=== PATIENT | male | born 1950 | race Caucasian/White ===

== ENCOUNTER → 2017-07-31 | Day surgery (SDC) | payer BC, OTHER ==
[2017-07-28 08:23] VITALS: BMI 25.0
[~2017-07-31] VITALS: Ht 177.8 cm; Wt 79.5 kg
[~2017-07-31] MED LIST: ALBUTEROL 0.083% NEBU SOLN 3 ML VIAL INH STA; ASPI81TA28 PO; ATROPINE SULFATE 0.1 MG/ML 5ML SYR IV PRN; DEXAMETHASONE SOD INJ 4 MG/ML VIAL ONE; EpHEDrine SULFATE INJ 50 MG/ML AMP IV PRN; EpHEDrine SULFATE INJ 50 MG/ML AMP ONE; FENTANYL CITRATE INJ 50 MCG/1 ML 2 ML VIAL ONE; FLM4 PO; FLUMAZENIL 0.1 MG/1 ML 10 ML VIAL IV PRN; LABETALOL HCL IV 5 MG/ML 20ML IV PRN; LACTATED RINGER'S 1000ML 1,000 ML IV SCH; LARYING-O-JET KIT (LTA) ONE; LEVO-519 PO; LIDOCAINE HCL 2% 2 ML VIAL (20MG/ML) ONE; LVNIS80 SQ; MIDAZOLAM HCL 1 MG/ML 2ML VIAL ONE; MIRT15TA53 PO; NALOXONE HCL 0.4 MG/1 ML VIAL/CARP IV PRN; ONDANSETRON INJ 2 MG/ML 2 ML VIAL IV PRN; ONDANSETRON INJ 2 MG/ML 2 ML VIAL ONE; PHENYLEPHRINE HCL INJ 10 MG/ML VIAL ONE; PROMETHAZINE HCL INJ 12.5 MG in SODIUM CHLORIDE 0.9% 50ML 50 ML IV PRN; PROPOFOL IV EMULSION 10 MG/ML 20 ML VIAL IV ONE; SUCCINYLCHOLINE CHLORIDE 20 MG/ML 10 ML VIAL IV ONE; VNTHFA/IN
--- NOTE | 2017-07-31 09:33 | History and Physical ---
History & Physical Date of Service Jul 31, 2017. History & Physical Reason for Visit: Endobronchial Ultrasound with Electronavigational bronchoscopic evaluation of RUL spiculated mass surrounded by groudglass opacities HPI: Patient is a 66 yo male with approximately 100 pack-year history along with history of squamous cell oropharyngeal cancer s/p chemoradiation in 2003, PVD on plavix, hypercholesterolemia, and recent diagnosis of a RUL spiculated mass surrounded by groudglass opacities. Patient was admitted to [facility] for concern of pulmonary embolism on 07/25/[address] Magdalene Larios. Prior to admission , the patient was treated with multiple courses of antibiotics due to concern for pneumonia on CXRs, but his symptoms did not improve which prompted CT of the chest. CT of the chest on 07/21/17 which showed thrombus in the proximal LLL pulmonary artery and RUL mass/ground glass opacity. The patient had recently experienced unintentional 10 lb weight loss as well prior to admission. He has been complaining of whitish colored sputum but no fever, chills, chest pain, shortness of breath, hemoptysis, lower extremity edema, orthopnea or paroxysmal nocturnal dyspnea. He denies any recent travel or sick contacts. He does have some difficulty swallowing solids foods which often gets stuck in his throat. PMHx: Squamous cell carcinoma of the oropharynx, tobacco use disorder, peripheral vascular disease Past Surgical Hx: Tonsilloadenoidectomy in childhood Family Hx: CAD Social Hx: 100 pack year history of tobacco smoking Daily alcohol use Retired Allergies: Naproxen, Nicotine (nicotine patch caused rash) Current Medications: Mirtazapine 15 mg PO HS, Plavix 75 mg PO QAM, Tamsulosin 0.4 mg daily, Synthroid 137 mcg PO QAM Physical Exam: General: Patient is awake, alert, cooperative, and in no acute distress. Thin Head: Normocephalic, Atraumatic. ENT: PERRLA, No discharge, EOMI, Sclera normal Neck: Normal ROM. Trachea midline. No stridor Respiratory: No respiratory distress. No accessory muscle use. Cardiovascular: Regular rate and rhythm. Back: Normal inspection. Extremities: No edema, cyanosis. Normal ROM Neuro: Alert, Oriented x 3. CN II-XII grossly intact. Sensation and motor function grossly intact. Psych: Mood and affect are normal. Assessment and Plan: Patient with history of oropharyngeal squamous cell CA s/p chemoradiation tx in 2003, 100 pack year history of tobacco smoking, and new RUL spiculated mass with groudglass opacity in the surrounding area. Plan for RUL EBUS w/ ENB today for diagnostic evaluation.
[2017-07-31 09:49] VITALS: BP 163/72; PULSE 72; TEMP 36.6; O2SAT 98; Ht 177.8 cm; Wt 79.5 kg
--- NOTE | 2017-07-31 10:53 | History & Physical Bridge Note ---
H&P Re-Evaluation Bridge Note: I have examined the patient, reviewed the History & Physical and in the interval since the performance of the History & Physical I have noted the following changes of clinical significance: No changes noted
--- NOTE | 2017-07-31 14:08 | Bronchoscopy Procedure Note ---
Bronchoscopy Procedure Note Procedure: Flexible-Bronchoscopy, EBUS, FNA, Tbbx, BAL Consent: Obtained through the patient placed into the chart Pre-Procedural Dx: Right upper lobe mass with mediastinal adenopathy Post-Procedural Dx: Right upper lobe mass with mediastinal adenopathy Analgesia: GETA Sedation: GETA Procedure: The Olympus video bronchoscope and EBUS scope were used for this procedure Initially the flexible bronchoscope was used for evaluation of the airways. The ET tube was notably 6 cm above the level of the yuridia. Trachea: Visualized portion of the trachea was anatomically within normal limits Yuridia: Anatomically within normal limits Right bronchial tree: Right mainstem bronchus: Anatomically within normal limits Right upper lobe: RB3 subsegment notable necrotic/hypervascular tissue coming out of the subsegment, mild hypervascularity around the takeoff to the right upper lobe Bronchus intermedius: Anatomically within normal limits Right middle lobe: Anatomically within normal limits Right lower lobe: Anatomically within normal limits Findings: Notable necrotic/tumor material coming out of the RB3 subsegment diffuse mucus appreciates wall subsegment's Left bronchial tree: Left mainstem bronchus: Anatomically within normal limits Left upper lobe: Anatomically within normal limits Lingula: Anatomically within normal limits Left lower lobe: Anatomically within normal limits Findings: Diffuse mucous appreciated 12 subsegment's EBUS/ELIESER: FNA Bo Stations: 7: # of passes 3 4R: # of passes 3 11L: # of passes 3 Tbbx: RB3 subsegment BAL: RB3 subsegment EBL: 2 Complications: None Follow-up: PACU
--- NOTE | 2017-07-31 14:09 | Discharge Instructions ---
Discharge Instructions Date of Service Jul 31, 2017. Admission Reason for Admission: Left Lung Nodule, Lung Mass Discharge Discharge Diagnosis / Problem: right upper lobe mass with mediastinal adenopathy Discharge Goals Goal(s): Diagnostic testing Activity Recommendations Activity Limitations: resume your previous activity . Instructions / Follow-Up Instructions / Follow-Up Follow-up in the [facility] pulmonary division Current Hospital Diet Patient's current hospital diet: Regular Diet Discharge Diet Recommended Diet: Regular Diet Procedures Procedures Performed: Flexible Bronchoscopy, Endobronchial Ultrasound Guided Biopsy; forcep biopsy, bronchial lavage and fine needle aspiration Pending Studies Studies pending at discharge: no Medical Emergencies . Who to Call and When: Medical Emergencies: If at any time you feel your situation is an emergency, please call 911 immediately. . Non-Emergent Contact Non-Emergency issues call your: [employer] . . "Provider Documentation" section prepared by Rome Soni. . VTE Core Measure Inpt VTE Proph given/why not?: Treatment not indicated
[2017-07-31 14:37] VITALS: PULSE 79; O2SAT 100
--- NOTE | 2017-07-31 14:58 | Anesthesiology Progress Note ---
Anesthesia Post Op Note Date & Time Jul 31, 2017 at 14:57 Vital Signs Pain Intensity: 0 Vital Signs Past 12 Hours Date Time Temp Pulse Resp B/P (MAP) Pulse Ox O2 Delivery O2 Flow Rate FiO2 07/31/17 14:45 36.2 78 18 112/78 94 Room Air 07/31/17 14:37 79 16 100 Mask 07/31/17 14:35 78 14 147/90 100 Oxymask 07/31/17 14:25 80 20 149/92 100 Oxymask 07/31/17 14:16 36.0 83 16 141/86 100 Oxymask 10 07/31/17 09:49 36.6 72 18 163/72 (102) 98 Room Air Notes Mental Status: alert / awake / arousable, participated in evaluation Pt Amnestic to Procedure: Yes Nausea / Vomiting: adequately controlled Pain: adequately controlled Airway Patency, RR, SpO2: stable & adequate BP & HR: stable & adequate Hydration State: stable & adequate Anesthetic Complications: no major complications apparent
[2017-07-31 15:02] VITALS: BP 142/82; PULSE 77; TEMP 36.3; O2SAT 93
[2017-07-31 15:28] VITALS: BP 126/68; PULSE 72; O2SAT 95
[2017-07-31 15:50] VITALS: BP 126/78; PULSE 81; TEMP 36.4; O2SAT 93
== END | disposition home or self-care (01) ==
LOC: C.ACU 08:30
PROVIDERS: ATTEND Internal Medicine Critical Care Medicine
DX: C34.11 Malignant neoplasm of upper lobe, right bronchus or lung (principal); R59.0 Localized enlarged lymph nodes; J44.9 Chronic obstructive pulmonary disease, unspecified; I73.9 Peripheral vascular disease, unspecified; E78.00 Pure hypercholesterolemia, unspecified; R63.4 Abnormal weight loss; F17.200 Nicotine dependence, unspecified, uncomplicated; Z85.818 Personal history of malignant neoplasm of other sites of lip, oral cavity, and pharynx; Z68.25 Body mass index [BMI] 25.0-25.9, adult; Z90.89 Acquired absence of other organs; Z79.899 Other long term (current) drug therapy; Z79.02 Long term (current) use of antithrombotics/antiplatelets; Z86.718 Personal history of other venous thrombosis and embolism; Z86.711 Personal history of pulmonary embolism

== ENCOUNTER → 2017-07-31 | Outpatient (CLI) | payer BC ==
[~2017-07-31] MED LIST changes: -ALBUTEROL 0.083% NEBU SOLN 3 ML VIAL INH STA; -ATROPINE SULFATE 0.1 MG/ML 5ML SYR IV PRN; -DEXAMETHASONE SOD INJ 4 MG/ML VIAL ONE; -EpHEDrine SULFATE INJ 50 MG/ML AMP IV PRN; -EpHEDrine SULFATE INJ 50 MG/ML AMP ONE; -FENTANYL CITRATE INJ 50 MCG/1 ML 2 ML VIAL ONE; -FLUMAZENIL 0.1 MG/1 ML 10 ML VIAL IV PRN; -LABETALOL HCL IV 5 MG/ML 20ML IV PRN; -LACTATED RINGER'S 1000ML 1,000 ML IV SCH; -LARYING-O-JET KIT (LTA) ONE; -LIDOCAINE HCL 2% 2 ML VIAL (20MG/ML) ONE; -MIDAZOLAM HCL 1 MG/ML 2ML VIAL ONE; -NALOXONE HCL 0.4 MG/1 ML VIAL/CARP IV PRN; -ONDANSETRON INJ 2 MG/ML 2 ML VIAL IV PRN; -ONDANSETRON INJ 2 MG/ML 2 ML VIAL ONE; -PHENYLEPHRINE HCL INJ 10 MG/ML VIAL ONE; -PROMETHAZINE HCL INJ 12.5 MG in SODIUM CHLORIDE 0.9% 50ML 50 ML IV PRN; -PROPOFOL IV EMULSION 10 MG/ML 20 ML VIAL IV ONE; -SUCCINYLCHOLINE CHLORIDE 20 MG/ML 10 ML VIAL IV ONE
--- NOTE | 2017-07-31 09:01 | DIAGNOSTIC IMAGING REPORT ---
PET/CT SKULL-THIGH CLINICAL HISTORY: PULMONARY NODULE history of head and neck carcinoma COMPARISON STUDY: Outside chest CT dated 07/21/2017 FINDINGS: The patient was injected with 13.4 mCi of F 18 labeled FDG. Following the standard induction phase, PET/CT scanning was performed from the skull base to the upper thigh region. There is slight asymmetry in the activity involving the posterior aspect of the right submandibular gland. There is no corresponding CT abnormality, this finding is of questionable clinical significance. There is no pathologic dwight activity within neck. There is a right upper lobe airspace opacity/mass which is FDG avid with an SUV maximum of 3.5. There is an FDG avid right hilar lymph node/mass measuring 16 mm. This has an SUV maximum of 5.1. There are no FDG avid mediastinal lymph nodes. There is underlying pulmonary emphysema. There are no pleural effusions. Within the abdomen, there is physiologic urinary tract and bowel activity. There are no FDG avid hepatic or adrenal lesions. There is a 56 mm infrarenal abdominal aortic aneurysm status post aortobiiliac stent grafting. There is no pathologic dwight activity within the abdomen or pelvis. There are postsurgical changes present within the lumbar spine. There are no FDG avid skeletal lesions to indicate skeletal metastasis. IMPRESSION: 1. FDG avid right upper lobe airspace opacity/mass measuring 7 cm. This could represent a pneumonia (possibly postobstructive), or neoplasm. 2. 16 mm FDG avid right hilar lymph node/mass. 3. Bronchoscopic evaluation is recommended to help differentiate an infectious from neoplastic process. 4. Emphysema 5. No evidence of hepatic or adrenal metastasis Electronically signed by: Jose Dominguez M.D. 07/31/2017 9:00 AM Dictated Date/Time: 07/31/2017 8:45 AM
== END | disposition home or self-care (01) ==
LOC: C.PET 06:35
PROVIDERS: ATTEND Physician Assistant
DX: R91.1 Solitary pulmonary nodule (principal); I26.99 Other pulmonary embolism without acute cor pulmonale; Z72.0 Tobacco use; Z85.819 Personal history of malignant neoplasm of unspecified site of lip, oral cavity, and pharynx

== ENCOUNTER 2017-09-06 05:25 | Inpatient (IN) | payer BC, OTHER ==
[2017-08-30 16:06] VITALS: BMI 24.0
[2017-09-06] VITALS (9 sets, daily range): BP systolic 110–158; BP diastolic 66–90; PULSE 66–77; TEMP 36.4–37; O2SAT 95–100; Ht 180.3 cm; Wt 79.5 kg
[~2017-09-06] VITALS: Ht 180.3 cm; Wt 79.5 kg
[~2017-09-06 05:25] MED LIST changes: -ASPI81TA28 PO; +ATORVASTIN PO; +ENOX80IN SQ; +FLUT1INH INH; +IBUP-103 PO; -LVNIS80 SQ; +MELA1TAB5 PO; -VNTHFA/IN
[2017-09-06] MEDS ORDERED: LACTATED RINGER'S 1000ML 1,000 ML IV SCH (06:00)
[2017-09-06] MEDS ORDERED: PROPOFOL IV EMULSION 10 MG/ML 20 ML VIAL IV ONE (06:33)
[2017-09-06] MEDS ORDERED: FENTANYL CITRATE INJ 50 MCG/1 ML 2 ML VIAL ONE ×2 (06:33→11:47)
[2017-09-06] MEDS ORDERED: DEXAMETHASONE SOD INJ 4 MG/ML VIAL ONE (06:33)
[2017-09-06] MEDS ORDERED: ONDANSETRON INJ 2 MG/ML 2 ML VIAL ONE (06:33)
[2017-09-06] MEDS ORDERED: ROCURONIUM BROMIDE 10 MG/ML 5 ML VIAL IV ONE ×2 (06:33→11:12)
[2017-09-06] MEDS ORDERED: LIDOCAINE HCL 2% 2 ML VIAL (20MG/ML) ONE (06:33)
[2017-09-06] MEDS ORDERED: MIDAZOLAM HCL 1 MG/ML 2ML VIAL ONE (06:33)
[2017-09-06] MEDS ORDERED: SODIUM CHLORIDE 0.9% INJ 10 ML VIAL ONE (06:46)
[2017-09-06] MEDS ORDERED: SODIUM CHLORIDE 0.9% PF 50 ML VIAL ONE (06:53)
[2017-09-06] MEDS ORDERED: BUPIVACAINE LIPOSOME 1/3% 266 MG/20 ML VIAL INFIL ONE (06:53)
[2017-09-06] MEDS ORDERED: CEFAZOLIN SOD 1 GM VIAL ONE (07:25)
[2017-09-06] MEDS ORDERED: HYDROmorphone INJ 2 MG/ML SYR/VIAL IV PRN (08:00)
[2017-09-06] MEDS ORDERED: LABETALOL HCL IV 5 MG/ML 20ML IV PRN (08:00)
[2017-09-06] MEDS ORDERED: ONDANSETRON INJ 2 MG/ML 2 ML VIAL IV PRN ×2 (08:00→12:15)
[2017-09-06] MEDS ORDERED: ATROPINE SULFATE 0.1 MG/ML 5ML SYR IV PRN (08:00)
[2017-09-06] MEDS ORDERED: SURGICEL ABSORB HEMOSTAT 2IN X 14IN TOP ONE ×2 (08:45→10:24)
[2017-09-06] MEDS ORDERED: ALBUMIN HUMAN 5% 12.5 GM/250 ML VIAL IV ONE (08:46)
[2017-09-06] MEDS ORDERED: EpHEDrine SULFATE 50MG/5ML SYR ONE (08:54)
[2017-09-06] MEDS ORDERED: PHENYLEPHRINE HCL INJ 10 MG/ML VIAL ONE (08:54)
[2017-09-06] MEDS ORDERED: PHENYLEPHRINE 100MCG/ML 5ML SYR ONE (08:54)
[2017-09-06] MEDS ORDERED: NON-FORMULARY MEDICATION (Melatonin (Kp Melatonin) 1 TAB) PO PRN (12:15)
[2017-09-06] MEDS ORDERED: OXYCODONE HCL IR 5 MG TAB (IMMEDIATE RELEASE) PO PRN (12:15)
[2017-09-06] MEDS ORDERED: MoRPHine SULFATE 2 MG/ML CARP IV PRN (12:15)
[2017-09-06] MEDS ORDERED: ALBUTEROL 0.083% NEBU SOLN 3 ML VIAL INH STA (12:23)
[2017-09-06] MEDS ORDERED: GLYCOPYRROLATE INJ 0.2 MG/ML VIAL ONE (12:34)
[2017-09-06] MEDS ORDERED: NEOSTIGMINE METHYLSULFATE 5 MG/5 ML SYR ONE (12:34)
--- NOTE | 2017-09-06 12:58 | Anesthesiology Progress Note ---
Anesthesia Post Op Note Date & Time Sep 06, 2017 at 12:58 Vital Signs Pain Intensity: 0 Vital Signs Past 12 Hours Date Time Temp Pulse Resp B/P (MAP) Pulse Ox O2 Delivery O2 Flow Rate FiO2 09/06/17 12:46 68 20 100 Mask 10.0 09/06/17 12:45 68 20 117/75 100 Oxymask 10 09/06/17 12:35 69 19 117/76 100 Oxymask 10 09/06/17 12:25 36.0 74 16 89/61 (64) 100 Oxymask 10 09/06/17 05:54 36.4 66 16 130/79 97 Room Air Notes Mental Status: alert / awake / arousable, participated in evaluation Pt Amnestic to Procedure: Yes Nausea / Vomiting: adequately controlled Pain: adequately controlled Airway Patency, RR, SpO2: stable & adequate BP & HR: stable & adequate Hydration State: stable & adequate Anesthetic Complications: no major complications apparent
--- NOTE | 2017-09-06 13:00 | DIAGNOSTIC IMAGING REPORT ---
CHEST ONE VIEW PORTABLE HISTORY: Postop. Right upper lobectomy. COMPARISON: Chest 07/24/2017. FINDINGS: Right-sided chest tube terminates within the right upper lung zone. Right-sided pneumothorax with a maximal pleural gap of 2 cm. Volume loss within the right hemithorax is due to the postoperative change. Mild interstitial thickening within the left lung. The heart remains borderline enlarged. Right paratracheal/mediastinal soft tissue thickening favors the postoperative change. There are suture material within the right hilum. Trace right apical subcutaneous emphysema. IMPRESSION: 1. Postoperative changes within the right hemithorax with a small right pneumothorax. Right chest tube is in good position. 2. Mild interstitial thickening within the left lung. Electronically signed by: Enrrique Capps M.D. 09/06/2017 12:59 PM Dictated Date/Time: 09/06/2017 12:58 PM
--- NOTE | 2017-09-06 13:54 | OPERATIVE REPORT ---
DATE OF OPERATION: 09/06/2017 PREOPERATIVE DIAGNOSIS: Squamous cell carcinoma right upper lobe. POSTOPERATIVE DIAGNOSIS: Same. PROCEDURE: 1. Robotic assisted thoracoscopic right upper lobectomy. 2. Mediastinal lymphadenectomy. SURGEON: Dr. Skelton. TAPPER BIT: Tobi Dawson PA-C. (Mr. Dawson was present in the case for its entirety. He was at the bedside while I was at the console and manned the camera while we were opening. He closed the incisions at the end. He was instrumental as a list of first job ideas.) ANESTHESIA: General anesthesia with endotracheal intubation using double lumen tubes. SPECIFICS OF PROCEDURE: The patient arrived at the hospital on 09/06/2017. He has a known history of squamous cell carcinoma and does not appear to have metastatic disease. General anesthesia was induced and endotracheal intubation was performed with a double lumen tube and appropriate monitoring lines were placed. He was turned in left lateral decubitus position. His right chest was prepped and draped in the usual sterile fashion. Five separate ports were placed, 4 in the 8th interspace and 1 porcelain buildup assistant's port 2 interspaces below this. Upon entering it could be seen that he had pretty significant adhesions between his right upper lobe and the chest wall. They did not appear to be tissue ingrowth but were simply adhesions and I took these down meticulously using the robot. Care was taken to avoid injury to the subclavian and the phrenic nerve. The lung was then retracted anteriorly and the posterior mediastinum was inspected. I dissected out a level 8 node and coming up under the azygous vein I had a large packet of level 7 nodes. This bled rather profusely and we had to clip this and cauterize it. We then packed it with Surgicel and attention was then turned towards the anterior aspect. There were adhesions in the anterior mediastinum which were taken down. Again these were rather dense. The vein draining the rather small right middle lobe was noted and I dissected this out distally and then fired Endo-ROXI stapler across the superior pulmonary vein draining the right upper lobe. This was done just above the confluence of the middle lobe vein. We then dissected out a packet of lymph nodes between the artery and the vein and came upon a large apical anterior branch which was taken down and an Endo-ROXI stapler was fired. There was also 2 other branches, one was clipped with a large clip and the other was stapled. This appeared to be the posterior ascending branch. I then got around the bronchus without difficulty although there were a large amount of lymph nodes, they did did not appear to be too adherent. Endo-ROXI stapler was fired across this. Attention was then turned towards the fissures. We started from medial and went laterally laying the stapler on top of the artery and firings across the fissure between the upper lobe and the middle lobe and then the lower lobe and the upper lobe. An Endobag was then used and pulling this down through the porcelain buildup assistant's port this had to be lengthened and then this was delivered off the field. The bronchial margin was negative for carcinoma. We then took out the level 2 and level 4 nodes. We had taken out multiple level 10, level 11, level 12, as well as the level 7 and level 8. He tolerated it well. His lungs expanded nicely. A chest tube was placed in the anterior thoracoscopy port with a very small air leak. It was sutured in place with heavy silk suture. 0 Vicryl was used to close the muscle layers and the bigger thoracoscopy ports and the porcelain buildup assistant's port. 4-0 Monocryl was used in a running subcuticular fashion to approximate the wound edges. Exparel 266 mg and 20 mL of solution was mixed with 40 mL of saline for 60 mL total and then was injected from the 2nd to the 11th rib filling the interspace for intercostal block intrathoracically. The patient was comfortable upon awakening. He tolerated this procedure quite well. I attest to the content of the Intraoperative Record and any orders documented therein. Any exceptions are noted below. KEND
--- NOTE | 2017-09-06 14:00 | NUR ---
ID: Pt to floor at this time, lives at home with . states he "spends his days at the club" and drinks 5+ drinks/day. D/c plans uncertain at this time.
--- NOTE | 2017-09-06 14:00 | NUR ---
A: Pt arrived to floor at this time, pt lethargic/only shaking head "yes and no" in response to my questions, restless in bed/constantly moving around, crackles noted in right upper/right middle lobes, all other lobes diminished on 2L. I requested him to perform triflow and he responded "I'm not ready". No edema/pulses WNL. Denies N/T, N/V. Has yet to void, IVF Infusing as ordered. On a regular/mechanical ground diet per request- states pt has trouble swallowing. 5x sites to right midaxillary/right back area with 2x2/medipore. Chest tube to suction at 1230, to be put to H2O seal at 1630. Flowsheets in room w/ I&O, Vital signs. Call monreal within reach. Pt states he drinks 5 drinks/day, implemented intervention.
[2017-09-06] MEDS: CEFAZOLIN IV 2,000 MG in SYRINGE 0 ML IV SCH (16:12)
[2017-09-06] MEDS: ACETAMINOPHEN IV 1,000 MG in EMPTY BAG 0 ML IV SCH (16:12)
[2017-09-06] MEDS: METOCLOPRAMIDE HCL INJ 5 MG/ML 2 ML VIAL IV. SCH (16:12)
[2017-09-06] MEDS: ERYTHROMYCIN OP OINT 5 MG/GM 3.5 GM TUBE OP SCH ×2 (16:13→20:41)
--- NOTE | 2017-09-06 16:15 | Anesthesiology Progress Note ---
Anesthesia Progress Note Date of Service Sep 06, 2017. Progress Notes Called from floor because patient is complaining of irritation of his right eye. Does look a little irritated and is tearing. Reminded him to try to avoid rubbing or scratching at his eye and wrote for some erythromycin ointment. Otherwise he is doing well, breathing comfortably and not complaining of pain.
[2017-09-06] MEDS ORDERED: ATOR-24 PO (17:03)
[2017-09-06] MEDS ORDERED: LORAZEPAM 2 MG/ML 1 ML VIAL IV PRN (19:00)
[2017-09-06] MEDS: D5W AND 1/2NSS 1,000 ML IV SCH ×2 (19:14→22:13)
--- NOTE | 2017-09-06 20:17 | Medical Consult ---
Consultation Date of Consultation: Sep 06, 2017. Attending Physician: John Skelton MD Reason for Consultation: Post Op Medical Management History of Present Illness 66 year old male who approximately one month ago underwent CT scan of the chest for evaluation of non improving symptoms from a suspected pneumonia. CT scan showed RUL mass and pulmonary embolism. Patient was initially admitted to the hospital 07/24-07/25 and started on therapeutic dosed Lovenox. He underwent bronchoscopy as an outpatient and pathology showed squamous cell carcinoma. Patient presented today for planned robotic assisted thoracoscopy with RUL lobectomy and mediastinal lymphadenectomy. Post operatively the patient is doing well. His pain is well controlled. He denies shortness of breath or chest pain. He is coughing with a little hemoptysis. No lightheadedness or dizziness. He denies abdominal pain or nausea. He has not voided since surgery. Past Medical/Surgical History Medical Problems: (1) Abdominal aortic aneurysm Permanent Comment: s/p endovascular repair Status: Chronic (2) Carotid artery disease Permanent Comment: 2011- Right carotid artery duplex examination indicates evidence of 50-69% stenosis of the internal carotid artery. 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 Surgical Problems: (1) H/O arthroscopy of shoulder Status: Chronic (2) History of back surgery Status: Chronic (3) Hx of tonsillectomy Status: Chronic Family History FH: CAD (coronary artery disease) FATHER MOTHER Social History Smoking Status: Former Smoker (quit 2 days ago, was smoking 2PPD for most of his life) Alcohol Use: 4 beers/day Allergies Coded Allergies: Naproxen (Unverified Allergy, Unknown, ITCHY, 09/06/17) Nicotine (Verified Allergy, Unknown, Rash -- from nicotine patch, 09/06/17 ) Home Medications Lipitor (Atorvastatin Calcium) 40 Mg Tab 1 Tab PO DAILY 30 Days Advil (Ibuprofen) 200 Mg Tab 400 Mg PO PRN Breo Ellipta (Fluticasone Furoate-Vilanterol) 1 Inh Inh 1 Puff INH QAM PRN Kp Melatonin (Melatonin) 3 Mg Tab 1 Tab PO HS PRN 30 Days Lovenox (Enoxaparin Sodium) 80 Mg/0.8 Ml Inj 80 Mg SQ Q12H Mirtazapine 15 Mg Tab 15 Mg PO HS Tamsulosin HCl 0.4 Mg Cap 0.4 Mg PO QAM LAST DOSE 08/30/17 PER SPOUSE Synthroid (Levothyroxine Sodium) 137 Mcg Tab 137 Mcg PO QAM Current Inpatient Medications Current Inpatient Medications Medications (Trade) Dose Ordered Sig/Vanessa Route Start Time Stop Time Status Last Admin Dose Admin Lactated Ringer's 1,000 ml @ 15 mls/hr Q24H IV 09/06/17 06:00 09/07/17 05:59 09/06/17 06:20 15 MLS/HR Levothyroxine Sodium (Synthroid Tab) 137 mcg DAILYBB PO 09/07/17 06:00 10/07/17 05:59 Tamsulosin HCl (Flomax Cap) 0.4 mg QAM PO 09/07/17 09:00 10/07/17 08:59 Miscellaneous Information (Order Awaiting Action) 1 ea QS N/A 09/06/17 16:00 10/06/17 15:59 Mirtazapine (Remeron Tab) 15 mg HS PO 09/06/17 21:00 10/06/17 20:59 Acetaminophen 1000 mg/Empty Bag 100 ml @ 400 mls/hr Q8H IV 09/06/17 16:00 10/06/17 12:14 09/06/17 16:12 400 MLS/HR Oxycodone HCl (Roxicodone Immediate Rel Tab) 5 mg Q6H PRN PO 09/06/17 12:15 09/20/17 12:14 Enoxaparin Sodium (Lovenox Inj) 40 mg DAILY SQ 09/07/17 09:00 10/07/17 08:59 UNV Dextrose/Sodium Chloride 1,000 ml @ 100 mls/hr Q10H IV 09/06/17 12:13 10/06/17 12:12 09/06/17 19:14 100 MLS/HR Ondansetron HCl (Zofran Inj) 4 mg Q4H PRN IV 09/06/17 12:15 10/06/17 12:14 Docusate Sodium (coLACE CAP) 100 mg BID PO 09/06/17 21:00 10/06/17 20:59 Cefazolin Sodium 2000 mg/Syringe 10 ml @ 2.5 mls/min Q8H IV 09/06/17 16:00 09/07/17 00:03 09/06/17 16:12 2.5 MLS/MIN Metoclopramide HCl (Reglan Inj) 10 mg Q8H IV. 09/06/17 16:00 09/07/17 08:01 09/06/17 16:12 10 MG Morphine Sulfate (MoRPHine SULFATE INJ) FOR PAIN, 1-2MG 1MG FOR P... Q1H PRN IV 09/06/17 12:15 09/20/17 12:14 Erythromycin (Erythromycin Oph Oint) 1 appln QID OP 09/06/17 17:00 09/16/17 16:59 09/06/17 16:13 1 APPLN Atorvastatin Calcium (Lipitor Tab) 40 mg QAM PO 09/07/17 09:00 10/07/17 08:59 Thiamine HCl (Vitamin B-1 Tab) 100 mg DAILY PO 09/06/17 19:45 10/06/17 19:44 Lorazepam (Ativan Inj) 1 mg ONE PRN IV 09/06/17 19:00 Multivitamins (Multivitamin Tab) 1 tab QAM PO 09/06/17 19:00 10/06/17 18:59 Folic Acid (Folvite Tab) 1 mg QAM PO 09/06/17 19:00 10/06/17 18:59 Review of Systems ROS per HPI, all other systems reviewed and negative Physical Exam Date Time Temp Pulse Resp B/P (MAP) Pulse Ox O2 Delivery O2 Flow Rate FiO2 09/06/17 20:00 37.0 68 17 115/66 (82) 98 Room Air 09/06/17 16:59 36.9 67 17 136/90 (105) 95 Room Air 09/06/17 16:05 Room Air 09/06/17 16:00 36.6 70 17 136/73 (94) 100 Nasal Cannula 2.0 09/06/17 14:51 36.5 77 19 158/86 (110) 97 Nasal Cannula 2.0 09/06/17 14:28 36.4 74 18 110/72 (85) 100 Nasal Cannula 2.0 09/06/17 14:00 36.6 72 16 115/76 (89) 98 Nasal Cannula 2.0 09/06/17 14:00 98 Nasal Cannula 2.0 09/06/17 13:45 72 17 126/79 99 Nasal Cannula 2 09/06/17 13:30 71 18 111/68 99 Nasal Cannula 2 09/06/17 13:15 70 22 119/70 99 Nasal Cannula 2 09/06/17 13:05 36.5 67 20 105/65 99 Nasal Cannula 2 09/06/17 12:55 80 17 105/66 100 Nebulizer 7 09/06/17 12:46 68 20 100 Mask 10.0 09/06/17 12:45 68 20 117/75 100 Oxymask 10 09/06/17 12:35 69 19 117/76 100 Oxymask 10 09/06/17 12:25 36.0 74 16 89/61 (64) 100 Oxymask 10 09/06/17 05:54 36.4 66 16 130/79 97 Room Air General Appearance: WD/WN, no apparent distress Head: normocephalic, atraumatic Eyes: normal inspection, EOMI, sclerae normal ENT: hearing grossly normal, + pertinent finding (mucous membranes moist) Neck: supple, no JVD, trachea midline Respiratory/Chest: no respiratory distress, + wheezing (expiratory, scattered throughout all lung stoll), + pertinent finding (right sided chest tube in place draining bloody drainage) Cardiovascular: regular rate, rhythm, no edema, normal peripheral pulses Abdomen/GI: normal bowel sounds, non tender, soft, no organomegaly Extremities/Musculoskelatal: normal inspection, no calf tenderness, normal capillary refill Neurologic/Psych: no motor/sensory deficits, alert, normal mood/affect, oriented x 3 Skin: normal color, warm/dry Assessment & Plan RUL SQUAMOUS CELL CARCINOMA S/P RUL LOBECTOMY / MEDIASTINAL LYMPHADENECTOMY - management as per thoracic surgery PULMONARY EMBOLISM - per Dr. Skelton - full anticoagulation likely can be resumed in 48h - has been on therapeutic dose Lovenox since PE/lung cancer diagnosis - pulmonary has been managing, may need to discuss with them if Lovenox is needed or if patient can bridged to Coumadin - noted history of DVT so will need lifelong anticoagulation PVD - per patient, when he had a DVT in the past and was on Coumadin, his vascular surgeon had him hold his ASA and Plavix; patient notified his vascular surgeon that he is on Lovenox and was told to hold on ASA and Plavix again - continue statin HYPOTHYROIDISM - continue levothyroxine DVT PROPHYLAXIS - SCDs per surgery Thank you for this consultation. We will follow the patient with you during their hospital stay. You can reach a [facility] of the [facility]04 via pager @ . Attending Addendum Pt was seen and examined. Agreed with Jenny exam, assessment and plan. Lucius Buchanan MD
[2017-09-06] MEDS: DOCUSATE SODIUM 100 MG CAP PO SCH (20:37)
[2017-09-06] MEDS: MIRTAZAPINE TAB 15 MG TAB PO SCH (20:37)
[2017-09-06] MEDS: MULTIVITAMIN TAB PO SCH (20:38)
[2017-09-06] MEDS: THIAMINE HCL 100 MG TAB PO SCH (20:38)
[2017-09-06] MEDS ORDERED: NURSING VERBAL MED ORDER ONE (22:30)
[2017-09-07] VITALS (8 sets, daily range): BP systolic 106–152; BP diastolic 68–89; PULSE 68–120; TEMP 36.6–37.4; O2SAT 92–98
[2017-09-07] MEDS: ACETAMINOPHEN IV 1,000 MG in EMPTY BAG 0 ML IV SCH ×4 (00:01→18:39)
[2017-09-07] MEDS: CEFAZOLIN IV 2,000 MG in SYRINGE 0 ML IV SCH (00:01)
[2017-09-07] MEDS: D5W AND 1/2NSS 1,000 ML IV SCH (04:41)
[2017-09-07] MEDS: LEVOTHYROXINE 137 MCG TAB PO SCH (06:05)
[2017-09-07 06:53] LABS: BASO % 0.3 %; BASO ABS # 0.02 K/uL (0-0.2); EOS % 0.4 %; EOS ABS # 0.03 K/uL (0-0.5); HEMATOCRIT 33.5 % (42-52); HEMOGLOBIN 11.2 g/dL (14.0-18.0); IG# 0.01 K/uL (0.00-0.02); LYMPH % 21.1 %; MEAN CELL VOLUME 97.7 fL (80-100); MEAN CORPUSCULAR HEMOGLOBIN 32.7 pg (25-34); MEAN CORPUSCULAR HGB CONC 33.4 g/dl (32-36); MEAN PLATELET VOLUME 9.2 fL (7.4-10.4); MONO % 8.1 %; MONO ABS # 0.61 K/uL (0.11-0.59); PLATELET COUNT 174 K/uL (130-400); RED CELL DISTRIBUTION WIDTH CV 15.7 % (11.5-14.5); RED CELL DISTRIBUTION WIDTH SD 56.1 fL (36.4-46.3); WHITE BLOOD COUNT 7.57 K/uL (4.8-10.8)
--- NOTE | 2017-09-07 07:14 | DIAGNOSTIC IMAGING REPORT ---
CHEST ONE VIEW PORTABLE HISTORY: 66 years-old Male RUL status post right upper lobectomy. History of lung cancer. COMPARISON: Chest radiographs 09/06/2017 TECHNIQUE: Portable upright AP view of the chest FINDINGS: Right-sided chest tube is unchanged terminating at the level of the right lung apex. The heart is again mildly enlarged. Right paratracheal mediastinal soft tissue prominence is unchanged and may be related to recent surgery. Surgical suture material projects over the right hilar region. Unchanged right apical pneumothorax, pleural separation 2.1 cm. Unchanged interstitial coarsening of the left lung. Moderate right hemidiaphragmatic elevation. Decreased subcutaneous emphysema adjacent to the right lung apex. IMPRESSION: Postoperative changes of the right hemithorax with stable positioning of right-sided chest tube and unchanged small right apical pneumothorax. The above report was generated using voice recognition software. It may contain grammatical, syntax or spelling errors. Electronically signed by: Maycol Partida M.D. 09/07/2017 7:13 AM Dictated Date/Time: 09/07/2017 7:10 AM
[2017-09-07 07:17] LABS: PTT PATIENT 28.5 SECONDS (21.0-31.0)
[2017-09-07 07:26] LABS: CALCIUM 8.2 mg/dl (8.5-10.1); CREATININE 0.87 mg/dl (0.60-1.40); POTASSIUM 3.7 mmol/L (3.5-5.1)
[2017-09-07] MEDS: METOCLOPRAMIDE HCL INJ 5 MG/ML 2 ML VIAL IV. SCH ×2 (07:40)
--- NOTE | 2017-09-07 08:29 | SURGERY PROGRESS NOTE ---
DATE: 09/07/2017 SUBJECTIVE: Mr. Domínguez was seen today. He is sitting up eating breakfast. He looks great. He is 1 day status post robotic-assisted thoracoscopic right upper lobectomy and mediastinal lymphadenectomy. He has been ambulating in the hallway. He is on room air with stable vital signs. His chest tube has put out a fair amount, 220 mL over the last shift, but it is becoming more serous. He has no air leak. I thought his chest x-ray looked quite good today. He is moving air well. He has a regular rate and rhythm of heart. His labs all looked quite good. ASSESSMENT AND PLAN: Postoperative day #1 status post robot-assisted thoracoscopic right upper lobectomy and mediastinal lymphadenectomy. We are going to stop his IV and ambulate him in the hallway more. I would probably remove his chest tube and let him be discharged tomorrow. He looks quite good.
[2017-09-07] MEDS: ERYTHROMYCIN OP OINT 5 MG/GM 3.5 GM TUBE OP SCH ×4 (08:36→20:33)
[2017-09-07] MEDS: DOCUSATE SODIUM 100 MG CAP PO SCH ×2 (08:37→20:34)
[2017-09-07] MEDS: TAMSULOSIN HCL 0.4 MG CAP PO SCH (08:38)
[2017-09-07] MEDS: ATORVASTATIN 40 MG TAB PO SCH (08:39)
[2017-09-07] MEDS: THIAMINE HCL 100 MG TAB PO SCH (08:40)
[2017-09-07] MEDS: MULTIVITAMIN TAB PO SCH (08:40)
[2017-09-07] MEDS: ENOXAPARIN 40 MG/0.4 ML SYR SQ SCH (09:52)
--- NOTE | 2017-09-07 11:42 | NUR ---
The patient has demonstrated progress toward goals and readiness for discharge as demonstrated by: Alert and oriented x 4. Heplocked. OOB independently. Chest tube to gravity at this time. Tolerating a regular mechanical soft diet and PO fluids. Voiding adequate amounts of urine. Pain controlled with ordered routine IV Tylenol. Plan is for patient to go home with no needs at discharge.
--- NOTE | 2017-09-07 13:06 | NUR ---
Case Management: Met with pt at bedside. Pt had just returned to his room from a walk. Pt was short of breath. He was 92% on room air. I did not ask him many questions since he was visibly short of breath. He plans to return home on discharge. He did not anticipate any needs. He lives with his . Case Management to follow.
--- NOTE | 2017-09-07 15:47 | NUR ---
[facility] At Risk Screen completed d/t chewing/swallowing difficulty trigger, see linked note. Level of care I. Addendum: 09/07/17 at [address] Amended: Links added.
[2017-09-07] MEDS: GUAIFENESIN 600 MG TABCR PO SCH ×2 (17:30→20:38)
--- NOTE | 2017-09-07 17:33 | Hospitalist Progress Note ---
Hospitalist Progress Note Date of Service Sep 07, 2017. (Jenny Durbin CRNP) Subjective Patient seen and examined. Sitting up on the edge of the bed. Overall feels well today. Reports pain is well controlled. Denies shortness of breath. No abdominal pain, nausea. Denies lightheadedness and dizziness. (Jenny Durbin CRNP) Objective Vital Signs Date Time Temp Pulse Resp B/P (MAP) Pulse Ox O2 Delivery O2 Flow Rate FiO2 09/07/17 15:45 Room Air 09/07/17 15:05 37.4 96 18 152/89 (110) 92 Room Air 09/07/17 10:20 36.8 75 16 115/68 (84) 96 Room Air 09/07/17 07:15 Room Air 09/07/17 07:15 36.6 80 16 119/73 (88) 96 Room Air 09/07/17 04:31 37.0 71 16 136/72 (93) 95 Room Air 09/07/17 02:04 37.0 79 16 121/71 (88) 97 Room Air 09/07/17 00:00 Room Air 09/07/17 00:00 36.7 68 17 143/76 (98) 98 Room Air 09/06/17 22:02 36.8 74 17 132/78 (96) 99 Room Air 09/06/17 20:00 37.0 68 17 115/66 (82) 98 Room Air (Jenny Durbin CRNP) Physical Exam General Appearance: WD/WN, no apparent distress Respiratory/Chest: + decreased breath sounds, + rhonchi (faint, scattered throughout all lung stoll), + pertinent finding (chest tube in place to right chest) Cardiovascular: regular rate, rhythm, no edema Abdomen: normal bowel sounds, non tender, soft Neurologic/Psychiatric: no motor/sensory deficits, alert, normal mood/affect, oriented x 3 Skin: normal color, warm/dry (Jenny Durbin CRNP) Laboratory Results Item Value Date Time Hemoglobin 11.2 g/dL L 09/07/17 0610 Hematocrit 33.5 % L 09/07/17 0610 White Blood Count 7.57 K/uL 09/07/17 0610 Platelet Count 174 K/uL 09/07/17 0610 Sodium Level 132 mmol/L L 09/07/17 0610 Potassium Level 3.7 mmol/L 09/07/17 0610 Blood Urea Nitrogen 9 mg/dl 09/07/17 0610 Creatinine 0.87 mg/dl 09/07/17 0610 (Jenny Durbin .GAYLE) Assessment and Plan RUL SQUAMOUS CELL CARCINOMA S/P RUL LOBECTOMY / MEDIASTINAL LYMPHADENECTOMY - management as per thoracic surgery PULMONARY EMBOLISM - discussed anticoagulation with Dr. Skelton - Coumadin will be started tomorrow without bridge - notified [facility] - patient has been controlled on Coumadin 5mg daily in the past; they will follow up with the patient next week for INR check PVD - per patient, when he had a DVT in the past and was on Coumadin, his vascular surgeon had him hold his ASA and Plavix; patient notified his vascular surgeon that he is on Lovenox and was told to hold on ASA and Plavix again - continue statin HYPOTHYROIDISM - continue levothyroxine DVT PROPHYLAXIS - SQ Lovenox per surgery (Jenny Durbin CRNP) Attending Addendum Pt was seen and examined. Agreed with Jenny assessment and plan MD Dewayne (Lucius Buchanan M.D.)
[2017-09-07] MEDS ORDERED: NURSING VERBAL MED ORDER ONE (18:45)
[2017-09-07] MEDS: MIRTAZAPINE TAB 15 MG TAB PO SCH (20:34)
[2017-09-08 00:53] VITALS: PULSE 90
[2017-09-08] MEDS ORDERED: ACETAMINOPHEN IV 1,000 MG in EMPTY BAG 0 ML IV SCH (03:00)
[2017-09-08] MEDS: LEVOTHYROXINE 137 MCG TAB PO SCH (05:32)
[2017-09-08 07:20] VITALS: BP 102/63; PULSE 94; TEMP 36.5; O2SAT 98
[2017-09-08] MEDS: THIAMINE HCL 100 MG TAB PO SCH (07:21)
[2017-09-08] MEDS: MULTIVITAMIN TAB PO SCH (07:21)
[2017-09-08] MEDS: ATORVASTATIN 40 MG TAB PO SCH (07:21)
[2017-09-08] MEDS: DOCUSATE SODIUM 100 MG CAP PO SCH (07:21)
[2017-09-08] MEDS: GUAIFENESIN 600 MG TABCR PO SCH (07:22)
[2017-09-08] MEDS: TAMSULOSIN HCL 0.4 MG CAP PO SCH (07:22)
[2017-09-08] MEDS: ERYTHROMYCIN OP OINT 5 MG/GM 3.5 GM TUBE OP SCH (07:24)
[2017-09-08] MEDS: ENOXAPARIN 40 MG/0.4 ML SYR SQ SCH (07:25)
--- NOTE | 2017-09-08 08:00 | NUR ---
ID: a/o x4. vss. denies need for pain medication at this time. oob independently. SL. VIT. tolerating regular mechanical soft diet. patient has chest tube to suction at time of initial assessment. dr ames currently in with patient to remove chest tube. d/c plan home today
[2017-09-08 08:16] LABS: HEMATOCRIT 33.5 % (42-52); HEMOGLOBIN 11.5 g/dL (14.0-18.0); MEAN CELL VOLUME 96.5 fL (80-100); MEAN CORPUSCULAR HEMOGLOBIN 33.1 pg (25-34); MEAN CORPUSCULAR HGB CONC 34.3 g/dl (32-36); PLATELET COUNT 200 K/uL (130-400); RED CELL DISTRIBUTION WIDTH CV 15.6 % (11.5-14.5); RED CELL DISTRIBUTION WIDTH SD 54.6 fL (36.4-46.3); WHITE BLOOD COUNT 9.91 K/uL (4.8-10.8)
[2017-09-08 08:45] LABS: CALCIUM 8.5 mg/dl (8.5-10.1); CREATININE 0.7 mg/dl (0.60-1.40); POTASSIUM 3.9 mmol/L (3.5-5.1)
[2017-09-08 09:03] VITALS: BP 102/63; PULSE 94; TEMP 36.5; O2SAT 98
[2017-09-08] MEDS ORDERED: RXC5 PO (09:11)
--- NOTE | 2017-09-08 09:14 | DIAGNOSTIC IMAGING REPORT ---
CHEST ONE VIEW PORTABLE HISTORY: 66 years-old Male chest tube removal status post chest tube removal. History of lung cancer and right upper lobectomy COMPARISON: Chest radiograph 09/07/2017 TECHNIQUE: Portable AP view of the chest FINDINGS: Heart is again mildly enlarged. Right paratracheal mediastinal soft tissue prominence is unchanged, likely related to recent surgery. Surgical suture material projects over the right hilar region. Somewhat linear subsegmental left basilar opacity suggests atelectasis or scarring. Decreased subcutaneous emphysema about the chest wall. Persistent right hemidiaphragmatic elevation. Status post removal of the right-sided chest tube with small persistent right apical pneumothorax with adjacent trace loculated fluid. Bones are grossly intact. IMPRESSION: Status post right-sided chest tube removal with persistent small right apical pneumothorax. The above report was generated using voice recognition software. It may contain grammatical, syntax or spelling errors. Electronically signed by: Maycol Partida M.D. 09/08/2017 9:12 AM Dictated Date/Time: 09/08/2017 9:07 AM
--- NOTE | 2017-09-08 09:16 | Discharge Instructions ---
Discharge Instructions Date of Service Sep 08, 2017. Admission Reason for Admission: Lung Cancer Discharge Discharge Diagnosis / Problem: right upper lobe lung cancer Discharge Goals Goal(s): Decrease discomfort (Use pain medications as instruccted.) Activity Recommendations Activity Limitations: as noted below Lifting Limitations: gradually increase as tolerated Exercise/Sports Limitations: gradually increase as tolerated May Resume Sexual Activity: when tolerated Shower/Bathe: may shower/bathe in 3 days Driving or Machine Use: No driving until I see you in the office. . Instructions / Follow-Up Instructions / Follow-Up Remove all dressings and shower on . Walk!! No driving until I see you in the office. Current Hospital Diet Patient's current hospital diet: Regular Diet Discharge Diet Recommended Diet: Regular Diet Procedures Procedures Performed: Robotic Assisted Right Thoracoscopy with Right Upper Lobectomy and Mediastinal Lymphadenectomy Pending Studies Studies pending at discharge: yes List of pending studies: Final pathology. Medical Emergencies . Who to Call and When: Medical Emergencies: If at any time you feel your situation is an emergency, please call 911 immediately. . Non-Emergent Contact Non-Emergency issues call your: Surgeon (Call [phone] Skelton for any issues.) . "Provider Documentation" section prepared by John Skelton. . VTE Core Measure Inpt VTE Proph given/why not?: Enoxaparin (Lovenox)SQ, SCD's
[2017-09-08] MEDS ORDERED: LORA-741 PO (09:21)
--- NOTE | 2017-09-08 09:56 | DISCHARGE SUMMARY ---
DATE OF DISCHARGE: 09/08/2017 DISCHARGE DIAGNOSES: Non-small cell lung carcinoma, right upper lobe. HOSPITAL COURSE: Mr. Domínguez is a 66-year-old male who was found to have a non-small cell lung carcinoma of his right upper lobe. He was admitted on 09/06/2017 and underwent uncomplicated robotic-assisted thoracoscopic right upper lobectomy with mediastinal lymphadenectomy. He did well with no air leak. He had some drainage from his chest tube, but this tapered down and was serous and I removed it on postop day 2. He is ambulating in the hallway. He is on room air. His labs look quite good. I have a couple of concerns about Mr. Domínguez. He was administrating himself Lovenox, it is bridge for pulmonary emboli that he suffered in the not too distant past. We are going to simply resume his Coumadin today. I discussed this with the patient's and with Jenny Durbin from medicine. In addition, he is a drinker, drinks 4-5 beers a day. He did not appear to be going through delirium tremens, but I do have some concerns. We are going to send him home with some Ativan and I explained this to his . I will see him back in the office next week to go over his final pathology. Our margins were negative and I was quite happy with how well he did.
== END 2017-09-08 09:43 | disposition home or self-care (01) | DRG 164 ==
LOC: C.ACU 05:25 → C.3E 06:50 → ENRESERV 12:55
PROVIDERS: ADMIT Surgery; ATTEND Surgery
PROC: 8E0W4CZ Robotic Assisted Procedure of Trunk Region, Percutaneous Endoscopic Approach (ICD-10-PCS; principal; 2017-09-06 07:30)
PROC: 07B74ZX Excision of Thorax Lymphatic, Percutaneous Endoscopic Approach, Diagnostic (ICD-10-PCS; principal; 2017-09-06 07:30)
PROC: 0BTC4ZZ Resection of Right Upper Lung Lobe, Percutaneous Endoscopic Approach (ICD-10-PCS; principal; 2017-09-06 07:30)
DX: C34.11 Malignant neoplasm of upper lobe, right bronchus or lung (principal); I27.82 Chronic pulmonary embolism; F10.10 Alcohol abuse, uncomplicated; I73.9 Peripheral vascular disease, unspecified; Z87.891 Personal history of nicotine dependence; Z85.89 Personal history of malignant neoplasm of other organs and systems; Z79.01 Long term (current) use of anticoagulants

== ENCOUNTER → 2017-09-14 | Outpatient (CLI) | payer BC ==
[~2017-09-14] MED LIST changes: +ATOR-24 PO; -ATORVASTIN PO; -ENOX80IN SQ; +LORA-741 PO; +RXC5 PO
--- NOTE | 2017-09-14 11:01 | DIAGNOSTIC IMAGING REPORT ---
CHEST 2 VIEWS ROUTINE CLINICAL HISTORY: LUNG MASS,SQUAMOUS CELL CARNINOMA OF LUNG COMPARISON STUDY: 09/08/2017 FINDINGS: Improved appearance to the right hilar and right para mediastinal regions. Bulky masslike configuration on the prior study is diminished although this potentially relates in part to improvement in patient positioning. Minimal residual right apical pneumothorax improved from the prior study. Chronic elevation right hemidiaphragm is similar. Left lung is considered clear. Chronic left apical fibrotic changes similar. IMPRESSION: 1. Moderately improved exam. 2. The right hilar and right mid perimediastinal soft tissue prominence is diminished although this improvement may be in part technical. 3. Minimal residual right apical pneumothorax improved from the prior study. The above report was generated using voice recognition software. It may contain grammatical, syntax or spelling errors. Electronically signed by: Helder Mcdowell M.D. 09/14/2017 11:00 AM Dictated Date/Time: 09/14/2017 10:57 AM
== END | disposition home or self-care (01) ==
LOC: C.RAD1850 10:42
PROVIDERS: ATTEND Surgery
DX: R91.8 Other nonspecific abnormal finding of lung field (principal); C34.90 Malignant neoplasm of unspecified part of unspecified bronchus or lung; R59.0 Localized enlarged lymph nodes

== ENCOUNTER → 2017-10-16 | Outpatient (CLI) | payer OTHER ==
[~2017-10-16] MED LIST changes: -LORA-741 PO
--- NOTE | 2017-10-16 11:02 | DIAGNOSTIC IMAGING REPORT ---
TWO VIEW CHEST CLINICAL HISTORY: Lung cancer.. FINDINGS: PA and lateral chest radiographs are compared to study dated 09/14/2017 and correlated with PET/CT dated 07/31/2017. The heart is normal in size. Right hilar prominence is similar to previous. There is atherosclerotic calcification of the thoracic aorta. Emphysema and chronic interstitial thickening are similar to previous. There is volume loss in the right lung consistent with previous surgical resection. Pleural fluid and opacities are again seen at the right lung base. The left lung is grossly clear. There is no pneumothorax. The skeletal structures are osteopenic. The bony thorax appears intact. IMPRESSION: 1. Emphysema and postoperative change from right-sided pulmonary resection. 2. Opacities and pleural fluid are again seen at the right lung base. 3. The left lung is grossly clear. Electronically signed by: Gregorio Tamez M.D. 10/16/2017 11:01 AM Dictated Date/Time: 10/16/2017 10:58 AM
== END | disposition home or self-care (01) ==
LOC: C.RAD1850 10:51
PROVIDERS: ATTEND Physician Assistant
DX: C34.90 Malignant neoplasm of unspecified part of unspecified bronchus or lung (principal); J43.9 Emphysema, unspecified

== ENCOUNTER 2018-10-03 08:54 | Inpatient (IN) ==
[2018-10-03] MEDS ORDERED: dilTIAZem HCl 125 MG in DEXTROSE 5% 100 ML IV SCH (09:15)
[2018-10-03] MEDS ORDERED: dilTIAZem HCl 5 MG/ML 5 ML VIAL IV STA ×2 (09:15→09:37)
[2018-10-03 09:26] LABS: Basophils # (auto) 0.06 K/uL (0-0.2); Basophils % (auto) 0.9 %; Eosinophils # (auto) 0.08 K/uL (0-0.5); Eosinophils % (auto) 1.2 %; Hematocrit (blood only) 39.4 % (42-52); Hemoglobin 13.3 g/dL (14.0-18.0); Immature Granulocytes # (auto) 0.01 K/uL (0.00-0.02); Immature Granulocytes % (auto) 0.2 %; Lymphocytes # (auto) 1.86 K/uL (1.2-3.4); Lymphocytes % (auto) 28.8 %; Mean Corpuscular Hgb Conc 33.8 g/dL (32-36); Mean Corpuscular Volume 93.6 fL (80-100); Mean Platelet Volume 10.7 fL (7.4-10.4); Monocytes # (auto) 0.64 K/uL (0.11-0.59); Monocytes % (auto) 9.9 %; Nucleated RBC # (auto) 0.03 K/uL (0-0); Nucleated RBC % (auto) 0.4 %; Platelet Count 207 K/uL (130-400); RDW Coefficient of Variation 15.3 % (11.5-14.5); RDW Standard Deviation 52.4 fL (36.4-46.3); Red Blood Count 4.21 M/uL (4.7-6.1); White Blood Count 6.45 K/uL (4.8-10.8)
--- NOTE | 2018-10-03 09:33 | Emergency Department Note ---
ED Provider Note I have seen and examined this patient with Dr. Lakhani and assisted in the care of this patient. Please see Dr. Lakhani's note for subjective and objective physical exam findings. Past Med/Surg History Social History Feels Safe at Home: Yes Results & Data Vital Signs Vital Signs - 24 hr 10/03/18 08:57 10/03/18 09:09 10/03/18 09:17 Temperature 36.4 C L Temperature Source Oral Sepsis Recent Fever Within 48 Hours No Sepsis Action Taken by Nursing No Action Required Pulse Rate 121 H 161 H Pulse Rhythm Regular Pulse Strength Normal Respiratory Rate 24 22 Respiratory Effort / Characteristics Non-Labored Respiratory Depth Normal Respiratory Pattern Regular Blood Pressure 114/74 130/103 H Blood Pressure Mean 87 112 Blood Pressure Position Sitting Pulse Oximetry 100 94 97 Oxygen Delivery Method Room Air Room Air 10/03/18 09:22 Temperature Temperature Source Sepsis Recent Fever Within 48 Hours Sepsis Action Taken by Nursing Pulse Rate 150 H Pulse Rhythm Pulse Strength Respiratory Rate 20 Respiratory Effort / Characteristics Respiratory Depth Respiratory Pattern Blood Pressure 124/97 Blood Pressure Mean 106 Blood Pressure Position Pulse Oximetry 100 Oxygen Delivery Method Laboratory Data Result diagrams: 10/03/18 09:10 10/03/18 09:10 Lab Results 10/03/18 10/03/18 Range/Units 09:10 09:10 WBC 6.45 (4.8-10.8) K/uL RBC 4.21 L (4.7-6.1) M/uL Hgb 13.3 L (14.0-18.0) g/dL Hct 39.4 L (42-52) % MCV 93.6 (80-100) fL MCH 31.6 (25-34) pg MCHC 33.8 (32-36) g/dL RDW Std Deviation 52.4 H (36.4-46.3) fL RDW Coeff of Debra 15.3 H (11.5-14.5) % Plt Count 207 (130-400) K/uL MPV 10.7 H (7.4-10.4) fL Immature Gran % (Auto) 0.2 % Neut % (Auto) 59.0 % Lymph % (Auto) 28.8 % Barbour % (Auto) 9.9 % Eos % (Auto) 1.2 % Baso % (Auto) 0.9 % Immature Gran # (Auto) 0.01 (0.00-0.02) K/uL Neut # (Auto) 3.80 (1.4-6.5) K/uL Lymph # (Auto) 1.86 (1.2-3.4) K/uL Barbour # (Auto) 0.64 H (0.11-0.59) K/uL Eos # (Auto) 0.08 (0-0.5) K/uL Baso # (Auto) 0.06 (0-0.2) K/uL Absolute Nucleated RBC 0.03 H (0-0) K/uL Nucleated RBC % (auto) 0.4 % CK/CKMB % Calc Not Reportable Administered Medications Discontinued Medications Diltiazem HCl (Cardizem) 20 mg IV NOW STA Stop: 10/03/18 09:16 Last Admin: 10/03/18 09:23 Dose: 20 mg Discharge Plan Visit Data Chief Complaint: Shortness of Breath/Dyspnea Stated Complaint: SOB,SYNCOPE ED Provider: Mika Lakhani ED Midlevel Provider: Helder Murry Prescriptions Prescriptions: No Action Levothyroxine Sodium (Synthroid) 137 MCG tablet 137 mcg PO QAM Qty: 0 RF: 0 Tamsulosin HCl 0.4 MG capsule 0.4 mg PO QAM Qty: 0 RF: 0 Mirtazapine 15 MG tablet 15 mg PO HS Qty: 0 RF: 0 FLUTICASONE FUROATE-VILANTEROL (BREO ELLIPTA) 1 INH inhaler 1 puff Inhalation QAM PRN (Reason: RN) Qty: 0 RF: 0 MELATONIN (KP MELATONIN) 3 MG tablet 1 tab PO HS PRN (Reason: PRN) 30 Days Qty: 30 RF: 0 Ibuprofen Tab (ADVIL) 200 MG tablet 400 mg PO PRN Qty: 0 RF: 0 ATORVASTATIN (LIPITOR) 40 MG tablet 1 tab PO DAILY 30 Days Qty: 30 RF: 5 Oxycodone HCl 5 MG tablet 5 mg PO Q6H PRN (Reason: Pain) 10 Days Qty: 40 RF: 0 Resident Activity Tracking Resident Involvement: Resident Care Provided Care Provided: Adult ED
[2018-10-03 09:41] LABS: Albumin Level 3.2 gm/dl (3.4-5.0); BUN Creatinine Ratio 16.5 (10-20); Calcium 8.5 mg/dl (8.5-10.1); Creatinine Clr Calc Pharmacy 56.7 ml/min; Est GFR (African American) 63.9; Est GFR (Non-African American) 55.2; Magnesium 2.3 mg/dl (1.8-2.4); Potassium 4.2 mmol/L (3.5-5.1); Prothrombin Time 47.4 Seconds (9.0-12.0)
[2018-10-03 09:43] LABS: INR 5.1 (0.9-1.1)
[2018-10-03 09:43] LABS: iSTAT Hemoglobin 14.3 g/dl (14.0-18.0); iSTAT Ionized Calcium 1.09 mmol/l (1.12-1.32)
[2018-10-03 10:08] LABS: Albumin Globulin Ratio 0.8 (0.9-2); Creatine Kinase MB 3.2 ng/ml (0.5-3.6); Globulin 3.9 gm/dl (2.5-4.0); Total Protein 7.1 gm/dl (6.4-8.2); Troponin I 0.1 ng/ml (0-0.045)
--- NOTE | 2018-10-03 10:18 | XRay Report ---
XR chest 1V portable CLINICAL HISTORY: tachycardia, Afib with svr COMPARISON STUDY: Chest CT March 27, 2018 and PET/CT April 18, 2018. FINDINGS: Postoperative findings within the right hemithorax with volume loss are again noted. There is elevation pf the right hemidiaphragm. Slight blunting of the right costophrenic angle is noted. A linear density projecting over the right upper lung likely reflects a displaced fissure. There is shan pected mild interstitial pulmonary edema. Cardiomediastinal silhouette is stable. There is a suspecte d trace bilateral pleural effusion. IMPRESSION: 1. Trace bilateral pleural effusions. 2. Pulmonary vascular congestion with suspected mild interstitial pulmonary edema. 3. Postoperative findings within the right hemithorax with volume loss. Electronically signed by: Vinay Marie M.D. 10/03/2018 10:16 AM
[2018-10-03 10:23] LABS: T4 Free Thyroxine 1.3 ng/dl (0.8-1.6)
[2018-10-03] MEDS ORDERED: IOVERSOL 100ml IV PRN (10:30)
[2018-10-03 10:34] LABS: Influenza A virus by PCR Neg for Influ A (Neg); Influenza B virus by PCR Neg for Influ B (Neg)
--- NOTE | 2018-10-03 10:55 | CT Scan Report ---
CT ANGIOGRAPHY OF THE CHEST, PULMONARY EMBOLUS PROTOCOL CLINICAL HISTORY: Tachycardia. Atrial fibrillation with rapid ventricular response. History of malign michael. COMPARISON STUDY: Chest CT March 27, 2018 and PET/CT April 18, 2018. TECHNIQUE: Following IV administration of Optiray-320, helical axial images of the chest were obtaine d utilizing the pulmonary embolus protocol. Maximal intensity projections and sagittal and coronal r eformats were viewed on an independent 3D workstation. IV contrast was administered without complica tion. Automated exposure control was utilized for the study. A dose lowering technique was utilized adhering to the principles of ALARA. CT DOSE: 650.77 mGycm FINDINGS: Note is made of a pulmonary embolus to the apicoposterior segment of the left upper lobe. Pulmonary arteries within the right lung are suboptimally assessed due to mixing artifact. The patien t status post right upper lobectomy. The heart is moderately enlarged. Extensive coronary artery calc ification is noted. Dilatation of the ascending aorta, measuring 4.7 cm, is unchanged since prior exa m. Moderate to large right pleural effusion is noted with a trace left pleural effusion. There is mil d anterior soft tissue pulmonary edema. Moderate emphysema within the left upper lobe is noted. There is an indeterminate 1.5 cm irregular subpleural opacity within the left upper lobe on image 263 of 3 33. Mildly enlarged right paratracheal lymph node measures 1.3 cm in short axis diameter. However, th is node contains a fatty hilum. A small amount of upper abdominal ascites is noted. There is reflux o f contrast into the hepatic veins and IVC. No suspicious osseous lesions are noted. IMPRESSION: 1. Several segmental pulmonary emboli within the left upper lobe. 2. Moderate to large right pleural effusion. Trace left pleural effusion. 3. Status post right upper lobectomy. Mildly enlarged right paratracheal lymph node however this node contains a fatty hilum. This node may be reactive/related to pulmonary edema but should be assessed on subsequent exams. 4. Indeterminate 1.5 cm irregular subpleural opacity within the left upper lobe. This can be assessed on subsequent exams. 5. Small amount of upper abdominal ascites. Reflux of contrast into the hepatic veins and IVC. The fi ndings may reflect right heart dysfunction. Electronically signed by: Vinay Marie M.D. 10/03/2018 10:53 AM
[2018-10-03] MEDS ORDERED: LEVALBUTEROL 1.25MG/0.5ML NEB NEB STA (11:51)
--- NOTE | 2018-10-03 12:44 | History & Physical Report ---
Date of Service October 03, 2018 Assessment & Plan (1) Atrial fibrillation with RVR: Patient reports for the last week he has been having intermittent shortness of breath with associated leg weakness and leg paresthesias with dizziness. Symptoms again last evening and continued with SOB today. Denies chest pain or palpitations. In ER: afebrile, P: 121-161, R: 24, BP: 114/74, 100% RA. Found to be in a-fib RVR. WBC: 6, Hgb: 13 (baseline 13-14), D-Dimer >450, INR: 5.1, magnesium: 2.3, troponin: 0.1, BNP: 16,206, TSH: 5.4 Was given cardizem 48mg total and started on cardizem drip with P down to high 90's to 116 and BP 99/71. -pending UA -pending blood cultures -pending echo -repeat EKG -continue cardizem drip -trend troponin -cardiology consult -cbc in am (2) Pulmonary embolism: H/O PE 07/2017. On coumadin since. Out patient records INR of 6 and 3.3 in 07/2018 and 3.4 on 09/20/2018. Today CTA Chest: 1. Several segmental pulmonary emboli within the left upper lobe. 2. Moderate to large right pleural effusion. Trace left pleural effusion. 3. Status post right upper lobectomy. Mildly enlarged right paratracheal lymph node however this node contains a fatty hilum. This node may be reactive/ related to pulmonary edema but should be assessed on subsequent exams. 4. Indeterminate 1.5 cm irregular subpleural opacity within the left upper lobe. This can be assessed on subsequent exams. 5. Small amount of upper abdominal ascites. Reflux of contrast into the hepatic veins and IVC. The findings may reflect right heart dysfunction. -pending echo to r/o right heart strain -pending doppler BLE to r/o DVT -INR: 5.1, monitor INR (3) Supratherapeutic INR: INR: 5.1. no active bleeding reported -monitor INR -hold coumadin for now (4) COPD (chronic obstructive pulmonary disease): (5) SOB (shortness of breath): Reported chronic cough of clear sputum with increased cough past couple of weeks. Intermittent SOB past week. Denies fever/chills, hemoptysis. Still smoking. No leukocytosis. may be secondary to a-fib RVR, COPD exacerbation -negative influenza swab -xopenex/atrovent neb Q8H prn SOB -pulmonology consult, appreciate recommendations (6) Elevated liver enzymes: AST:261, ALT: 319, Alk Phos: 93, total bili: 1.0 No abdominal pain. -liver profile in am -us liver to further assess (7) Lung cancer: H/O squamous cell Lung CA s/p RUL resection by Dr Skelton 08/2017. Follows with Dr Son Kline. 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 (11) Carotid artery disease: 03/2018 US: 50-69% stenosis R ICA; chronically occluded L ICA. Follows with Dr Josh Barkley (12) Tobacco use: Past several weeks decreased to 0.5ppd from 2ppd -smoking cessation encouraged -denies nicotine patch/gum (13) Alcohol use: 3 beers a day. Had one beer yesterday. Last drink yesterday. Denies hx ETOH withdrawal, seizures, DT's -gabapentin alcohol withdrawal protocol -multivitamin, thiamine, folic acid supplement daily -magnesium, phosphorus in am DVT Prophylaxis -INR: 5 at this time DNR/DNI as per discussion with pt Follows with Dr Carlisle for routine care Pt was seen with Dr Brown. See addendum History of Present Illness Chief Complaint: SOB Primary Care Provider: Mat Carlisle Pt is 67 y/o M with PMH Lung CA s/p RUL resection by Dr Skelton 08/2017, h/o tonsillar CA s/p chemo & radiation in 2003, h/o LLE DVT in 2014, h/o PE 07/2017 on coumadin, AAA with repair, stroke 2016, carotid stenosis, mild aortic stenosis, peripheral neuropathy, chronic back pain, tobacco use, COPD, hypothyroidism presented to ER with c/o SOB. Patient reports for the last week he has been having intermittent shortness of breath with associated leg weakness and leg paresthesias with dizziness. Symptoms again last evening and continued with SOB today. Denies chest pain or palpitations. Patient reports chronic cough however feels increased cough over the past several weeks of clear sputum. Denies any hemoptysis. Patient reports has been eating and drinking less over the past week and has noticed dark color urine for the past week. Reports intermittent urinary incontinence for years since had a Larios placed for a surgery. Patient follows with Coumadin clinic and INR in 07/2018: 6 and 3.3. 09/20/18 INR: 3.4. Denies fever/chills, diaphoresis, N/V/D/C, FREEDMAN, syncope, vision changes, neck pain, orthopnea, sore throat, choking, otalgia, rhinorrhea, abdominal pain, extremity edema, rashes, dysuria, urinary frequency/retention, epistaxis, melena , hematochezia. Echo 2014: EF: 55-69%, grade I diastolic dysfunction, mild aortic valve stenosis and mild aortic valve regurgitation. 03/2018: U/S: 50-69% stenosis R ICA; chronically occluded L ICA. distal aortic abdominal aneurysm 5x 6cm, essentially unchanged, with aortoiliac endograft open and patent. Allergies Allergy/AdvReac Type Severity Reaction Status Date / Time naproxen Allergy Unknown ITCHY Unverified 10/03/18 10:49 nicotine Allergy Unknown Rash -- Verified 10/03/18 10:49 from nicotine patch Home Medications Home Medications Medication Instructions Recorded Confirmed Type albuterol sulfate [ProAir HFA] 2 puff INHALATION QID PRN 10/03/18 10/03/18 History cyanocobalamin (vitamin B-12) 500 mcg PO DAILY 10/03/18 10/03/18 History [Vitamin B-12] levothyroxine 1 tab PO QAM 10/03/18 10/03/18 History mirtazapine [Remeron] 15 mg PO HS PRN 10/03/18 10/03/18 History warfarin 1 tab PO DIRECTED 10/03/18 10/03/18 History Past Med/Surg History Medical History AAA (abdominal aortic aneurysm) (Chronic) Hypothyroidism (Chronic) Alcohol use (Chronic) Tobacco use (Chronic) COPD (chronic obstructive pulmonary disease) (Chronic) PVD (peripheral vascular disease) (Chronic) "chronic BL SFA occlusions" Carotid artery disease (Chronic) "US 2012- Right carotid artery duplex examination indicates evidence of 50-69% stenosis of the internal carotid artery. 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 Lung cancer (Chronic) s/p RUL resection [facility] 08/[address] Son Kline Lung mass (Chronic) Primary cancer of right lower lobe of lung Pulmonary embolism (Chronic) Surgical History History of back surgery (Chronic) H/O arthroscopy of shoulder (Chronic) Hx of tonsillectomy (Chronic) S/P lobectomy of lung (Chronic) Family History Other Cancer HTN (hypertension) Heart disease Social History marital status: Current Living Situation: Spouse current occupational status: retired Other Information That Helps Us Care for You: No Feels Safe at Home: Yes Safety Concerns: Feels Safe At This Time Smoking Status: Current every day smoker Tobacco Type: cigarettes Cigarettes per Day: 2ppd x 45 years, recent down to approx 0.5ppd Do You Dip or Chew Tobacco: No Hx Alcohol Use: Yes Alcohol type: beer Alcohol Intake Frequency: 3 or more drinks per day Alcohol Intake Frequency Comment: 3 beers day Hx Substance Use: No Beliefs That Will Affect Care: None Preferred Language: [place] Communication Ability: Effective Review of Systems All systems reviewed & are unremarkable except as noted in HPI & below Physical Exam 2 Vital Signs (Past 24 Hours): Last Vital Signs Temp 36.4 C L 10/03/18 08:57 Pulse 83 10/03/18 12:16 Resp 22 10/03/18 12:16 BP 123/99 10/03/18 12:16 Pulse Ox 99 10/03/18 12:16 Physical Exam: General: no distress, WDWN Head: normocephalic, atraumatic Eyes: PERRL, EOM's intact, conjunctiva non-injected, anicteric ENT: normal inspection external ears, nose, mucous membranes moist Neck: supple, trachea midline, non-tender Lungs: no respiratory distress, diminished breath sounds bases, + wheezing throughout CV: irregularly irregular, rate 102, no JVD, no pretibial edema Abd: normal BS, soft, non-tender Ext: no cyanosis, no calf tenderness Neuro: A&O x 3, no focal deficits noted, normal affect Skin: warm, dry Results & Data Laboratory Results Short CBC 10/03/18 Range/Units 09:10 WBC 6.45 (4.8-10.8) K/uL Hgb 13.3 L (14.0-18.0) g/dL Hct 39.4 L (42-52) % Plt Count 207 (130-400) K/uL BMP 10/03/18 09:10 Sodium 133 L Potassium 4.2 Chloride 103 Carbon Dioxide 23 BUN 22 H Creatinine 1.31 Glucose 112 H Calcium 8.5 Cardiac Enzymes 10/03/18 Range/Units 09:10 Total Creatine Kinase 215 (39-308) U/L CK-MB (CK-2) 3.2 (0.5-3.6) ng/ml Troponin I 0.100 H* (0-0.045) ng/ml Liver Function 10/03/18 Range/Units 09:10 Total Bilirubin 1.0 (0.2-1) mg/dl AST 261 H (15-37) U/L ALT 319 H (12-78) U/L Alkaline Phosphatase 93 (45-117) U/L Albumin 3.2 L (3.4-5.0) gm/dl Diagnostic Findings CXR: IMPRESSION: 1. Trace bilateral pleural effusions. 2. Pulmonary vascular congestion with suspected mild interstitial pulmonary edema. 3. Postoperative findings within the right hemithorax with volume loss. CTA CHEST: IMPRESSION: 1. Several segmental pulmonary emboli within the left upper lobe. 2. Moderate to large right pleural effusion. Trace left pleural effusion. 3. Status post right upper lobectomy. Mildly enlarged right paratracheal lymph node however this node contains a fatty hilum. This node may be reactive/ related to pulmonary edema but should be assessed on subsequent exams. 4. Indeterminate 1.5 cm irregular subpleural opacity within the left upper lobe. This can be assessed on subsequent exams. 5. Small amount of upper abdominal ascites. Reflux of contrast into the hepatic veins and IVC. The findings may reflect right heart dysfunction. ECG Rate (beats per minute): 163 Rhythm: atrial fibrillation Supervising Physician Co-Signing Physician Notes I have seen and examined the patient and agree with the assessment and plan as above as noted by our team's physician assistant refinery operator and would like to comment that This is a 67 year old Male with malignancy history and history of pulmonary embolism and while on anticoagulation with supratherapeutic INR, patient found to have new onset atrial fibrillation with rapid ventricular response. Also of note that there area of pulmonary embolism involving the upper portion of the left upper lobe appears new. Patient's heart rate in the ED has been managed with diltiazem and currently still in atrial fibrillation with heart rates in the low 100s. Patient also has mildly elevated troponins but denies chest pain. Currently awaiting echocardiogram results and would appreciate cardiology recommendations on rate control and/or rhythm control Given new area of pulmonary embolism and presumably while on coumadin, will also consult pulmonary service and hematology/oncology service In addition, if pulmonary embolism is not the inciting source of the atrial fibrillation, we are doing workup for possible infection as the trigger - UA is negative, and blood cultures are pending. given no obvious fevers or leukocyotosis - will not start antibiotics at this time In the ED audible wheezes which patient's attributes as chronic due to history of lung surgeries, patient given Levalbuterol/ipratroprium nebuilzer treatment and he does not feel short of breath currently No sign of alcohol withdrawal but will consider withdrawal precautions given that patient does drink alcohol more than 1 time a day at times Other plans and management as above Physical Exam General: patient with no acute distress HEENT: Extraoccular movements intact, pupils equal and reactive to light, no tongue fasiculations Extremities: strength is 5/5 and equal and symmetric, no hand tremors, no edema Heart: tachycardic, irregular Lungs: audible wheezes which patient's attributes as chronic due to history of lung surgeries abdomen: soft, nontender, positive bowel sounds
[2018-10-03] MEDS ORDERED: GABAPENTIN 1200MG ALCOHOL WITHDRAWAL LOAD PO STA (14:34)
[2018-10-03] MEDS ORDERED: POLYETHYLENE (MIRALAX) 17 GM PACK PO PRN (14:34)
[2018-10-03] MEDS ORDERED: LORazepam 1 MG/2 ML VIAL IV PRN (14:34)
[2018-10-03] MEDS ORDERED: XOPENEX/ATROVENT 1.25mg/0.5MG NEB COMBO NEB PRN (14:34)
--- NOTE | 2018-10-03 15:47 | Cardiology Consultation ---
Date of Consultation October 03, 2018 Assessment & Plan (1) Dilated cardiomyopathy: This patient has a severe dilated cardiomyopathy with biventricular heart failure. He has not been well medicated due to noncompliance. He is in atrial fibrillation and has high heart rates. He may require the higher heart rate to Maintain cardiac output. I would not be overly aggressive with rate control. Diltiazem is a negative inotropic agent and is not good for this situation. I will stop the infusion. I will try to start him on a low dose of metoprolol as well as lisinopril and intravenous diuretics. We have to be careful due to his underlying cardiac status and not bottom out his blood pressure. At this time he is very critically sick. (2) Aortic stenosis: I do not doubt that the patient has some degree of aortic stenosis however due to his poor LV function some of the severity may be due to pseudo- aortic stenosis. (3) Atrial fibrillation: (4) Tobacco use: (5) Alcohol use: (6) PVD (peripheral vascular disease): (7) DVT (deep venous thrombosis): Patient is currently supratherapeutic on his warfarin. Consideration could be given to starting him on heparin as a warfarin failure. Pulmonary consult is appreciated. Ultimately he may require an IVC filter. History of Present Illness Attending Physician: Lucius Buchanan MD History of Present Illness This is a 67-year-old male patient that I last saw in 2016. He has medical noncompliance and noncompliance with follow-up visits. He has a history of severe arteriosclerotic vascular disease especially of the lower extremities and is status post endovascular stent for an abdominal aortic aneurysm. In 2016 he was noted to have mild aortic stenosis but his LV function was preserved. He has been admitted to the hospital with progressive shortness of breath. Patient states that he cannot even ambulate without becoming severely fatigued.His INR was supratherapeutic on admission however CT of the chest in the case possible pulmonary emboli and an ultrasound of the lower extremities indicates possible old DVT.Echocardiogram performed this admission indicates severe LV dysfunction with an estimated left ventricular ejection fraction of 10 %. He also has evidence of calcified aortic stenosis which by echocardiography and Doppler study estimates severe however it could be pseudo-severe due to the poor LV function. Past medical history: 1. Severe diffuse arteriosclerotic vascular disease including lower extremity and carotid disease 2. Status post endovascular stent for abdominal aortic aneurysm 3. Continued cigarette smoking 4. History of laryngeal cancer treated with chemotherapy in 2003 5. History of DVT of the left lower extremity 6. Medical compliance 7. Mild aortic stenosis Allergies Allergy/AdvReac Type Severity Reaction Status Date / Time naproxen Allergy Unknown ITCHY Unverified 10/03/18 10:49 nicotine Allergy Unknown Rash -- Verified 10/03/18 10:49 from nicotine patch Home Medications Home Medications Medication Instructions Recorded Confirmed Type albuterol sulfate [ProAir HFA] 2 puff INHALATION QID PRN 10/03/18 10/03/18 History cyanocobalamin (vitamin B-12) 500 mcg PO DAILY 10/03/18 10/03/18 History [Vitamin B-12] levothyroxine 1 tab PO QAM 10/03/18 10/03/18 History mirtazapine [Remeron] 15 mg PO HS PRN 10/03/18 10/03/18 History warfarin 1 tab PO DIRECTED 10/03/18 10/03/18 History Patient History Medical History AAA (abdominal aortic aneurysm) (Chronic) Hypothyroidism (Chronic) Alcohol use (Chronic) Tobacco use (Chronic) COPD (chronic obstructive pulmonary disease) (Chronic) PVD (peripheral vascular disease) (Chronic) "chronic BL SFA occlusions" Carotid artery disease (Chronic) "US 2011- Right carotid artery duplex examination indicates evidence of 50-69% stenosis of the internal carotid artery. 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 Lung cancer (Chronic) s/p RUL resection [facility] 08/[address] Son Kline Lung mass (Chronic) Primary cancer of right lower lobe of lung Pulmonary embolism (Chronic) Surgical History History of back surgery (Chronic) H/O arthroscopy of shoulder (Chronic) Hx of tonsillectomy (Chronic) S/P lobectomy of lung (Chronic) Family History Other Cancer HTN (hypertension) Heart disease Social History marital status: Current Living Situation: Spouse current occupational status: retired Other Information That Helps Us Care for You: No Feels Safe at Home: Yes Safety Concerns: Feels Safe At This Time Smoking Status: Current every day smoker Tobacco Type: cigarettes Cigarettes per Day: 2ppd x 45 years, recent down to approx 0.5ppd Do You Dip or Chew Tobacco: No Hx Alcohol Use: Yes Alcohol type: beer Alcohol Intake Frequency: 3 or more drinks per day Alcohol Intake Frequency Comment: 3 beers day Hx Substance Use: No Beliefs That Will Affect Care: None Preferred Language: [place]ese Communication Ability: Effective Review of Systems Review of Systems: See HPI for pertinent positives. All other 10 point review of systems are negative. Physical Exam 2 Vital Signs (Past 24 Hours): Last Vital Signs Temp 36.7 C 10/03/18 15:00 Pulse 118 H 10/03/18 15:00 Resp 20 10/03/18 15:00 BP 105/80 10/03/18 15:00 Pulse Ox 93 10/03/18 15:00 Physical Exam: General: no acute distress and stated age Head: normocephalic, no masses, lesions, tenderness or abnormalities Eyes: conjunctiva are pink and non-injected, sclera clear Neck: supple, no adenopathy, no bruits, normal jugular venous pulse, no hepatojugular reflux Chest: normal shape and normal respiratory effort Lungs: Severe wheezing and rhonchi throughout Cardiac Exam: - regular rate & rhythm, Systolic murmur left sternal border - normal S1, normal S2 Pulses: 2(+) throughout Abdomen: abdomen soft, non-tender, no abnormal masses and no hepatosplenomegaly Musculoskeletal: no gait disturbance, no joint inflammation, no deforming arthritis Extremities: no edema and no cyanosis Neuro: grossly normal exam Results & Data Laboratory Results Laboratory Results - last 24 hr 10/03/18 10/03/18 10/03/18 09:05 09:10 09:10 WBC 6.45 RBC 4.21 L Hgb 13.3 L POC Hgb Hct 39.4 L POC Hct MCV 93.6 MCH 31.6 MCHC 33.8 RDW Std Deviation 52.4 H RDW Coeff of Debra 15.3 H Plt Count 207 MPV 10.7 H Immature Gran % (Auto) 0.2 Neut % (Auto) 59.0 Lymph % (Auto) 28.8 [place] % (Auto) 9.9 Eos % (Auto) 1.2 Baso % (Auto) 0.9 Immature Gran # (Auto) 0.01 Neut # (Auto) 3.80 Lymph # (Auto) 1.86 [place] # (Auto) 0.64 H Eos # (Auto) 0.08 Baso # (Auto) 0.06 Absolute Nucleated RBC 0.03 H Nucleated RBC % (auto) 0.4 PT 47.4 H INR 5.1 H POC D-Dimer POC Sodium Sodium POC Potassium Potassium POC Chloride Chloride Carbon Dioxide POC Total CO2 Anion Gap POC Anion Gap POC BUN BUN Creatinine POC Creatinine Est Cr Clr Drug Dosing Est GFR ( Amer) Est GFR (Non-Af Amer) BUN/Creatinine Ratio Glucose POC Glucose (other) Calcium POC Ioniz Calcium Erica Magnesium Total Bilirubin AST ALT Alkaline Phosphatase Total Creatine Kinase CK-MB (CK-2) CK/CKMB % Calc Troponin I NT-Pro-B Natriuret Pep Total Protein Albumin Globulin Albumin/Globulin Ratio TSH Free T4 Influenza Type A (PCR) Neg for Influ A Influenza Type B (PCR) Neg for Influ B 10/03/18 10/03/18 10/03/18 09:10 09:30 09:34 WBC RBC Hgb POC Hgb 14.3 Hct POC Hct 42 MCV MCH MCHC RDW Std Deviation RDW Coeff of Debra Plt Count MPV Immature Gran % (Auto) Neut % (Auto) Lymph % (Auto) [place] % (Auto) Eos % (Auto) Baso % (Auto) Immature Gran # (Auto) Neut # (Auto) Lymph # (Auto) [place] # (Auto) Eos # (Auto) Baso # (Auto) Absolute Nucleated RBC Nucleated RBC % (auto) PT INR POC D-Dimer > 450 H* POC Sodium 134 L Sodium 133 L POC Potassium 4.1 Potassium 4.2 POC Chloride 101 Chloride 103 Carbon Dioxide 23 POC Total CO2 21 L Anion Gap 7.0 POC Anion Gap 17.0 POC BUN 21 H BUN 22 H Creatinine 1.31 POC Creatinine 1.2 Est Cr Clr Drug Dosing 56.7 Est GFR ( Amer) 63.9 Est GFR (Non-Af Amer) 55.2 BUN/Creatinine Ratio 16.5 Glucose 112 H POC Glucose (other) 114 H Calcium 8.5 POC Ioniz Calcium Erica 1.09 L Magnesium 2.3 Total Bilirubin 1.0 AST 261 H ALT 319 H Alkaline Phosphatase 93 Total Creatine Kinase 215 CK-MB (CK-2) 3.2 CK/CKMB % Calc 1.5 Troponin I 0.100 H* NT-Pro-B Natriuret Pep 78159 H Total Protein 7.1 Albumin 3.2 L Globulin 3.9 Albumin/Globulin Ratio 0.8 L TSH 5.490 H Free T4 1.30 Influenza Type A (PCR) Influenza Type B (PCR) Medications Administered Current Inpatient Medications Cyanocobalamin (Vitamin B-12) 500 mcg PO DAILY [facility] Stop: 11/03/18 08:59 Folic Acid (Folvite) 400 mcg PO QAM [facility] Stop: 11/03/18 08:59 Gabapentin (Neurontin) 600 mg PO Q12H [facility] Stop: 10/06/18 06:01 Gabapentin (Neurontin) 600 mg PO Q24H [facility] Stop: 10/07/18 06:01 Gabapentin (Neurontin) 600 mg PO Q6H [facility] Stop: 10/04/18 04:01 Gabapentin (Neurontin) 600 mg PO Q8H [facility] Stop: 10/05/18 04:01 Diltiazem HCl 125 mg/ Dextrose 125 mls @ 0 mls/hr IV .Q0M [facility]; Protocol Stop: 11/02/18 09:14 Last Admin: 10/03/18 10:35 Dose: 5 mg/hr, 5 mls/hr Lorazepam (Ativan) 1 mg in 2 mls @ 2 mls/min IV ONE PRN; Protocol PRN Reason: EtoH Withdrawal AWSS 6-10 Stop: 11/02/18 14:33 Ipratropium [place] (Atrovent 0.02% 0.5mg/2.5ml) 0.5 mg INH Q8R PRN PRN Reason: SOB/WHEEZING Stop: 11/02/18 14:33 Levalbuterol HCl (Xopenex 1.25mg/0.5ml Neb) 1.25 mg INH Q8R PRN PRN Reason: SOB/WHEEZING Stop: 11/02/18 14:33 Levothyroxine Sodium (Levothyroxine Sodium) 137 mcg PO DAILYBB [facility] Stop: 11/03/18 06:29 Multivitamins (Multivitamin Tab) [facility] [place] Stop: 11/03/18 08:59 Polyethylene Glycol (Miralax Powder Packet) 17 gm PO DAILY PRN PRN Reason: Constipation Stop: 11/02/18 14:33 Thiamine HCl (Vitamin B-1) 100 mg PO QAM [facility] Stop: 11/03/18 08:59
[2018-10-03] MEDS ORDERED: GABAPENTIN 600 MG TAB PO SCH (16:00)
--- NOTE | 2018-10-03 16:18 | Ultrasound Report ---
BILATERAL LOWER EXTREMITY VENOUS DOPPLER HISTORY: Pulmonary emboli. R/O DVT COMPARISON STUDY: None. FINDINGS: There is normal compressibility, flow, and augmentation within the right lower extremity de ep venous system. There is normal compressibility and flow within the left common femoral, left super ficial femoral, left anterior tibial, left posterior tibial, left peroneal veins. Linear echogenic st randing within the left popliteal vein consistent with chronic thrombus. This is nonocclusive. No acu te DVT within the left lower extremity. IMPRESSION: No acute DVT within the right or left lower extremity. Linear chronic nonocclusive thrombus within th e left popliteal vein. Electronically signed by: Enrrique Capps M.D. 10/03/2018 4:17 PM
--- NOTE | 2018-10-03 16:55 | Ultrasound Report ---
BILIARY ULTRASOUND CLINICAL HISTORY: Upper abdominal ascites COMPARISON STUDY: Chest CT dated 10/03/2018 FINDINGS: The head and proximal body of pancreas appear normal. The distal body and tail were not vis ualized. No focal hepatic masses were visualized. There is mild dilatation of the hepatic veins which may be s econdary to elevated right heart pressures. Portal venous flow is hepatopedal. There is a right pleur al effusion. There is low volume ascites. There is minimal sludge within the gallbladder. There is gallbladder wall thickening which measures 5 mm There is no ductal dilatation. The common bile duct measures 4 mm. There is no right-sided hydronephrosis. There is a complex 2 cm hypodense right renal lesion which ca nnot be further characterized. IMPRESSION: 1. Sludge within the gallbladder, but no calculi identified 2. Mild gallbladder wall thickening (5 mm) 3. No ductal dilatation 4. Low volume ascites 5. Right pleural effusion 6. Indeterminate 2 cm right renal hypodensity Electronically signed by: Jose Dominguez M.D. 10/03/2018 4:54 PM
[2018-10-03] MEDS ORDERED: LISINOPRIL 5 MG TAB PO ONE (17:00)
--- NOTE | 2018-10-03 17:22 | Oncology Consultation ---
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, no evidence of recurrent disease noted in the last PET/CT scan done in April 2018, has remained under observation, had left lower lobe pulmonary embolism earlier about a year back, on oral Coumadin treatment, also had left lower extremity DVT in the past, now admitted for increasing shortness of breath, found to have new pulmonary embolism, INR was supratherapeutic, no bleeding complications, has worsening cardiac failure, ejection fraction is on 10%, atrial fibrillation with rapid ventricular rate, also noticed to have abnormal liver function test, no focal liver lesions noted , Coumadin is on hold because of elevated INR. Ongoing smoking present, ongoing alcohol intake noted. Hemodynamically appears to be stable, O2 saturation on room around 93%. He also has significant peripheral neuropathy. Based on recent imaging studies, no evidence of recurrence of cancer diagnosis. He is also not a candidate for any kind of systemic treatment if he has recurrence of cancer diagnosis. Regarding pulmonary embolism, he had left lung embolism in the past, now has possible new pulmonary embolism with supratherapeutic INR, Coumadin is on hold, abnormal liver forces could be because of congestive hepatomegaly seconded heart failure. 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 Thanks for the consultation. Son Kline MD Hem/Onc History of Present Illness Attending Physician: Lucius Buchanan MD 67-year-old male, Oncology diagnosis: - Right upper lobe squamous cell carcinoma, S/P resection by Dr. Skelton on , 2 cm primary tumor, atelectatic changes noted distally, T2a N1 (10/07 lymph nodes positive) M0 Previous oncology diagnosis and treatment: - He received 3 cycles of chemotherapy with paclitaxel, cisplatin and 5- Fluorouracil infusion earlier in 2003 for tonsillar squamous cell carcinoma. He received weekly cisplatin along with radiation treatment to the tonsillar region which was completed in June,. Current treatment from oncology under observation. History of left lower lobe pulmonary embolism, on oral anticoagulant with Coumadin. History of left lower extremity DVT in 2014, had Coumadin at that time. Other medical problem: -Peripheral neuropathy involving the both lower extremities following previous chemotherapy treatment, - Peripheral arterial disease - Chronic back pain, he had a surgery in the past on the back. -Carotid artery disease, he had CV stroke involving the left frontal lobe earlier in 2016. -History of left lower extremity DVT in 2014, he received oral Coumadin treatment for about 1 year and then it was discontinued. -History of right tonsillar squamous cell carcinoma in 2003, S/P induction chemotherapy with paclitaxel, cisplatin, 5-Fluorouracil infusion x3 followed by combined radiation with weekly cisplatin which was completed in June,. Last PET-CT scan done on 04/19/2018: - Minimal nodular uptake in the right hilar close to the right pulmonary artery , likely reactive in nature. - Increase uptake noted in the prostate gland, his PSA level was in normal range. - No clear evidence of recurrent disease noted. he is admitted at [facility] today, I saw him at bedside, reviewed his medical records. He complained of increasing shortness of breath, could not walk quite well, has increasing some leg weakness and tingling or numbness of the lower extremities with some dizziness, ongoing smoking history noted, things alcohol on a regular basis every day, chronic cough present, denies any abdominal pain, no hemoptysis , no bleeding from any sites, he says that he takes Coumadin on a regular basis. INR done in in July 2018 > 6, 09/20/2018 > 3.4. He denies any increasing fever, no chills, no nausea or vomiting, no blurring of vision. No sore throat. Some urine incontinence present for the last several years. No hematuria. Allergies Allergy/AdvReac Type Severity Reaction Status Date / Time naproxen Allergy Unknown ITCHY Unverified 10/03/18 10:49 nicotine Allergy Unknown Rash -- Verified 10/03/18 10:49 from nicotine patch Home Medications Home Medications Medication Instructions Recorded Confirmed Type albuterol sulfate [ProAir HFA] 2 puff INHALATION QID PRN 10/03/18 10/03/18 History cyanocobalamin (vitamin B-12) 500 mcg PO DAILY 10/03/18 10/03/18 History [Vitamin B-12] levothyroxine 1 tab PO QAM 10/03/18 10/03/18 History mirtazapine [Remeron] 15 mg PO HS PRN 10/03/18 10/03/18 History warfarin 1 tab PO DIRECTED 10/03/18 10/03/18 History Patient History Medical History AAA (abdominal aortic aneurysm) (Chronic) Hypothyroidism (Chronic) Alcohol use (Chronic) Tobacco use (Chronic) COPD (chronic obstructive pulmonary disease) (Chronic) PVD (peripheral vascular disease) (Chronic) "chronic BL SFA occlusions" Carotid artery disease (Chronic) "US 2011- Right carotid artery duplex examination indicates evidence of 50-69% stenosis of the internal carotid artery. 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 Lung cancer (Chronic) s/p RUL resection [facility] 08/[address] Son Kline Lung mass (Chronic) Primary cancer of right lower lobe of lung Pulmonary embolism (Chronic) Surgical History History of back surgery (Chronic) H/O arthroscopy of shoulder (Chronic) Hx of tonsillectomy (Chronic) S/P lobectomy of lung (Chronic) Family History Other Cancer HTN (hypertension) Heart disease Social History marital status: Current Living Situation: Spouse current occupational status: retired Other Information That Helps Us Care for You: No Feels Safe at Home: Yes Safety Concerns: Feels Safe At This Time Smoking Status: Current every day smoker Tobacco Type: cigarettes Cigarettes per Day: 2ppd x 45 years, recent down to approx 0.5ppd Do You Dip or Chew Tobacco: No Hx Alcohol Use: Yes Alcohol type: beer Alcohol Intake Frequency: 3 or more drinks per day Alcohol Intake Frequency Comment: 3 beers day Hx Substance Use: No Beliefs That Will Affect Care: None Preferred Language: Syriac Communication Ability: Effective Review of Systems REVIEW OF SYSTEMS: GENERAL: No change in weight, feeling weak and tired, no fever, sweats or chills. SKIN: No skin rash, no bruising. HEAD: No increasing/new headache, no dizziness. EYES: No recent change in the vision, no diplopia, EARS: No earache ,no tinnitus, NOSE: No epistaxis, No nasal discharge or stuffiness, MOUTH: No sores, no dysphagia, no hoarseness of voice, NECK: No lumps, No swelling in thyroid area. No stiffness. PULMONARY: cough with scanty white expectorant, increasing shortness of breath, wheezing present. CARDIOVASCULAR: No anginal chest pain, no PND, no orthopnea. No palpitation, no leg edema. No syncope. GASTRIINTESTINAL: No abdominal pain, no nausea or vomiting. No diarrhea, No constipation. No blood in stool or black tarry stools. No abdominal distention. UROLOGIC: No burning urination. No hematuria. MUSCULOSKELETAL: No joint pain, No joint swelling, no muscle weakness. HEMATOLOGIC: No anemia, no bleeding disorder, No bruising NUROLOGIC: No seizures, no focal weakness, no speech difficulty, No memory disturbances. Tingling and numbness of extremities noted.. PSYCHRIATRIC: No depression. No anxiety. No psychosis. Physical Exam 2 Vital Signs (Past 24 Hours): Last Vital Signs Temp 36.7 C 10/03/18 15:00 Pulse 118 H 10/03/18 15:00 Resp 20 10/03/18 15:00 BP 105/80 10/03/18 15:00 Pulse Ox 93 10/03/18 15:00 On exam: - Alert and oriented x3, well built man, not in any distress. - HEENT: no icterus, mild pallor noted, Throat: Normal. - Neck: No palpable cervical lymphadenopathy. Prominent jugular vein noted. - Chest: emphysematous chest noted.. - Abdomen: soft, nontender, no hepatomegaly, no splenomegaly. - No focal neuro deficit. - Extremities: no finger clubbing, no leg edema. Results & Data Laboratory Results Blood workup done on 10/03/2018: - WBC 6400, H&H of 13.3/39.4, Platelet count of 207,000. - PT 47.4, INR 5.1, D-dimer > > 450 - BUN/creatinine: 22/1.3 - AST 261, ALT 319, alkaline phosphatase 93, Total bilirubin: 1.0. - ProBNP > 16,200. Diagnostic Findings CT scan of the chest with PE protocol (10/03/2018) - Several segmental pulmonary embolism within the left upper lobe. - Moderate large right pleural effusion, trace left pleural effusion noted - S/P right upper lobectomy - Mildly enlarged right paratracheal lymph node which contains fatty hilum which could be reactive in nature - 1.5 cm irregular subpleural opacity in the left upper lobe. - Reflux of contrast in to hepatic vein and IVC may reflect right heart dysfunction. Echocardiogram (10/03/2018) - Severe global LV dysfunction with estimated left ventricular ejection fraction is around 10%. - Right ventricular systolic function is also severely reduced. Bilateral lower extremity doppler evaluation (10/03/2018) > No evidence of DVT. Chronic nonocclusive left popliteal vein thrombus noted. Ultrasound of the liver (10/03/2018) - Gallbladder sludge, no gallstone - Thickening of the gallbladder wall measuring 5 mm. - No biliary ductal dilatation noted. - No focal liver lesions noted.
[2018-10-03] MEDS: FUROSEMIDE 40 MG in SYRINGE 0 ML IV SCH (20:19)
[2018-10-03] MEDS ORDERED: METOPROLOL TARTRATE 25 MG TAB PO SCH (21:00)
[2018-10-03 21:33] LABS: Appearance Urine Clear (Clear); Bilirubin Urine Negative (Negative); Color Urine Dark Yellow; Glucose Urine UA Negative (Negative); Ketones Urine Negative (Negative); Leukocyte Esterase Urine Negative (Negative); Nitrite Urine Negative (Negative); Protein Urine Negative (Negative); Specific Gravity Urine 1.035 (1.000-1.030); Urobilinogen Urine Negative (Negative)
--- NOTE | 2018-10-03 21:56 | Consultation Report ---
DATE OF CONSULTATION: 10/03/2018 PULMONARY CONSULTATION TIME: 4:55 p.m. REPORT OF CONSULTATION: The patient was seen in room 205. He is a 67-year-old male who came to the Emergency Room earlier today complaining of shortness of breath. This has been getting worse over the past few weeks. It has been somewhat intermittent. The patient has been feeling that his legs are weak. Earlier today, he was dizzy. In the ER, he was found to be in rapid atrial fibrillation. His rate was between 120 and 160. Some of his symptoms have improved with slowing the heart rate. He is on a Cardizem drip. The patient has significant wheezing. He states that he has had this for a long time, but it has gotten worse. He has some cough. This has been increased for a few weeks. His mucus is usually clear. The patient reports having a lot of difficulty swallowing pills and food. Liquids go down fairly easily. He denies any chest pains, chills, fevers, or sweats. The patient has a significant history of squamous cell carcinoma of the lung, for which he had a right upper lobectomy in August 2017. He does have COPD. Pulmonary functions done preoperatively showed at least a moderate obstructive pattern. The patient himself is a relatively poor historian. PAST SURGICAL HISTORY: 1. Thoracotomy as noted. 2. Partial left index finger amputation. 3. Back surgery. 4. Aortoiliac endograft. 5. 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 PAST MEDICAL HISTORY: 1. Hypothyroidism. 2. Report of abdominal aortic aneurysm, but the patient seems unaware of this. 3. Carotid artery disease. 4. Nicotine addiction. 5. DVT in 2014. 6. Pulmonary embolism in 2016 for which he initially was treated with Lovenox, but he felt it caused severe side effects. He has been on Coumadin. FAMILY HISTORY: Positive for cancer, hypertension, and heart disease. SOCIAL HISTORY: Tobacco 2 packs per day for 50 years, but he states he has cut down to half a pack per day. ETOH - the patient is vague. He admits to drinking a couple of beers per day, but he states that they are two 8-ounces. In the records, it says he drinks more than 3. There may be a history of alcohol abuse previously. MEDICATIONS AT HOME: 1. ProAir inhaler. 2. Vitamin B12. 3. Levothyroxine. 4. Remeron. 5. Warfarin. REVIEW OF SYSTEMS: The patient as noted has had weakness. He states he has had one or more falls recently. He has had the leg paresthesias. He states that he has had trouble swallowing. Denies chest pains. The remainder of the review of systems is negative except as noted here and in the history of present illness. PHYSICAL EXAMINATION: GENERAL: The patient is a pleasant 67-year-old male who was cooperative, alert and oriented. He was in no distress. VITAL SIGNS: Weight is 82 kilograms with a BMI of 25.2, temperature is 36.7. He has not had any fevers. HEENT: Pupils were reactive. Arcus senilis was noted. Nares were clear. Mouth exam showed evidence of uvulectomy. NECK: Palpation of the neck reveals no lymph nodes. HEART: The current cardiac rate is 144. The rhythm is irregularly irregular. Blood pressure is 105/80. LUNGS: Respiratory rate is 20. Loud wheezes can be heard across the room without a stethoscope. In spite of this, oxygen saturation on room air is 93%. He has not been found to have any desaturations. ABDOMEN: Soft and nontender. Bowel sounds were present. EXTREMITIES: Showed no cyanosis, clubbing, or edema. There is a partial amputation of the left index finger. IMAGING DATA: Venous Doppler done today showed no acute DVT. There appeared to be nonocclusive chronic thrombus in the left popliteal vein. Liver ultrasound is pending. Chest CT shows left upper lobe pulmonary emboli. There is at least a moderate sized right pleural effusion. He is status post right upper lobectomy. There is an indeterminant density in the left upper lobe. This could be scarring. LABORATORY DATA: White count of 6.45. Hemoglobin 13.3. Platelets 207,000. The INR today was 5.1. D-dimer greater than 450. Electrolytes show sodium 134, potassium 4.1, chloride 101, bicarb 21. BUN is 21 with a creatinine of 1.2. Calcium 8.5. AST severely elevated at 261. ALT severely elevated at 319. Alkaline phosphatase normal at 93. Troponin was 0.1. ProBNP was 16,206. TSH 5.49. Urinalysis was negative. Flu test was negative. IMPRESSION: 1. Recurrent pulmonary emboli, left upper lobe. 2. Lung carcinoma - status post right upper lobectomy. 3. Chronic obstructive pulmonary disease - moderate to severe. 4. Right pleural effusion. 5. Cardiomyopathy - reportedly has ejection fraction 10%. 6. Rapid atrial fibrillation. 7. Dysphagia. COMMENTS AND RECOMMENDATIONS: The patient is a very difficult management case. From the breathing perspective, I am suspicious that his cardiomyopathy may be a major contributor to his shortness of breath and wheezing. Evaluation and management of that is deferred to Dr. Cerda. From a pulmonary perspective, I believe he should have levalbuterol 0.63 every 6 hours to try and relieve some of the bronchospasm. This could be held if his heart rate was above 120. Regarding the apparent new pulmonary emboli, this would be in the face of the patient being fully anticoagulated or over anticoagulated. The patient indicates he had a very poor response to Lovenox and would never take it again. Obviously, Coumadin is not ideal for him with the liver disease. Although the Dopplers of the legs are negative, one could still give some consideration to the thought of an IVC filter. The patient's status, however, is overall poor. The patient may benefit from a dysphagia evaluation while he is hospitalized. Consider giving the patient methylprednisolone 40 mg b.i.d. for at least a couple days to see if this would help his breathing at all. I would invite Dr. Kline's opinion regarding the anticoagulation. Thank you for asking me to assist in his care.
[2018-10-03] MEDS: GABAPENTIN 600 MG TAB PO SCH (22:37)
[2018-10-03] MEDS: IPRATROPIUM BROMIDE NEB SOLN 0.02% 2.5 ML VIAL INH PRN (23:02)
[2018-10-03] MEDS: LEVALBUTEROL 1.25MG/0.5ML NEB INH PRN (23:02)
[2018-10-04] MEDS ORDERED: DIGOXIN 250 MCG in SYRINGE 9 ML IV ONE ×2 (02:45→04:00)
[2018-10-04] MEDS ORDERED: ALBUMIN 25% 50 ML IV ONE (02:45)
[2018-10-04] MEDS ORDERED: XOPENEX/ATROVENT 1.25mg/0.5MG NEB COMBO NEB STA (02:45)
[2018-10-04] MEDS ORDERED: IPRATROPIUM BROMIDE NEB SOLN 0.02% 2.5 ML VIAL INH STA (02:48)
[2018-10-04] MEDS ORDERED: LEVALBUTEROL 1.25MG/0.5ML NEB INH STA (02:49)
[2018-10-04 03:03] LABS: Basophils % (auto) 1.1 %; Eosinophils % (auto) 1.1 %; Hematocrit (blood only) 36.3 % (42-52); Hemoglobin 12.1 g/dL (14.0-18.0); Lymphocytes % (auto) 32.9 %; Mean Corpuscular Hgb Conc 33.3 g/dL (32-36); Mean Corpuscular Volume 93.3 fL (80-100); Mean Platelet Volume 10.2 fL (7.4-10.4); Monocytes % (auto) 9.9 %; Neutrophils % (auto) 54.8 %; Platelet Count 187 K/uL (130-400); RDW Coefficient of Variation 15.1 % (11.5-14.5); RDW Standard Deviation 51.2 fL (36.4-46.3); Red Blood Count 3.89 M/uL (4.7-6.1); White Blood Count 5.53 K/uL (4.8-10.8)
[2018-10-04 03:04] LABS: Basophils # (auto) 0.06 K/uL (0-0.2); Eosinophils # (auto) 0.06 K/uL (0-0.5); Immature Granulocytes # (auto) 0.01 K/uL (0.00-0.02); Immature Granulocytes % (auto) 0.2 %; Lymphocytes # (auto) 1.82 K/uL (1.2-3.4); Monocytes # (auto) 0.55 K/uL (0.11-0.59); Neutrophils # (auto) 3.03 K/uL (1.4-6.5); Nucleated RBC # (auto) 0.03 K/uL (0-0); Nucleated RBC % (auto) 0.5 %
[2018-10-04 03:16] LABS: Prothrombin Time 42.5 Seconds (9.0-12.0)
[2018-10-04 03:22] LABS: BUN Creatinine Ratio 15.7 (10-20); Calcium 8.1 mg/dl (8.5-10.1); Creatinine Clr Calc Pharmacy 58.9 ml/min; Est GFR (Non-African American) 57.8; Magnesium 2.1 mg/dl (1.8-2.4); Phosphorus 3.2 mg/dl (2.5-4.9); Potassium 3.7 mmol/L (3.5-5.1)
[2018-10-04 03:37] LABS: INR 4.6 (0.9-1.1)
[2018-10-04] MEDS ORDERED: POTASSIUM CHLORIDE 20 MEQ TABCR PO ONE (04:00)
[2018-10-04] MEDS: GABAPENTIN 600 MG TAB PO SCH ×3 (04:17→19:49)
[2018-10-04] MEDS: LEVOTHYROXINE SODIUM 137 MCG TABLET PO SCH (06:10)
--- NOTE | 2018-10-04 06:53 | Emergency Department Note ---
Entered by Kareen Leo acting as a scribe for History of Present Illness General Chief complaint: Shortness of Breath/Dyspnea Stated complaint: SOB,SYNCOPE Time Seen by Provider: 10/03/18 09:01 Source: patient History of Present Illness Onset (ago): week(s) (a few weeks ago) Location: chest Pain Consistency: + intermittent Quality: + other (shortness of breath) Exacerbated By: + movement (exertion, walking) Associated symptoms: + denies other symptoms (diarrhea) and + weakness; no chest pain, no fever/chills and no nausea/vomiting The patient is a 67 year old male who presents to the Emergency Room with complaints of intermittent shortness of breath starting a few weeks ago. The patient states that for the past few weeks he has been short of breath on exertion, but notes that it spontaneously resolves itself. He states that last evening he was walking up the stairs of his home when he became short of breath and felt his legs become weak. He states that he did fall, but denies hitting his head. He states that he did get himself back up, but his legs still felt weak and shaky. He reports that since then he becomes short of breath while walking and feels too weak to walk, so he came to the ED. The patient denies chest pain, fever, chills, nausea, vomiting, diarrhea, a cardiac history, using O2 at home, and missing any of his medications. He notes that he is on Warfarin for a history of blood clots. Home Medications Home Medications Medication Instructions Recorded Confirmed Type albuterol sulfate [ProAir HFA] 2 puff INHALATION QID PRN 10/03/18 10/03/18 History cyanocobalamin (vitamin B-12) 500 mcg PO DAILY 10/03/18 10/03/18 History [Vitamin B-12] levothyroxine 1 tab PO QAM 10/03/18 10/03/18 History mirtazapine [Remeron] 15 mg PO HS PRN 10/03/18 10/03/18 History warfarin 1 tab PO DIRECTED 10/03/18 10/03/18 History Allergies Allergy/AdvReac Type Severity Reaction Status Date / Time naproxen Allergy Unknown ITCHY Unverified 10/03/18 10:49 nicotine Allergy Unknown Rash -- Verified 10/03/18 10:49 from nicotine patch Past Med/Surg History Medical History AAA (abdominal aortic aneurysm) (Chronic) Hypothyroidism (Chronic) Alcohol use (Chronic) Tobacco use (Chronic) COPD (chronic obstructive pulmonary disease) (Chronic) PVD (peripheral vascular disease) (Chronic) "chronic BL SFA occlusions" Carotid artery disease (Chronic) "US 2012- Right carotid artery duplex examination indicates evidence of 50-69% stenosis of the internal carotid artery. 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 Lung cancer (Chronic) s/p RUL resection Indiadcdrake 08/[address] Son Kline Lung mass (Chronic) Primary cancer of right lower lobe of lung Pulmonary embolism (Chronic) Surgical History History of back surgery (Chronic) H/O arthroscopy of shoulder (Chronic) Hx of tonsillectomy (Chronic) S/P lobectomy of lung (Chronic) Family History Other Cancer HTN (hypertension) Heart disease Social History marital status: Current Living Situation: Spouse current occupational status: retired Other Information That Helps Us Care for You: No Feels Safe at Home: Yes Safety Concerns: Feels Safe At This Time Smoking Status: Current every day smoker Tobacco Type: cigarettes Cigarettes per Day: 2ppd x 45 years, recent down to approx 0.5ppd Do You Dip or Chew Tobacco: No Hx Alcohol Use: Yes Alcohol type: beer Alcohol Intake Frequency: 3 or more drinks per day Alcohol Intake Frequency Comment: 3 beers day Hx Substance Use: No Beliefs That Will Affect Care: None Preferred Language: Japanese Communication Ability: Effective Review of Systems See HPI for pertinent positives & negatives. and A total of 10 systems reviewed and were otherwise negative Physical Exam Vital Signs Vital Signs - 24 hr 10/03/18 08:57 10/03/18 09:09 10/03/18 09:17 Temperature 36.4 C L Temperature Source Oral Sepsis Recent Fever Within 48 Hours No Sepsis Action Taken by Nursing No Action Required Pulse Rate 121 H 161 H Pulse Rate [Apical] Pulse Rhythm Regular Pulse Rhythm [Apical] Pulse Strength Normal Respiratory Rate 24 22 Respiratory Effort / Characteristics Non-Labored Respiratory Depth Normal Respiratory Pattern Regular Blood Pressure 114/74 130/103 H Blood Pressure [Left Arm] Blood Pressure Mean 87 112 Blood Pressure Mean [Left Arm] Blood Pressure Position Sitting Blood Pressure Position [Left Arm] Pulse Oximetry 100 94 97 Pulse Oximetry [Left Middle Finger] Oxygen Delivery Method Room Air Room Air Oxygen Delivery Method [Left Middle Finger] 10/03/18 09:22 10/03/18 09:30 10/03/18 09:40 Temperature Temperature Source Sepsis Recent Fever Within 48 Hours Sepsis Action Taken by Nursing Pulse Rate 150 H 122 H 110 H Pulse Rate [Apical] Pulse Rhythm Pulse Rhythm [Apical] Pulse Strength Respiratory Rate 20 24 22 Respiratory Effort / Characteristics Respiratory Depth Respiratory Pattern Blood Pressure 124/97 Blood Pressure [Left Arm] Blood Pressure Mean 106 Blood Pressure Mean [Left Arm] Blood Pressure Position Blood Pressure Position [Left Arm] Pulse Oximetry 100 96 98 Pulse Oximetry [Left Middle Finger] Oxygen Delivery Method Oxygen Delivery Method [Left Middle Finger] 10/03/18 09:47 10/03/18 09:50 10/03/18 09:54 Temperature Temperature Source Sepsis Recent Fever Within 48 Hours Sepsis Action Taken by Nursing Pulse Rate 108 H 111 H Pulse Rate [Apical] 97 H Pulse Rhythm Pulse Rhythm [Apical] Pulse Strength Respiratory Rate 24 25 H Respiratory Effort / Characteristics Respiratory Depth Respiratory Pattern Blood Pressure 103/80 Blood Pressure [Left Arm] Blood Pressure Mean 87 Blood Pressure Mean [Left Arm] Blood Pressure Position Blood Pressure Position [Left Arm] Pulse Oximetry 98 98 Pulse Oximetry [Left Middle Finger] Oxygen Delivery Method Oxygen Delivery Method [Left Middle Finger] 10/03/18 10:06 10/03/18 10:07 10/03/18 10:10 Temperature Temperature Source Sepsis Recent Fever Within 48 Hours Sepsis Action Taken by Nursing Pulse Rate 84 84 87 Pulse Rate [Apical] Pulse Rhythm Pulse Rhythm [Apical] Pulse Strength Respiratory Rate 22 15 18 Respiratory Effort / Characteristics Respiratory Depth Respiratory Pattern Blood Pressure 99/81 L Blood Pressure [Left Arm] Blood Pressure Mean 87 Blood Pressure Mean [Left Arm] Blood Pressure Position Blood Pressure Position [Left Arm] Pulse Oximetry 97 99 98 Pulse Oximetry [Left Middle Finger] Oxygen Delivery Method Oxygen Delivery Method [Left Middle Finger] 10/03/18 10:32 10/03/18 10:33 10/03/18 10:41 Temperature Temperature Source Sepsis Recent Fever Within 48 Hours Sepsis Action Taken by Nursing Pulse Rate 93 H 82 Pulse Rate [Apical] Pulse Rhythm Pulse Rhythm [Apical] Pulse Strength Respiratory Rate 20 22 Respiratory Effort / Characteristics Non-Labored Spontaneous Respiratory Depth Normal Respiratory Pattern Regular Blood Pressure 138/80 Blood Pressure [Left Arm] Blood Pressure Mean 99 Blood Pressure Mean [Left Arm] Blood Pressure Position Blood Pressure Position [Left Arm] Pulse Oximetry 99 Pulse Oximetry [Left Middle Finger] Oxygen Delivery Method Room Air Oxygen Delivery Method [Left Middle Finger] 10/03/18 10:46 10/03/18 11:00 10/03/18 11:01 Temperature Temperature Source Sepsis Recent Fever Within 48 Hours Sepsis Action Taken by Nursing Pulse Rate 87 95 H Pulse Rate [Apical] Pulse Rhythm Pulse Rhythm [Apical] Pulse Strength Respiratory Rate 24 22 Respiratory Effort / Characteristics Respiratory Depth Respiratory Pattern Blood Pressure 99/71 L 119/89 Blood Pressure [Left Arm] Blood Pressure Mean 80 99 Blood Pressure Mean [Left Arm] Blood Pressure Position Blood Pressure Position [Left Arm] Pulse Oximetry 96 95 Pulse Oximetry [Left Middle Finger] Oxygen Delivery Method Room Air Oxygen Delivery Method [Left Middle Finger] 10/03/18 11:16 10/03/18 11:31 10/03/18 11:50 Temperature Temperature Source Sepsis Recent Fever Within 48 Hours Sepsis Action Taken by Nursing Pulse Rate 89 88 Pulse Rate [Apical] 99 H Pulse Rhythm Pulse Rhythm [Apical] Pulse Strength Respiratory Rate 22 20 Respiratory Effort / Characteristics Spontaneous Respiratory Depth Respiratory Pattern Blood Pressure 139/87 127/98 Blood Pressure [Left Arm] 112/92 Blood Pressure Mean 104 107 Blood Pressure Mean [Left Arm] 98 Blood Pressure Position Blood Pressure Position [Left Arm] Lying Pulse Oximetry 99 100 100 Pulse Oximetry [Left Middle Finger] Oxygen Delivery Method Room Air Oxygen Delivery Method [Left Middle Finger] 10/03/18 11:52 10/03/18 12:00 10/03/18 12:01 Temperature Temperature Source Sepsis Recent Fever Within 48 Hours Sepsis Action Taken by Nursing Pulse Rate 92 H 105 H 103 H Pulse Rate [Apical] Pulse Rhythm Pulse Rhythm [Apical] Pulse Strength Respiratory Rate 24 23 20 Respiratory Effort / Characteristics Respiratory Depth Respiratory Pattern Blood Pressure 112/92 126/89 Blood Pressure [Left Arm] Blood Pressure Mean 98 101 Blood Pressure Mean [Left Arm] Blood Pressure Position Blood Pressure Position [Left Arm] Pulse Oximetry 94 99 95 Pulse Oximetry [Left Middle Finger] Oxygen Delivery Method Oxygen Delivery Method [Left Middle Finger] 10/03/18 12:05 10/03/18 12:16 10/03/18 13:04 Temperature Temperature Source Sepsis Recent Fever Within 48 Hours Sepsis Action Taken by Nursing Pulse Rate 83 100 H Pulse Rate [Apical] 99 H Pulse Rhythm Pulse Rhythm [Apical] Pulse Strength Respiratory Rate 20 22 22 Respiratory Effort / Characteristics Spontaneous Respiratory Depth Respiratory Pattern Blood Pressure 123/99 129/101 H Blood Pressure [Left Arm] Blood Pressure Mean 107 Blood Pressure Mean [Left Arm] Blood Pressure Position Blood Pressure Position [Left Arm] Pulse Oximetry 97 99 97 Pulse Oximetry [Left Middle Finger] Oxygen Delivery Method Room Air Room Air Oxygen Delivery Method [Left Middle Finger] 10/03/18 13:19 10/03/18 13:30 10/03/18 15:00 Temperature 36.3 C L 36.7 C Temperature Source Oral Oral Sepsis Recent Fever Within 48 Hours Sepsis Action Taken by Nursing Pulse Rate Pulse Rate [Apical] 123 H 115 H 118 H Pulse Rhythm Pulse Rhythm [Apical] Pulse Strength Respiratory Rate 26 H 24 20 Respiratory Effort / Characteristics Non-Labored Spontaneous SOB on Exertion Non-Labored Spontaneous SOB on Exertion Non-Labored Spontaneous SOB on Exertion Respiratory Depth Normal Normal Normal Respiratory Pattern Regular Blood Pressure Blood Pressure [Left Arm] 128/102 H 136/89 105/80 Blood Pressure Mean Blood Pressure Mean [Left Arm] 110 104 88 Blood Pressure Position Blood Pressure Position [Left Arm] Lying Lying Lying Pulse Oximetry 98 93 Pulse Oximetry [Left Middle Finger] Oxygen Delivery Method Room Air Room Air Oxygen Delivery Method [Left Middle Finger] 10/03/18 19:37 10/03/18 19:45 10/03/18 19:48 Temperature 35.8 C L Temperature Source Oral Sepsis Recent Fever Within 48 Hours Sepsis Action Taken by Nursing Pulse Rate Pulse Rate [Apical] 113 H Pulse Rhythm Pulse Rhythm [Apical] Pulse Strength Respiratory Rate 20 Respiratory Effort / Characteristics Non-Labored Short of Breath Non-Labored Short of Breath Respiratory Depth Normal Normal Respiratory Pattern Regular Regular Blood Pressure Blood Pressure [Left Arm] 120/85 Blood Pressure Mean Blood Pressure Mean [Left Arm] 96 Blood Pressure Position Blood Pressure Position [Left Arm] Lying Pulse Oximetry 93 Pulse Oximetry [Left Middle Finger] 93 Oxygen Delivery Method Room Air Room Air Oxygen Delivery Method [Left Middle Finger] Room Air 10/03/18 20:00 10/03/18 22:28 10/03/18 22:48 Temperature Temperature Source Sepsis Recent Fever Within 48 Hours Sepsis Action Taken by Nursing Pulse Rate Pulse Rate [Apical] 101 H Pulse Rhythm Pulse Rhythm [Apical] Regular Pulse Strength Respiratory Rate 24 Respiratory Effort / Characteristics SOB on Exertion Accessory Muscle Use Short of Breath Respiratory Depth Normal Shallow Respiratory Pattern Regular Regular Blood Pressure Blood Pressure [Left Arm] 113/77 Blood Pressure Mean Blood Pressure Mean [Left Arm] 89 Blood Pressure Position Blood Pressure Position [Left Arm] Lying Pulse Oximetry 98 Pulse Oximetry [Left Middle Finger] 98 Oxygen Delivery Method Room Air Room Air Oxygen Delivery Method [Left Middle Finger] Room Air 10/03/18 23:03 10/03/18 23:07 10/03/18 23:15 Temperature 36.5 C Temperature Source Oral Sepsis Recent Fever Within 48 Hours Sepsis Action Taken by Nursing Pulse Rate Pulse Rate [Apical] 110 H Pulse Rhythm Pulse Rhythm [Apical] Pulse Strength Respiratory Rate 22 Respiratory Effort / Characteristics Spontaneous Short of Breath SOB on Exertion Respiratory Depth Respiratory Pattern Blood Pressure Blood Pressure [Left Arm] 92/58 L Blood Pressure Mean Blood Pressure Mean [Left Arm] 69 Blood Pressure Position Blood Pressure Position [Left Arm] Lying Pulse Oximetry 98 Pulse Oximetry [Left Middle Finger] Oxygen Delivery Method Room Air Oxygen Delivery Method [Left Middle Finger] 10/03/18 23:16 10/04/18 00:27 10/04/18 02:30 Temperature 37.3 C Temperature Source Oral Sepsis Recent Fever Within 48 Hours Sepsis Action Taken by Nursing Pulse Rate Pulse Rate [Apical] 120 H 108 H Pulse Rhythm Pulse Rhythm [Apical] Pulse Strength Respiratory Rate 20 Respiratory Effort / Characteristics Respiratory Depth Respiratory Pattern Blood Pressure Blood Pressure [Left Arm] 90/50 L 99/81 L 86/65 L Blood Pressure Mean Blood Pressure Mean [Left Arm] 63 87 72 Blood Pressure Position Blood Pressure Position [Left Arm] Lying Lying Pulse Oximetry 94 Pulse Oximetry [Left Middle Finger] Oxygen Delivery Method Room Air Oxygen Delivery Method [Left Middle Finger] 10/04/18 03:00 10/04/18 03:10 10/04/18 03:15 Temperature Temperature Source Sepsis Recent Fever Within 48 Hours Sepsis Action Taken by Nursing Pulse Rate 125 H Pulse Rate [Apical] 111 H 108 H Pulse Rhythm Pulse Rhythm [Apical] Pulse Strength Respiratory Rate 18 Respiratory Effort / Characteristics Non-Labored Spontaneous Respiratory Depth Respiratory Pattern Blood Pressure Blood Pressure [Left Arm] 99/88 L Blood Pressure Mean Blood Pressure Mean [Left Arm] 91 Blood Pressure Position Blood Pressure Position [Left Arm] Pulse Oximetry 94 Pulse Oximetry [Left Middle Finger] Oxygen Delivery Method Room Air Oxygen Delivery Method [Left Middle Finger] 10/04/18 04:17 10/04/18 06:10 Temperature Temperature Source Sepsis Recent Fever Within 48 Hours Sepsis Action Taken by Nursing Pulse Rate 114 H Pulse Rate [Apical] 98 H Pulse Rhythm Pulse Rhythm [Apical] Pulse Strength Respiratory Rate Respiratory Effort / Characteristics Respiratory Depth Respiratory Pattern Blood Pressure Blood Pressure [Left Arm] 118/76 Blood Pressure Mean Blood Pressure Mean [Left Arm] 90 Blood Pressure Position Blood Pressure Position [Left Arm] Pulse Oximetry Pulse Oximetry [Left Middle Finger] Oxygen Delivery Method Oxygen Delivery Method [Left Middle Finger] GENERAL: Awake, alert, well-appearing, in no distress HENT: Normocephalic, atraumatic. Oropharynx unremarkable. EYES: Normal conjunctiva. Sclera non-icteric. NECK: Supple. No nuchal rigidity. FROM. No masses. RESPIRATORY: Bilateral wheezes. No rales. Normal respiratory effort. CARDIAC: Tachycardic rate. Irregular rhythm. No murmurs. No rubs. Extremities warm and well perfused. Pulses equal. No JVD. GI: Soft, non-distended. No tenderness to palpation. No rebound or guarding. No masses. RECTAL: Deferred. MUSCULOSKELETAL: Atraumatic. Chest examination reveals no tenderness. The back is symmetrical on inspection without obvious abnormality. There is no CVA tenderness to palpation. No joint edema. LOWER EXTREMITIES: Calves are equal size bilaterally and non-tender. No edema. No discoloration. NEURO: Normal sensorium. No sensory or motor deficits noted. Course 0903: Past medical records reviewed. The patient was evaluated in room C7, and a complete history and physical examination were performed by Dr. Helder Murry- Resident at this time. 917: Past medical records reviewed. The patient was evaluated in room C7, and a complete history and physical examination were performed by de at this time. 09: Dr. Murry reevaluated the patient at this time. He is feeling a little better, but his heart rate is still in the 120s-130s. 0957: I reevaluated the patient and he is doing better. 1028: Dr. Murry reevaluated the patient at this time. The patient mentioned that he has had dark urine for a year since his last catheter replacement. I am going to order a UA. He denies using alcohol in the past week and having a history of liver issues, including Hepatitis. He discussed the test results and treatment plan with him. He verbally agrees and understands. 1036: Dr. Murry reviewed the patient's case with LIVIER Adkins. She will evaluate the patient for further management. Consultations Consultation #1: Dr. Murry reviewed the patient's case with KAROL Adkins. She will evaluate the patient for further management. Time: 10:36 Administered Medications Furosemide 40 mg/ Syringe 4 mls @ 4 mls/min IV BID BRANDT Stop: 11/02/18 20:59 Last Admin: 10/03/18 20:19 Dose: 4 mls/min Ipratropium [place] (Atrovent 0.02% 0.5mg/2.5ml) 0.5 mg INH Q8R PRN PRN Reason: SOB/WHEEZING Stop: 11/02/18 14:33 Last Admin: 10/03/18 23:02 Dose: 0.5 mg Levalbuterol HCl (Xopenex 1.25mg/0.5ml Neb) 1.25 mg INH Q8R PRN PRN Reason: SOB/WHEEZING Stop: 11/02/18 14:33 Last Admin: 10/03/18 23:02 Dose: 1.25 mg Levothyroxine Sodium (Levothyroxine Sodium) 137 mcg PO DAILYBB BRANDT Stop: 11/03/18 06:29 Last Admin: 10/04/18 06:10 Dose: 137 mcg Metoprolol Tartrate (Lopressor) 12.5 mg PO BID BRANDT Stop: 11/02/18 20:59 Last Admin: 10/03/18 20:18 Dose: 12.5 mg Discontinued Medications Diltiazem HCl (Cardizem) 20 mg IV NOW STA Stop: 10/03/18 09:16 Last Admin: 10/03/18 09:23 Dose: 20 mg Diltiazem HCl (Cardizem) 28 mg IV NOW STA Stop: 10/03/18 09:38 Last Admin: 10/03/18 09:48 Dose: 28 mg Gabapentin (Neurontin) 600 mg PO Q6H BRANDT Stop: 10/04/18 04:01 Last Admin: 10/04/18 04:17 Dose: 600 mg Admin: 10/03/18 22:37 Dose: 600 mg Gabapentin (Neurontin) 1,200 mg PO TODAY@1600 BRANDT Stop: 10/03/18 16:01 Last Admin: 10/03/18 16:10 Dose: 1,200 mg Diltiazem HCl 125 mg/ Dextrose 125 mls @ 0 mls/hr IV .Q0M BRANDT; Protocol Stop: 11/02/18 09:14 Last Titration: 10/03/18 21:29 Dose: 0 mg/hr, 0 mls/hr Titration: 10/03/18 17:39 Dose: 0 mg/hr, 0 mls/hr Admin: 10/03/18 10:35 Dose: 5 mg/hr, 5 mls/hr Digoxin 250 mcg/ Syringe 10 mls @ 2 mls/min IV ONE ONE Stop: 10/04/18 02:49 Last Admin: 10/04/18 03:00 Dose: 2 mls/min Albumin Human (Albumin 25%) 50 mls @ 50 mls/hr IV ONE ONE Stop: 10/04/18 03:44 Last Infusion: 10/04/18 04:02 Dose: 0 mls/hr Admin: 10/04/18 02:59 Dose: 50 mls/hr Digoxin 250 mcg/ Syringe 10 mls @ 2 mls/min IV ONE ONE Stop: 10/04/18 04:04 Last Admin: 10/04/18 04:17 Dose: 2 mls/min Ioversol (Optiray 320 100ml) 93 ml IV ONCE PRN PRN Reason: Interaction Checking Stop: 10/07/18 10:29 Last Admin: 10/03/18 10:30 Dose: 93 ml Ipratropium [place] (Atrovent 0.02% 0.5mg/2.5ml) 0.5 mg INH ONE STA Stop: 10/04/18 02:49 Last Admin: 10/04/18 03:09 Dose: 0.5 mg Levalbuterol HCl (Xopenex 1.25mg/0.5ml Neb) 1.25 mg NEB NOW STA Stop: 10/03/18 11:52 Last Admin: 10/03/18 12:05 Dose: 1.25 mg Levalbuterol HCl (Xopenex 1.25mg/0.5ml Neb) 1.25 mg INH ONE STA Stop: 10/04/18 02:50 Last Admin: 10/04/18 03:09 Dose: 1.25 mg Lisinopril (Zestril) 5 mg PO 1700 ONE Stop: 10/03/18 17:01 Last Admin: 10/03/18 17:41 Dose: 5 mg Potassium Chloride (Klor-Con M20) 40 meq PO ONE ONE Stop: 10/04/18 04:01 Last Admin: 10/04/18 04:18 Dose: 40 meq Medical Decision Making Differential Diagnosis Differential diagnosis: Etiologies such as infections, reactive airway disease, COPD, pneumonia, pleural effusion, pulmonary edema, ARDS, pneumothorax, CHF, cardiac ischemia, cardiac tamponade, dysrhythmia, anemia, pulmonary embolism, musculoskeletal, gastrointestinal process, as well as others were entertained. Medical Records Attestation: I reviewed the patient's medical records. Home Medications Current Medication List: was personally reviewed by me Laboratory Data Attestation: I reviewed the patient's lab results. Result diagrams: 10/04/18 02:53 10/04/18 02:53 Lab Results 10/03/18 10/03/18 10/03/18 Range/Units 09:05 09:10 09:10 WBC 6.45 (4.8-10.8) K/uL RBC 4.21 L (4.7-6.1) M/uL Hgb 13.3 L (14.0-18.0) g/dL POC Hgb (14.0-18.0) g/dl Hct 39.4 L (42-52) % POC Hct (42-52) % MCV 93.6 (80-100) fL MCH 31.6 (25-34) pg MCHC 33.8 (32-36) g/dL RDW Std Deviation 52.4 H (36.4-46.3) fL RDW Coeff of Debra 15.3 H (11.5-14.5) % Plt Count 207 (130-400) K/uL MPV 10.7 H (7.4-10.4) fL Immature Gran % (Auto) 0.2 % Neut % (Auto) 59.0 % Lymph % (Auto) 28.8 % Isabel[place] % (Auto) 9.9 % Eos % (Auto) 1.2 % Baso % (Auto) 0.9 % Immature Gran # (Auto) 0.01 (0.00-0.02) K/uL Neut # (Auto) 3.80 (1.4-6.5) K/uL Lymph # (Auto) 1.86 (1.2-3.4) K/uL [place] # (Auto) 0.64 H (0.11-0.59) K/uL Eos # (Auto) 0.08 (0-0.5) K/uL Baso # (Auto) 0.06 (0-0.2) K/uL Absolute Nucleated RBC 0.03 H (0-0) K/uL Nucleated RBC % (auto) 0.4 % PT 47.4 H (9.0-12.0) Seconds INR 5.1 H (0.9-1.1) POC D-Dimer (0-450) ng/mlFEU POC Sodium (135-144) mEq/L Sodium (136-145) mmol/L POC Potassium (3.3-5.0) mEq/L Potassium (3.5-5.1) mmol/L POC Chloride (101-112) mEq/L Chloride (98-107) mmol/L Carbon Dioxide (21-32) mmol/L POC Total CO2 (24-31) mEq/l Anion Gap (3-11) POC Anion Gap (16-25) mmol/L POC BUN (7-18) mg/dl BUN (7-18) mg/dl Creatinine (0.6-1.4) mg/dl POC Creatinine (0.6-1.3) mg/dl Est Cr Clr Drug Dosing ml/min Est GFR ( Amer) Est GFR (Non-Af Amer) BUN/Creatinine Ratio (10-20) Glucose (70-99) mg/dl POC Glucose (other) (70-99) mg/dl Lactate (0.4-2.0) mmol/L Calcium (8.5-10.1) mg/dl POC Ioniz Calcium Erica (1.12-1.32) mmol/l Phosphorus (2.5-4.9) mg/dl Magnesium (1.8-2.4) mg/dl Total Bilirubin (0.2-1) mg/dl AST (15-37) U/L ALT (12-78) U/L Alkaline Phosphatase (45-117) U/L Total Creatine Kinase (39-308) U/L CK-MB (CK-2) (0.5-3.6) ng/ml CK/CKMB % Calc (0-3.0) Troponin I (0-0.045) ng/ml NT-Pro-B Natriuret Pep (0-900) pg/ml Total Protein (6.4-8.2) gm/dl Albumin (3.4-5.0) gm/dl Globulin (2.5-4.0) gm/dl Albumin/Globulin Ratio (0.9-2) TSH (0.300-4.500) uIu/ml Free T4 (0.8-1.6) ng/dl Urine Color Urine Appearance (Clear) Urine pH (4.5-7.5) Ur Specific [place] (1.000-1.030) Urine Protein (Negative) Urine Glucose (UA) (Negative) Urine Ketones (Negative) Urine Blood (Negative) Urine Nitrite (Negative) Urine Bilirubin (Negative) Urine Urobilinogen (Negative) Ur Leukocyte Esterase (Negative) Influenza Type A (PCR) Neg for Influ A (Neg) Influenza Type B (PCR) Neg for Influ B (Neg) 10/03/18 10/03/18 10/03/18 Range/Units 09:10 09:30 09:34 WBC (4.8-10.8) K/uL RBC (4.7-6.1) M/uL Hgb (14.0-18.0) g/dL POC Hgb 14.3 (14.0-18.0) g/dl Hct (42-52) % POC Hct 42 (42-52) % MCV (80-100) fL MCH (25-34) pg MCHC (32-36) g/dL RDW Std Deviation (36.4-46.3) fL RDW Coeff of Debra (11.5-14.5) % Plt Count (130-400) K/uL MPV (7.4-10.4) fL Immature Gran % (Auto) % Neut % (Auto) % Lymph % (Auto) % [place] % (Auto) % Eos % (Auto) % Baso % (Auto) % Immature Gran # (Auto) (0.00-0.02) K/uL Neut # (Auto) (1.4-6.5) K/uL Lymph # (Auto) (1.2-3.4) K/uL [place] # (Auto) (0.11-0.59) K/uL Eos # (Auto) (0-0.5) K/uL Baso # (Auto) (0-0.2) K/uL Absolute Nucleated RBC (0-0) K/uL Nucleated RBC % (auto) % PT (9.0-12.0) Seconds INR (0.9-1.1) POC D-Dimer > 450 H* (0-450) ng/mlFEU POC Sodium 134 L (135-144) mEq/L Sodium 133 L (136-145) mmol/L POC Potassium 4.1 (3.3-5.0) mEq/L Potassium 4.2 (3.5-5.1) mmol/L POC Chloride 101 (101-112) mEq/L Chloride 103 (98-107) mmol/L Carbon Dioxide 23 (21-32) mmol/L POC Total CO2 21 L (24-31) mEq/l Anion Gap 7.0 (3-11) POC Anion Gap 17.0 (16-25) mmol/L POC BUN 21 H (7-18) mg/dl BUN 22 H (7-18) mg/dl Creatinine 1.31 (0.6-1.4) mg/dl POC Creatinine 1.2 (0.6-1.3) mg/dl Est Cr Clr Drug Dosing 56.7 ml/min Est GFR ( Amer) 63.9 Est GFR (Non-Af Amer) 55.2 BUN/Creatinine Ratio 16.5 (10-20) Glucose 112 H (70-99) mg/dl POC Glucose (other) 114 H (70-99) mg/dl Lactate (0.4-2.0) mmol/L Calcium 8.5 (8.5-10.1) mg/dl POC Ioniz Calcium Erica 1.09 L (1.12-1.32) mmol/l Phosphorus (2.5-4.9) mg/dl Magnesium 2.3 (1.8-2.4) mg/dl Total Bilirubin 1.0 (0.2-1) mg/dl AST 261 H (15-37) U/L ALT 319 H (12-78) U/L Alkaline Phosphatase 93 (45-117) U/L Total Creatine Kinase 215 (39-308) U/L CK-MB (CK-2) 3.2 (0.5-3.6) ng/ml CK/CKMB % Calc 1.5 (0-3.0) Troponin I 0.100 H* (0-0.045) ng/ml NT-Pro-B Natriuret Pep 95446 H (0-900) pg/ml Total Protein 7.1 (6.4-8.2) gm/dl Albumin 3.2 L (3.4-5.0) gm/dl Globulin 3.9 (2.5-4.0) gm/dl Albumin/Globulin Ratio 0.8 L (0.9-2) TSH 5.490 H (0.300-4.500) uIu/ml Free T4 1.30 (0.8-1.6) ng/dl Urine Color Urine Appearance (Clear) Urine pH (4.5-7.5) Ur Specific [place] (1.000-1.030) Urine Protein (Negative) Urine Glucose (UA) (Negative) Urine Ketones (Negative) Urine Blood (Negative) Urine Nitrite (Negative) Urine Bilirubin (Negative) Urine Urobilinogen (Negative) Ur Leukocyte Esterase (Negative) Influenza Type A (PCR) (Neg) Influenza Type B (PCR) (Neg) 10/03/18 10/03/18 10/03/18 Range/Units 16:13 21:00 21:09 WBC (4.8-10.8) K/uL RBC (4.7-6.1) M/uL Hgb (14.0-18.0) g/dL POC Hgb (14.0-18.0) g/dl Hct (42-52) % POC Hct (42-52) % MCV (80-100) fL MCH (25-34) pg MCHC (32-36) g/dL RDW Std Deviation (36.4-46.3) fL RDW Coeff of Debra (11.5-14.5) % Plt Count (130-400) K/uL MPV (7.4-10.4) fL Immature Gran % (Auto) % Neut % (Auto) % Lymph % (Auto) % [place] % (Auto) % Eos % (Auto) % Baso % (Auto) % Immature Gran # (Auto) (0.00-0.02) K/uL Neut # (Auto) (1.4-6.5) K/uL Lymph # (Auto) (1.2-3.4) K/uL [place] # (Auto) (0.11-0.59) K/uL Eos # (Auto) (0-0.5) K/uL Baso # (Auto) (0-0.2) K/uL Absolute Nucleated RBC (0-0) K/uL Nucleated RBC % (auto) % PT (9.0-12.0) Seconds INR (0.9-1.1) POC D-Dimer (0-450) ng/mlFEU POC Sodium (135-144) mEq/L Sodium (136-145) mmol/L POC Potassium (3.3-5.0) mEq/L Potassium (3.5-5.1) mmol/L POC Chloride (101-112) mEq/L Chloride (98-107) mmol/L Carbon Dioxide (21-32) mmol/L POC Total CO2 (24-31) mEq/l Anion Gap (3-11) POC Anion Gap (16-25) mmol/L POC BUN (7-18) mg/dl BUN (7-18) mg/dl Creatinine (0.6-1.4) mg/dl POC Creatinine (0.6-1.3) mg/dl Est Cr Clr Drug Dosing ml/min Est GFR ( Amer) Est GFR (Non-Af Amer) BUN/Creatinine Ratio (10-20) Glucose (70-99) mg/dl POC Glucose (other) (70-99) mg/dl Lactate (0.4-2.0) mmol/L Calcium (8.5-10.1) mg/dl POC Ioniz Calcium Erica (1.12-1.32) mmol/l Phosphorus (2.5-4.9) mg/dl Magnesium (1.8-2.4) mg/dl Total Bilirubin (0.2-1) mg/dl AST (15-37) U/L ALT (12-78) U/L Alkaline Phosphatase (45-117) U/L Total Creatine Kinase (39-308) U/L CK-MB (CK-2) (0.5-3.6) ng/ml CK/CKMB % Calc (0-3.0) Troponin I 0.088 H* 0.088 H* (0-0.045) ng/ml NT-Pro-B Natriuret Pep (0-900) pg/ml Total Protein (6.4-8.2) gm/dl Albumin (3.4-5.0) gm/dl Globulin (2.5-4.0) gm/dl Albumin/Globulin Ratio (0.9-2) TSH (0.300-4.500) uIu/ml Free T4 (0.8-1.6) ng/dl Urine Color Dark Yellow Urine Appearance Clear (Clear) Urine pH 5.0 (4.5-7.5) Ur Specific [place] 1.035 H (1.000-1.030) Urine Protein Negative (Negative) Urine Glucose (UA) Negative (Negative) Urine Ketones Negative (Negative) Urine Blood Negative (Negative) Urine Nitrite Negative (Negative) Urine Bilirubin Negative (Negative) Urine Urobilinogen Negative (Negative) Ur Leukocyte Esterase Negative (Negative) Influenza Type A (PCR) (Neg) Influenza Type B (PCR) (Neg) 10/04/18 10/04/18 10/04/18 Range/Units 02:53 02:53 02:53 WBC 5.53 (4.8-10.8) K/uL RBC 3.89 L (4.7-6.1) M/uL Hgb 12.1 L (14.0-18.0) g/dL POC Hgb (14.0-18.0) g/dl Hct 36.3 L (42-52) % POC Hct (42-52) % MCV 93.3 (80-100) fL MCH 31.1 (25-34) pg MCHC 33.3 (32-36) g/dL RDW Std Deviation 51.2 H (36.4-46.3) fL RDW Coeff of Debra 15.1 H (11.5-14.5) % Plt Count 187 (130-400) K/uL MPV 10.2 (7.4-10.4) fL Immature Gran % (Auto) 0.2 % Neut % (Auto) 54.8 % Lymph % (Auto) 32.9 % [place] % (Auto) 9.9 % Eos % (Auto) 1.1 % Baso % (Auto) 1.1 % Immature Gran # (Auto) 0.01 (0.00-0.02) K/uL Neut # (Auto) 3.03 (1.4-6.5) K/uL Lymph # (Auto) 1.82 (1.2-3.4) K/uL [place] # (Auto) 0.55 (0.11-0.59) K/uL Eos # (Auto) 0.06 (0-0.5) K/uL Baso # (Auto) 0.06 (0-0.2) K/uL Absolute Nucleated RBC 0.03 H (0-0) K/uL Nucleated RBC % (auto) 0.5 % PT 42.5 H (9.0-12.0) Seconds INR 4.6 H (0.9-1.1) POC D-Dimer (0-450) ng/mlFEU POC Sodium (135-144) mEq/L Sodium 134 L (136-145) mmol/L POC Potassium (3.3-5.0) mEq/L Potassium 3.7 (3.5-5.1) mmol/L POC Chloride (101-112) mEq/L Chloride 104 (98-107) mmol/L Carbon Dioxide 25 (21-32) mmol/L POC Total CO2 (24-31) mEq/l Anion Gap 5.0 (3-11) POC Anion Gap (16-25) mmol/L POC BUN (7-18) mg/dl BUN 20 H (7-18) mg/dl Creatinine 1.26 (0.6-1.4) mg/dl POC Creatinine (0.6-1.3) mg/dl Est Cr Clr Drug Dosing 58.9 ml/min Est GFR ( Amer) 67.0 Est GFR (Non-Af Amer) 57.8 BUN/Creatinine Ratio 15.7 (10-20) Glucose 106 H (70-99) mg/dl POC Glucose (other) (70-99) mg/dl Lactate (0.4-2.0) mmol/L Calcium 8.1 L (8.5-10.1) mg/dl POC Ioniz Calcium Erica (1.12-1.32) mmol/l Phosphorus 3.2 (2.5-4.9) mg/dl Magnesium 2.1 (1.8-2.4) mg/dl Total Bilirubin (0.2-1) mg/dl AST (15-37) U/L ALT (12-78) U/L Alkaline Phosphatase (45-117) U/L Total Creatine Kinase (39-308) U/L CK-MB (CK-2) (0.5-3.6) ng/ml CK/CKMB % Calc (0-3.0) Troponin I (0-0.045) ng/ml NT-Pro-B Natriuret Pep (0-900) pg/ml Total Protein (6.4-8.2) gm/dl Albumin (3.4-5.0) gm/dl Globulin (2.5-4.0) gm/dl Albumin/Globulin Ratio (0.9-2) TSH (0.300-4.500) uIu/ml Free T4 (0.8-1.6) ng/dl Urine Color Urine Appearance (Clear) Urine pH (4.5-7.5) Ur Specific [place] (1.000-1.030) Urine Protein (Negative) Urine Glucose (UA) (Negative) Urine Ketones (Negative) Urine Blood (Negative) Urine Nitrite (Negative) Urine Bilirubin (Negative) Urine Urobilinogen (Negative) Ur Leukocyte Esterase (Negative) Influenza Type A (PCR) (Neg) Influenza Type B (PCR) (Neg) 10/04/18 Range/Units 02:53 WBC (4.8-10.8) K/uL RBC (4.7-6.1) M/uL Hgb (14.0-18.0) g/dL POC Hgb (14.0-18.0) g/dl Hct (42-52) % POC Hct (42-52) % MCV (80-100) fL MCH (25-34) pg MCHC (32-36) g/dL RDW Std Deviation (36.4-46.3) fL RDW Coeff of Debra (11.5-14.5) % Plt Count (130-400) K/uL MPV (7.4-10.4) fL Immature Gran % (Auto) % Neut % (Auto) % Lymph % (Auto) % [place] % (Auto) % Eos % (Auto) % Baso % (Auto) % Immature Gran # (Auto) (0.00-0.02) K/uL Neut # (Auto) (1.4-6.5) K/uL Lymph # (Auto) (1.2-3.4) K/uL [place] # (Auto) (0.11-0.59) K/uL Eos # (Auto) (0-0.5) K/uL Baso # (Auto) (0-0.2) K/uL Absolute Nucleated RBC (0-0) K/uL Nucleated RBC % (auto) % PT (9.0-12.0) Seconds INR (0.9-1.1) POC D-Dimer (0-450) ng/mlFEU POC Sodium (135-144) mEq/L Sodium (136-145) mmol/L POC Potassium (3.3-5.0) mEq/L Potassium (3.5-5.1) mmol/L POC Chloride (101-112) mEq/L Chloride (98-107) mmol/L Carbon Dioxide (21-32) mmol/L POC Total CO2 (24-31) mEq/l Anion Gap (3-11) POC Anion Gap (16-25) mmol/L POC BUN (7-18) mg/dl BUN (7-18) mg/dl Creatinine (0.6-1.4) mg/dl POC Creatinine (0.6-1.3) mg/dl Est Cr Clr Drug Dosing ml/min Est GFR ( Amer) Est GFR (Non-Af Amer) BUN/Creatinine Ratio (10-20) Glucose (70-99) mg/dl POC Glucose (other) (70-99) mg/dl Lactate 1.2 (0.4-2.0) mmol/L Calcium (8.5-10.1) mg/dl POC Ioniz Calcium Erica (1.12-1.32) mmol/l Phosphorus (2.5-4.9) mg/dl Magnesium (1.8-2.4) mg/dl Total Bilirubin (0.2-1) mg/dl AST (15-37) U/L ALT (12-78) U/L Alkaline Phosphatase (45-117) U/L Total Creatine Kinase (39-308) U/L CK-MB (CK-2) (0.5-3.6) ng/ml CK/CKMB % Calc (0-3.0) Troponin I (0-0.045) ng/ml NT-Pro-B Natriuret Pep (0-900) pg/ml Total Protein (6.4-8.2) gm/dl Albumin (3.4-5.0) gm/dl Globulin (2.5-4.0) gm/dl Albumin/Globulin Ratio (0.9-2) TSH (0.300-4.500) uIu/ml Free T4 (0.8-1.6) ng/dl Urine Color Urine Appearance (Clear) Urine pH (4.5-7.5) Ur Specific [place] (1.000-1.030) Urine Protein (Negative) Urine Glucose (UA) (Negative) Urine Ketones (Negative) Urine Blood (Negative) Urine Nitrite (Negative) Urine Bilirubin (Negative) Urine Urobilinogen (Negative) Ur Leukocyte Esterase (Negative) Influenza Type A (PCR) (Neg) Influenza Type B (PCR) (Neg) Imaging Data Radiologist's Impression: Radiology results as stated below per my review and the radiologist's interpretation: XR chest 1V portable CLINICAL HISTORY: tachycardia, Afib with svr COMPARISON STUDY: Chest CT March 27, 2018 and PET/CT April 18, 2018. FINDINGS: Postoperative findings within the right hemithorax with volume loss are again noted. There is elevation pf the right hemidiaphragm. Slight blunting of the right costophrenic angle is noted. A linear density projecting over the right upper lung likely reflects a displaced fissure. There is suspected mild interstitial pulmonary edema. Cardiomediastinal silhouette is stable. There is a suspected trace bilateral pleural effusion. IMPRESSION: 1. Trace bilateral pleural effusions. 2. Pulmonary vascular congestion with suspected mild interstitial pulmonary edema. 3. Postoperative findings within the right hemithorax with volume loss. Electronically signed by: Vinay Marie M.D. 10/03/2018 10:[address] ANGIOGRAPHY OF THE CHEST, PULMONARY EMBOLUS PROTOCOL CLINICAL HISTORY: Tachycardia. Atrial fibrillation with rapid ventricular response. History of malignancy. COMPARISON STUDY: Chest CT March 27, 2018 and PET/CT April 18, 2018. TECHNIQUE: Following IV administration of Optiray-320, helical axial images of the chest were obtained utilizing the pulmonary embolus protocol. Maximal intensity projections and sagittal and coronal reformats were viewed on an independent 3D workstation. IV contrast was administered without complication. Automated exposure control was utilized for the study. A dose lowering technique was utilized adhering to the principles of ALARA. CT DOSE: 650.77 mGycm FINDINGS: Note is made of a pulmonary embolus to the apicoposterior segment of the left upper lobe. Pulmonary arteries within the right lung are suboptimally assessed due to mixing artifact. The patient status post right upper lobectomy. The heart is moderately enlarged. Extensive coronary artery calcification is noted. Dilatation of the ascending aorta, measuring 4.7 cm, is unchanged since prior exam. Moderate to large right pleural effusion is noted with a trace left pleural effusion. There is mild anterior soft tissue pulmonary edema. Moderate emphysema within the left upper lobe is noted. There is an indeterminate 1.5 cm irregular subpleural opacity within the left upper lobe on image 263 of [id number]. Mildly enlarged right paratracheal lymph node measures 1.3 cm in short axis diameter. However, this node contains a fatty hilum. A small amount of upper abdominal ascites is noted. There is reflux of contrast into the hepatic veins and IVC. No suspicious osseous lesions are noted. IMPRESSION: 1. Several segmental pulmonary emboli within the left upper lobe. 2. Moderate to large right pleural effusion. Trace left pleural effusion. 3. Status post right upper lobectomy. Mildly enlarged right paratracheal lymph node however this node contains a fatty hilum. This node may be reactive/ related to pulmonary edema but should be assessed on subsequent exams. 4. Indeterminate 1.5 cm irregular subpleural opacity within the left upper lobe. This can be assessed on subsequent exams. 5. Small amount of upper abdominal ascites. Reflux of contrast into the hepatic veins and IVC. The findings may reflect right heart dysfunction. Electronically signed by: Vinay Marie M.D. 10/03/2018 10:53 AM ECG Data Attestation: I personally reviewed and interpreted this ECG as follows: Indication: SOB/dyspnea Rate (beats per minute): 163 Rhythm: atrial fibrillation Findings: + other (RVR); no ST depression and no ST elevation Comparison ECG Date: from (07/24/2017) Change: the following changes noted (atrial fibrillation is new) Blood Pressure Blood Pressure Findings: Normal blood pressure Blood Pressure Disposition: did not require urgent referral MDM Narrative This is a 67-year-old male who presents emergency of shortness of breath. Patient was found to be in A. fib with RVR upon arrival to the emergency department. Based on this the patient was given a Cardizem bolus x2. Patient' s heart rate remained in the 120s therefore he was started on Cardizem drip. He is on Coumadin however has a positive d-dimer therefore was sent for CAT scan of the chest. I am concerned with the patient's INR 5.1 that he still has pulmonary embolus that have developed in his lungs. Based on this along with the Cardizem drip I did discuss the case with the hospitalist service who agreed to admit the patient. Patient and are in agreement with the treatment plan. Impression & Plan Atrial fibrillation with RVR Critical Care Time I have personally spent greater than 35 minutes of critical care time in the direct management of this patient. This includes bedside care, interpretation of diagnostic studies, and testing, discussion with consultants, patient, and family members, and other required patient management activities. This 35 minutes is in excess of all separately billable procedures. Discharge Plan Visit Data *Final* Discharge Date/Time: 10/03/18 13:04 Chief Complaint: Shortness of Breath/Dyspnea Stated Complaint: SOB,SYNCOPE ED Provider: Mika Lakhani ED Midlevel Provider: Helder Murry Discharge Problem: Atrial fibrillation with RVR Patient Disposition: Admitted As Inpatient Discharge Instructions Interventions: ED Discharge Assessment Last Done: 10/03/18 13:04 The scribe's documentation has been prepared under my direction and personally reviewed by me in its entirety. I confirm that the note above accurately reflects all work, treatment, procedures, and medical decision making performed by me.
[2018-10-04] MEDS: FUROSEMIDE 40 MG in SYRINGE 0 ML IV SCH ×2 (08:23→19:49)
[2018-10-04] MEDS: MULTIVITAMIN TAB PO SCH (08:23)
[2018-10-04] MEDS: THIAMINE HCL 100 MG TAB PO SCH (08:23)
[2018-10-04] MEDS: FOLIC ACID 400 MCG TAB PO SCH (08:23)
[2018-10-04] MEDS: CYANOCOBALAMIN 500 MCG TABLET (VITAMIN B-12) PO SCH (08:24)
[2018-10-04] MEDS: METOPROLOL TARTRATE 25 MG TAB PO SCH ×2 (08:24→19:49)
[2018-10-04] MEDS ORDERED: LISINOPRIL 5 MG TAB PO SCH (09:00)
--- NOTE | 2018-10-04 10:10 | Cardiology Progress Note ---
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 He has not been well medicated due to noncompliance. He is in atrial fibrillation and has high heart rates. He may require the higher heart rate to Maintain cardiac output. I would not be overly aggressive with rate control. Continue IV diuretics. I will titrate his lisinopril. Continue metoprolol at its current dosage. (2) Aortic stenosis: I do not doubt that the patient has some degree of aortic stenosis however due to his poor LV function some of the severity may be due to pseudo- aortic stenosis. (3) Atrial fibrillation: (4) Tobacco use: (5) Alcohol use: (6) PVD (peripheral vascular disease): (7) DVT (deep venous thrombosis): Hematology consult appreciated. Subjective The patient feels a little better today. He currently is in negative numbers in regard to I/O. Physical Exam 2 Vital Signs (Past 24 Hours): Last Vital Signs Temp 37.8 C H 10/04/18 07:40 Pulse 117 H 10/04/18 07:40 Resp 18 10/04/18 07:40 BP 137/96 10/04/18 07:40 Pulse Ox 92 10/04/18 07:40 Physical Exam: General: no acute distress and stated age Head: normocephalic, no masses, lesions, tenderness or abnormalities Eyes: conjunctiva are pink and non-injected, sclera clear Neck: supple, no adenopathy, no bruits, normal jugular venous pulse, no hepatojugular reflux Chest: normal shape and normal respiratory effort Lungs: Rales and rhonchi Cardiac Exam: - regular rate & rhythm, no murmurs gallops or rubs - normal S1, normal S2 Pulses: 2(+) throughout Abdomen: abdomen soft, non-tender, no abnormal masses and no hepatosplenomegaly Musculoskeletal: no gait disturbance, no joint inflammation, no deforming arthritis Extremities: no edema and no cyanosis Neuro: grossly normal exam Results & Data Laboratory Results Laboratory Results - last 24 hr 10/03/18 10/03/18 10/03/18 09:05 09:10 16:13 WBC RBC Hgb Hct MCV MCH MCHC RDW Std Deviation RDW Coeff of Debra Plt Count MPV Immature Gran % (Auto) Neut % (Auto) Lymph % (Auto) [place] % (Auto) Eos % (Auto) Baso % (Auto) Immature Gran # (Auto) Neut # (Auto) Lymph # (Auto) [place] # (Auto) Eos # (Auto) Baso # (Auto) Absolute Nucleated RBC Nucleated RBC % (auto) PT INR Sodium 133 L Potassium 4.2 Chloride 103 Carbon Dioxide 23 Anion Gap 7.0 BUN 22 H Creatinine 1.31 Est Cr Clr Drug Dosing 56.7 Est GFR ( Amer) 63.9 Est GFR (Non-Af Amer) 55.2 BUN/Creatinine Ratio 16.5 Glucose 112 H Lactate Calcium 8.5 Phosphorus Magnesium 2.3 Total Bilirubin 1.0 AST 261 H ALT 319 H Alkaline Phosphatase 93 Total Creatine Kinase 215 CK-MB (CK-2) 3.2 CK/CKMB % Calc 1.5 Troponin I 0.100 H* 0.088 H* NT-Pro-B Natriuret Pep 57436 H Total Protein 7.1 Albumin 3.2 L Globulin 3.9 Albumin/Globulin Ratio 0.8 L TSH 5.490 H Free T4 1.30 Urine Color Urine Appearance Urine pH Ur Specific [place] Urine Protein Urine Glucose (UA) Urine Ketones Urine Blood Urine Nitrite Urine Bilirubin Urine Urobilinogen Ur Leukocyte Esterase Influenza Type A (PCR) Neg for Influ A Influenza Type B (PCR) Neg for Influ B 10/03/18 10/03/18 10/04/18 21:00 21:09 02:53 WBC 5.53 RBC 3.89 L Hgb 12.1 L Hct 36.3 L MCV 93.3 MCH 31.1 MCHC 33.3 RDW Std Deviation 51.2 H RDW Coeff of Debra 15.1 H Plt Count 187 MPV 10.2 Immature Gran % (Auto) 0.2 Neut % (Auto) 54.8 Lymph % (Auto) 32.9 [place] % (Auto) 9.9 Eos % (Auto) 1.1 Baso % (Auto) 1.1 Immature Gran # (Auto) 0.01 Neut # (Auto) 3.03 Lymph # (Auto) 1.82 [place] # (Auto) 0.55 Eos # (Auto) 0.06 Baso # (Auto) 0.06 Absolute Nucleated RBC 0.03 H Nucleated RBC % (auto) 0.5 PT INR Sodium Potassium Chloride Carbon Dioxide Anion Gap BUN Creatinine Est Cr Clr Drug Dosing Est GFR ( Amer) Est GFR (Non-Af Amer) BUN/Creatinine Ratio Glucose Lactate Calcium Phosphorus Magnesium Total Bilirubin AST ALT Alkaline Phosphatase Total Creatine Kinase CK-MB (CK-2) CK/CKMB % Calc Troponin I 0.088 H* NT-Pro-B Natriuret Pep Total Protein Albumin Globulin Albumin/Globulin Ratio TSH Free T4 Urine Color Dark Yellow Urine Appearance Clear Urine pH 5.0 Ur Specific [place] 1.035 H Urine Protein Negative Urine Glucose (UA) Negative Urine Ketones Negative Urine Blood Negative Urine Nitrite Negative Urine Bilirubin Negative Urine Urobilinogen Negative Ur Leukocyte Esterase Negative Influenza Type A (PCR) Influenza Type B (PCR) 10/04/18 10/04/18 10/04/18 02:53 02:53 02:53 WBC RBC Hgb Hct MCV MCH MCHC RDW Std Deviation RDW Coeff of Debra Plt Count MPV Immature Gran % (Auto) Neut % (Auto) Lymph % (Auto) [place] % (Auto) Eos % (Auto) Baso % (Auto) Immature Gran # (Auto) Neut # (Auto) Lymph # (Auto) [place] # (Auto) Eos # (Auto) Baso # (Auto) Absolute Nucleated RBC Nucleated RBC % (auto) PT 42.5 H INR 4.6 H Sodium 134 L Potassium 3.7 Chloride 104 Carbon Dioxide 25 Anion Gap 5.0 BUN 20 H Creatinine 1.26 Est Cr Clr Drug Dosing 58.9 Est GFR ( Amer) 67.0 Est GFR (Non-Af Amer) 57.8 BUN/Creatinine Ratio 15.7 Glucose 106 H Lactate 1.2 Calcium 8.1 L Phosphorus 3.2 Magnesium 2.1 Total Bilirubin AST ALT Alkaline Phosphatase Total Creatine Kinase CK-MB (CK-2) CK/CKMB % Calc Troponin I NT-Pro-B Natriuret Pep Total Protein Albumin Globulin Albumin/Globulin Ratio TSH Free T4 Urine Color Urine Appearance Urine pH Ur Specific [place] Urine Protein Urine Glucose (UA) Urine Ketones Urine Blood Urine Nitrite Urine Bilirubin Urine Urobilinogen Ur Leukocyte Esterase Influenza Type A (PCR) Influenza Type B (PCR) Medications Administered Current Inpatient Medications Cyanocobalamin (Vitamin B-12) 500 mcg PO DAILY [facility] Stop: 11/03/18 08:59 Last Admin: 10/04/18 08:24 Dose: 500 mcg Folic Acid (Folvite) 400 mcg PO QAM [facility] Stop: 11/03/18 08:59 Last Admin: 10/04/18 08:23 Dose: 400 mcg Gabapentin (Neurontin) 600 mg PO Q12H [facility] Stop: 10/06/18 06:01 Gabapentin (Neurontin) 600 mg PO Q24H [facility] Stop: 10/07/18 06:01 Gabapentin (Neurontin) 600 mg PO Q8H [facility] Stop: 10/05/18 04:01 Lorazepam (Ativan) 1 mg in 2 mls @ 2 mls/min IV ONE PRN; Protocol PRN Reason: EtoH Withdrawal AWSS 6-10 Stop: 11/02/18 14:33 Furosemide 40 mg/ Syringe 4 mls @ 4 mls/min IV BID [facility] Stop: 11/02/18 20:59 Last Admin: 10/04/18 08:23 Dose: 4 mls/min Ipratropium [place] (Atrovent 0.02% 0.5mg/2.5ml) 0.5 mg INH Q8R PRN PRN Reason: SOB/WHEEZING Stop: 11/02/18 14:33 Last Admin: 10/03/18 23:02 Dose: 0.5 mg Levalbuterol HCl (Xopenex 1.25mg/0.5ml Neb) 1.25 mg INH Q8R PRN PRN Reason: SOB/WHEEZING Stop: 11/02/18 14:33 Last Admin: 10/03/18 23:02 Dose: 1.25 mg Levothyroxine Sodium (Levothyroxine Sodium) 137 mcg PO DAILYBB [facility] Stop: 11/03/18 06:29 Last Admin: 10/04/18 06:10 Dose: 137 mcg Lisinopril (Zestril) 5 mg PO NOW ONE Stop: 10/04/18 10:31 Lisinopril (Zestril) 10 mg PO QAM [facility] Stop: 11/04/18 08:59 Metoprolol Tartrate (Lopressor) 12.5 mg PO BID [facility] Stop: 11/03/18 07:14 Last Admin: 10/04/18 08:24 Dose: 12.5 mg Multivitamins (Multivitamin Tab) 1 tab PO QAM [facility] Stop: 11/03/18 08:59 Last Admin: 10/04/18 08:23 Dose: 1 tab Polyethylene Glycol (Miralax Powder Packet) 17 gm PO DAILY PRN PRN Reason: Constipation Stop: 11/02/18 14:33 Thiamine HCl (Vitamin B-1) 100 mg PO [facility] Stop: 11/03/18 08:59 Last Admin: 10/04/18 08:23 Dose: 100 mg
[2018-10-04] MEDS ORDERED: LISINOPRIL 5 MG TAB PO ONE (10:30)
--- NOTE | 2018-10-04 15:51 | Hospitalist Progress Note ---
Date of Service October 04, 2018 Assessment & Plan (1) Atrial fibrillation with RVR: Present on admission with worsening SOB EKG on admission with Afib with RVR Initially was starting on cardizem drip that was discontinued since pt needs to have a high HR to maintain adequate cardiac output. was starting on metoprolol 12.5 mg BID yesterday HR has been in the high 90's Cardiology on board On coumadin with supratherapeutic INR 4.6 today ECHO showed severe global LV dysfunction. RV systolic fx is severely reduced Continue monitor closely Keep HR elevates to maintain adequate cardiac output. continue monitor in tele (2) Pulmonary embolism: CTA chest showed Several segmental pulmonary emboli within the left upper lobe. Doppler of L/E showed no acute DVT within the right or left lower extremity. Linear chronic nonocclusive thrombus within the left popliteal vein. has been on coumadin for 1 yr with INR has been fluctuates as per Pulmonology and Oncology on board Will plan to start on the NOACs since patient failed warfarin therapy Oncology recommended to start on heparin drip once INR is 3 or below 3 Monitor PT/INR (3) Supratherapeutic INR: INR: 5.1 on admission No signs of active bleeding INR 4.6 today Coumadin will be changed to the NOACs will start heparin drip once INR drop below 3 (4) Pleural effusion: (5) COPD (chronic obstructive pulmonary disease): (6) SOB (shortness of breath): CTA chest showed moderate to large right pleural effusion Continue xopenex/atrovent neb Q8H Pulmonology consult on board (7) Elevated liver enzymes: AST:261, ALT: 319, Alk Phos: 93, total bili: 1.0 on admission Liver u/s showed sludge within the gallbladder, but no calculi identified. Mild gallbladder wall thickening (5 mm). Low volume ascites Monitor liver enzymes (8) Lung cancer: H/O squamous cell Lung CA s/p RUL resection by Dr Skelton 08/2017. Follows with Dr Son Kline. Follow up with oncology dr. 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 (12) Carotid artery disease: 03/2018 US: 50-69% stenosis R ICA; chronically occluded L ICA. Follows with Dr Josh Barkley (13) Tobacco use: Counselling on smoking cessation (14) Alcohol use: drink socially about 3 beers a day. Denies hx ETOH withdrawal, seizures, DT's No sign of alcohol withdrawn on gabapentin alcohol withdrawal protocol Continue multivitamin, thiamine, folic acid supplement daily Dysphagia Stable for now Will consult speech DVT Prophylaxis -INR 4.6 today CODE STATUS DNR/DNI Subjective Pt was seen and examined Lying in bed with at bedside Pt said that his breathing slightly improves Denies any chest pain, palpitation and dizziness Physical Exam 2 Vital Signs (Past 24 Hours): Last Vital Signs Temp 36.6 C 10/04/18 14:58 Pulse 95 H 10/04/18 14:58 Resp 22 10/04/18 14:58 BP 104/84 10/04/18 14:58 Pulse Ox 92 10/04/18 14:58 Physical Exam: General- No acute distress Head- atraumatic Eyes- PERRL, EOMI, ENT- oropharynx clear Neck- supple, no JVD Lungs- clear to auscultation Heart- irregular rhythm; no murmur Abdomen- normal bowel sounds, soft, nontender Extremities- no calf tenderness Neuro- alert, oriented x 3; PERRL, EOMI Skin- warm & dry
--- NOTE | 2018-10-04 18:28 | Progress Note ---
DATE: 10/04/2018 TIME: 5:30 p.m. SUBJECTIVE: The patient's breathing is much improved today. He is less short of breath. He remains very fatigued. His was present during this evaluation. She has noticed his breathing seems much less labored and less noisy. OBJECTIVE: GENERAL: The patient appears comfortable at rest. He does look more fatigued today than previous. VITAL SIGNS: Temperature is 36.6. He did have a fever this morning of 37.8 at 7:40 a.m. CARDIOVASCULAR: Current heart rate is 112. Rhythm is irregular. Blood pressure is 104/84. RESPIRATORY: Respiratory rate is 22. Faint wheezing was heard today. This is dramatically better. Saturation 92% on room air. GASTROINTESTINAL: The abdomen was soft and nontender. Good bowel sounds were heard. LABORATORY DATA: White count is 5.53, hemoglobin 12.1, platelets 187,000, INR today was still elevated at 4.6. Electrolytes show sodium 134, potassium 3.7, chloride 104, bicarb 25, BUN 20, creatinine 1.26. IMPRESSION: 1. Pulmonary embolus, recurrent, left upper lobe. 2. Lung carcinoma, status post right upper lobectomy. 3. Chronic obstructive pulmonary disease. 4. Right pleural effusion. 5. Cardiomyopathy. 6. Rapid atrial fibrillation. 7. Dysphagia. COMMENTS AND RECOMMENDATIONS: I reviewed Dr. Kline's consult, which suggested the possibility of switching to one of the newer oral anticoagulants once his INR is down to 3. The patient's apparently has been trying to convince him to try Lovenox again. His problem previously was severe constipation, which likely may have been due to something else. The Lovenox might be the preferred choice in this patient if he could tolerate it without difficulty. His respiratory status seems much better. His thinks the nebulizer treatments have helped. She seems to notice a difference after he has had a treatment. The patient did diurese 2449 mL in the prior 24 hours, which may well have contributed to improvement as well. I would continue as present.
[2018-10-04] MEDS: LEVALBUTEROL 1.25MG/0.5ML NEB INH PRN (20:28)
[2018-10-04] MEDS: IPRATROPIUM BROMIDE NEB SOLN 0.02% 2.5 ML VIAL INH PRN (20:28)
[2018-10-05] MEDS: LEVOTHYROXINE SODIUM 137 MCG TABLET PO SCH (04:58)
[2018-10-05] MEDS: GABAPENTIN 600 MG TAB PO SCH ×2 (04:58→18:11)
[2018-10-05 06:57] LABS: Hematocrit (blood only) 39.7 % (42-52); Hemoglobin 13.2 g/dL (14.0-18.0); Mean Corpuscular Hgb Conc 33.2 g/dL (32-36); Mean Corpuscular Volume 93.2 fL (80-100); Mean Platelet Volume 9.9 fL (7.4-10.4); Platelet Count 214 K/uL (130-400); RDW Standard Deviation 50.2 fL (36.4-46.3); Red Blood Count 4.26 M/uL (4.7-6.1); White Blood Count 7.66 K/uL (4.8-10.8)
[2018-10-05 07:20] LABS: INR 2.9 (0.9-1.1); Prothrombin Time 27.5 Seconds (9.0-12.0)
[2018-10-05 07:25] LABS: Albumin Level 3.1 gm/dl (3.4-5.0); Calcium 8.7 mg/dl (8.5-10.1); Creatinine Clr Calc Pharmacy 61.9 ml/min; Est GFR (African American) 71.1; Est GFR (Non-African American) 61.3; Potassium 3.4 mmol/L (3.5-5.1)
[2018-10-05 07:28] LABS: Albumin Globulin Ratio 0.9 (0.9-2); Globulin 3.5 gm/dl (2.5-4.0); Total Protein 6.6 gm/dl (6.4-8.2)
[2018-10-05] MEDS: CYANOCOBALAMIN 500 MCG TABLET (VITAMIN B-12) PO SCH (08:15)
[2018-10-05] MEDS: MULTIVITAMIN TAB PO SCH (08:15)
[2018-10-05] MEDS: LISINOPRIL 10 MG TAB PO SCH (08:15)
[2018-10-05] MEDS: FOLIC ACID 400 MCG TAB PO SCH (08:15)
[2018-10-05] MEDS: THIAMINE HCL 100 MG TAB PO SCH (08:15)
[2018-10-05] MEDS: FUROSEMIDE 40 MG in SYRINGE 0 ML IV SCH ×2 (08:15→20:13)
[2018-10-05] MEDS: METOPROLOL TARTRATE 25 MG TAB PO SCH ×2 (08:16→22:09)
[2018-10-05] MEDS ORDERED: POTASSIUM CHLORIDE 10 MEQ TABCR PO ONE (09:15)
--- NOTE | 2018-10-05 09:38 | Cardiology Progress Note ---
Date of Service October 05, 2018 Assessment & Plan (1) Dilated cardiomyopathy: This patient has a severe dilated cardiomyopathy with biventricular heart failure. He has not been well medicated due to noncompliance. He is doing better after IV diuretics and the start of a beta-matt with an CIERA inhibitor. Blood pressure is a little low or else I would titrate the CIERA inhibitor today. He may ultimately benefit from the addition of Aldactone in the future. (2) Aortic stenosis: I do not doubt that the patient has some degree of aortic stenosis however due to his poor LV function some of the severity may be due to pseudo- aortic stenosis. (3) Atrial fibrillation: (4) Tobacco use: (5) Alcohol use: (6) PVD (peripheral vascular disease): (7) DVT (deep venous thrombosis): Hematology consult appreciated. Subjective The patient feels a little better today. He currently is in negative numbers in regard to I/O. Physical Exam 2 Vital Signs (Past 24 Hours): Last Vital Signs Temp 37.1 C 10/05/18 08:07 Pulse 105 H 10/05/18 08:07 Resp 19 10/05/18 08:07 BP 97/70 L 10/05/18 08:07 Pulse Ox 91 10/05/18 08:07 Physical Exam: General: no acute distress and stated age Head: normocephalic, no masses, lesions, tenderness or abnormalities Eyes: conjunctiva are pink and non-injected, sclera clear Neck: supple, no adenopathy, no bruits, normal jugular venous pulse, no hepatojugular reflux Chest: normal shape and normal respiratory effort Lungs: Less wheezing today. Cardiac Exam: - regular rate & rhythm, no murmurs gallops or rubs - normal S1, normal S2 Pulses: 2(+) throughout Abdomen: abdomen soft, non-tender, no abnormal masses and no hepatosplenomegaly Musculoskeletal: no gait disturbance, no joint inflammation, no deforming arthritis Extremities: no edema and no cyanosis Neuro: grossly normal exam Results & Data Laboratory Results Laboratory Results - last 24 hr 10/05/18 10/05/18 10/05/18 06:45 06:45 06:45 WBC 7.66 RBC 4.26 L Hgb 13.2 L Hct 39.7 L MCV 93.2 MCH 31.0 MCHC 33.2 RDW Std Deviation 50.2 H RDW Coeff of Debra 15.0 H Plt Count 214 MPV 9.9 PT 27.5 H INR 2.9 H Sodium 136 Potassium 3.4 L Chloride 100 Carbon Dioxide 27 Anion Gap 9.0 BUN 18 Creatinine 1.20 Est Cr Clr Drug Dosing 61.9 Est GFR ( Amer) 71.1 Est GFR (Non-Af Amer) 61.3 BUN/Creatinine Ratio 15.0 Glucose 89 Calcium 8.7 Total Bilirubin 1.0 AST 69 H ALT 183 H Alkaline Phosphatase 86 Total Protein 6.6 Albumin 3.1 L Globulin 3.5 Albumin/Globulin Ratio 0.9 Medications Administered Current Inpatient Medications Cyanocobalamin (Vitamin B-12) 500 mcg PO DAILY [facility] Stop: 11/03/18 08:59 Last Admin: 10/05/18 08:15 Dose: 500 mcg Folic Acid (Folvite) 400 mcg PO QAM [facility] Stop: 11/03/18 08:59 Last Admin: 10/05/18 08:15 Dose: 400 mcg Gabapentin (Neurontin) 600 mg PO Q12H [facility] Stop: 10/06/18 06:01 Gabapentin (Neurontin) 600 mg PO Q24H [facility] Stop: 10/07/18 06:01 Lorazepam (Ativan) 1 mg in 2 mls @ 2 mls/min IV ONE PRN; Protocol PRN Reason: EtoH Withdrawal AWSS 6-10 Stop: 11/02/18 14:33 Furosemide 40 mg/ Syringe 4 mls @ 4 mls/min IV BID [facility] Stop: 11/02/18 20:59 Last Admin: 10/05/18 08:15 Dose: 4 mls/min Ipratropium [place] (Atrovent 0.02% 0.5mg/2.5ml) 0.5 mg INH Q8R PRN PRN Reason: SOB/WHEEZING Stop: 11/02/18 14:33 Last Admin: 10/04/18 20:28 Dose: 0.5 mg Levalbuterol HCl (Xopenex 1.25mg/0.5ml Neb) 1.25 mg INH Q8R PRN PRN Reason: SOB/WHEEZING Stop: 11/02/18 14:33 Last Admin: 10/04/18 20:28 Dose: 1.25 mg Levothyroxine Sodium (Levothyroxine Sodium) 137 mcg PO DAILYBB [facility] Stop: 11/03/18 06:29 Last Admin: 10/05/18 04:58 Dose: 137 mcg Lisinopril (Zestril) 10 mg PO QAM [facility] Stop: 11/04/18 08:59 Last Admin: 10/05/18 08:15 Dose: 10 mg Metoprolol Tartrate (Lopressor) 12.5 mg PO BID [facility] Stop: 11/03/18 07:14 Last Admin: 10/05/18 08:16 Dose: Not Given Multivitamins (Multivitamin Tab) 1 tab PO QAM [facility] Stop: 11/03/18 08:59 Last Admin: 10/05/18 08:15 Dose: 1 tab Polyethylene Glycol (Miralax Powder Packet) 17 gm PO DAILY PRN PRN Reason: Constipation Stop: 11/02/18 14:33 Potassium Chloride (Klor-Con M20) 20 meq PO NOW ONE Stop: 10/05/18 09:46 Potassium Chloride (Klor-Con M10) 10 meq PO DAILY [facility] Stop: 11/05/18 08:59 Thiamine HCl (Vitamin B-1) 100 mg PO QAM [facility] Stop: 11/03/18 08:59 Last Admin: 10/05/18 08:15 Dose: 100 mg
[2018-10-05] MEDS ORDERED: POTASSIUM CHLORIDE 20 MEQ TABCR PO ONE (09:45)
[2018-10-05] MEDS ORDERED: Heparin IV Standard *NO* Bolus SCH (10:36)
[2018-10-05 11:14] LABS: Basophils # (auto) 0.04 K/uL (0-0.2); Basophils % (auto) 0.6 %; Eosinophils # (auto) 0.05 K/uL (0-0.5); Eosinophils % (auto) 0.7 %; Hematocrit (blood only) 40.9 % (42-52); Hemoglobin 13.8 g/dL (14.0-18.0); Immature Granulocytes # (auto) 0.01 K/uL (0.00-0.02); Immature Granulocytes % (auto) 0.1 %; Lymphocytes # (auto) 1.44 K/uL (1.2-3.4); Lymphocytes % (auto) 20.4 %; Monocytes # (auto) 0.75 K/uL (0.11-0.59); Monocytes % (auto) 10.6 %; Neutrophils # (auto) 4.78 K/uL (1.4-6.5); Neutrophils % (auto) 67.6 %; Platelet Count 210 K/uL (130-400); RDW Coefficient of Variation 15.1 % (11.5-14.5); RDW Standard Deviation 50.9 fL (36.4-46.3); White Blood Count 7.07 K/uL (4.8-10.8)
[2018-10-05 11:24] LABS: INR 2.9 (0.9-1.1); Partial Thromboplastin Ratio 1.3; Partial Thromboplastin Time 32.7 Seconds (21.0-31.0); Prothrombin Time 27.2 Seconds (9.0-12.0)
[2018-10-05 11:27] LABS: Mean Corpuscular Hgb Conc 33.7 g/dL (32-36)
[2018-10-05] MEDS: HEPARIN STANDARD DEXTROSE 25,000 UNITS/500 ML IV SCH (11:37)
--- NOTE | 2018-10-05 12:21 | Progress Note ---
DATE: 10/05/2018 PULMONARY PROGRESS NOTE TIME: 12:00 noon. SUBJECTIVE: The patient feels about the same. He was not very talkative today. He feels that the breathing is about the same as prior. He does complain of very little energy. He does express that he has an appetite. He states he sends his to get him some food. OBJECTIVE: GENERAL: The patient did not appear in distress. However, I was able to hear some wheezing without a stethoscope. Yesterday, that was not the case. VITAL SIGNS: Temperature was 37.1. Maximum temperature in the past 24 hours was 37.5. That was at 4:08 a.m. Heart rate was 87 per minute. Blood pressure 95/67. LUNGS: Lung stoll revealed mild to moderate wheeze bilaterally. Respiratory rate 18 breaths per minute. Oxygen saturation 91% on room air. EXTREMITIES: Showed mild edema. IMPRESSION: 1. Pulmonary embolism - recurrent - left upper lobe. 2. Lung cancer - status post right upper lobectomy. 3. Chronic obstructive pulmonary disease. 4. Right pleural effusion. 5. Cardiomyopathy. 6. Rapid atrial fibrillation. 7. Dysphagia. COMMENTS AND RECOMMENDATIONS: The patient is not as good as yesterday. He has overall improved much since admission. Yesterday, he had a negative urine balance of -1 liter. The patient remains on the furosemide. He is now being started on heparin because the INR is under 3. Ultimately, he will be given a trial of a novel oral anticoagulant. I would continue with the current therapy. His potassium is slightly low and will need replacement. Liver functions are improving. The AST has improved from 261, down to 69 and the ALT has improved from 319, down to 183.
--- NOTE | 2018-10-05 16:27 | Hospitalist Progress Note ---
Date of Service October 05, 2018 Assessment & Plan (1) Atrial fibrillation with RVR: Present on admission with worsening SOB EKG on admission with Afib with RVR Initially was starting on cardizem drip that was discontinued since pt needs to have a high HR to maintain adequate cardiac output. Continue metoprolol 12.5 mg BID and Lisinopril 10 mg Cardiology on board INR 2.9 today Coumadin will be discontinued since pt failed Warfarin therapy Starting on heparin drip once INR drops below 2, will initiate the NOACs ECHO showed severe global LV dysfunction. RV systolic fx is severely reduced Continue monitor closely Keep HR elevates to maintain adequate cardiac output. continue monitor in tele (2) Pulmonary embolism: CTA chest showed Several segmental pulmonary emboli within the left upper lobe. Doppler of L/E showed no acute DVT within the right or left lower extremity. Linear chronic nonocclusive thrombus within the left popliteal vein. has been on coumadin for 1 yr with INR has been fluctuates as per Pulmonology and Oncology on board Will plan to start on the NOACs since patient failed warfarin therapy Oncology recommended to start on heparin drip once INR is 3 or below 3 Starting on heparin drip today Plan to discharge home with the NOAC agents Monitor PT/INR (3) Supratherapeutic INR: INR: 5.1 on admission No signs of active bleeding INR 2.9 today Coumadin will be changed to the NOACs Starting on heparin drip (4) Pleural effusion: (5) COPD (chronic obstructive pulmonary disease): (6) SOB (shortness of breath): CTA chest showed moderate to large right pleural effusion Continue xopenex/atrovent neb Q8H Pulmonology consult on board (7) Elevated liver enzymes: AST:261, ALT: 319, Alk Phos: 93, total bili: 1.0 on admission Liver enzymes trending down Liver u/s showed sludge within the gallbladder, but no calculi identified. Mild gallbladder wall thickening (5 mm). 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 Follows with Dr Son Kline. Follow up with oncology dr. 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 (12) Carotid artery disease: 03/2018 US: 50-69% stenosis R ICA; chronically occluded L ICA. Follows with Dr Josh Barkley (13) Tobacco use: Counselling on smoking cessation (14) Alcohol use: drink socially about 3 beers a day. Denies hx ETOH withdrawal, seizures, DT's No sign of alcohol withdrawn on gabapentin alcohol withdrawal protocol Continue multivitamin, thiamine, folic acid supplement daily Dysphagia Speech on board and recommended minced and moist diet Aspiration precaution DVT Prophylaxis 2.9 today On heparin drip CODE STATUS DNR/DNI Subjective Pt was seen and examined Lying in bed with no distress Pt said that he feels tired He said that his breathing is much better Denies any chest pain, palpitation and fever and Dizziness Physical Exam 2 Vital Signs (Past 24 Hours): Last Vital Signs Temp 36.5 C 10/05/18 15:18 Pulse 98 H 10/05/18 15:18 Resp 18 10/05/18 15:18 BP 95/67 L 10/05/18 11:33 Pulse Ox 93 10/05/18 15:18 Physical Exam: General- No acute distress Head- atraumatic Eyes- PERRL, EOMI, ENT- oropharynx clear Neck- supple, no JVD Lungs- clear to auscultation Heart- irregular rhythm; no murmur Abdomen- normal bowel sounds, soft, nontender Extremities- no calf tenderness Neuro- alert, oriented x 3; PERRL, EOMI Skin- warm & dry
[2018-10-05 18:03] LABS: Partial Thromboplastin Ratio 2.2
[2018-10-05 18:07] LABS: Partial Thromboplastin Time 57.2 Seconds (21.0-31.0)
[2018-10-06] MEDS: HEPARIN STANDARD DEXTROSE 25,000 UNITS/500 ML IV SCH ×2 (05:04→23:01)
[2018-10-06 06:01] LABS: Hematocrit (blood only) 40.6 % (42-52); Hemoglobin 13.6 g/dL (14.0-18.0); Mean Corpuscular Hgb Conc 33.5 g/dL (32-36); Mean Corpuscular Volume 93.1 fL (80-100); Mean Platelet Volume 10.4 fL (7.4-10.4); Platelet Count 227 K/uL (130-400); RDW Coefficient of Variation 15.1 % (11.5-14.5); Red Blood Count 4.36 M/uL (4.7-6.1)
[2018-10-06] MEDS: LEVOTHYROXINE SODIUM 137 MCG TABLET PO SCH (06:15)
[2018-10-06] MEDS: GABAPENTIN 600 MG TAB PO SCH (06:16)
[2018-10-06 06:33] LABS: BUN Creatinine Ratio 14.1 (10-20); Calcium 8.3 mg/dl (8.5-10.1); Creatinine Clr Calc Pharmacy 58.5 ml/min; Est GFR (African American) 66.4; Est GFR (Non-African American) 57.3; Potassium 3.5 mmol/L (3.5-5.1)
[2018-10-06 07:02] LABS: INR 2.2 (0.9-1.1); Partial Thromboplastin Ratio 2.4; Prothrombin Time 21.4 Seconds (9.0-12.0)
[2018-10-06 07:04] LABS: Partial Thromboplastin Time 63.4 Seconds (21.0-31.0)
[2018-10-06] MEDS: METOPROLOL TARTRATE 25 MG TAB PO SCH ×2 (07:37→20:27)
[2018-10-06] MEDS: CYANOCOBALAMIN 500 MCG TABLET (VITAMIN B-12) PO SCH (07:39)
[2018-10-06] MEDS: LISINOPRIL 10 MG TAB PO SCH (07:39)
[2018-10-06] MEDS: FOLIC ACID 400 MCG TAB PO SCH (07:39)
[2018-10-06] MEDS: THIAMINE HCL 100 MG TAB PO SCH (07:39)
[2018-10-06] MEDS: POTASSIUM CHLORIDE 10 MEQ TABCR PO SCH (07:40)
[2018-10-06] MEDS: MULTIVITAMIN TAB PO SCH (07:40)
[2018-10-06] MEDS: FUROSEMIDE 40 MG in SYRINGE 0 ML IV SCH (09:48)
--- NOTE | 2018-10-06 15:31 | Cardiology Progress Note ---
Date of Service October 06, 2018 Assessment & Plan (1) Acute systolic heart failure: (2) Dilated cardiomyopathy: -newly diagnosed severe biventricular systolic dysfunction, LVEF in the range of 10% (3) Pulmonary embolism: (4) Aortic stenosis: -prior history of suspected bicuspid aortic valve, difficult to tell if the patient has true aortic stenosis surface pseudo aortic stenosis due to low cardiac output syndrome. (5) Supratherapeutic INR: (6) Atrial fibrillation with RVR: Patient has responded to diuretics with 1.4 liters of urine output on 10/04/2018 2.6 liters of urine output on 10/05/2018, the intake cannot take not appear to be accounted for accurately on 10/06/2018. Medication limited by relative hypotension with systolic blood pressure in the range of 80-90s mm Hg. Will reduce furosemide to 40 mg IV daily from BID. Add low dose spironolactone for neuro hormonal effects and help supplement potassium. Continue heparin bridge. Consider starting direct oral anticoagulant agent such as Eliquis 5 milligrams twice daily when INR is less than 2. Patient has a history of endovascular repair of an abdominal aortic aneurysm, and apparent lower extremity peripheral arterial disease. His a past history of prolong cigarette smoking, and I think the likelihood of him having significant underlying coronary artery disease is high. Unfortunately, his relative low blood pressure severe LV systolic function maximum poor candidate for cardiac catheterization at present. Will continue to try to optimize his volume status. Regarding atrial fibrillation with rapid ventricular response, continue low- dose metoprolol tartrate. After blood pressure stabilizes, likely transition to metoprolol succinate given LV systolic dysfunction. And digoxin for both rate control and heart failure optimization. Repeat chemistry panel and INR tomorrow. Subjective Chief complaint: Follow up shortness of breath Subjective: Patient seen in cardiology follow-up, having been followed by Dr. Cerda of our service earlier this hospital stay. He is sitting completely supine in bed and is comfortable in terms of respiratory status at present. Earlier this morning he had brief chest discomfort. EKG revealed atrial fibrillation with mildly elevated ventricular rate, and ongoing T-wave inversions in the precordial leads. Patient continues to be relatively hypotensive with systolic blood pressure in the 80s to 90s range. Ongoing atrial fibrillation noted. Ventricular rates in the 90-115 beats per minute at rest, with rapid atrial fibrillation noted with minimal activity. Physical Exam 2 Vital Signs (Past 24 Hours): Last Vital Signs Temp 37.0 C 10/06/18 07:07 Pulse 94 H 10/06/18 15:00 Resp 16 10/06/18 07:07 BP 87/70 L 10/06/18 13:05 Pulse Ox 95 10/06/18 13:05 Constitutional: + ill appearing (Chronically ill in appearance) Respiratory: no cough and not tachypneic Auscultation: + diminished lung sounds (Mildly decreased breath sounds at the bases bilaterally) Gastrointestinal (Abdomen): Percussion/Palpation: abdomen soft; abdomen nontender and abdomen not rigid Neurologic: No focal deficits Results & Data Laboratory Results Coagulation INR 2.2 today 10/06/2018 down from 2.9 yesterday. 10/05/18 10/06/18 Range/Units 17:36 05:14 PT 21.4 H (9.0-12.0) Seconds APTT 57.2 H* 63.4 H* (21.0-31.0) Seconds CBC 10/06/18 Range/Units 05:14 WBC 7.20 (4.8-10.8) K/uL RBC 4.36 L (4.7-6.1) M/uL Hgb 13.6 L (14.0-18.0) g/dL Hct 40.6 L (42-52) % Plt Count 227 (130-400) K/uL Comprehensive Metabolic Panel 10/06/18 Range/Units 05:14 Sodium 136 (136-145) mmol/L Potassium 3.5 (3.5-5.1) mmol/L Chloride 97 L (98-107) mmol/L Carbon Dioxide 29 (21-32) mmol/L BUN 18 (7-18) mg/dl Creatinine 1.27 (0.6-1.4) mg/dl Glucose 91 (70-99) mg/dl Calcium 8.3 L (8.5-10.1) mg/dl Intake and Output 10/06/18 10/06/18 10/06/18 06:59 14:59 22:59 Intake Total 306.133 / 306.133 68.600 / 68.600 340 / 340 Balance 306.133 / 306.133 68.600 / 68.600 340 / 340 Intake: IV 306.133 / 306.133 68.600 / 68.600 HEPARIN SODIUM/DEXTROSE 25,000 306.133 / 306.133 68.600 / 68.600 units In 500 ml @ 1,400 UNITS/ HR 28 mls/hr IV .[id number] [facility] Rx #:[id number] Oral 340 / 340 Other: # Unmeasured Voids 1 Weight 78.1 kg
[2018-10-06] MEDS ORDERED: DIGOXIN 250 MCG in SYRINGE 9 ML IV STA (15:44)
[2018-10-06] MEDS: SPIRONOLACTONE 25 MG TAB PO SCH (17:09)
--- NOTE | 2018-10-06 19:31 | Hospitalist Progress Note ---
Date of Service October 06, 2018 Assessment & Plan (1) Atrial fibrillation with RVR: Present on admission with worsening SOB EKG on admission with Afib with RVR Initially was starting on cardizem drip that was discontinued since pt needs to have a high HR to maintain adequate cardiac output. Continue metoprolol 12.5 mg BID and Lisinopril 10 mg Cardiology on board INR 22 today Coumadin will be discontinued since pt failed Warfarin therapy On heparin drip once INR drops below 2, will initiate the NOACs ECHO showed severe global LV dysfunction. RV systolic fx is severely reduced Continue monitor closely Case discussed with cardiology Digoxin IV given continue monitor in tele (2) Pulmonary embolism: CTA chest showed Several segmental pulmonary emboli within the left upper lobe. Doppler of L/E showed no acute DVT within the right or left lower extremity. Linear chronic nonocclusive thrombus within the left popliteal vein. has been on coumadin for 1 yr with INR has been fluctuates as per Pulmonology and Oncology on board Will plan to start on the NOACs since patient failed warfarin therapy Oncology recommended to start on heparin drip once INR is 3 or below 3 Continue heparin drip for now Plan to discharge home with the NOAC agents Will call pharmacy to check for insurance coverage Monitor PT/INR (3) Supratherapeutic INR: INR: 5.1 on admission No signs of active bleeding INR 2.2 today Coumadin will be changed to the NOACs Continue on heparin drip (4) Pleural effusion: (5) COPD (chronic obstructive pulmonary disease): (6) SOB (shortness of breath): CTA chest showed moderate to large right pleural effusion Continue xopenex/atrovent neb Q8H Pulmonology on board Stable (7) Elevated liver enzymes: AST:261, ALT: 319, Alk Phos: 93, total bili: 1.0 on admission Liver enzymes trending down Liver u/s showed sludge within the gallbladder, but no calculi identified. Mild gallbladder wall thickening (5 mm). 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 Follows with Dr Son Kline. Follow up with oncology dr. 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 (12) Carotid artery disease: 03/2018 [place]: 50-69% stenosis R ICA; chronically occluded L ICA. Follows with Dr Josh Barkley (13) Tobacco use: Counselling on smoking cessation (14) Alcohol use: drink socially about 3 beers a day. Denies hx ETOH withdrawal, seizures, DT's No sign of alcohol withdrawn on gabapentin alcohol withdrawal protocol Continue multivitamin, thiamine, folic acid supplement daily Dysphagia Speech on board and recommended minced and moist diet Aspiration precaution DVT Prophylaxis 2.2 today On heparin drip CODE STATUS DNR/DNI Disposition Continue monitor in tele Subjective Pt was seen and examined Lying in bed with at bedside Blood pressure was low this morning he had an episode of chest pain His HR was in the 150's early this morning he did not eat much breakfast this morning Denies any fever, SOB and dizziness Physical Exam 2 Vital Signs (Past 24 Hours): Last Vital Signs Temp 36.6 C 10/06/18 19:26 Pulse 94 H 10/06/18 19:26 Resp 20 10/06/18 19:26 BP 114/66 10/06/18 19:26 Pulse Ox 96 10/06/18 19:26 Physical Exam: General- No acute distress Head- atraumatic Eyes- PERRL, EOMI, ENT- oropharynx clear Neck- supple, no JVD Lungs- clear to auscultation Heart- irregular rhythm; no murmur Abdomen- normal bowel sounds, soft, nontender Extremities- no calf tenderness Neuro- alert, oriented x 3; PERRL, EOMI Skin- warm & dry
[2018-10-07 05:12] LABS: Hematocrit (blood only) 41.3 % (42-52); Hemoglobin 14.1 g/dL (14.0-18.0); Mean Corpuscular Hgb Conc 34.1 g/dL (32-36); Mean Corpuscular Volume 93.7 fL (80-100); Mean Platelet Volume 9.8 fL (7.4-10.4); Platelet Count 205 K/uL (130-400); RDW Coefficient of Variation 15.1 % (11.5-14.5); RDW Standard Deviation 51.7 fL (36.4-46.3); Red Blood Count 4.41 M/uL (4.7-6.1); White Blood Count 7.21 K/uL (4.8-10.8)
[2018-10-07 05:33] LABS: INR 1.9 (0.9-1.1); Prothrombin Time 18.7 Seconds (9.0-12.0)
[2018-10-07 05:35] LABS: Partial Thromboplastin Time 77.6 Seconds (21.0-31.0)
[2018-10-07 05:39] LABS: BUN Creatinine Ratio 16.1 (10-20); Est GFR (African American) 89.7; Est GFR (Non-African American) 77.4; Magnesium 1.9 mg/dl (1.8-2.4); Potassium 3.5 mmol/L (3.5-5.1)
[2018-10-07] MEDS: LEVOTHYROXINE SODIUM 137 MCG TABLET PO SCH (05:58)
[2018-10-07] MEDS ORDERED: GABAPENTIN 600 MG TAB PO SCH (06:00)
[2018-10-07] MEDS: SPIRONOLACTONE 25 MG TAB PO SCH (09:31)
[2018-10-07] MEDS: METOPROLOL TARTRATE 25 MG TAB PO SCH ×2 (09:33→19:52)
[2018-10-07] MEDS: FOLIC ACID 400 MCG TAB PO SCH (09:33)
[2018-10-07] MEDS: THIAMINE HCL 100 MG TAB PO SCH (09:34)
[2018-10-07] MEDS: CYANOCOBALAMIN 500 MCG TABLET (VITAMIN B-12) PO SCH (09:34)
[2018-10-07] MEDS: MULTIVITAMIN TAB PO SCH (09:34)
[2018-10-07] MEDS: POTASSIUM CHLORIDE 10 MEQ TABCR PO SCH (09:34)
[2018-10-07] MEDS: FUROSEMIDE 40 MG in SYRINGE 0 ML IV SCH (09:36)
--- NOTE | 2018-10-07 10:06 | Cardiology Progress Note ---
Date of Service October 07, 2018 67-year-old male with multiple complex medical problems as noted below. He is discouraged. He is disappointed about being in the hospital. Now that his heparin is to be discontinued, I think it will free him up to be able to at least sit in the chair today. I discussed with him that based on his profound left ventricular systolic dysfunction, there are considerations that his prognosis is somewhat poor. But that he really has not had a trial of adequate medical therapy yet. I do not think he is a good candidate for invasive treatments such as cardioversion or cardiac catheterization at present. Is difficult to determine with the underlying cause of his cardiomyopathy is. Aortic valve stenosis is a possibility, given his history of cigarette smoking and abdominal aortic aneurysm (past endovascular repair) and peripheral arterial disease in the dense coronary artery calcification noted on CT of the chest, ischemic cardiomyopathyis also likely. Would like him more optimized before consideration of whether or not he is a candidate for cardiac catheterization for further workup. I counseled him that transitioning to a "comfort care "strategy is of course a consideration if that is what he wants. He has a long-standing history of not wanting to take medications, but I do think that this is somewhat premature as we are just starting to initiate treatment. Assessment & Plan (1) Acute systolic heart failure: (2) Dilated cardiomyopathy: Newly diagnosed severe biventricular systolic dysfunction, acute systolic heart failure. I reviewed the echo images study performed this admission independently today, with findings of severe biventricular systolic dysfunction I agree LVEF is in the range of 10%. The aortic valve is densely calcified with decreased excursion. Treatment of his heart failure has been limited by tachycardia and relative hypotension. His balance summary was positive yesterday by 1.5 L, but I do not think his urine output is being tracked adequately. We will bring this up with nursing. We need standing at bedside scale weights. Therapeutics: Furosemide dose of 40 mg IV twice daily has been reduced to once daily, and blood pressure is a little bit better. Spironolactone 12.5 mg added yesterday, plan to titrate to 25 mg, but I would like to wait to make sure his kidney function and potassium remain stable. Metoprolol tartrate has been increased to 25 mg twice daily with holds for systolic blood pressure less than 90 mmHg. -Plan to transition to metoprolol succinate after a trial of titrating a shorter acting agent. -Digoxin added for both rate control and inotropic effects in the setting of hypotension and severe systolic heart failure, atrial fibrillation. Discontinue lisinopril. If blood pressure and renal function are stable after 48 hours off this medication, will consider starting Entresto. To be cautious regarding afterload reduction due to concerns of aortic stenosis. (3) Aortic stenosis: (4) Thoracic ascending aortic aneurysm: -Past history of present bicuspid aortic valve, echocardiogram this admission reveals severe aortic valve calcification, unable to determine if this is bicuspid aortic valve. Cusp excursion is extremely limited with systole. -Ascending thoracic aortic aneurysm 4.[address] -True aortic valve stenosis versus pseudo-aortic valve stenosis due to low cardiac output state. -With treatment of heart failure, may be able to move forward with aortic valve workup in the future. (5) Supratherapeutic INR: (6) Atrial fibrillation with RVR: (7) Pulmonary embolism: -CT of the chest patient has been found to have multiple segmental right pulmonary emboli this admission. -These occured despite treatment with warfarin with supratherapeutic INR on admission. -His INR is 1.9 today, (less than 2). Will discontinue on fraction heparin and transition him to a direct oral anticoagulant agent Eliquis. Typical starting dose of Eliquis for treatment of pulmonary embolism is 10 mg twice daily for the first 7 days then transition down to 5 mg twice daily. I am concerned however given the patient's generalized frailty, his recent supratherapeutic INR, and his history of medication nonadherence, of bleeding risk on the short-term higher dose of Eliquis, and I think at this point given his prior prolonged history of treatment with Coumadin, be prudent to just transition him to 5 mg by mouth twice a day of Eliquis to avoid any confusion in terms of dosing. Eliquis will also be used for stroke prophylaxis in the setting of atrial fibrillation. I have instructed his nurse to obtain the dose of Eliquis from the pharmacy as soon as possible and to turn off the heparin infusion as soon as the first dose of oral Eliquis is administered. (8) Primary cancer of right lower lobe of lung: -History of past lung cancer with past right lobectomy. There is an indeterminate 1.5 cm lung nodule noted on CT. Subjective Chief complaint : follow-up shortness of breath Subjective: Patient seen in cardiology follow-up. He is discouraged and states that he is tired of being in the hospital. He denies any marylou symptoms, but he notes that he has mostly been in bed and other than using the commode, has not really been out of bed. Telemetry reveals ongoing atrial fibrillation with mildly elevated ventricular rates. His resting ventricular rates are in the 100 bpm range at present, but he does get tachycardic with minimal activity. Digoxin was added yesterday which is tolerated thus far. Chemistry panel this morning reveals stable renal function, potassium 3.5. I canceled the patient's p.m. dose of furosemide yesterday, and his systolic blood pressures which had been in the range of 87 mmHg, are now above 100 on the last few readings. Physical Exam 2 Vital Signs (Past 24 Hours): Last Vital Signs Temp 36.5 C 10/07/18 07:04 Pulse 100 H 10/07/18 07:04 Resp 18 10/07/18 07:04 BP 121/84 10/07/18 07:04 Pulse Ox 98 10/07/18 07:04 Physical Exam: General: no acute distress and stated age Eyes: conjunctiva are pink and non-injected, sclera clear Neck: normal jugular venous pulse, no hepatojugular reflux Chest: normal shape and normal respiratory effort Lungs: clear to auscultation and percussion Cardiac Exam: -Irregular rhythm, 1/6 systolic murmur Abdomen: abdomen soft, non-tender, no abnormal masses and no hepatosplenomegaly Musculoskeletal: no gait disturbance, no weakness Extremities: no edema and no cyanosis Neuro:awake, coversant, follows commands, no focal motor deficits Psych: appropriate affect and insight. Results & Data Laboratory Results PTT 77.6 seconds, INR 1.9 Diagnostic Findings EKG performed 10/06/18 12:54 PM revealed atrial fibrillation with elevated ventricular rate of 114 bpm, T wave inversions noted in leads V3 to V6 as well as I, aVL, and lead II. Poor R wave progression is noted with noted interventricular conduction delay. QRS duration 104 ms.
--- NOTE | 2018-10-07 10:40 | Hospitalist Progress Note ---
Date of Service October 07, 2018 Assessment & Plan (1) Atrial fibrillation with RVR: Present on admission with worsening SOB EKG on admission with Afib with RVR Initially was starting on cardizem drip that was discontinued since pt needs to have a high HR to maintain adequate cardiac output. Continue metoprolol 12.5 mg BID and Lisinopril 10 mg Cardiology on board INR 1.9 today Coumadin will be discontinued since pt failed Warfarin therapy On heparin drip Will start on eliquis 5 mg bid Will check coverage for the elequis Once initiate eliquis, will d/c heparin drip ECHO showed severe global LV dysfunction. RV systolic fx is severely reduced Continue monitor closely Case discussed with cardiology Starting on digoxin oral HR improves continue monitor in tele (2) Pulmonary embolism: CTA chest showed Several segmental pulmonary emboli within the left upper lobe. Doppler of L/E showed no acute DVT within the right or left lower extremity. Linear chronic nonocclusive thrombus within the left popliteal vein. has been on coumadin for 1 yr with INR has been fluctuates as per Pulmonology and Oncology on board Will plan to start on the NOACs since patient failed warfarin therapy Oncology recommended to start on heparin drip once INR is 3 or below 3 Continue heparin drip for now Will start on eleiquis 5 mg BID Will call pharmacy to check for insurance coverage Monitor PT/INR (3) Supratherapeutic INR: INR: 5.1 on admission No signs of active bleeding INR 1.9 today Coumadin will be changed to the NOACs Continue on heparin drip for now (4) Pleural effusion: (5) COPD (chronic obstructive pulmonary disease): (6) SOB (shortness of breath): CTA chest showed moderate to large right pleural effusion Continue xopenex/atrovent neb Q8H Pulmonology on board Stable (7) Elevated liver enzymes: AST:261, ALT: 319, Alk Phos: 93, total bili: 1.0 on admission Liver enzymes trending down Liver u/s showed sludge within the gallbladder, but no calculi identified. Mild gallbladder wall thickening (5 mm). 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 Follows with Dr Son Kline. Follow up with oncology dr. 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 (12) Carotid artery disease: 03/2018 US: 50-69% stenosis R ICA; chronically occluded L ICA. Follows with Dr Josh Barkley (13) Tobacco use: Counselling on smoking cessation (14) Alcohol use: drink socially about 3 beers a day. Denies hx ETOH withdrawal, seizures, DT's No sign of alcohol withdrawn on gabapentin alcohol withdrawal protocol Continue multivitamin, thiamine, folic acid supplement daily Dysphagia Speech on board and recommended minced and moist diet Aspiration precaution DVT Prophylaxis INR 1.9 today On heparin drip CODE STATUS DNR/DNI Disposition Continue monitor in tele Subjective Pt was seen and examined Lying in bed with no distress Pt said that he feels much better today Currently denies any chest pain, palpitation and SOB Physical Exam 2 Vital Signs (Past 24 Hours): Last Vital Signs Temp 36.5 C 10/07/18 07:04 Pulse 100 H 10/07/18 07:04 Resp 18 10/07/18 07:04 BP 121/84 10/07/18 07:04 Pulse Ox 98 10/07/18 07:04 Physical Exam: General- No acute distress Head- atraumatic Eyes- PERRL, EOMI, ENT- oropharynx clear Neck- supple, no JVD Lungs- clear to auscultation Heart- irregular rhythm; no murmur Abdomen- normal bowel sounds, soft, nontender Extremities- no calf tenderness Neuro- alert, oriented x 3; PERRL, EOMI Skin- warm & dry
[2018-10-07] MEDS: APIXABAN 5 MG TABLET PO SCH ×2 (11:08→19:52)
[2018-10-07] MEDS: DIGOXIN 0.125 MG TAB PO SCH (17:53)
[2018-10-08] MEDS: LEVOTHYROXINE SODIUM 137 MCG TABLET PO SCH (06:06)
[2018-10-08 07:11] LABS: BUN Creatinine Ratio 13.1 (10-20); Calcium 8.2 mg/dl (8.5-10.1); Creatinine Clr Calc Pharmacy 71.8 ml/min; Est GFR (African American) 85.9; Est GFR (Non-African American) 74.1; INR 1.7 (0.9-1.1); Potassium 3.8 mmol/L (3.5-5.1); Prothrombin Time 17.1 Seconds (9.0-12.0)
[2018-10-08] MEDS: METOPROLOL TARTRATE 25 MG TAB PO SCH (08:46)
[2018-10-08] MEDS: POTASSIUM CHLORIDE 10 MEQ TABCR PO SCH (08:46)
[2018-10-08] MEDS: FOLIC ACID 400 MCG TAB PO SCH (08:46)
[2018-10-08] MEDS: THIAMINE HCL 100 MG TAB PO SCH (08:46)
[2018-10-08] MEDS: CYANOCOBALAMIN 500 MCG TABLET (VITAMIN B-12) PO SCH (08:46)
[2018-10-08] MEDS: SPIRONOLACTONE 25 MG TAB PO SCH (08:46)
[2018-10-08] MEDS: APIXABAN 5 MG TABLET PO SCH (08:46)
[2018-10-08] MEDS: MULTIVITAMIN TAB PO SCH (08:47)
[2018-10-08] MEDS: FUROSEMIDE 40 MG in SYRINGE 0 ML IV SCH (08:47)
--- NOTE | 2018-10-08 11:00 | XRay Report ---
XR chest 2V routine HISTORY: 68 years-old Male follow up CHF , R pleural effusion follow-up study in a patient with pleu ral effusion. Chronic shortness of breath COMPARISON: Chest radiograph and CTA chest 10/03/2017 TECHNIQUE: PA and lateral views of the chest FINDINGS: Cardiac silhouette is normal in size. Emphysema with chronic pleural-parenchymal scarring of the lung apices, left greater than right. Chronic postoperative changes of the right lung. Unchanged moderate sized right pleural effusion. No definite left pleural effusion. Slightly improved aeration of the r ight lung base. Degenerative changes of the shoulders and spine. IMPRESSION: 1. Chronic postoperative changes of the right lung. 2. Moderate sized right pleural effusion redemonstrated. 3. Emphysema with biapical pleural-parenchymal scarring. The above report was generated using voice recognition software. It may contain grammatical, syntax o r spelling errors. Electronically signed by: Maycol Partida M.D. 10/08/2018 10:59 AM
--- NOTE | 2018-10-08 13:13 | Progress Note ---
DATE: 10/06/2018 PROBLEM LIST: Includes: 1. Pulmonary embolism, recurrent left upper lobe. 2. Lung cancer, status post right upper lobectomy. 3. Chronic obstructive pulmonary disease. 4. Right pleural effusion. 5. Cardiomyopathy. 6. Rapid atrial fibrillation. 7. Dysphagia. SUBJECTIVE: When I got to the patient, he reported that he was feeling a little bit worn out and tired. He had an episode this morning, where he became hypotensive. He did have an EKG done, which did show some ST changes, but these were chronic in nature. States that breathing petty he is about the same. He has not had any more shortness of breath than normal. No significant cough or congestion at this time. He just feels worn out. He has no headache or lightheadedness, no dizziness. The chest pain he describes as sort of a pinching sensation that comes and goes in the left upper chest. It does not radiate anywhere. No back pain, no jaw pain, no arm pain. The patient's and son were in the room, when I was in with him. Also, Dr. Genao came in to discuss with him about his EKG as well as his last ejection fraction was 10% and some difficulties considering trying to treat him. OBJECTIVE: GENERAL: Patient is a 67-year-old male, lying in bed, in no acute distress, appears comfortable when I saw him. He is alert and oriented x3. Mood is good. Affect is good. VITAL SIGNS: Temperature is 37.0, pulse is 93, respirations 16, blood pressure 87/70, pulse oximetry 95% on room air. HEENT: Normocephalic and atraumatic. Pupils equal, round, and reactive to light and accommodation. [place] and dry gingival and buccal mucosa. NECK: Supple. No mass, no adenopathy, no bruit. CHEST: Mild wheezing bilaterally throughout. No rales or rhonchi noted. CARDIOVASCULAR: Tachycardic at approximately 120 beats per minute. Unable to evaluate for murmurs, gallops, or rubs at this time. GASTROINTESTINAL: Bowel sounds are present. Abdomen is soft. EXTREMITIES: Trace edema bilaterally, no erythema. LABORATORY DATA: Shows a white count of 7000, H and H 13.6 and 40.6, platelet count 227,000. INR of 2.2. IMAGING: No new imaging done. IMPRESSION AND PLAN: 1. Pulmonary embolism. Patient is being adequately anticoagulated at this time. At some point, will need to be switched over to oral anticoagulation. 2. History of lung cancer, status post right upper lobectomy. This appears to be stable. 3. Chronic obstructive pulmonary disease, stable. 4. Right pleural effusion. 5. Cardiomyopathy. Patient had an ejection fraction of 10%. Unfortunately, he is guarded at this time in regard to his overall prognosis. 6. Rapid atrial fibrillation. Patient will have medications, most likely adjusted by Dr. Genao and Dr. Buchanan, to address the blood pressure and tachycardic issue. At this point, continue to monitor patient through hospitalization.
[2018-10-08] MEDS: DIGOXIN 0.125 MG TAB PO SCH (17:01)
--- NOTE | 2018-10-08 17:36 | Cardiology Progress Note ---
Date of Service October 08, 2018 Assessment & Plan (1) Acute systolic heart failure: (2) Dilated cardiomyopathy: (3) Atrial fibrillation with RVR: (4) Aortic stenosis: Severe valvular aortic stenosis versus pseudo-aortic stenosis related to low cardiac output state. (5) Pulmonary embolism: Recurrent/ongoing right segmental pulmonary emboli despite long-term anticoagulation with Coumadin. (6) Thoracic ascending aortic aneurysm: 4.7 cm ascending thoracic aortic aneurysm noted on CT this admission The patient's problems were well delineated on my progress note dated 10/07/18. Presented with tachycardia and shortness of breath was found to have newly diagnosed systolic heart failure with severe biventricular systolic dysfunction , LVEF in the range of 10%. Volume status is improved. Blood pressure has been low. This is limited use of AV dwight blockers as well as typical heart failure agents. Chest x-ray performed today to improve by my personal interpretation, radiology raise concern of ongoing right pleural effusion. The pleural effusion was assessed with ultrasound at the bedside by pulmonary medicine, and was felt to not be significant. I hope it been to optimize the patient's volume status and rate, proceed with diagnostic cardiac catheterization. He has an abnormal EKG with T wave inversions in the precordial leads. Based on his long-standing history of vascular disease including endovascular abdominal aortic aneurysm repair, I think he could very well have multivessel disease. At present, I do not think he would be a candidate for CABG, but if there was a focal lesion that could be addressed by PCI, this would hopefully improve his symptoms as well as his prognosis. The patient however declines further hospital stay. I have spoken to him at length last evening, and then multiple times today as has Dr. Padilla of hospitalist medicine. I offer patient transfer to [facility] for assessment by the advanced heart failure team however he declines. At this time patient is going to leave AGAINST MEDICAL ADVICE. Recommended discharge on the following cardiac medications: Torsemide 20 mg p.o. daily spironolactone 12.5 mg daily. Digoxin 0.125 mg by mouth daily Metoprolol tartrate 25 mg twice daily Levothyroxine 137 mcg by mouth daily Eliquis 5 mg twice daily for both stroke prophylaxis in setting of atrial fibrillation and treatment of recurrent pulmonary emboli despite Coumadin therapy. The [id number] cost for the Eliquis is apparently $80 per month, and the out- of-pocket cost for Xarelto was similar. Patient declines Lovenox. Patient's spouse said this cost was affordable for them. I attempted to reach the patient's spouse by telephone to update her regarding the patient's election to leave AGAINST MEDICAL ADVICE, was unable to reach her. I did have an extended conversation with the patient all the spouse and patient's children are at the bedside yesterday. Media clear to the patient, that I feel he is at high risk for worsening problems from a cardiac standpoint including suddenly. He still wants to leave. Plan for follow-up visit 10/24/18, Gabriele Parra, with Mahnaz Lagos PA-C, patient arrival time 2:45 PM Subjective Chief complaint: Follow-up shortness of breath, cardiomyopathy, atrial fibrillation Subjective: Patient states that he does not want to stay in the hospital any longer. He wants to go home and get cleaned up. I offered him access to shower and of course we have access to razors that he could shave. He states he feels better compared to admission. He remains in atrial fibrillation with rapid ventricular response in the range of 100-115 bpm at rest and as rates are even higher with minimal exertion. Blood pressure remains relatively low with most recent blood pressure 107/64. Physical Exam 2 Vital Signs (Past 24 Hours): Last Vital Signs Temp 36.5 C 10/08/18 15:36 Pulse 114 H 10/08/18 15:36 Resp 20 10/08/18 15:36 BP 107/64 10/08/18 15:36 Pulse Ox 99 10/08/18 15:36 Physical Exam: General: no acute distress, chronically ill in appearance Eyes: conjunctiva are pink and non-injected, sclera clear Neck: Mild jugular venous distention Chest: normal shape and normal respiratory effort Lungs: Mildly decreased breath sounds at the right base Cardiac Exam: -Irregular rhythm, I/ systolic murmur Abdomen: abdomen soft, non-tender, no abnormal masses and no hepatosplenomegaly Extremities: no edema and no cyanosis Neuro:awake, coversant, follows commands, no focal motor deficits Psych: appropriate affect and insight. Results & Data Laboratory Results Chemistry panel performed today 10/08/18: Sodium 133 Potassium 3.8 Chloride 96 CO2 29 Anion gap 8 BUN 13 Creatinine 1.02 Calculated GFR 74 mL/min/m
[2018-10-08] MEDS ORDERED: APIXABAN 5 MG TABLET PO STA (18:26)
[2018-10-08] MEDS ORDERED: APIXABAN 5 MG TABLET PO SCH (18:30)
--- NOTE | 2018-10-08 18:54 | Hospitalist Progress Note ---
Date of Service October 08, 2018 Assessment & Plan (1) Atrial fibrillation with RVR: Present on admission with worsening SOB EKG on admission with Afib with RVR Initially was starting on cardizem drip that was discontinued since pt needs to have a high HR to maintain adequate cardiac output. Continue metoprolol 12.5 mg BID and Lisinopril 10 mg Cardiology on board INR 1.9 today Coumadin will be discontinued since pt failed Warfarin therapy On heparin drip Will start on eliquis 5 mg bid Will check coverage for the elequis Once initiate eliquis, will d/c heparin drip ECHO showed severe global LV dysfunction. RV systolic fx is severely reduced Continue monitor closely 10/08 Clinically improves Wants to leave against medical advice Dr. Genao spoke to patient to stay in the hospital to proceed with diagnostic cardiac catheterization once his volume status and HR stable. He declines further hospital stay. I also spoke to patient and to stay in the hospital that we can manage his fluid status and HR. He declined again further hospital stay. I explained to him the risk by leaving AMA such as respiratory distress due to fluid re-accumulate, organ failure, heart attack and sudden cardiac . Pt refused to stay for another night. He signed AMA and and I signed as witness. I gave him scripts for medications. I also asked the pharmacy to dispense 1 tab of eliquis to take home for tonight. Torsemide 20 mg p.o. daily spironolactone 12.5 mg daily. Digoxin 0.125 mg by mouth daily Metoprolol tartrate 25 mg twice daily Levothyroxine 137 mcg by mouth daily Eliquis 5 mg twice daily for both stroke prophylaxis in setting of atrial fibrillation and treatment of recurrent pulmonary (2) Pulmonary embolism: CTA chest showed Several segmental pulmonary emboli within the left upper lobe. Doppler of L/E showed no acute DVT within the right or left lower extremity. Linear chronic nonocclusive thrombus within the left popliteal vein. has been on coumadin for 1 yr with INR has been fluctuates as per Pulmonology and Oncology on board Will plan to start on the NOACs since patient failed warfarin therapy Oncology recommended to start on heparin drip once INR is 3 or below 3 Continue heparin drip for now Will start on eleiquis 5 mg BID Will call pharmacy to check for insurance coverage Monitor PT/INR 10/08 Coumadin changed to eliquis 5mg BID Case management checked the cost for eliquis. [id number] cost for the Eliquis is apparently $80 per month, and the out-of- pocket cost for Xarelto was similar. Patient's spouse said this cost was affordable for them. (3) Supratherapeutic INR: INR: 5.1 on admission No signs of active bleeding INR 1.7 today Coumadin changed to Eliquis (4) Pleural effusion: (5) COPD (chronic obstructive pulmonary disease): (6) SOB (shortness of breath): CTA chest showed moderate to large right pleural effusion Continue xopenex/atrovent neb Q8H Pulmonology on board Case discussed with Yarding Supervisor Dr. Cadet that attempted thoracentesis for the right pleural effusion Not enough fluid to remove Continue diuresis with torsemide (7) Elevated liver enzymes: AST:261, ALT: 319, Alk Phos: 93, total bili: 1.0 on admission Liver enzymes trending down Liver u/s showed sludge within the gallbladder, but no calculi identified. Mild gallbladder wall thickening (5 mm). 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 Follows with Dr Son Kline. Follow up with oncology dr. 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 (12) Carotid artery disease: 03/2018 US: 50-69% stenosis R ICA; chronically occluded L ICA. Follows with Dr Josh Barkley (13) Tobacco use: Counselling on smoking cessation (14) Alcohol use: drink socially about 3 beers a day. Denies hx ETOH withdrawal, seizures, DT's No sign of alcohol withdrawn on gabapentin alcohol withdrawal protocol Continue multivitamin, thiamine, folic acid supplement daily Dysphagia Speech on board and recommended minced and moist diet Aspiration precaution DVT Prophylaxis Starting on eliquis 5 mg BID CODE STATUS DNR/DNI Disposition Signed against medical advice Follow up with Dr. Carlisle on 10/11 @ 2:20 PM Follow up with cardiology with Mahnaz Alcantara on 10/24 @ 2:45 PM Scripts given for: Torsemide 20 mg p.o. daily spironolactone 12.5 mg daily. Digoxin 0.125 mg by mouth daily Metoprolol tartrate 25 mg twice daily Levothyroxine 137 mcg by mouth daily Eliquis 5 mg twice daily Lisinopril 2.5 mg daily Check CMP in 1 week. Subjective Pt was seen and examined Sitting at the edge of the bed already got clothes on to go home Pt said that he does not want to stay in the hospital He said that he is ready to go home Pt said that he has not been shaving his cat and shower I offered the patient that i am going to put an order to get him shower and shave his cat He said no that he rather wants to do it at home I explained to patient that he is not ready to be discharge yet I told him the reason that he is feeling better is because we are giving him med to urinate some of the fluid. I told him that if he leaves AMA that he will come back because he is not ready yet. I spoke to the over the phone with his permission and explained to her that her wants to leave against medical advice and he is not ready yet to be discharged. she was on her way driving to the hospital. When she got to the hospital, i again explained to patient while at bedside about leaving AMA. and patient understand the risks by leaving against medical advice such as respiratory distress, organs failure, heart attack and sudden . Dr. Genao also spoke to patient to stay in the hospital. Pt denies any chest pain, palpitation, dizziness and SOB Physical Exam 2 Vital Signs (Past 24 Hours): Last Vital Signs Temp 36.5 C 10/08/18 15:36 Pulse 114 H 10/08/18 15:36 Resp 20 10/08/18 15:36 BP 107/64 10/08/18 15:36 Pulse Ox 99 10/08/18 15:36 Physical Exam: General- No acute distress Head- atraumatic Eyes- PERRL, EOMI, ENT- oropharynx clear Neck- supple, no JVD Lungs- clear to auscultation Heart- irregular rhythm; no murmur Abdomen- normal bowel sounds, soft, nontender Extremities- no calf tenderness Neuro- alert, oriented x 3; PERRL, EOMI Skin- warm & dry
--- NOTE | 2018-10-12 01:29 | Discharge Summary ---
Date of Service October 08, 2018 Admission HPI Per Admitting Provider Pt is 67 y/o M with PMH Lung CA s/p RUL resection by Dr Skelton 08/2017, h/o tonsillar CA s/p chemo & radiation in 2003, h/o LLE DVT in 2014, h/o PE 07/2017 on coumadin, AAA with repair, stroke 2016, carotid stenosis, mild aortic stenosis, peripheral neuropathy, chronic back pain, tobacco use, COPD, hypothyroidism presented to ER with c/o SOB. Patient reports for the last week he has been having intermittent shortness of breath with associated leg weakness and leg paresthesias with dizziness. Symptoms again last evening and continued with SOB today. Denies chest pain or palpitations. Patient reports chronic cough however feels increased cough over the past several weeks of clear sputum. Denies any hemoptysis. Patient reports has been eating and drinking less over the past week and has noticed dark color urine for the past week. Reports intermittent urinary incontinence for years since had a Larios placed for a surgery. Patient follows with Coumadin clinic and INR in 07/2018: 6 and 3.3. 09/20/18 INR: 3.4. Denies fever/chills, diaphoresis, N/V/D/C, FREEDMAN, syncope, vision changes, neck pain, orthopnea, sore throat, choking, otalgia, rhinorrhea, abdominal pain, extremity edema, rashes, dysuria, urinary frequency/retention, epistaxis, melena , hematochezia. Echo 2014: EF: 55-69%, grade I diastolic dysfunction, mild aortic valve stenosis and mild aortic valve regurgitation. 03/2018: U/S: 50-69% stenosis R ICA; chronically occluded L ICA. distal aortic abdominal aneurysm 5x 6cm, essentially unchanged, with aortoiliac endograft open and patent. Admission Exam Per Admitting Provider General: no distress, WDWN Head: normocephalic, atraumatic Eyes: PERRL, EOM's intact, conjunctiva non-injected, anicteric ENT: normal inspection external ears, nose, mucous membranes moist Neck: supple, trachea midline, non-tender Lungs: no respiratory distress, diminished breath sounds bases, + wheezing throughout CV: irregularly irregular, rate 102, no JVD, no pretibial edema Abd: normal BS, soft, non-tender Ext: no cyanosis, no calf tenderness Neuro: A&O x 3, no focal deficits noted, normal affect Skin: warm, dry Principal Diagnosis Atrial fibrillation with RVR PU Pleural Effusion Elavated INR Discharge Exam General- No acute distress Head- atraumatic Eyes- PERRL, EOMI, ENT- oropharynx clear Neck- supple, no JVD Lungs- clear to auscultation Heart- irregular rhythm; no murmur Abdomen- normal bowel sounds, soft, nontender Extremities- no calf tenderness Neuro- alert, oriented x 3; PERRL, EOMI Skin- warm & Discharge Data Allergies Allergy/AdvReac Type Severity Reaction Status Date / Time naproxen Allergy Unknown ITCHY Unverified 10/03/18 10:49 nicotine Allergy Unknown Rash -- Verified 10/03/18 10:49 from nicotine patch Consultations 10/03/18 10:40 ED Decision to Admit Stat 10/03/18 14:34 Consult Cardiology Routine Consult Case Management - Discharge Planning Routine Consult Hematology Routine Consult Pulmonology Routine Ordered Studies 10/03/18 09:44 CT angio chest PE protocol Stat 10/03/18 14:34 US liver Routine US venous doppler LE BI Routine CT ANGIOGRAPHY OF THE CHEST, PULMONARY EMBOLUS PROTOCOL CLINICAL HISTORY: Tachycardia. Atrial fibrillation with rapid ventricular response. History of malignancy. COMPARISON STUDY: Chest CT March 27, 2018 and PET/CT April 18, 2018. TECHNIQUE: Following IV administration of Optiray-320, helical axial images of the chest were obtained utilizing the pulmonary embolus protocol. Maximal intensity projections and sagittal and coronal reformats were viewed on an independent 3D workstation. IV contrast was administered without complication. Automated exposure control was utilized for the study. A dose lowering technique was utilized adhering to the principles of ALARA. CT DOSE: 650.77 mGycm FINDINGS: Note is made of a pulmonary embolus to the apicoposterior segment of the left upper lobe. Pulmonary arteries within the right lung are suboptimally assessed due to mixing artifact. The patient status post right upper lobectomy. The heart is moderately enlarged. Extensive coronary artery calcification is noted. Dilatation of the ascending aorta, measuring 4.7 cm, is unchanged since prior exam. Moderate to large right pleural effusion is noted with a trace left pleural effusion. There is mild anterior soft tissue pulmonary edema. Moderate emphysema within the left upper lobe is noted. There is an indeterminate 1.5 cm irregular subpleural opacity within the left upper lobe on image 263 of 333. Mildly enlarged right paratracheal lymph node measures 1.3 cm in short axis diameter. However, this node contains a fatty hilum. A small amount of upper abdominal ascites is noted. There is reflux of contrast into the hepatic veins and IVC. No suspicious osseous lesions are noted. IMPRESSION: 1. Several segmental pulmonary emboli within the left upper lobe. 2. Moderate to large right pleural effusion. Trace left pleural effusion. 3. Status post right upper lobectomy. Mildly enlarged right paratracheal lymph node however this node contains a fatty hilum. This node may be reactive/ related to pulmonary edema but should be assessed on subsequent exams. 4. Indeterminate 1.5 cm irregular subpleural opacity within the left upper lobe. This can be assessed on subsequent exams. 5. Small amount of upper abdominal ascites. Reflux of contrast into the hepatic veins and IVC. The findings may reflect right heart dysfunction. Electronically signed by: Vinay Marie M.D. 10/03/2018 10:53 AM Dictated: 10/03/18 1036 Transcribed: 10/03/[address] ANGIOGRAPHY OF THE CHEST, PULMONARY EMBOLUS PROTOCOL CLINICAL HISTORY: Tachycardia. Atrial fibrillation with rapid ventricular response. History of malignancy. COMPARISON STUDY: Chest CT March 27, 2018 and PET/CT April 18, 2018. TECHNIQUE: Following IV administration of Optiray-320, helical axial images of the chest were obtained utilizing the pulmonary embolus protocol. Maximal intensity projections and sagittal and coronal reformats were viewed on an independent 3D workstation. IV contrast was administered without complication. Automated exposure control was utilized for the study. A dose lowering technique was utilized adhering to the principles of ALARA. CT DOSE: 650.77 mGycm FINDINGS: Note is made of a pulmonary embolus to the apicoposterior segment of the left upper lobe. Pulmonary arteries within the right lung are suboptimally assessed due to mixing artifact. The patient status post right upper lobectomy. The heart is moderately enlarged. Extensive coronary artery calcification is noted. Dilatation of the ascending aorta, measuring 4.7 cm, is unchanged since prior exam. Moderate to large right pleural effusion is noted with a trace left pleural effusion. There is mild anterior soft tissue pulmonary edema. Moderate emphysema within the left upper lobe is noted. There is an indeterminate 1.5 cm irregular subpleural opacity within the left upper lobe on image 263 of 333. Mildly enlarged right paratracheal lymph node measures 1.3 cm in short axis diameter. However, this node contains a fatty hilum. A small amount of upper abdominal ascites is noted. There is reflux of contrast into the hepatic veins and IVC. No suspicious osseous lesions are noted. IMPRESSION: 1. Several segmental pulmonary emboli within the left upper lobe. 2. Moderate to large right pleural effusion. Trace left pleural effusion. 3. Status post right upper lobectomy. Mildly enlarged right paratracheal lymph node however this node contains a fatty hilum. This node may be reactive/ related to pulmonary edema but should be assessed on subsequent exams. 4. Indeterminate 1.5 cm irregular subpleural opacity within the left upper lobe. This can be assessed on subsequent exams. 5. Small amount of upper abdominal ascites. Reflux of contrast into the hepatic veins and IVC. The findings may reflect right heart dysfunction. Electronically signed by: Vinay Marie M.D. 10/03/2018 10:53 AM Dictated: 10/03/18 1036 Transcribed: 10/03/18 1036 XR chest 2V routine HISTORY: 68 years-old Male follow up CHF , R pleural effusion follow-up study in a patient with pleural effusion. Chronic shortness of breath COMPARISON: Chest radiograph and CTA chest 10/03/2017 TECHNIQUE: PA and lateral views of the chest FINDINGS: Cardiac silhouette is normal in size. Emphysema with chronic pleural- parenchymal scarring of the lung apices, left greater than right. Chronic postoperative changes of the right lung. Unchanged moderate sized right pleural effusion. No definite left pleural effusion. Slightly improved aeration of the right lung base. Degenerative changes of the shoulders and spine. IMPRESSION: 1. Chronic postoperative changes of the right lung. 2. Moderate sized right pleural effusion redemonstrated. 3. Emphysema with biapical pleural-parenchymal scarring. The above report was generated using voice recognition software. It may contain grammatical, syntax or spelling errors. Electronically signed by: Maycol Partida M.D. 10/08/2018 10:59 AM Dictated: 10/08/18 1056 Transcribed: 10/08/18 1056 BILATERAL LOWER EXTREMITY VENOUS DOPPLER HISTORY: Pulmonary emboli. R/O DVT COMPARISON STUDY: None. FINDINGS: There is normal compressibility, flow, and augmentation within the right lower extremity deep venous system. There is normal compressibility and flow within the left common femoral, left superficial femoral, left anterior tibial, left posterior tibial, left peroneal veins. Linear echogenic stranding within the left popliteal vein consistent with chronic thrombus. This is nonocclusive. No acute DVT within the left lower extremity. IMPRESSION: No acute DVT within the right or left lower extremity. Linear chronic nonocclusive thrombus within the left popliteal vein. Electronically signed by: Enrrique Capps M.D. 10/03/2018 4:17 PM Dictated: 10/03/18 1616 Transcribed: 10/03/181615 BILIARY ULTRASOUND CLINICAL HISTORY: Upper abdominal ascites COMPARISON STUDY: Chest CT dated 10/03/2018 FINDINGS: The head and proximal body of pancreas appear normal. The distal body and tail were not visualized. No focal hepatic masses were visualized. There is mild dilatation of the hepatic veins which may be secondary to elevated right heart pressures. Portal venous flow is hepatopedal. There is a right pleural effusion. There is low volume ascites. There is minimal sludge within the gallbladder. There is gallbladder wall thickening which measures 5 mm There is no ductal dilatation. The common bile duct measures 4 mm. There is no right-sided hydronephrosis. There is a complex 2 cm hypodense right renal lesion which cannot be further characterized. IMPRESSION: 1. Sludge within the gallbladder, but no calculi identified 2. Mild gallbladder wall thickening (5 mm) 3. No ductal dilatation 4. Low volume ascites 5. Right pleural effusion 6. Indeterminate 2 cm right renal hypodensity Electronically signed by: Jose Dominguez M.D. 10/03/2018 4:54 PM Dictated: 10/03/18 1650 Transcribed: 10/03/18 165 Hospital Course (1) Atrial fibrillation with RVR: Present on admission with worsening SOB EKG on admission with Afib with RVR Initially was starting on cardizem drip that was discontinued since pt needs to have a high HR to maintain adequate cardiac output. Continue metoprolol 12.5 mg BID and Lisinopril 10 mg Cardiology on board INR 1.9 today Coumadin will be discontinued since pt failed Warfarin therapy On heparin drip Will start on eliquis 5 mg bid Will check coverage for the elequis Once initiate eliquis, will d/c heparin drip ECHO showed severe global LV dysfunction. RV systolic fx is severely reduced Continue monitor closely 10/08 Clinically improves Wants to leave against medical advice Dr. Genao spoke to patient to stay in the hospital to proceed with diagnostic cardiac catheterization once his volume status and HR stable. He declines further hospital stay. I also spoke to patient and to stay in the hospital that we can manage his fluid status and HR. He declined again further hospital stay. I explained to him the risk by leaving AMA such as respiratory distress due to fluid re-accumulate, organ failure, heart attack and sudden cardiac . Pt refused to stay for another night. He signed AMA and and I signed as witness. I gave him scripts for medications. I also asked the pharmacy to dispense 1 tab of eliquis to take home for tonight. Torsemide 20 mg p.o. daily spironolactone 12.5 mg daily. Digoxin 0.125 mg by mouth daily Metoprolol tartrate 25 mg twice daily Levothyroxine 137 mcg by mouth daily Eliquis 5 mg twice daily for both stroke prophylaxis in setting of atrial fibrillation and treatment of recurrent pulmonary (2) Pulmonary embolism: CTA chest showed Several segmental pulmonary emboli within the left upper lobe. Doppler of L/E showed no acute DVT within the right or left lower extremity. Linear chronic nonocclusive thrombus within the left popliteal vein. has been on coumadin for 1 yr with INR has been fluctuates as per Pulmonology and Oncology on board Will plan to start on the NOACs since patient failed warfarin therapy Oncology recommended to start on heparin drip once INR is 3 or below 3 Continue heparin drip for now Will start on eleiquis 5 mg BID Will call pharmacy to check for insurance coverage Monitor PT/INR 10/08 Coumadin changed to eliquis 5mg BID Case management checked the cost for eliquis. [id number] cost for the Eliquis is apparently $80 per month, and the out-of- pocket cost for Xarelto was similar. Patient's spouse said this cost was affordable for them. (3) Supratherapeutic INR: INR: 5.1 on admission No signs of active bleeding INR 1.7 today Coumadin changed to Eliquis (4) Pleural effusion: (5) COPD (chronic obstructive pulmonary disease): (6) SOB (shortness of breath): CTA chest showed moderate to large right pleural effusion Continue xopenex/atrovent neb Q8H Pulmonology on board Case discussed with Computer Forensics Analyst Dr. Cadet that attempted thoracentesis for the right pleural effusion Not enough fluid to remove Continue diuresis with torsemide (7) Elevated liver enzymes: AST:261, ALT: 319, Alk Phos: 93, total bili: 1.0 on admission Liver enzymes trending down Liver u/s showed sludge within the gallbladder, but no calculi identified. Mild gallbladder wall thickening (5 mm). 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 Follows with Dr Son Kline. Follow up with oncology dr. 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 (12) Carotid artery disease: 03/2018 US: 50-69% stenosis R ICA; chronically occluded L ICA. Follows with Dr Josh Barkley (13) Tobacco use: Counselling on smoking cessation (14) Alcohol use: drink socially about 3 beers a day. Denies hx ETOH withdrawal, seizures, DT's No sign of alcohol withdrawn on gabapentin alcohol withdrawal protocol Continue multivitamin, thiamine, folic acid supplement daily Dysphagia Speech on board and recommended minced and moist diet Aspiration precaution DVT Prophylaxis Starting on eliquis 5 mg BID CODE STATUS DNR/DNI Disposition Signed against medical advice Follow up with Dr. Carlisle on 10/11 @ 2:20 PM Follow up with cardiology with Mahnaz Alcantara on 10/24 @ 2:45 PM Scripts given for: Torsemide 20 mg p.o. daily spironolactone 12.5 mg daily. Digoxin 0.125 mg by mouth daily Metoprolol tartrate 25 mg twice daily Levothyroxine 137 mcg by mouth daily Eliquis 5 mg twice daily Lisinopril 2.5 mg daily Check CMP in 1 week. Total Time Total Time Spent Total Time Spent (In Minutes): 35 minutes Total Time Includes: Examination of the Patient, Discharge Planning, Medication Reconciliation, Communication With Other Providers and Other Discharge Plan Discharge Items Patient Disposition: Against Medical Advice Reason For Visit: A-FIB Admission Data Admit Date/Time: 10/03/18 12:15 Attending Provider: Lucius Buchanan Admit Provider: Miguel Brown Primary Care Provider: Mat Carlisle Other Providers: Miguel Brown ; Donald Cerda ; John Luevano ; Son Kline Service: Telemetry Other [place] Date/Time DO NOT enter until pt leaves facility: 10/08/18 18:45
== END 2018-10-08 18:45 | disposition left against medical advice (07) | DRG 308 ==
LOC: ED 08:54 → 2E 12:15
DX: C34.11 Malignant neoplasm of upper lobe, right bronchus or lung; F17.200 Nicotine dependence, unspecified, uncomplicated; R79.89 Other specified abnormal findings of blood chemistry; I50.21 Acute systolic (congestive) heart failure; Z79.01 Long term (current) use of anticoagulants; I71.4 Abdominal aortic aneurysm, without rupture; I48.91 Unspecified atrial fibrillation; E03.9 Hypothyroidism, unspecified; Z80.9 Family history of malignant neoplasm, unspecified; F10.10 Alcohol abuse, uncomplicated; R13.10 Dysphagia, unspecified; J44.9 Chronic obstructive pulmonary disease, unspecified; Z82.49 Family history of ischemic heart disease and other diseases of the circulatory system; I73.9 Peripheral vascular disease, unspecified; Z86.718 Personal history of other venous thrombosis and embolism; I35.0 Nonrheumatic aortic (valve) stenosis; I25.10 Atherosclerotic heart disease of native coronary artery without angina pectoris; I42.0 Dilated cardiomyopathy; Z85.89 Personal history of malignant neoplasm of other organs and systems; I26.99 Other pulmonary embolism without acute cor pulmonale; Z66 Do not resuscitate; Z86.711 Personal history of pulmonary embolism; J90 Pleural effusion, not elsewhere classified

== ENCOUNTER 2019-03-11 10:50 | Inpatient (IN) ==
[2019-03-11] MEDS ORDERED: ALBUT/IPRATROP 3MG/0.5MG NEB 3 ML VIAL INH STA (11:39)
--- NOTE | 2019-03-11 11:55 | Emergency Department Note ---
ED Provider Note CHIEF COMPLAINT: Edema of extremities, shortness of breath, abdominal bloating HISTORY OF PRESENTING ILLNESS: This is a 68-year-old male with past medical history significant for lung cancer s/p lobectomy of the lung, COPD, AAA, dilated cardiomyopathy, aortic stenosis, atrial fibrillation, and history of PE on Coumadin, who presents to the emergency department with complaint of bilateral lower extremity swelling that has extended up to his abdomen, with abdominal bloating and shortness of breath. He states that he is having difficulty urinating because of the bloating in his abdomen, but he denies any dysuria, hematuria, foul-smelling urine, or urinary frequency. He has been more short of breath especially with exertion, and states that he is struggling to walk and go up and down a few stairs because of his shortness of breath and the swelling in his legs. He states that the swelling has been going on for several weeks, but has getting progressively worse. He is followed by Dr. Skelton, thoracic surgery, and the patient's states that he had an appointment last week and they are planning to do CT imaging of his chest and abdomen, but she does not know exactly why. She states he might have some fluid in his lungs. He denies any chest pain, abdominal pain, back pain, nausea, vomiting, diarrhea, constipation, changes in stool, headaches, dizziness, fevers or chills. REVIEW OF SYSTEMS: A complete 10 point review of systems was reviewed with the patient with pertinent positives and negatives as per history of present illness. All else were negative. PAST MEDICAL HISTORY: Lung cancer, right lobectomy, CAD, dilated cardiomyopathy with EF of 10%, carotid stenosis, COPD, hypothyroidism, AAA repair, pulmonary em bolism, tobacco use, alcohol abuse, atrial fibrillation with RVR SOCIAL HISTORY: Lives at home with his , he is a current every day smoker, 1 pack/day ALLERGIES: Reviewed in chart PHYSICAL EXAM: CONSTITUTIONAL: Alert, pleasant and cooperative. No acute distress, but appears to feel unwell. HEENT: Normocephalic, atraumatic. PERRL, EOMI. TMs normal bilaterally. Pharynx normal. Tacky mucous membranes. NECK: Supple, full active range of motion without discomfort. No cervical adenopathy. RESPIRATORY: Diminished bilaterally with expiratory wheezes, significantly diminished in the right base with fine crackles. No stridor. Mildly tachypneic with labored breathing and accessory muscle use. CARDIOVASCULAR: Tachycardic, irregularly irregular rhythm. No murmurs, rubs or gallops heard. Normal peripheral perfusion with 2+ distal pulses in all 4 extremities. 3+ pitting edema in the bilateral lower extremities extending from the feet to the upper thighs. GASTROINTESTINAL: Soft, nontender, distended with positive fluid wave suggestive of ascites. No palpable masses or HSM. Bowel sounds present in all quadrants. No CVA tenderness bilaterally. MUSCULOSKELETAL: Full range of motion of all joints without discomfort. INTEGUMENTARY: No rash or other significant dermatologic conditions noted. NEUROLOGIC: Alert and oriented X 4 with normal affect. No focal neurologic deficits noted. 5/5 strength in all 4 extremities, sensation intact light touch in all 4 extremities. Normal speech. ED COURSE AND MEDICAL DECISION MAKING: CC: Patient presenting with complaint of edema of extremities, shortness of breath, abdominal bloating DIFFERENTIAL DIAGNOSIS: Includes, but not limited to fluid overload, extremity edema, CHF exacerbation, pleural effusion, pneumothorax, hemothorax, pulmonary embolism, ACS, pneumonia, cardiac dysrhythmia, abdominal ascites, bowel obstruction, among others. INTERPRETATION OF LABS: No leukocytosis, mild anemia (consistent with baseline), normal platelets, no significant electrolyte abnormality, normal renal function, elevated T bili, liver enzymes are otherwise normal. Mildly elevated troponin which does appear to be his baseline. Significantly elevated pro-BNP. Supratherapeutic PT/INR. UA negative for infection. Digoxin level is subthera peutic. IMAGING: XR chest 1V portable CLINICAL HISTORY: Dyspnea. History of malignancy. COMPARISON STUDY: Chest CT October 03, 2018. Chest radiograph October 08, 2018. FINDINGS: Postoperative findings within the right hemithorax with volume loss are noted. There is elevation of the right hemidiaphragm. A small to moderate right pleural effusion has slightly increased in size since prior exam. There is right basilar opacity. Right hilar fullness is again noted. There is no pneumothorax. Mild left lower lung opacity is present. Cardiomediastinal silhouette is stable. There is pulmonary vascular congestion. IMPRESSION: 1. Small to moderate right pleural effusion with right lower lung airspace opacity. Radiographic follow-up is recommended. 2. Cardiomegaly with pulmonary vascular congestion. 3. Mild left lower lung opacity. ----- CT angio chest PE protocol CLINICAL HISTORY: 68 years-old Male presenting with shortness of breath and right-sided pleural effusion, history of pulmonary emboli. TECHNIQUE: Multidetector CT angiography of the chest was performed after administration of intravenous contrast. 3-D volumetric and/or maximum intensity projection (MIP) images were subsequently reconstructed for review. IV contrast: 120 mL of Optiray 320. One or more dose lowering techniques were used consistent with the principles of ALARA (as low as reasonably achievable), including automatic exposure control, mA or kV adjustment to individual patient size, and/or use of iterative reconstruction. COMPARISON: CTA chest from -. CT DOSE (mGy.cm): The estimated cumulative dose is 904.99. FINDINGS: Mental Health Worker topogram: Right pleural effusion. Lumbar fusion hardware. Aortobiiliac stent graft. Pulmonary vasculature: The study is adequate for assessment of the pulmonary vascular tree. Distal main and extensive lobar acute pulmonary emboli. Suboptimal opacification of the residual right lung limits evaluation. Pulmonary emboli noted throughout the left lung. Mildly enlarged measuring 3.3 cm in diameter. No flattening of the interventricular septum. No intracardiac filling defect. Reflux of contrast into the IVC and hepatic veins. This likely indicates elevated right heart pressure. Remaining chest: Soft tissues: Thyroid not well visualized. Mild diffuse body wall edema. Scattered largely subcentimeter mediastinal lymph nodes. The largest lymph nodes, which measures over 1 cm in short axis is in the precarinal and right paratracheal regions. Atherosclerosis of the aorta. Ectasia of the ascending aorta, which measures 4.4 cm in diameter. Multichamber enlargement of the heart. Coronary artery and aortic valve calcification. Moderate to large right pleural effusion, which is simple appearing. Small amount of abdominal ascites. Lungs and airways: No pneumothorax. Postsurgical changes of right upper lobectomy. The right middle lobe bronchus is severely stenotic (series 4 image 179), worsened from prior exam as there may be focal occlusion. Significant volume loss in the residual right lung in part due to passive atelectasis in the setting of effusion. Apical predominant centrilobular emphysema at the left lung with reticulation at the left apex and along the left paramediastinal regions possibly suggesting pleural-parenchymal scarring or post radiation fibrosis. Interlobular septal thickening may be present in the residual right lung. Patchy groundglass opacity peripherally in the lateral basal left lower lobe, which is poorly evaluated in the setting of mesentery motion artifact. This is new from prior. More limited groundglass opacity in the periphery of the anterior segment of the left upper lobe (series 4 image 238). Musculoskeletal: Normal osseous structures. Global degenerative changes in the lower cervical spine. IMPRESSION: 1. Extensive acute lobar and segmental pulmonary emboli best visualized throughout the left lung. 2. Enlargement of the main pulmonary artery suggests pulmonary hypertension. Reflux of contrast into the hepatic veins suggest elevated right heart pressure, however, no CT evidence of right heart strain at this time. 3. Patchy groundglass consolidation in the periphery of the left upper and to a greater extent the left lower lobes concerning for developing infarcts. 4. Moderate to large right pleural effusion with residual right lung atelectasis. Additional evidence of volume overload with body wall edema and ascites. 5. Postsurgical changes of right upper lobectomy. 6. Ectasia of the ascending aorta, measuring 4.4 cm. 7. Borderline mediastinal lymphadenopathy, possibly reactive. ----- CT abd pelvis IV con only CLINICAL HISTORY: abd distention, ascites COMPARISON STUDY: Hepatic ultrasound performed September 2018 TECHNIQUE: The patient was scanned in a dynamic helical fashion during intravenous administration of 1 20 cc of Optiray 320 A dose lowering technique was utilized adhering to the principles of ALARA. CT DOSE: 904.99 mGy.cm FINDINGS: Lower chest: There is a moderate to large right pleural effusion. There are peripheral airspace opacities within the left lower lobe. There are left lung pulmonary artery filling defects. The findings are consistent with a pulmonary embolism. The peripheral airspace opacities may represent a pulmonary infarct. Liver: There is slightly heterogeneous hepatic enhancement, likely secondary to diminished cardiac output. There is poor opacification of the portal veins, finding again likely secondary to diminished cardiac output. Gallbladder: Unremarkable. Spleen: Normal in size and attenuation. Pancreas: Unremarkable. Adrenal glands: Unremarkable. Kidneys: There are vascular calcifications. No solid renal masses are visualized. There is no hydronephrosis Bowel: There are no transition zones indicate bowel obstruction. There is no evidence of acute diverticulitis. The appendix is not visualized with certainty. Peritoneum: There is no free air. There is low volume ascites. There are small fat-containing hernias. Vasculature: There is a 56 mm infrarenal abdominal aortic aneurysm status post aortoiliac stent graft repair. The aorta at the superior margin of the stent measures 4 cm. There is a celiac artery stenosis. There is occlusion of the proximal left superficial femoral artery. There is a 16 mm aneurysm of the right proximal profunda. Adenopathy: None. Pelvic viscera: There is bladder wall thickening and infiltration the perivesical fat. Correlation with urinalysis is recommended. Skeletal structures: Postsurgical changes are present within the spine. IMPRESSION: 1. No evidence of bowel obstruction. No evidence of free air 2. No evidence of acute diverticulitis 3. Low volume ascites 4. Pulmonary embolus with left lung airspace opacities, likely representing a pulmonary infarct 5. Moderate right pleural effusion 6. Bilobed abdominal aortic aneurysm status post aortoiliac stent graft repair 7. Celiac artery stenosis 8. Bladder wall thickening with infiltration the perivesical fat. Correlation with urinalysis is recommended to exclude a cystitis 9. Generalized body wall edema EKG: Shows atrial fibrillation with RVR and a rate of 132, occasional PVCs T wave abnormalities in the lateral leads which does not appear to be new, no significant changes when compared to previous EKG from 10/06/2018 by my interpretation. MEDICATION RECONCILIATION: I attest that I have personally reviewed the patient's current medication list. INITIAL VITAL SIGNS REVIEW: I reviewed the patient's initial vital signs and interpret them as follows: T: Afebrile; BP: Normotensive; HR: Tachycardic; RR: Tachypneic; Pulse Ox: Within normal limits on room air. Blood pressure screening: The patient was found to have normal blood pressure on screening and does not require follow-up for repeat blood pressure check. MDM SUMMARY: Patient was evaluated at bedside, history and physical exam performed. The patient is a poor historian, some of the history is provided by his . He is alert and oriented, ill-appearing and with mildly labored breathing, is tachypneic with some accessory muscle use, but is noted to be maintaining good oxygenation on room air. He is tachycardic on monitor, EKG reviewed noting atrial fibrillation with RVR, varied rate 120s-150s. He did not take his medications today. He does take metoprolol and digoxin for his atrial fibrillation. I requested and reviewed records from his recent appointment with Dr. Skelton, he was planning to do an outpatient chest CT to further evaluate pleural effusion. Orders were placed at bedside for labs, UA, DuoNeb treatment, chest x-ray to evaluate for cardiopulmonary disease. Patient discussed with Dr. Kendrick, who agrees with my assessment, plan, and disposition. Patient was given 5 mg IV metoprolol for rate control of his rapid A. fib. Labs and imaging reviewed as above, marginally elevated troponin, which appears to be his baseline. Significantly elevated pro-BNP which may be suggestive of CHF. Chest x-ray does show a moderate right-sided pleural effusion as well as cardiomegaly with pulmonary edema suggestive of CHF. 40 mg IV Lasix was ordered for diuresis. I spoke on the phone with Dr. Skelton, thoracic surgery, who agrees that the patient is very ill and would benefit from admission. He is happy to consult on the patient while he is admitted. Additional orders were placed for CT angios of the chest (PE protocol) and CT abdomen/pelvis. CT imaging reviewed, concerning note of acute worsening pulmonary embolism, evidence of bilateral developing pulmonary infarcts, and a large right pleural e ffusion. There is small volume ascites with abdominal wall edema noted, but no bowel obstruction or other acute surgical problem. Patient is currently supratherapeutic on his Coumadin with an INR of 3.9, review of previous notes from hematology, that noted waiting until INR less than 3 to start a heparin drip, will hold off on a heparin drip at this time and defer to the inpatient team. Patient reassessed multiple times throughout ED stay, he has dropped his sats below 90% numerous times on room air, and is now placed on 2 L nasal cannula with good improvement in his sats. Heart rate control is slightly improved after the metoprolol, but he does remain in atrial fibrillation with some RVR. I spoke on the phone [facility], she agrees to evaluate the patient for admission. The patient and his were updated on all results and plan for admission, they verbalized understanding and were agreeable to this plan. CRITICAL CARE NOTE: I have personally spent greater than 30 minutes of critical care time in the direct management of this patient. This includes bedside care, interpretation of diagnostic studies, and testing, discussion with consultants, patient, and family members, and other required patient management activities. This 30 minutes is in excess of all separately billable procedures. The chart was completed utilizing [email or web address] Speech voice recognition software. Grammatical errors, random word insertions, pronoun errors, and incomplete sentences are an occasional consequence of this system due to software limitatio ns, ambient noise, and hardware issues. Any formal questions or concerns about the content, text, or information contained within the body of this dictation should be directly addressed to the nurse practitioner for clarification. Impression & Plan Acute pulmonary embolism, COPD (chronic obstructive pulmonary disease), Fluid overload Past Med/Surg History Medical History Thoracic ascending aortic aneurysm (Chronic) Pleural effusion (Chronic) Pulmonary embolism (Chronic) Atrial fibrillation (Chronic) Aortic stenosis (Chronic) Dilated cardiomyopathy (Chronic) AAA (abdominal aortic aneurysm) (Chronic) Hypothyroidism (Chronic) Alcohol use (Chronic) Tobacco use (Chronic) COPD (chronic obstructive pulmonary disease) (Chronic) PVD (peripheral vascular disease) (Chronic) "chronic BL SFA occlusions" Carotid artery disease (Chronic) "US 2011- Right carotid artery duplex examination indicates evidence of 50- 69% stenosis of the internal carotid artery. 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 Lung cancer (Chronic) s/p RUL resection [place] 08/[address] Son Kline Surgical History Status post percutaneous abdominal aortic aneurysm (AAA) repair (Chronic) History of arthroscopy of left shoulder (Chronic) H/O bursectomy (Chronic) History of nasal septoplasty (Chronic) History of back surgery (Chronic) H/O arthroscopy of shoulder (Chronic) Hx of tonsillectomy (Chronic) S/P lobectomy of lung (Chronic) Family History Father Heart disease Mother Heart disease Social History Preferred Language: Serbian Communication Ability: Effective Vaccine Key Customer Leader Required: No Beliefs That Will Affect Care: None marital status: Current Living Situation: Spouse current occupational status: retired Other Information That Helps Us Care for You: No Feels Safe at Home: Yes Safety Concerns: Feels Safe At This Time Smoking Status: Current every day smoker Tobacco Type: cigarettes Cigarettes Per Day: 15 Do You Dip or Chew Tobacco: No Second Hand Exposure: No Tobacco Cessation Education Requested by Patient: No Hx Alcohol Use: Yes Alcohol type: beer Alcohol Intake Frequency Comment: 3 beers day Hx Substance Use: No Results & Data Vital Signs Vital Signs - 24 hr 03/11/19 10:53 03/11/19 12:15 03/11/19 12:18 Temperature 36.4 C L Temperature Source Oral Sepsis Recent Fever Within 48 Hours No Sepsis New/Unexplained Change in Mental Status No Sepsis Action Taken by Nursing No Action Required Pulse Rate 140 H Pulse Rate [Right Radial] 138 H 118 H Pulse Rhythm [Right Radial] Irregular Pulse Strength [Right Radial] Respiratory Rate 30 H 20 24 Respiratory Effort / Characteristics Non-Labored Spontaneous Respiratory Depth Normal Normal Respiratory Pattern Regular Regular Blood Pressure 116/80 Blood Pressure [Left Arm] 116/99 Blood Pressure Mean 92 Blood Pressure Mean [Left Arm] 104 Blood Pressure Position [Left Arm] Sitting Pulse Oximetry 99 94 97 Oxygen Delivery Method Room Air Room Air Room Air Oxygen Flow Rate 03/11/19 12:40 03/11/19 13:08 03/11/19 13:11 Temperature Temperature Source Sepsis Recent Fever Within 48 Hours Sepsis New/Unexplained Change in Mental Status Sepsis Action Taken by Nursing Pulse Rate 133 H Pulse Rate [Right Radial] 128 H 136 H Pulse Rhythm [Right Radial] Irregular Irregular Pulse Strength [Right Radial] Normal Respiratory Rate 20 25 H Respiratory Effort / Characteristics Non-Labored Spontaneous Non-Labored Respiratory Depth Normal Respiratory Pattern Regular Blood Pressure 128/108 H Blood Pressure [Left Arm] 136/94 128/108 H Blood Pressure Mean Blood Pressure Mean [Left Arm] 108 114 Blood Pressure Position [Left Arm] Lying Lying Pulse Oximetry 97 94 Oxygen Delivery Method Room Air Room Air Oxygen Flow Rate 03/11/19 13:22 03/11/19 13:30 03/11/19 14:01 Temperature Temperature Source Sepsis Recent Fever Within 48 Hours Sepsis New/Unexplained Change in Mental Status Sepsis Action Taken by Nursing Pulse Rate Pulse Rate [Right Radial] 113 H 116 H 114 H Pulse Rhythm [Right Radial] Irregular Irregular Irregular Pulse Strength [Right Radial] Respiratory Rate 30 H 26 H 24 Respiratory Effort / Characteristics Respiratory Depth Respiratory Pattern Blood Pressure Blood Pressure [Left Arm] 113/84 106/89 106/89 Blood Pressure Mean Blood Pressure Mean [Left Arm] 93 94 94 Blood Pressure Position [Left Arm] Lying Lying Lying Pulse Oximetry 95 92 87 L Oxygen Delivery Method Room Air Room Air Room Air Oxygen Flow Rate 03/11/19 14:02 03/11/19 14:42 03/11/19 15:00 Temperature Temperature Source Sepsis Recent Fever Within 48 Hours Sepsis New/Unexplained Change in Mental Status Sepsis Action Taken by Nursing Pulse Rate Pulse Rate [Right Radial] 126 H Pulse Rhythm [Right Radial] Irregular Pulse Strength [Right Radial] Respiratory Rate 25 H Respiratory Effort / Characteristics Spontaneous Short of Breath SOB on Exertion Respiratory Depth Normal Respiratory Pattern Tachypnea Blood Pressure Blood Pressure [Left Arm] 116/81 Blood Pressure Mean Blood Pressure Mean [Left Arm] 92 Blood Pressure Position [Left Arm] Lying Pulse Oximetry 95 89 L Oxygen Delivery Method Nasal Cannula Room Air Room Air Oxygen Flow Rate 2 Laboratory Data Result diagrams: 03/11/19 12:17 03/11/19 12:17 Lab Results 03/11/19 03/11/19 03/11/19 Range/Units 12:17 12:17 12:17 WBC 5.50 (4.8-10.8) K/uL RBC 3.97 L (4.7-6.1) M/uL Hgb 12.7 L (14.0-18.0) g/dL Hct 37.6 L (42-52) % MCV 94.7 (80-100) fL MCH 32.0 (25-34) pg MCHC 33.8 (32-36) g/dL RDW Std Deviation 57.7 H (36.4-46.3) fL RDW Coeff of Debra 16.7 H (11.5-14.5) % Plt Count 149 (130-400) K/uL MPV 10.4 (7.4-10.4) fL Immature Gran % (Auto) 0.2 % Neut % (Auto) 65.8 % Lymph % (Auto) 24.7 % Denali % (Auto) 8.4 % Eos % (Auto) 0.2 % Baso % (Auto) 0.7 % Immature Gran # (Auto) 0.01 (0.00-0.02) K/uL Neut # (Auto) 3.62 (1.4-6.5) K/uL Lymph # (Auto) 1.36 (1.2-3.4) K/uL Denali # (Auto) 0.46 (0.11-0.59) K/uL Eos # (Auto) 0.01 (0-0.5) K/uL Baso # (Auto) 0.04 (0-0.2) K/uL PT 36.0 H (9.0-12.0) Seconds INR 3.9 H (0.9-1.1) APTT 33.3 H (21.0-31.0) Seconds PTT Ratio 1.2 Sodium 135 L (136-145) mmol/L Potassium 4.9 (3.5-5.1) mmol/L Chloride 105 (98-107) mmol/L Carbon Dioxide 22 (21-32) mmol/L Anion Gap 8.0 (3-11) BUN 20 H (7-18) mg/dl Creatinine 1.07 (0.6-1.4) mg/dl Est Cr Clr Drug Dosing Not Reportable Est GFR ( Amer) 81.1 Est GFR (Non-Af Amer) 70.0 BUN/Creatinine Ratio 18.8 (10-20) Glucose 108 H (70-99) mg/dl Calcium 8.9 (8.5-10.1) mg/dl Total Bilirubin 1.5 H (0.2-1) mg/dl AST 37 (15-37) U/L ALT 46 (12-78) U/L Alkaline Phosphatase 94 (45-117) U/L Troponin I 0.092 H* (0-0.045) ng/ml NT-Pro-B Natriuret Pep 62861 H (0-900) pg/ml Total Protein 6.9 (6.4-8.2) gm/dl Albumin 2.9 L (3.4-5.0) gm/dl Globulin 4.0 (2.5-4.0) gm/dl Albumin/Globulin Ratio 0.7 L (0.9-2) Digoxin (0.8-2.0) ng/ml 03/11/19 03/11/19 Range/Units 12:17 12:17 WBC (4.8-10.8) K/uL RBC (4.7-6.1) M/uL Hgb (14.0-18.0) g/dL Hct (42-52) % MCV (80-100) fL MCH (25-34) pg MCHC (32-36) g/dL RDW Std Deviation (36.4-46.3) fL RDW Coeff of Debra (11.5-14.5) % Plt Count (130-400) K/uL MPV (7.4-10.4) fL Immature Gran % (Auto) % Neut % (Auto) % Lymph % (Auto) % Denali % (Auto) % Eos % (Auto) % Baso % (Auto) % Immature Gran # (Auto) (0.00-0.02) K/uL Neut # (Auto) (1.4-6.5) K/uL Lymph # (Auto) (1.2-3.4) K/uL Denali # (Auto) (0.11-0.59) K/uL Eos # (Auto) (0-0.5) K/uL Baso # (Auto) (0-0.2) K/uL PT (9.0-12.0) Seconds INR (0.9-1.1) APTT (21.0-31.0) Seconds PTT Ratio Sodium (136-145) mmol/L Potassium (3.5-5.1) mmol/L Chloride (98-107) mmol/L Carbon Dioxide (21-32) mmol/L Anion Gap (3-11) BUN (7-18) mg/dl Creatinine (0.6-1.4) mg/dl Est Cr Clr Drug Dosing Est GFR ( Amer) Est GFR (Non-Af Amer) BUN/Creatinine Ratio (10-20) Glucose (70-99) mg/dl Calcium (8.5-10.1) mg/dl Total Bilirubin (0.2-1) mg/dl AST (15-37) U/L ALT (12-78) U/L Alkaline Phosphatase (45-117) U/L Troponin I (0-0.045) ng/ml NT-Pro-B Natriuret Pep Cancelled (0-900) pg/ml Total Protein (6.4-8.2) gm/dl Albumin (3.4-5.0) gm/dl Globulin (2.5-4.0) gm/dl Albumin/Globulin Ratio (0.9-2) Digoxin 0.5 L (0.8-2.0) ng/ml Administered Medications Digoxin (Lanoxin) 0.125 mg PO QAM BRANDT Stop: 04/10/19 17:14 Last Admin: 03/11/19 19:33 Dose: 0.125 mg Documented by: [id number] Methylprednisolone 40 mg/ (Syringe) 0.64 mls @ 1.5 mls/min IV Q8H BRANDT Stop: 04/10/19 16:59 Last Admin: 03/11/19 18:50 Dose: 1.5 mls/min Documented by: [id number] Heparin Sodium/Dextrose (Heparin Sodium/Dextrose) 25,000 units in 500 mls @ 19 mls/hr IV .Q24H BRANDT; Protocol Stop: 04/10/19 18:44 Last Admin: 03/11/19 18:49 Dose: 950 units/hr, 19 mls/hr Documented by: [id number] Cosigned by: [id number] Levalbuterol HCl (Xopenex 1.25mg/3ml Neb) 1.25 mg NEB Q6R BRANDT Stop: 04/10/19 19:59 Last Admin: 03/11/19 19:32 Dose: 1.25 mg Documented by: [id number] Discontinued Medications Albuterol (Duoneb) 3 ml INH NOW STA Stop: 03/11/19 11:40 Last Admin: 03/11/19 12:18 Dose: 3 ml Documented by: [id number] Furosemide (Lasix) 40 mg IV NOW STA Stop: 03/11/19 14:12 Last Admin: 03/11/19 14:41 Dose: 40 mg Documented by: [id number] Ioversol (Optiray 320 125ml) 120 ml IV ONCE PRN PRN Reason: Interaction Checking Stop: 03/15/19 14:06 Last Admin: 03/11/19 14:08 Dose: 120 ml Documented by: [id number] Levalbuterol HCl (Xopenex 1.25mg/0.5ml Neb) 1.25 mg NEB Q6R BRANDT Stop: 04/10/19 16:59 Last Admin: 03/11/19 17:18 Dose: 1.25 mg Documented by: [id number] Metoprolol Tartrate (Lopressor) 5 mg IV NOW STA Stop: 03/11/19 13:05 Last Admin: 03/11/19 13:08 Dose: 5 mg Documented by: [id number] Metoprolol Tartrate (Lopressor) 5 mg IV NOW STA Stop: 03/11/19 16:40 Last Admin: 03/11/19 17:06 Dose: 5 mg Documented by: [id number] Metoprolol Tartrate (Lopressor) Confirm Administered Dose 5 mg IV .STK-MED ONE Stop: 03/11/19 16:48 Last Admin: 03/11/19 17:06 Dose: Not Given Documented by: [id number] Discharge Plan Visit Data *Final* Discharge Date/Time: 03/11/19 16:08 Chief Complaint: Swelling/Edema to Extremity Stated Complaint: SWELLING TO EXTREME ED Provider: Rick Kendrick ED Midlevel Provider: Zenobia Julian Discharge Problem: Acute pulmonary embolism, COPD (chronic obstructive pulmonary disease), Fluid overload Patient Disposition: Admitted As Inpatient Discharge Instructions Interventions: ED Discharge Assessment Last Done: 03/11/19 16:08
--- NOTE | 2019-03-11 12:24 | XRay Report ---
XR chest 1V portable CLINICAL HISTORY: Dyspnea. History of malignancy. COMPARISON STUDY: Chest CT October 03, 2018. Chest radiograph October 08, 2018. FINDINGS: Postoperative findings within the right hemithorax with volume loss are noted. There is leanna vation of the right hemidiaphragm. A small to moderate right pleural effusion has slightly increased in size since prior exam. There is right basilar opacity. Right hilar fullness is again noted. There is no pneumothorax. Mild left lower lung opacity is present. Cardiomediastinal silhouette is stable. There is pulmonary vascular congestion. IMPRESSION: 1. Small to moderate right pleural effusion with right lower lung airspace opacity. Radiographic foll ow-up is recommended. 2. Cardiomegaly with pulmonary vascular congestion. 3. Mild left lower lung opacity. Electronically signed by: Vinay Marie M.D. 03/11/2019 12:23 PM
[2019-03-11 12:28] LABS: Basophils # (auto) 0.04 K/uL (0-0.2); Basophils % (auto) 0.7 %; Eosinophils # (auto) 0.01 K/uL (0-0.5); Eosinophils % (auto) 0.2 %; Hematocrit (blood only) 37.6 % (42-52); Hemoglobin 12.7 g/dL (14.0-18.0); Immature Granulocytes # (auto) 0.01 K/uL (0.00-0.02); Immature Granulocytes % (auto) 0.2 %; Lymphocytes # (auto) 1.36 K/uL (1.2-3.4); Lymphocytes % (auto) 24.7 %; Mean Corpuscular Hgb Conc 33.8 g/dL (32-36); Mean Corpuscular Volume 94.7 fL (80-100); Mean Platelet Volume 10.4 fL (7.4-10.4); Monocytes # (auto) 0.46 K/uL (0.11-0.59); Monocytes % (auto) 8.4 %; Neutrophils # (auto) 3.62 K/uL (1.4-6.5); Neutrophils % (auto) 65.8 %; Platelet Count 149 K/uL (130-400); RDW Coefficient of Variation 16.7 % (11.5-14.5); RDW Standard Deviation 57.7 fL (36.4-46.3); Red Blood Count 3.97 M/uL (4.7-6.1)
[2019-03-11 12:42] LABS: Albumin Level 2.9 gm/dl (3.4-5.0); Blood Urea Nitrogen 20 mg/dl (7-18); Calcium 8.9 mg/dl (8.5-10.1); Carbon Dioxide 22 mmol/L (21-32); Chloride 105 mmol/L (98-107); Glucose 108 mg/dl (70-99); Potassium 4.9 mmol/L (3.5-5.1); Sodium 135 mmol/L (136-145)
[2019-03-11 12:45] LABS: Alanine Aminotransferase 46 U/L (12-78); Aspartate Aminotransferase 37 U/L (15-37); BUN Creatinine Ratio 18.8 (10-20); Est GFR (African American) 81.1
[2019-03-11 12:48] LABS: Partial Thromboplastin Ratio 1.2; Partial Thromboplastin Time 33.3 Seconds (21.0-31.0)
[2019-03-11 13:00] LABS: INR 3.9 (0.9-1.1)
[2019-03-11 13:03] LABS: Albumin Globulin Ratio 0.7 (0.9-2); Alkaline Phosphatase 94 U/L (45-117); Bilirubin,Total 1.5 mg/dl (0.2-1); NT Pro B Type Natriuretic Pept 27370 pg/ml (0-900); Total Protein 6.9 gm/dl (6.4-8.2); Troponin I 0.092 ng/ml (0-0.045)
[2019-03-11] MEDS ORDERED: METOPROLOL TARTRATE 1 MG/ML VIAL IV STA ×2 (13:04→16:39)
[2019-03-11] MEDS ORDERED: OPTIRAY 320 125ml IV PRN (14:07)
[2019-03-11] MEDS ORDERED: FUROSEMIDE 40 MG/4 ML VIAL IV STA (14:11)
--- NOTE | 2019-03-11 14:27 | CT Scan Report ---
CT angio chest PE protocol CLINICAL HISTORY: 68 years-old Male presenting with shortness of breath and right-sided pleural effus ion, history of pulmonary emboli. TECHNIQUE: Multidetector CT angiography of the chest was performed after administration of intravenou s contrast. 3-D volumetric and/or maximum intensity projection (MIP) images were subsequently reconst ructed for review. IV contrast: 120 mL of Optiray 320. One or more dose lowering techniques were used consistent with the principles of ALARA (as low as reasonably achievable), including automatic expos ure control, mA or kV adjustment to individual patient size, and/or use of iterative reconstruction. COMPARISON: CTA chest from -. CT DOSE (mGy.cm): The estimated cumulative dose is 904.99. FINDINGS: Varnisher topogram: Right pleural effusion. Lumbar fusion hardware. Aortobiiliac stent graft. Pulmonary vasculature: The study is adequate for assessment of the pulmonary vascular tree. Distal main and extensive lobar acute pulmonary emboli. Suboptimal opacification of the residual right lung limits evaluation. Pulmon brenden emboli noted throughout the left lung. Mildly enlarged measuring 3.3 cm in diameter. No flattenin g of the interventricular septum. No intracardiac filling defect. Reflux of contrast into the IVC and hepatic veins. This likely indicates elevated right heart pressure. Remaining chest: Soft tissues: Thyroid not well visualized. Mild diffuse body wall edema. Scattered largely subcentime ter mediastinal lymph nodes. The largest lymph nodes, which measures over 1 cm in short axis is in th e precarinal and right paratracheal regions. Atherosclerosis of the aorta. Ectasia of the ascending a roberth, which measures 4.4 cm in diameter. Multichamber enlargement of the heart. Coronary artery and a ortic valve calcification. Moderate to large right pleural effusion, which is simple appearing. Small amount of abdominal ascites. Lungs and airways: No pneumothorax. Postsurgical changes of right upper lobectomy. The right middle l obe bronchus is severely stenotic (series 4 image 179), worsened from prior exam as there may be foca l occlusion. Significant volume loss in the residual right lung in part due to passive atelectasis in the setting of effusion. Apical predominant centrilobular emphysema at the left lung with reticulati on at the left apex and along the left paramediastinal regions possibly suggesting pleural-parenchyma l scarring or post radiation fibrosis. Interlobular septal thickening may be present in the residual right lung. Patchy groundglass opacity peripherally in the lateral basal left lower lobe, which is po chris evaluated in the setting of mesentery motion artifact. This is new from prior. More limited grou ndglass opacity in the periphery of the anterior segment of the left upper lobe (series 4 image 238). Musculoskeletal: Normal osseous structures. Global degenerative changes in the lower cervical spine. IMPRESSION: 1. Extensive acute lobar and segmental pulmonary emboli best visualized throughout the left lung. 2. Enlargement of the main pulmonary artery suggests pulmonary hypertension. Reflux of contrast into the hepatic veins suggest elevated right heart pressure, however, no CT evidence of right heart stra in at this time. 3. Patchy groundglass consolidation in the periphery of the left upper and to a greater extent the l eft lower lobes concerning for developing infarcts. 4. Moderate to large right pleural effusion with residual right lung atelectasis. Additional evidenc e of volume overload with body wall edema and ascites. 5. Postsurgical changes of right upper lobectomy. 6. Ectasia of the ascending aorta, measuring 4.4 cm. 7. Borderline mediastinal lymphadenopathy, possibly reactive. The report will be called/faxed according to standard departmental protocol for a critical finding. Electronically signed by: Sami Erickson M.D. 03/11/2019 2:25 PM
--- NOTE | 2019-03-11 14:31 | CT Scan Report ---
CT abd pelvis IV con only CLINICAL HISTORY: abd distention, ascites COMPARISON STUDY: Hepatic ultrasound performed September 2018 TECHNIQUE: The patient was scanned in a dynamic helical fashion during intravenous administration of 1 20 cc of Optiray 320 A dose lowering technique was utilized adhering to the principles of ALARA. CT DOSE: 904.99 mGy.cm FINDINGS: Lower chest: There is a moderate to large right pleural effusion. There are peripheral airspace opaci ties within the left lower lobe. There are left lung pulmonary artery filling defects. The findings a re consistent with a pulmonary embolism. The peripheral airspace opacities may represent a pulmonary infarct. Liver: There is slightly heterogeneous hepatic enhancement, likely secondary to diminished cardiac ou tput. There is poor opacification of the portal veins, finding again likely secondary to diminished c ardiac output. Gallbladder: Unremarkable. Spleen: Normal in size and attenuation. Pancreas: Unremarkable. Adrenal glands: Unremarkable. Kidneys: There are vascular calcifications. No solid renal masses are visualized. There is no hydrone phrosis Bowel: There are no transition zones indicate bowel obstruction. There is no evidence of acute divert iculitis. The appendix is not visualized with certainty. Peritoneum: There is no free air. There is low volume ascites. There are small fat-containing hernias . Vasculature: There is a 56 mm infrarenal abdominal aortic aneurysm status post aortoiliac stent graft repair. The aorta at the superior margin of the stent measures 4 cm. There is a celiac artery stenos is. There is occlusion of the proximal left superficial femoral artery. There is a 16 mm aneurysm of the right proximal profunda. Adenopathy: None. Pelvic viscera: There is bladder wall thickening and infiltration the perivesical fat. Correlation wi urinalysis is recommended. Skeletal structures: Postsurgical changes are present within the spine. IMPRESSION: 1. No evidence of bowel obstruction. No evidence of free air 2. No evidence of acute diverticulitis 3. Low volume ascites 4. Pulmonary embolus with left lung airspace opacities, likely representing a pulmonary infarct 5. Moderate right pleural effusion 6. Bilobed abdominal aortic aneurysm status post aortoiliac stent graft repair 7. Celiac artery stenosis 8. Bladder wall thickening with infiltration the perivesical fat. Correlation with urinalysis is mckayla mmended to exclude a cystitis 9. Generalized body wall edema Electronically signed by: Jose Dominguez M.D. 03/11/2019 2:30 PM
[2019-03-11 15:29] LABS: Appearance Urine Clear (Clear); Bacteria Urine Automated Negative (Negative); Blood Urine Trace (Negative); Color Urine Dark Yellow; Glucose Urine UA Negative (Negative); Ketones Urine Negative (Negative); Leukocyte Esterase Urine Negative (Negative); Nitrite Urine Negative (Negative); Protein Urine 2+ (Negative); RBC Urine Automated 0-4 /hpf (0-4); Specific Gravity Urine 1.043 (1.000-1.030); Urobilinogen Urine Negative (Negative)
[2019-03-11 15:36] LABS: Bilirubin Urine Negative (Negative); Ictotest Urine Negative (Negative)
[2019-03-11] MEDS ORDERED: ACETAMINOPHEN 325 MG TAB PO PRN (16:31)
[2019-03-11] MEDS ORDERED: NITROGLYCERIN SL 0.4 MG/TAB TAB SL PRN (16:31)
[2019-03-11] MEDS ORDERED: METOPROLOL TARTRATE 1 MG/ML VIAL IV ONE (16:47)
[2019-03-11] MEDS ORDERED: LEVALBUTEROL 1.25MG/0.5ML NEB NEB SCH (17:00)
[2019-03-11] MEDS ORDERED: Heparin IV Low Dose *NO* Bolus IV SCH (17:38)
--- NOTE | 2019-03-11 18:27 | History & Physical Report ---
Date of Service March 11, 2019 Assessment & Plan (1) Acute pulmonary embolism: -Admit to telemetry -Patient presenting from home with reports of increasing shortness of breath, generalized weakness, lower extremity edema over the past 6 weeks -Patient admitted 09/2018 for acute PE in the setting of a supratherapeutic INR. Patient signed out AMA from that admission however recommendations were made for patient to transition to Eliquis which he eventually did after leaving the hospital. This unfortunately caused mouth ulcers and patient stopped the Eliquis and resumed Coumadin. -Recent INRs: 11/19/2018-4.1, 12/03/2018-2.9, 01/02/2019-3.6, 02/04/2019-1.7, 03/08/2019-3.4 -Appears to be Coumadin failure -Given extensiveness of PEs and developing infarcts on CTA chest, will start IV heparin despite INR 3.9 -Saturating well on 2 L nasal cannula, BP stable -Check lower extremity Dopplers -Case was discussed with Dr. Arita and Dr. Perales -Consider transition to Pradaxa, ? IVC filter placement (2) Acute on chronic systolic CHF (congestive heart failure): (3) Dilated cardiomyopathy: -Echo 09/2018 EF 10% -History of medical noncompliance, patient self stopped torsemide and is currently taking spironolactone 12.5 mg daily -Received Lasix 40 mg IV in the ED, will continue with 40 mg IV twice daily -Continue home doses of metoprolol, lisinopril, and digoxin -Low Na+ diet, strict I's and O's, Larios placement, daily weights -Cardiology consult, case discussed with Dr. Rosa (4) Atrial fibrillation: -Presented with A. fib RVR with heart rates in the 140s -Likely secondary to acute CHF and acute pulmonary embolism -Received metoprolol 5 mg in the ED -Heart rates continue to be high, will give an additional 5 mg IV now and continue home doses of metoprolol and digoxin -Would not aggressively treat tachycardia as this is likely helping patient maintain cardiac output given severe cardiomyopathy -Anticoagulation as above (5) Pleural effusion: -Has been following with Dr. Skelton for right sided pleural effusion -Case discussed with Dr. Skelton, planning on possible thoracentesis tomorrow (6) Thoracic ascending aortic aneurysm: -Measuring 4.4cm on CT -Stable compared to prior imaging (7) Hypothyroidism: -Continue levothyroxine (8) DVT prophylaxis: -On IV heparin as above History of Present Illness Chief Complaint: Shortness of breath Primary Care Provider: Mat Carlisle MD 68-year-old male who presents the ED with shortness of breath and lower extremi ty edema. Patient most recently admitted to [facility] 09/2018 after being diagnosed with acute PE with supratherapeutic INR as well as acute systolic CHF.. Patient signed out AMA from that admission. Patient has history of medical noncompliance. At discharge, it was recommended the patient stop Coumadin start Eliquis which he did shortly after admission however he reports it gave him severe mouth ulcers and he went back on the Coumadin. Patient was also prescribed torsemide at discharge however he reports this caused urinary retention for him and he stopped taking it as well. Over the past 6 weeks, patient reports increasing generalized weakness, shortness of breath, lower extremity edema, abdominal distention. He denies orthopnea. He does not weigh himself at home. He reports a persistent chest pain across his entire chest that he describes as a heaviness. He denies any specific causative or relieving factors. He has had lightheadedness and dizziness but denies any syncopal event . No abdominal pain, nausea, vomiting, diarrhea. He denies fevers and chills. No urinary symptoms aside from those he reported associate with torsemide. In the ED, CTA chest shows extensive acute lobar and segmental pulmonary emboli best visualized throughout the left lung and patchy groundglass consolidation in the periphery of the left upper and to a greater extent the left lower lobes concerning for developing infarcts. Of note, INR is 3.9. Patient is saturating well on 2 L of oxygen. On arrival, patient had A. fib with RVR, was given metoprolol 5 mg IV with improvement in heart rate. He was also given Lasix 40 mg IV. Allergies Allergy/AdvReac Type Severity Reaction Status Date / Time naproxen Allergy Unknown ITCHY Unverified 03/11/19 11:37 nicotine Allergy Unknown Rash -- Verified 03/11/19 11:37 from nicotine patch Home Medications Home Medications Medication Instructions Recorded Confirmed Type albuterol sulfate [ProAir HFA] 2 puff INHALATION QID PRN 10/03/18 03/11/19 History cyanocobalamin (vitamin B-12) 500 mcg PO QAM 10/03/18 03/11/19 History [Vitamin B-12] mirtazapine [Remeron] 15 mg PO HS PRN 10/03/18 03/11/19 History warfarin 5 mg PO MO 10/03/18 03/11/19 History digoxin 125 mcg PO QAM 03/11/19 03/11/19 History levothyroxine 137 mcg PO QAM 03/11/19 03/11/19 History lisinopril 2.5 mg PO QAM 03/11/19 03/11/19 History melatonin 5 mg PO HS 03/11/19 03/11/19 History metoprolol tartrate 25 mg PO BID 03/11/19 03/11/19 History spironolactone 12.5 mg PO QAM 03/11/19 03/11/19 History warfarin 2.5 mg PO SUTUWETHFRSA 03/11/19 03/11/19 History Past Med/Surg History Medical History Thoracic ascending aortic aneurysm (Chronic) Pleural effusion (Chronic) Pulmonary embolism (Chronic) Atrial fibrillation (Chronic) Aortic stenosis (Chronic) Dilated cardiomyopathy (Chronic) AAA (abdominal aortic aneurysm) (Chronic) Hypothyroidism (Chronic) Alcohol use (Chronic) Tobacco use (Chronic) COPD (chronic obstructive pulmonary disease) (Chronic) PVD (peripheral vascular disease) (Chronic) "chronic BL SFA occlusions" Carotid artery disease (Chronic) "US 2011- Right carotid artery duplex examination indicates evidence of 50- 69% stenosis of the internal carotid artery. 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 Lung cancer (Chronic) s/p RUL resection [place] 08/[address] Son Kline Surgical History Status post percutaneous abdominal aortic aneurysm (AAA) repair (Chronic) History of arthroscopy of left shoulder (Chronic) H/O bursectomy (Chronic) History of nasal septoplasty (Chronic) History of back surgery (Chronic) H/O arthroscopy of shoulder (Chronic) Hx of tonsillectomy (Chronic) S/P lobectomy of lung (Chronic) Family History Father Heart disease Mother Heart disease Social History Preferred Language: Lithuanian Communication Ability: Effective Corporate Law Specialist Required: No Beliefs That Will Affect Care: None marital status: Current Living Situation: Spouse current occupational status: retired Other Information That Helps Us Care for You: No Feels Safe at Home: Yes Safety Concerns: Feels Safe At This Time Smoking Status: Current every day smoker Tobacco Type: cigarettes Cigarettes Per Day: 15 Do You Dip or Chew Tobacco: No Second Hand Exposure: No Tobacco Cessation Education Requested by Patient: No Hx Alcohol Use: Yes Alcohol type: beer Alcohol Intake Frequency Comment: 3 beers day Hx Substance Use: No Review of Systems Review of Systems: ROS per HPI, all other systems reviewed and negative Physical Exam Constitutional: WD/WN, vitals as above Eyes: PERRL, conjunctivae normal, anicteric sclerae ENMT: external ear and nose normal, oropharynx normal Respiratory: normal respiratory effort; no respiratory distress Auscultation: + diminished lung sounds (Right lung stoll) and + wheezes (Bilateral, inspiratory and expiratory) Cardiovascular: Rate/Rhythm: + tachycardic and + irregularly irregular Vessels: normal peripheral pulses Extremities: + edema (+3 pitting edema BLE) Gastrointestinal (Abdomen): normal bowel sounds, soft, nontender, no hepatosplenomegaly Inspection/Auscultation: + abdomen distended Musculoskeletal: no cyanosis or clubbing, extremities motor strength 5/5 Skin: no rashes, warm and dry Neurologic: PERRL, EOMI, accommodation nl, no face palsy, no dysarthria Psychiatric: A+Ox3, euthymic affect Results & Data Vital Signs (Past 12 Hours) Vital Signs Temp Pulse Pulse Resp BP BP Pulse Ox 03/11/19 17:55 36.6 C 122 H 18 116/85 100 03/11/19 17:18 123 H 16 91 03/11/19 17:06 143 H 115/80 03/11/19 16:31 36.6 C 159 H 22 126/108 H 96 03/11/19 15:45 135 H 24 105/77 97 03/11/19 14:42 126 H 25 H 116/81 89 L 03/11/19 14:02 95 03/11/19 14:01 114 H 24 106/89 87 L 03/11/19 13:30 116 H 26 H 106/89 92 03/11/19 13:22 113 H 30 H 113/84 95 03/11/19 13:11 136 H 25 H 128/108 H 94 03/11/19 13:08 133 H 128/108 H 03/11/19 12:40 128 H 20 136/94 97 03/11/19 12:18 118 H 24 97 03/11/19 12:15 138 H 20 116/99 94 03/11/19 10:53 36.4 C L 140 H 30 H 116/80 99 Pulse Ox 03/11/19 17:55 03/11/19 17:18 03/11/19 17:06 03/11/19 16:31 96 03/11/19 15:45 03/11/19 14:42 03/11/19 14:02 03/11/19 14:01 03/11/19 13:30 03/11/19 13:22 03/11/19 13:11 03/11/19 13:08 03/11/19 12:40 03/11/19 12:18 03/11/19 12:15 03/11/19 10:53 Laboratory Results Short CBC 03/11/19 Range/Units 12:17 WBC 5.50 (4.8-10.8) K/uL Hgb 12.7 L (14.0-18.0) g/dL Hct 37.6 L (42-52) % Plt Count 149 (130-400) K/uL BMP 03/11/19 12:17 Sodium 135 L Potassium 4.9 Chloride 105 Carbon Dioxide 22 BUN 20 H Creatinine 1.07 Glucose 108 H Calcium 8.9 Cardiac Enzymes 03/11/19 Range/Units 12:17 Troponin I 0.092 H* (0-0.045) ng/ml Liver Function 03/11/19 Range/Units 12:17 Total Bilirubin 1.5 H (0.2-1) mg/dl AST 37 (15-37) U/L ALT 46 (12-78) U/L Alkaline Phosphatase 94 (45-117) U/L Albumin 2.9 L (3.4-5.0) gm/dl Urine 03/11/19 Range/Units Unknown Urine Color Dark Yellow Urine Appearance Clear (Clear) Urine pH 5.0 (4.5-7.5) Ur Specific [place] 1.043 H (1.000-1.030) Urine Protein 2+ H (Negative) Urine Glucose (UA) Negative (Negative) Diagnostic Findings CXR IMPRESSION: 1. Small to moderate right pleural effusion with right lower lung airspace opacity. Radiographic follow-up is recommended. 2. Cardiomegaly with pulmonary vascular congestion. 3. Mild left lower lung opacity. CT ABD/PELVIS IMPRESSION: 1. No evidence of bowel obstruction. No evidence of free air 2. No evidence of acute diverticulitis 3. Low volume ascites 4. Pulmonary embolus with left lung airspace opacities, likely representing a pulmonary infarct 5. Moderate right pleural effusion 6. Bilobed abdominal aortic aneurysm status post aortoiliac stent graft repair 7. Celiac artery stenosis 8. Bladder wall thickening with infiltration the perivesical fat. Correlation with urinalysis is recommended to exclude a cystitis 9. Generalized body wall edema CTA CHEST IMPRESSION: 1. Extensive acute lobar and segmental pulmonary emboli best visualized throughout the left lung. 2. Enlargement of the main pulmonary artery suggests pulmonary hypertension. Reflux of contrast into the hepatic veins suggest elevated right heart pressure, however, no CT evidence of right heart strain at this time. 3. Patchy groundglass consolidation in the periphery of the left upper and to a greater extent the left lower lobes concerning for developing infarcts. 4. Moderate to large right pleural effusion with residual right lung atelectasis. Additional evidence of volume overload with body wall edema and ascites. 5. Postsurgical changes of right upper lobectomy. 6. Ectasia of the ascending aorta, measuring 4.4 cm. 7. Borderline mediastinal lymphadenopathy, possibly reactive. Code Status & VTE Plan Code Status Patient is a full code as per my discussion with him. Supervising Physician Co-Signing Physician Notes Pt was seen and examined. Agreed with Jenny exam, assessment and plan. 68-year-old male with PMH of CAD, DVT, PE, Afib, pleural effusion, tobacco abuse, COPD presents the ED with worsening shortness of breath and lower extremity edema. Patient was admitted back in 10/06 with acute PE with supratherapeutic INR as well as acute systolic CHF. His coumadin was changed to eliquis. Pt said that he usually chew his pills because he had a hard time to swallow his pills. Pt said that Eliquis was discontinued because of severe mouth ulcers. He came back today worse worsening SOB with minimal exertion associa jaimie with b/l LE edema. CTA chest showed extensive acute lobar and segmental pulmonary emboli best visualized throughout the left lung and moderate to large right pleural effusion. Evidence of volume overload on CT chest. His INR is 3.9 and he said that he has been taking his coumadin. Case discussed with Dr. Perales to changed coumadin to Pradaxa since pt failed coumadin and start on IV heparin drip. Will get a doppler of LE extremities. Will consult hematology. Thoracic surgery consult for the moderate to large pleural effusion. His last EF was on 10/06 was 10%. received IV lasix 40mg in the ER, will give an additional 40mg IV. cardiology consut. Consider to get an ECHO. Continue monitor closely in tele. Please refer to Jenny ARAUJO documentation for other problems MD Dewayne
[2019-03-11] MEDS: Heparin Adult LOW DOSE Wt-Based Dextrose 5% 25,000 units/500 mL IV SCH (18:49)
[2019-03-11] MEDS: methylPREDNISolone 40 MG in SYRINGE 0 ML IV SCH (18:50)
[2019-03-11] MEDS: LEVALBUTEROL HCL 1.25 MG/3 ML NEB NEB SCH (19:32)
[2019-03-11] MEDS: DIGOXIN 0.125 MG TAB PO SCH (19:33)
--- NOTE | 2019-03-11 19:48 | Ultrasound Report ---
US venous doppler LE BI HISTORY: Pain. Edema. PE, leg swelling COMPARISON STUDY: 10/03/2018 FINDINGS: Interval development of bilateral acute deep venous thrombosis. The right leg demonstrates occlusive thrombus within the popliteal vein, posterior tibial vein, as well as components of the per sánchez vein. Left leg shows a chronic scarring of the common femoral and popliteal vein. There is occlusive thromb us of the posterior tibial and peroneal veins. IMPRESSION: Bilateral acute deep venous thrombosis. The above report was generated using voice recognition software. It may contain grammatical, syntax or spelling errors. Electronically signed by: Helder Mcdowell M.D. 03/11/2019 7:46 PM
[2019-03-11] MEDS: METOPROLOL TARTRATE 25 MG TAB PO SCH (20:24)
--- NOTE | 2019-03-11 20:40 | Consultation Report ---
DATE OF CONSULTATION: 03/11/2019 REASON FOR CONSULTATION: Right pleural effusion. HISTORY OF PRESENT ILLNESS: Terence Domínguez is a 68-year-old male with multiple medical problems. He was just seen in my office 6 days ago. He did not look good, but he was not hypoxic. He has a history of pulmonary emboli and was on Coumadin. 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 His has stage IIB squamous cell carcinoma of the lung; however, we have elected not to treat him with any adjuvant therapy of his multiple comorbid factors. He has a history of an abdominal aortic aneurysm repaired with EVAR 10 years ago. He presented last week and was a bit short of breath, but the patient continues to smoke a pack of cigarettes a day. I was a bit handicapped in the office as my last scan was from September of this year. This scan showed he had a moderate to large right pleural effusion and some mild adenopathy. One of the problems with Mr. Domínguez is he gets his care down in [place] and here. I did not realize he had a PET scan last April, but I reviewed that and he has very little in the way of uptake anywhere suggest metastatic disease. He has evidence of ascites on physical exam and on CT. He had marked edema of his lower extremities. I explained to him that he would have to go back to his primary care physician, I do not feel he needs to be admitted; however, he stated he was felt so bad this morning that he presented for admission. He has been in the hospital for a couple of hours and has been aggressively diuresed and I am impressed with the decreased edema of his lower extremities and he does sound better on exam. He still feels "miserable". I had a long talk with the patient and his at the bedside. PAST MEDICAL HISTORY: 1. History of alcohol abuse. 2. Active cigarette smoking. 3. Nasopharyngeal carcinoma. 4. Abdominal aortic aneurysm. 5. Anemia. 6. Known small nodule left lower extremity. 7. Peripheral vascular disease. 8. Recent pulmonary embolism. 9. Squamous cell carcinoma, right upper lobe. 10. History of abdominal aortic aneurysm. 11. Ascites. 12. Hyperlipidemia. 13. Deep vein thrombosis. 14. Severe dilated cardiomyopathy with biventricular failure. 15. Atrial fibrillation. 16. Peripheral vascular disease. SURGICAL HISTORY: 1. EVAR. 2. Arthroscopy, left shoulder. 3. Thoracoscopic right upper lobectomy 08/2017. 4. Resection of tonsillar carcinoma. 5. Lumbar laminectomy with hardware insertion. 6. Nasal septoplasty. 7. Bursectomy. MEDICATIONS: 1. Inhalers. 2. Remeron. 3. Warfarin. 4. Spironolactone. 5. Metoprolol. 6. Melatonin. 7. Digoxin. 8. Synthroid. 9. Lisinopril. ALLERGIES: 1. NAPROSYN WHICH CAUSES A RASH WITH PRURITUS. 2. NICOTINE PATCH CAUSES A RASH. SOCIAL HISTORY: The patient lives with his many years. He is retired. He continues to smoke a pack of cigarettes a day. He used to be a heavy drinker, but states he only drinks 2-3 beers a day now. FAMILY MEDICAL HISTORY: Mother and father both had coronary artery disease. There is a history of hypertension as well as a carcinoma, although he was not very helpful in delineating the specifics.. REVIEW OF SYSTEMS: The patient has felt poorly. He is quite weak which is really his biggest complaint. He thinks he has been eating. He has become more short of breath, but again has not been hypoxic. He has had more lower extremity edema and abdominal distention. He states he has heaviness in his chest. He has also been a bit lightheaded, but has not had any syncope. He denies any focal deficits. He has had no skin breakdown. He has had no new auditory or visual complaints. He does have a history of noncompliance and last signed out against medical advice in September. He was recently seen in my office, but now presents back with increasing weakness and underwent a CT scan which shows apparent new pulmonary emboli despite an INR which is supratherapeutic at 3.9. He really was not hypoxic. PHYSICAL EXAMINATION: GENERAL: This is an ill-appearing male who stands 5 feet 11 inches tall and weighs approximately 190 pounds. HEENT: His extraocular movements are intact. His sclerae are anicteric. He has bilateral arcus senilis. He is edentulous. His tongue is midline. NECK: I detect no supraclavicular or cervical lymphadenopathy. He has no axillary adenopathy. I do not detect carotid bruits. LUNGS: He has decreased breath sounds in both lung stoll with expiratory wheezing, but he has improved since 6 days ago. He has markedly decreased breath sounds with dullness to percussion in the right lower base. He has an irregular irregular rhythm which is rapid at about 115-120 beats per minute. I do not detect a significant rub. ABDOMEN: He has ascites on exam. He is not particularly tender on palpation of his abdomen. He has well-healed thoracoscopy incisions in the right. EXTREMITIES: He has 2+ edema of the lower extremities, but these have improved since last week. He has got some mild clubbing of his nails, but no wound breakdown. I cannot palpate pulses below his groin and I cannot palpate his abdominal aortic aneurysm. NEUROLOGIC: He has no asterixis. He is awake, alert and oriented with no focal deficits. ASSESSMENT AND PLAN: Right pleural effusion which is semi-chronic. He also has ascites. He has acute pulmonary emboli. He has a history of deep vein thrombosis, pulmonary emboli from his left lower extremity several months ago. We are going to offer him a therapeutic thoracentesis, but I do not think this is pressing as he is really not very hypoxic. He also has some mild lymphadenopathy, which has not really changed in the last 6 months and I think searching for recurrent carcinoma should be rather low on the list of priorities in this patient with ascites and a right pleural effusion and multiple medical problems. I believe his severe dilated cardiomyopathy probably contributes a great deal to his clinical presentation, although his pulmonary emboli are also contributing. KEND
[2019-03-11] MEDS ORDERED: FUROSEMIDE 40 MG in SYRINGE 0 ML IV SCH (21:00)
[2019-03-12] MEDS: methylPREDNISolone 40 MG in SYRINGE 0 ML IV SCH ×2 (00:52→07:59)
[2019-03-12 01:38] LABS: Partial Thromboplastin Ratio 1.8
[2019-03-12] MEDS: LEVALBUTEROL HCL 1.25 MG/3 ML NEB NEB SCH ×2 (01:42→07:08)
[2019-03-12 02:06] LABS: Partial Thromboplastin Time 49.3 Seconds (21.0-31.0)
[2019-03-12] MEDS: LEVOTHYROXINE SODIUM 137 MCG TABLET PO SCH (06:11)
[2019-03-12 06:41] LABS: Hematocrit (blood only) 37.7 % (42-52); Hemoglobin 12.8 g/dL (14.0-18.0); Mean Corpuscular Volume 93.1 fL (80-100); Mean Platelet Volume 10.3 fL (7.4-10.4); Platelet Count 125 K/uL (130-400); RDW Coefficient of Variation 16.6 % (11.5-14.5); RDW Standard Deviation 56.4 fL (36.4-46.3); Red Blood Count 4.05 M/uL (4.7-6.1); White Blood Count 5.08 K/uL (4.8-10.8)
[2019-03-12 07:20] LABS: BUN Creatinine Ratio 16.6 (10-20); Creatinine Clr Calc Pharmacy 51.2 ml/min; Est GFR (African American) 57.1; Est GFR (Non-African American) 49.3; Magnesium 2.1 mg/dl (1.8-2.4); Potassium 4.4 mmol/L (3.5-5.1)
[2019-03-12] MEDS: METOPROLOL TARTRATE 25 MG TAB PO SCH (07:54)
[2019-03-12] MEDS: DIGOXIN 0.125 MG TAB PO SCH (07:55)
[2019-03-12] MEDS: CYANOCOBALAMIN 500 MCG TABLET (VITAMIN B-12) PO SCH (07:58)
--- NOTE | 2019-03-12 08:00 | XRay Report ---
XR chest 1V portable CLINICAL HISTORY: pleural effusion COMPARISON STUDY: Chest radiograph and chest CT March 11, 2019. FINDINGS: Postoperative findings within the right hemithorax are noted. There is elevation of the rig ht hemidiaphragm. A moderate right pleural effusion is similar to prior exam. There is pulmonary vasc ular congestion without overt pulmonary edema. Cardiomediastinal silhouette is stable. There is no pn eumothorax. Mild left lower lung opacity is present. IMPRESSION: 1. No significant change in a moderate right pleural effusion. 2. Mild left basilar opacity which is similar to prior exam. 3. No pneumothorax. 4. Pulmonary vascular congestion. Electronically signed by: Vinay Marie M.D. 03/12/2019 7:58 AM
[2019-03-12 08:08] LABS: INR 3.5 (0.9-1.1); Prothrombin Time 32.4 Seconds (9.0-12.0)
[2019-03-12] MEDS ORDERED: METOPROLOL TARTRATE 1 MG/ML VIAL IV ONE ×2 (08:11→08:20)
--- NOTE | 2019-03-12 08:39 | Hospitalist Progress Note ---
Date of Service March 12, 2019 Assessment & Plan (1) Pulmonary embolism: Patient presented with chest pain, worsening dyspnea, rapid A. fib. CTA chest demonstrated bilateral pulmonary emboli, apparently new. Venous duplex of lower extremities demonstrated bilateral DVTs. VTE present on admission. Previous history of pulmonary emboli. Anticoagulated in past on apixaban, but it was discontinued because of side effects. Has been on warfarin therapy with fluctuating INRs. INR at the time of admission 3.9. Started on IV heparin. Will continue IV heparin rather than switching to enoxaparin at this time in case patient needs any invasive procedures. Decision will have to be made whether or not to continue warfarin therapy or consider a DOAC beside apixaban. IVC filter should also be considered. Hematology has been consulted to assist with decision-making. (2) DVT (deep venous thrombosis): As noted above. (3) Acute on chronic systolic CHF (congestive heart failure): History of dilated idiopathic cardiomyopathy with LVEF of 10% in September 2018. Chest x-ray at time of admission showed CHF and right pleural effusion. Received IV furosemide with good diuresis. Creatinine elevated this morning. Furosemide held. Check follow-up chest x-ray tomorrow morning. (4) Aortic stenosis: Echocardiogram in September 2018 demonstrated severe aortic stenosis. Management per Cardiology. (5) Atrial fibrillation: Chronic atrial fibrillation, now with rapid ventricular response. Takes metoprolol and digoxin at home. Ventricular rate 150 this morning; additional doses of metoprolol digoxin administered intravenously with improvement of ventricular rate. Continue anticoagulation as discussed above. (6) COPD (chronic obstructive pulmonary disease): History of COPD. Worsening bronchospasm at this time could be secondary to CHF and/or pulmonary emboli. Change nebulizer treatments to low-dose levalbuterol because of rapid atrial fib. (7) Lung cancer: History of lung cancer, but no evidence of recurrent disease per Thoracic Surgery. Follow. (8) Pleural effusion: Moderate right pleural effusion, previously noted. Thoracic Surgery consulted. Pleural effusion most likely secondary to CHF, but could be also related to pulmonary emboli or recurrent lung cancer. Consider thoracentesis for either therapeutic or diagnostic purposes. (9) Hypothyroidism: Continue levothyroxine. Check TSH with morning labs (although may be difficult to interpret in light of acute illness). (10) DVT prophylaxis: Anticoagulated for acute VTE as discussed above. (11) Discharge planning issues: Anticipated discharge to home. Internal Medicine follow-up with Dr. Torres. [facility] Thoracic Surgery follow-up with Dr. Skelton. Subjective Recheck for multiple problems. Patient seen in their room around 08:20. Feels better. Less short of breath. Occasional nonproductive cough. No anginal symptoms or pleuritic chest pain. Cardiac rhythm A. fib with rapid ventricular response this morning, ventricular rates [id number]. Review of Systems: Constitutional- no fever. Cardiac- as noted above. Pulmonary- as noted above. GI- no nausea, vomiting, diarrhea, melena, hematochezia. -urinary hesitancy for some time, Larios catheter placed yesterday. Otherwise, as noted above. Physical Exam Constitutional: + ill appearing; no acute distress Respiratory: no respiratory distress Auscultation: + diminished lung sounds (right base) and + wheezes (diffuse) Cardiovascular: Rate/Rhythm: + tachycardic and + irregularly irregular Heart Sounds: + gallop (none appreciated, but heart sounds distant) and + murmur (sys murmur at base) Vessels: + JVD Extremities: + edema (trace p retibial); no calf tenderness Gastrointestinal (Abdomen): normal bowel sounds, soft, nontender, no hepatosplenomegaly Skin: no rashes, warm and dry Psychiatric: Orientation: alert and oriented x 3 Results & Data Vital Signs (Past 12 Hours) Vital Signs Temp Pulse Pulse Resp BP BP BP 03/12/19 08:23 137 H 117/101 H 03/12/19 08:00 137 H 117/101 H 03/12/19 07:55 155 H 03/12/19 07:34 36.5 C 137 H 26 H 139/104 H 03/12/19 07:08 117 H 18 03/12/19 03:47 36.5 C 104 H 19 138/105 H 03/12/19 01:43 119 H 20 03/11/19 23:35 36.5 C 105 H 20 124/89 03/11/19 23:34 118 H Pulse Ox 03/12/19 08:23 03/12/19 08:00 93 03/12/19 07:55 03/12/19 07:34 94 03/12/19 07:08 99 03/12/19 03:47 98 03/12/19 01:43 98 03/11/19 23:35 97 03/11/19 23:34 Laboratory Results Laboratory Results - last 24 hr 03/12/19 03/12/19 03/12/19 00:19 00:58 00:58 WBC RBC Hgb Hct MCV MCH MCHC RDW Std Deviation RDW Coeff of Debra Plt Count MPV PT 32.4 H INR 3.5 H APTT 49.3 H* PTT Ratio 1.8 Sodium Potassium Chloride Carbon Dioxide Anion Gap BUN Creatinine Est Cr Clr Drug Dosing Est GFR ( Amer) Est GFR (Non-Af Amer) BUN/Creatinine Ratio Glucose Calcium Magnesium Troponin I 0.115 H* 03/12/19 03/12/19 06:19 06:19 WBC 5.08 RBC 4.05 L Hgb 12.8 L Hct 37.7 L MCV 93.1 MCH 31.6 MCHC 34.0 RDW Std Deviation 56.4 H RDW Coeff of Debra 16.6 H Plt Count 125 L MPV 10.3 PT INR APTT PTT Ratio Sodium 137 Potassium 4.4 Chloride 103 Carbon Dioxide 24 Anion Gap 10.0 BUN 24 H Creatinine 1.43 H D Est Cr Clr Drug Dosing 51.2 Est GFR ( Amer) 57.1 Est GFR (Non-Af Amer) 49.3 BUN/Creatinine Ratio 16.6 Glucose 167 H Calcium 9.0 Magnesium 2.1 Troponin I ECG Additional Comments: EKG performed this morning at 0640 reviewed and demonstrated atrial fibrillation with ventricular rate of 130/minute, occasional PVC, poor R wave progression, T wave flattening/inversion in inferior lateral leads. (1) COPD (chronic obstructive pulmonary disease) COPD type: unspecified COPD Qualified Code(s): J44.9 - Chronic obstructive pulmonary disease, unspecified
[2019-03-12] MEDS ORDERED: LEVALBUTEROL HCL 0.63 MG/3 ML NEB NEB PRN (08:45)
[2019-03-12] MEDS ORDERED: DIGOXIN 125 MCG in SYRINGE 9.5 ML IV ONE (09:00)
[2019-03-12] MEDS ORDERED: LISINOPRIL 2.5 MG TAB PO SCH (09:00)
[2019-03-12] MEDS ORDERED: FUROSEMIDE 40 MG in SYRINGE 0 ML IV SCH (09:00)
--- NOTE | 2019-03-12 15:51 | Cardiology Consultation ---
Date of Consultation March 12, 2019 Assessment & Plan (1) Acute on chronic systolic CHF (congestive heart failure): Patient with multifactorial decline recent diminished use of diuretics. Has initially responded to therapy as a single dose of furosemide diuresis. Renal function however is worsened slightly possibly in association with contrast administration as well We will hold diuretics tonight. Ultimately will require further diuresis. Hold lisinopril until reviewed in a.m. Change metoprolol to metoprolol succinate for CHF indicated beta-matt and hopefully increased rate control (2) Acute pulmonary embolism: (3) Atrial fibrillation: Rates are elevated since admission we will continue low-dose digoxin will need to follow closely. As above change metoprolol tartrate to metoprolol succinate and gradually titrate upward as allows (4) Aortic stenosis: Echocardiogram will be reassessed (5) Dilated cardiomyopathy: (6) Status post percutaneous abdominal aortic aneurysm (AAA) repair: With stable aneurysm size without endovascular leak (7) COPD (chronic obstructive pulmonary disease): History of Present Illness Requesting Physician: Dr Young Attending Physician: Nagi Young MD History of Present Illness Patient is a 68-year-old complex past history which includes 1. Biventricular heart failure dilated cardiomyopathy undefined etiology with severely reduced LV dysfunction, EF 10% 2. Aortic stenosis, degree uncertain due to severely reduced LV function possible bicuspid aortic valve 3. Atrial fibrillation borderline rate control. Previously intolerant Eliquis on intermittent anticoagulation with warfarin 4. Pulmonary embolus past September 2018 and current 5. History of lung CA, laryngeal CA 6. Diffuse vascular disease, follows with [facility] vascular surgery status post endovascular repair abdominal aortic aneurysm with stable ultrasound December 2018 history of atherosclerotic carotid disease 7. Chronic obstructive lung disease ongoing tobacco use Patient presents this admission having felt poorly for 6 weeks or greater notes malaise fatigue increasing "abdominal bloating and edema". Notes no overt weight gain. Does have chronic cough nonproductive. Had not been taking diuretics at home with intermittent use of anticoagulants as well. Initial evaluation is demonstrated evidence of both congestive heart failure as well as acute pulmonary emboli. Is referred now for aid in management. He has improved since admission yesterday per patient with diuresis but still dyspneic with mild exertion. Allergies Allergy/AdvReac Type Severity Reaction Status Date / Time naproxen Allergy Unknown ITCHY Unverified 03/11/19 11:37 nicotine Allergy Unknown Rash -- Verified 03/11/19 11:37 from nicotine patch Home Medications Home Medications Medication Instructions Recorded Confirmed Type albuterol sulfate [ProAir HFA] 2 puff INHALATION QID PRN 10/03/18 03/11/19 History cyanocobalamin (vitamin B-12) 500 mcg PO QAM 10/03/18 03/11/19 History [Vitamin B-12] mirtazapine [Remeron] 15 mg PO HS PRN 10/03/18 03/11/19 History warfarin 5 mg PO MO 10/03/18 03/11/19 History digoxin 125 mcg PO QAM 03/11/19 03/11/19 History levothyroxine 137 mcg PO QAM 03/11/19 03/11/19 History lisinopril 2.5 mg PO QAM 03/11/19 03/11/19 History melatonin 5 mg PO HS 03/11/19 03/11/19 History metoprolol tartrate 25 mg PO BID 03/11/19 03/11/19 History spironolactone 12.5 mg PO QAM 03/11/19 03/11/19 History warfarin 2.5 mg PO [id number] 03/11/19 03/11/19 History Patient History Medical History Thoracic ascending aortic aneurysm (Chronic) Pleural effusion (Chronic) Pulmonary embolism (Chronic) Atrial fibrillation (Chronic) Aortic stenosis (Chronic) Dilated cardiomyopathy (Chronic) AAA (abdominal aortic aneurysm) (Chronic) Hypothyroidism (Chronic) Alcohol use (Chronic) Tobacco use (Chronic) COPD (chronic obstructive pulmonary disease) (Chronic) PVD (peripheral vascular disease) (Chronic) "chronic BL SFA occlusions" Carotid artery disease (Chronic) "US 2011- Right carotid artery duplex examination indicates evidence of 50- 69% stenosis of the internal carotid artery. 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 Son Kline Surgical History Status post percutaneous abdominal aortic aneurysm (AAA) repair (Chronic) History of arthroscopy of left shoulder (Chronic) H/O bursectomy (Chronic) History of nasal septoplasty (Chronic) History of back surgery (Chronic) H/O arthroscopy of shoulder (Chronic) Hx of tonsillectomy (Chronic) S/P lobectomy of lung (Chronic) Family History Father Heart disease Mother Heart disease Social History Preferred Language: Jordanian Communication Ability: Effective [place] Packer Required: No Beliefs That Will Affect Care: None marital status: Current Living Situation: Spouse current occupational status: retired Other Information That Helps Us Care for You: No Feels Safe at Home: Yes Safety Concerns: Feels Safe At This Time Smoking Status: Current every day smoker Tobacco Type: cigarettes Cigarettes Per Day: 15 Do You Dip or Chew Tobacco: No Second Hand Exposure: No Tobacco Cessation Education Requested by Patient: No Hx Alcohol Use: Yes Alcohol type: beer Alcohol Intake Frequency Comment: 3 beer s day Hx Substance Use: No Physical Exam Constitutional: no acute distress Chronically ill-appearing male Eyes: PERRL, conjunctivae normal, anicteric sclerae ENMT: external ear and nose normal, oropharynx normal Neck: + thick neck Respiratory: Auscultation: + diminished lung sounds and + wheezes Cardiovascular: Rate/Rhythm: + irregularly irregular Heart Sounds: + murmur (Grade 2/6 systolic) Vessels: no JVD Extremities: + edema (1-2+ bilateral lower extremity) Gastrointestinal (Abdomen): Percussion/Palpation: abdomen soft; abdomen nontender and no hepatosplenomegaly Musculoskeletal: no cyanosis or clubbing, extremities motor strength 5/5 Results & Data Vital Signs (Past 12 Hours) Vital Signs Temp Pulse Pulse Pulse Resp BP BP 03/12/19 15:45 36.6 C 104 H 20 L 22 03/12/19 11:12 36.5 C 110 H 26 H 118/77 03/12/19 10:53 112 H 03/12/19 10:30 93 H 03/12/19 09:08 123 H 03/12/19 08:23 137 H 117/101 H 03/12/19 08:00 137 H 03/12/19 07:55 155 H 03/12/19 07:34 36.5 C 137 H 26 H 139/104 H 03/12/19 07:08 117 H 18 BP Pulse Ox 03/12/19 15:45 121/90 91 03/12/19 11:12 92 03/12/19 10:53 03/12/19 10:30 03/12/19 09:08 03/12/19 08:23 03/12/19 08:00 117/101 H 93 03/12/19 07:55 03/12/19 07:34 94 03/12/19 07:08 99 Laboratory Results Laboratory Results - last 24 hr 03/11/19 03/12/19 03/12/19 17:52 00:19 00:58 WBC RBC Hgb Hct MCV MCH MCHC RDW Std Deviation RDW Coeff of Debra Plt Count MPV PT INR APTT 49.3 H* PTT Ratio 1.8 Sodium Potassium Chloride Carbon Dioxide Anion Gap BUN Creatinine Est Cr Clr Drug Dosing Est GFR ( Amer) Est GFR (Non-Af Amer) BUN/Creatinine Ratio Glucose Calcium Magnesium Troponin I 0.097 H* 0.115 H* 03/12/19 03/12/19 03/12/19 00:58 06:19 06:19 WBC 5.08 RBC 4.05 L Hgb 12.8 L Hct 37.7 L MCV 93.1 MCH 31.6 MCHC 34.0 RDW Std Deviation 56.4 H RDW Coeff of Debra 16.6 H Plt Count 125 L MPV 10.3 PT 32.4 H INR 3.5 H APTT PTT Ratio Sodium 137 Potassium 4.4 Chloride 103 Carbon Dioxide 24 Anion Gap 10.0 BUN 24 H Creatinine 1.43 H D Est Cr Clr Drug Dosing 51.2 Est GFR ( Amer) 57.1 Est GFR (Non-Af Amer) 49.3 BUN/Creatinine Ratio 16.6 Glucose 167 H Calcium 9.0 Magnesium 2.1 Troponin I (1) Acute pulmonary embolism Acute cor pulmonale presence: without acute cor pulmonale Pulmonary embolism type: unspecified Qualified Code(s): I26.99 - Other pulmonary embolism without acute cor pulmonale (2) COPD (chronic obstructive pulmonary disease) COPD type: unspecified COPD Qualified Code(s): J44.9 - Chronic obstructive pulmonary disease, unspecified
[2019-03-12] MEDS: methylPREDNISolone 20 MG in SYRINGE 0 ML IV SCH (17:58)
[2019-03-12] MEDS: Heparin Adult LOW DOSE Wt-Based Dextrose 5% 25,000 units/500 mL IV SCH (18:44)
--- NOTE | 2019-03-12 18:54 | Progress Note ---
DATE: 03/12/2019 Mr. Domníguez was seen today. He has been weaned off of oxygen. He feels better and eating quite well. His edema has decreased. His lungs sound better. His x-ray looks about the same. I think the patient would probably benefit from a thoracentesis, although I still have my reservations about how much we are going to improve him. We will wait until his INR normalizes a bit before offering him a thoracentesis. He was still over 3 today.
[2019-03-12 21:02] LABS: Partial Thromboplastin Ratio 1.6; Partial Thromboplastin Time 42.2 Seconds (21.0-31.0)
[2019-03-12] MEDS: TAMSULOSIN HCL 0.4 MG CAP PO SCH (21:20)
[2019-03-12] MEDS: METOPROLOL SUCC 25MG EXT REL TAB PO SCH (21:20)
[2019-03-12] MEDS ORDERED: HEPARIN IV BOLUS 3,000 UNITS in SYRINGE 0 ML IV ONE (21:45)
[2019-03-13] MEDS ORDERED: DIGOXIN 250 MCG in SYRINGE 9 ML IV STA (00:40)
[2019-03-13] MEDS ORDERED: ALBUMIN 25% 50 ML IV ONE (00:48)
[2019-03-13] MEDS: methylPREDNISolone 20 MG in SYRINGE 0 ML IV SCH ×3 (01:31→17:18)
[2019-03-13 03:31] LABS: Partial Thromboplastin Ratio 1.9
[2019-03-13 03:33] LABS: Partial Thromboplastin Time 51.5 Seconds (21.0-31.0)
[2019-03-13] MEDS: LEVOTHYROXINE SODIUM 137 MCG TABLET PO SCH (06:12)
[2019-03-13 06:42] LABS: INR 2.8 (0.9-1.1); Prothrombin Time 26.4 Seconds (9.0-12.0)
--- NOTE | 2019-03-13 06:50 | XRay Report ---
XR chest 1V portable CLINICAL HISTORY: Congestive failure COMPARISON STUDY: 03/12/2019 FINDINGS: The heart remains enlarged. There is a persistent right pleural effusion with associated ri ght basilar atelectasis/consolidation.[ IMPRESSION: Persistent right pleural effusion with associated right lower lobe atelectasis/consolidat ion. Electronically signed by: Jose Dominguez M.D. 03/13/2019 6:49 AM
[2019-03-13 07:01] LABS: BUN Creatinine Ratio 24.2 (10-20); Calcium 8.6 mg/dl (8.5-10.1); Est GFR (African American) 77.6; Est GFR (Non-African American) 66.9; Potassium 4.2 mmol/L (3.5-5.1)
--- NOTE | 2019-03-13 09:12 | Hospitalist Progress Note ---
Date of Service March 13, 2019 Assessment & Plan (1) Pulmonary embolism: Patient presented with chest pain, worsening dyspnea, rapid A. fib. CTA chest demonstrated bilateral pulmonary emboli, apparently new. Venous duplex of lower extremities demonstrated bilateral DVTs. VTE present on admission. Previous history of pulmonary emboli. Anticoagulated in past on apixaban, but it was discontinued because of side effects. Has been on warfarin therapy with fluctuating INRs. INR at the time of admission 3.9. Resume IV heparin. Decision will have to be made whether or not to continue warfarin therapy or consider a DOAC beside apixaban. IVC filter? Hematology has been consulted, to see today (2) DVT (deep venous thrombosis): IV Heparin (3) Acute on chronic systolic CHF (congestive heart failure): History of dilated idiopathic cardiomyopathy with LVEF of 10% in September 2018. Chest x-ray at time of admission showed CHF and right pleural effusion. Received IV furosemide with good diuresis. Creatinine normal this morning. Furosemide held. Follow-up chest [id number] right pleural effusion with associated right lower lobe atelectasis/consolidation (4) Aortic stenosis: Echocardiogram in September 2018 demonstrated severe aortic stenosis. Management per Cardiology. (5) Atrial fibrillation: Chronic atrial fibrillation, now with rapid ventricular response. Takes metoprolol and digoxin at home. Ventricular rate 120 this morning; Cards on case Continue IV Heparin (6) COPD (chronic obstructive pulmonary disease): History of COPD. Change low-dose levalbuterol because of rapid atrial fib. (7) Lung cancer: History of lung cancer, but no evidence of recurrent disease per Thoracic Surgery. Follow. (8) Pleural effusion: Moderate right pleural effusion, previously noted. Thoracic Surgery on case, INT 2.8 today. Possible R Thoracentesis when pt<=15 Pleural effusion most likely secondary to CHF, but could be also related to pulmonary emboli or recurrent lung cancer. (9) Hypothyroidism: Continue levothyroxine. TSH normal (10) DVT prophylaxis: Anticoagulated for acute VTE as discussed above. (11) Discharge planning issues: Anticipated discharge to home. Internal Medicine follow-up with Dr. Torres. Cardiology follow-up with [email or web address]. Thoracic Surgery follow-up with Dr. Skelton. Labs and scans reviewed Patient comfortable, no new issues ROS-No Headache, No Visual Changes, No Nausea, No Vomiting, No Fever, No Chills, No Neck Pain or Stiffness, No Chest Pain, No Palpitations, No SOB, No SEQUEIRA, No Cough, No Sputum, No Wheezing, No Abdominal Pain, No Diarrhea, No Hematemesis, No Hemoptysis, No Unexpected Weight Loss, No Flank pain, No Melena, No Hematochezia, No Frequency, No Urgency, No Burning, No Hematuria, No Rashes, No Diaphoresis. Appetite is Normal Physical Exam Gen-AAO x 3, NAD, Afebrile Head-NCAT, EOMI, PERRLA, Anicteric Sclera, No Posterior Pharyngeal Erythema Neck-Supple, No JVD, No Thyromegaly, No Masses, No LAD, No Bruits Lungs-Diminished R>L, No Rales, No Rhonchi, Faint B/L Wheezing, No Crepitus Chest-Irreg/Irreg No S4, +S1, +S2, No S3, + 2/6 MICHAEL at the Base, No Rubs, No Gallops Abdomen-Soft, Bowel Sounds Present, Non Tender, Non Distended, No Hepatomegaly, No Splenomegaly, No Palpable Masses, No Rebound, No Rigidity, No Guarding Musculoskeletal-Full Range of Motion Bilaterally, No CVAT Extremities-No Cyanosis, No Clubbing, No Edema Nuero-Cranial Nerves II-XII grossly intact, Motor WNL, DTRs WNL, Strength WNL, Non Focal Psych-Normal Mood Results & Data Vital Signs (Past 12 Hours) Vital Signs Temp Pulse Pulse Pulse Resp BP Pulse Ox 03/13/19 07:42 36.8 C 120 H 22 139/95 94 03/13/19 03:39 36.7 C 119 H 19 115/78 92 03/13/19 01:18 116 H 03/12/19 23:50 127 H 03/12/19 23:38 36.6 C 132 H 21 122/94 93 (1) COPD (chronic obstructive pulmonary disease) COPD type: unspecified COPD Qualified Code(s): J44.9 - Chronic obstructive pulmonary disease, unspecified
[2019-03-13] MEDS: CYANOCOBALAMIN 500 MCG TABLET (VITAMIN B-12) PO SCH (09:39)
[2019-03-13] MEDS: DIGOXIN 0.125 MG TAB PO SCH (09:39)
[2019-03-13] MEDS: METOPROLOL SUCC 25MG EXT REL TAB PO SCH (09:52)
[2019-03-13] MEDS: METOPROLOL SUCC 50MG EXT REL TAB PO SCH ×2 (11:16→20:46)
--- NOTE | 2019-03-13 12:17 | Progress Note ---
DATE: 03/13/2019 Mr. Domínguez was seen today on 03/13/2019. His INR is down to 2.8. He is on heparin drip for his acute pulmonary emboli in the face of chronic pulmonary emboli. His main issues are cardiac. He has severe aortic stenosis with a markedly decreased left ventricular ejection fraction. At this point, I would be glad to do a thoracentesis, although I am not sure it is going to help much here. If he is here for another day and his INR drops more, we will perform a thoracentesis, but again I think this is far down the priority list that how this is going to help him.
--- NOTE | 2019-03-13 15:31 | Cardiology Progress Note ---
Date of Service March 13, 2019 Assessment & Plan (1) Acute on chronic systolic CHF (congestive heart failure): Patient with multifactorial decline recent diminished use of diuretics. Has initially responded to therapy as a single dose of furosemide diuresis. Renal function however is worsened slightly possibly in association with contrast administration as well We will hold diuretics tonight. Ultimately will require further diuresis. Hold lisinopril until reviewed in a.m. Change metoprolol to metoprolol succinate for CHF indicated beta-matt and hopefully increased rate control Underlying condition is resultant of multiple issues as above as well as severe ischemic cardiomyopathy and severe aortic stenosis Plan resume furosemide today with 40 mg initially. Will hold lisinopril due to severe aortic stenosis present, fluctuating renal function borderline blood pressure. Consider resumption of spironolactone in a.m. If no improvement may consider transfer to tertiary care center patient with multiple issues including vascular access, severe LV dysfunction, severe aortic stenosis complicated congestive heart failure and pulmonary emboli (2) Acute pulmonary embolism: Anticoagulation plans will be followed (3) Atrial fibrillation: Rates are slowing on increased dose of metoprolol so far hemodynamically allowed (4) Aortic stenosis: Echocardiogram once again demonstrates severe LV dysfunction in a pattern consistent with ischemic cardiomyopathy. Severe aortic stenosis is present (5) Dilated cardiomyopathy: (6) Status post percutaneous abdominal aortic aneurysm (AAA) repair: With stable aneurysm size without endovascular leak (7) COPD (chronic obstructive pulmonary disease): Subjective Chart medications telemetry reviewed. Patient has initially responded to therapies with heart rate lower, edema less pronounced patient less dyspneic and more comfortable. No chest pains or discomfort no dizziness or lightheadedness. All studies reviewed. Has diuresed slowly but off to diuretics today so far. Hemodynamically stable Physical Exam Constitutional: no acute distress Eyes: PERRL, conjunctivae normal, anicteric sclerae ENMT: external ear and nose normal, oropharynx normal Neck: + thick neck Respiratory: Auscultation: + diminished lung sounds and + wheezes Cardiovascular: Rate/Rhythm: + irregularly irregular Heart Sounds: + murmur (Grade 2/6 systolic) Vessels: no JVD Extremities: + edema (1-2+ bilateral lower extremity) Gastrointestinal (Abdomen): Percussion/Palpation: abdomen soft; abdomen nontender and no hepatosplenomegaly Musculoskeletal: no cyanosis or clubbing, extremities motor strength 5/5 Results & Data Vital Signs (Past 12 Hours) Vital Signs Temp Pulse Pulse Pulse Resp BP Pulse Ox 03/13/19 12:16 36.6 C 102 H 19 110/83 92 03/13/19 10:16 114 H 17 92 03/13/19 09:39 124 H 03/13/19 07:42 36.8 C 120 H 22 139/95 94 03/13/19 03:39 36.7 C 119 H 19 115/78 92 Laboratory Results Laboratory Results - last 24 hr 03/12/19 03/12/19 03/13/19 20:39 20:39 03:01 PT INR APTT 42.2 H 51.5 H* PTT Ratio 1.6 1.9 Sodium Potassium 4.2 Chloride Carbon Dioxide Anion Gap BUN Creatinine Est Cr Clr Drug Dosing Est GFR ( Amer) Est GFR (Non-Af Amer) BUN/Creatinine Ratio Glucose Calcium TSH Digoxin 03/13/19 03/13/19 03/13/19 06:14 06:14 06:14 PT 26.4 H INR 2.8 H APTT PTT Ratio Sodium 136 Potassium 4.2 Chloride 103 Carbon Dioxide 27 Anion Gap 6.0 BUN 27 H Creatinine 1.11 D Est Cr Clr Drug Dosing 66.0 Est GFR ( Amer) 77.6 Est GFR (Non-Af Amer) 66.9 BUN/Creatinine Ratio 24.2 H Glucose 141 H Calcium 8.6 TSH 0.851 Digoxin 1.2 (1) Acute pulmonary embolism Acute cor pulmonale presence: without acute cor pulmonale Pulmonary embolism type: unspecified Qualified Code(s): I26.99 - Other pulmonary embolism without acute cor pulmonale (2) COPD (chronic obstructive pulmonary disease) COPD type: unspecified COPD Qualified Code(s): J44.9 - Chronic obstructive pulmonary disease, unspecified
[2019-03-13] MEDS ORDERED: FUROSEMIDE 40 MG/4 ML VIAL IV ONE (15:45)
--- NOTE | 2019-03-13 17:27 | Oncology Consultation ---
Date of Consultation March 13, 2019 Assessment & Plan (1) Acute pulmonary embolism: 68-year-old male, who has several comorbid conditions, had a history of DVT in the lower extremity and plot embolism in the past, noncompliant about oral coumadin treatment, had leg edema in September 2018, there was no evidence of DVT at that time, there was and evidence of pulmonary embolism at that time, now admitted for increasing shortness of breath, has bilateral lower extremity DVT and pulmonary embolism, receiving IV heparin treatment, as per the chart review, could not tolerate Eliquis, (he had some mouth ulcerations, not sure related to Eliquis or something else), has bilateral pleural effusion (chronic finding), as significant elevated function rejection fraction around 15%. History of lung cancer, no evidence of recurrent disease noted, pleural effusion appears to be chronic in nature, most likely related to the underlying congestive heart failure. He declined for Lovenox injection at home. We could consider for another oral anticoagulant in the bone Xarelto as an outpatient management for DVT and plot embolism in his case. Because of repeated episodes of pulmonary embolism, we could consider for IVC filter placement but he would still need anticoagulant treatment to prevent new thrombotic complications. Overall prognosis remains quite poor because of significant underlying cardiac dysfunction. We could consider for vascular surgery consultation. Thanks for the consult. 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 - Last PET-CT scan done in early April 2018 --> minimal increase noted uptake in the right hilar region appears to related the previous surgery. No other abnormal uptake noted which is suspicious. Enlarged prostate noted. (PSA level > 2.67 (04/2018). History of pulmonary embolism involving the left lower lobe (07/2017). He is on oral Coumadin for underlying thrombotic complications. Noncompliant about Coumadin. ------ Imaging studies done in September 2018: CT scan of the chest showed several segmental pulmonary emboli within the left upper lobe. Moderate to large right pleural effusion, trace left pleural effusion. S/P right upper lobectomy, mildly enlarged right paratracheal lymph node which has fatty hilum. 1.5 cm left upper lobe opacity. Small amount of ascites noted. No evidence of DVT noted in the both lower extremities in September 2018. Ultrasound in September 2017: no suspicious masses identified. Other medical problem: -Peripheral neuropathy involving the both lower extremities following previous chemotherapy treatment, - Peripheral arterial disease - Chronic back pain, he had a surgery in the past on the back. -Carotid artery disease, he had CV stroke involving the left frontal lobe earlier in 2015. -History of left lower extremity DVT in 2014, he received oral Coumadin treatment for about 1 year and then it was discontinued. -History of right tonsillar squamous cell carcinoma in 2003, S/P induction chemotherapy with paclitaxel, cisplatin, 5-Fluorouracil infusion x3 followed by combined radiation with weekly cisplatin which was completed in June,. ------ He came to [facility] ER with the history of increasing shortness of breath on 03/11/2019: - CT chest with PE protocol arrow extensive acute lobar and segmental pulmonary emboli throughout the left lung, enlargement of the pulmonary arteries suggest pulmonary hypertension. Moderate to large right pleural effusion with some residual atelectatic changes, right upper lobectomy noted, borderline [place] lymph liberty appears to be reactive. CT scan of the abdomen and pelvis for abdominal distention ascites (03/11/2019) - No bowel obstruction, no diverticulitis, low volume ascites noted. Pulmonary embolism noted. - Bilobed abdominal evidentiary some S/P aortoiliacstent graph repair. - Celiac artery stenosis. Thickening of the bladder wall. - Bilateral lower extremity Doppler evaluation (03/11/2019: - Bilateral acute DVT. He was on oral Coumadin but remain noncompliant, I saw him at bedside, has some dementia, does not remember some of the medical information's, as per the chart review, he was given Eliquis in the past, has some mouth ulcerations (not becaus e of Eliquis or something else) but Eliquis was discontinued. He has bilateral lower extremity edema since September 2018, no significant discomfort, leg edema has improved, when I saw him at bedside, has some mild shortness of breath, receiving IV heparin, no bleeding from any sites, some abdominal distention present, no fever, no nausea or vomiting. Echocardiogram: - LV ejection fraction 15%. - Significant hypokinesia noted. - Hovqlzcy-cu-ehcczn aortic stenosis noted. Allergies Allergy/AdvReac Type Severity Reaction Status Date / Time naproxen Allergy Unknown ITCHY Unverified 03/11/19 11:37 nicotine Allergy Unknown Rash -- Verified 03/11/19 11:37 from nicotine patch Home Medications Home Medications Medication Instructions Recorded Confirmed Type albuterol sulfate [ProAir HFA] 2 puff INHALATION QID PRN 10/03/18 03/11/19 History cyanocobalamin (vitamin B-12) 500 mcg PO QAM 10/03/18 03/11/19 History [Vitamin B-12] mirtazapine [Remeron] 15 mg PO HS PRN 10/03/18 03/11/19 History warfarin 5 mg PO MO 10/03/18 03/11/19 History digoxin 125 mcg PO QAM 03/11/19 03/11/19 History levothyroxine 137 mcg PO QAM 03/11/19 03/11/19 History lisinopril 2.5 mg PO QAM 03/11/19 03/11/19 History melatonin 5 mg PO HS 03/11/19 03/11/19 History metoprolol tartrate 25 mg PO BID 03/11/19 03/11/19 History spironolactone 12.5 mg PO QAM 03/11/19 03/11/19 History warfarin 2.5 mg PO SUTUWETHFRSA 03/11/19 03/11/19 History Patient History Medical History Thoracic ascending aortic aneurysm (Chronic) Pleural effusion (Chronic) Pulmonary embolism (Chronic) Atrial fibrillation (Chronic) Aortic stenosis (Chronic) Dilated cardiomyopathy (Chronic) AAA (abdominal aortic aneurysm) (Chronic) Hypothyroidism (Chronic) Alcohol use (Chronic) Tobacco use (Chronic) COPD (chronic obstructive pulmonary disease) (Chronic) PVD (peripheral vascular disease) (Chronic) "chronic BL SFA occlusions" Carotid artery disease (Chronic) "US 2012- Right carotid artery duplex examination indicates evidence of 50- 69% stenosis of the internal carotid artery. 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 Lung cancer (Chronic) s/p RUL resection [place] 08/[address] Son Kline Surgical History Status post percutaneous abdominal aortic aneurysm (AAA) repair (Chronic) History of arthroscopy of left shoulder (Chronic) H/O bursectomy (Chronic) History of nasal septoplasty (Chronic) History of back surgery (Chronic) H/O arthroscopy of shoulder (Chronic) Hx of tonsillectomy (Chronic) S/P lobectomy of lung (Chronic) Family History Father Heart disease Mother Heart disease Social History Preferred Language: Yoruba Communication Ability: Effective Baker Required: No Beliefs That Will Affect Care: None marital status: Current Living Situation: Spouse current occupational status: retired Other Information That Helps Us Care for You: No Feels Safe at Home: Yes Safety Concerns: Feels Safe At This Time Smoking Status: Current every day smoker Tobacco Type: cigarettes Cigarettes Per Day: 15 Do You Dip or Chew Tobacco: No Second Hand Exposure: No Tobacco Cessation Education Requested by Patient: No Hx Alcohol Use: Yes Alcohol type: beer Alcohol Intake Frequency Comment: 3 beers day Hx Substance Use: No Review of Systems Review of Systems: I could not obtain detailed review of systems is case as he has some dementia and somewhat upset about staying in hospital and says that nothing has been done since morning. He denies any bleeding from any sites. Physical Exam Physical Exam: On exam: - Alert and oriented x3, thin built man, not in any distress. - HEENT: no icterus, no pallor, Throat: Normal. - Neck: No palpable cervical lymphadenopathy. - Chest: emphysematous chest noted, decreased air entry noted in the both lung.. - Abdomen: soft, slight abdominal distention present.. - No focal neuro deficit. - Extremities: no finger clubbing, bilateral leg edema present. Results & Data Vital Signs (Past 12 Hours) Vital Signs Temp Pulse Pulse Pulse Resp BP BP 03/13/19 16:10 36.2 C L 111 H 20 134/79 03/13/19 12:16 36.6 C 102 H 19 110/83 03/13/19 10:16 114 H 17 03/13/19 09:39 124 H 03/13/19 07:42 36.8 C 120 H 22 139/95 Pulse Ox 03/13/19 16:10 97 03/13/19 12:16 92 03/13/19 10:16 92 03/13/19 09:39 03/13/19 07:42 94 - WBC 5000, H&H of 12.8/37.7, Platelet count of 125,000 (03/12/2019) - INR 2.8. - BUN/creatinine: 27/1.1, - Platelet count was in the normal range earlier. Now dropped down to around 125,000. (1) Acute pulmonary embolism Acute cor pulmonale presence: without acute cor pulmonale Pulmonary embolism type: unspecified Qualified Code(s): I26.99 - Other pulmonary embolism without acute cor pulmonale
[2019-03-13] MEDS: Heparin Adult LOW DOSE Wt-Based Dextrose 5% 25,000 units/500 mL IV SCH (18:48)
[2019-03-13] MEDS: TAMSULOSIN HCL 0.4 MG CAP PO SCH (20:46)
[2019-03-14] MEDS: methylPREDNISolone 20 MG in SYRINGE 0 ML IV SCH ×3 (01:34→15:53)
[2019-03-14] MEDS: LEVOTHYROXINE SODIUM 137 MCG TABLET PO SCH (05:58)
[2019-03-14 06:14] LABS: Hematocrit (blood only) 36.1 % (42-52); Hemoglobin 12.3 g/dL (14.0-18.0); Mean Corpuscular Hgb Conc 34.1 g/dL (32-36); Mean Corpuscular Volume 93.3 fL (80-100); Mean Platelet Volume 10.5 fL (7.4-10.4); Platelet Count 138 K/uL (130-400); RDW Coefficient of Variation 16.5 % (11.5-14.5); Red Blood Count 3.87 M/uL (4.7-6.1); White Blood Count 8.32 K/uL (4.8-10.8)
[2019-03-14 06:34] LABS: INR 2.5 (0.9-1.1); Partial Thromboplastin Ratio 1.7; Prothrombin Time 24.4 Seconds (9.0-12.0)
[2019-03-14 06:37] LABS: Partial Thromboplastin Time 46.4 Seconds (21.0-31.0)
[2019-03-14 06:42] LABS: BUN Creatinine Ratio 25.6 (10-20); Calcium 8.3 mg/dl (8.5-10.1); Creatinine Clr Calc Pharmacy 71.1 ml/min; Est GFR (African American) 84.9; Est GFR (Non-African American) 73.3; Potassium 4.1 mmol/L (3.5-5.1)
[2019-03-14] MEDS: CYANOCOBALAMIN 500 MCG TABLET (VITAMIN B-12) PO SCH (09:03)
[2019-03-14] MEDS: DIGOXIN 0.125 MG TAB PO SCH (09:03)
[2019-03-14] MEDS: METOPROLOL SUCC 50MG EXT REL TAB PO SCH ×2 (09:04→20:06)
[2019-03-14] MEDS ORDERED: FUROSEMIDE 40 MG/4 ML VIAL IV ONE (09:55)
--- NOTE | 2019-03-14 10:29 | Hospitalist Progress Note ---
Date of Service March 14, 2019 Assessment & Plan (1) Pulmonary embolism: Patient presented with chest pain, worsening dyspnea, rapid A. fib. CTA chest demonstrated bilateral pulmonary emboli, apparently new. Venous duplex of lower extremities demonstrated bilateral DVTs. VTE present on admission. Previous history of pulmonary emboli. Anticoagulated in past on apixaban, but it was discontinued because of side effects. Has been on warfarin therapy with fluctuating INRs. INR at the time of admission 3.9. Resume IV heparin. Will do Xarelto I'm not an IVC filter fan? Hematology on case (2) DVT (deep venous thrombosis): IV Heparin (3) Acute on chronic systolic CHF (congestive heart failure): History of dilated idiopathic cardiomyopathy with LVEF of 10% in September 2018. Chest x-ray at time of admission showed CHF and right pleural effusion. Received IV furosemide with good diuresis. Creatinine normal this morning. Furosemide held. Follow-up chest [id number] right pleural effusion with associated right lower lobe atelectasis/consolidation (4) Aortic stenosis: Echocardiogram in September 2018 demonstrated severe aortic stenosis. Management per Cardiology. (5) Atrial fibrillation: Chronic atrial fibrillation, now with rapid ventricular response. Takes metoprolol and digoxin at home. Ventricular rate 120 this morning; Cards on case Continue IV Heparin (6) COPD (chronic obstructive pulmonary disease): History of COPD. Change low-dose levalbuterol because of rapid atrial fib. (7) Lung cancer: History of lung cancer, but no evidence of recurrent disease per Thoracic Surgery. Follow. (8) Pleural effusion: Moderate right pleural effusion, previously noted. Thoracic Surgery on case, INR 2.5 today. Possible R Thoracentesis when pt<=15 Pleural effusion most likely secondary to CHF, but could be also related to pulmonary emboli or recurrent lung cancer. (9) Hypothyroidism: Continue levothyroxine. TSH normal (10) DVT prophylaxis: Anticoagulated for acute VTE as discussed above. (11) Discharge planning issues: Anticipated discharge to home. Internal Medicine follow-up with Dr. Torres. Card[facility]. Thoracic Surgery follow-up with Dr. Skelton. Labs and scans reviewed Patient comfortable, no new issues ROS-No Headache, No Visual Changes, No Nausea, No Vomiting, No Fever, No Chills, No Neck Pain or Stiffness, No Chest Pain, No Palpitations, No SOB, No SEQUEIRA, No Cough, No Sputum, No Wheezing, No Abdominal Pain, No Diarrhea, No Hematemesis, No Hemoptysis, No Unexpected Weight Loss, No Flank pain, No Melena, No Hematochezia, No Frequency, No Urgency, No Burning, No Hematuria, No Rashes, No Diaphoresis. Appetite is Normal Physical Exam Gen-AAO x 3, NAD, Afebrile Head-NCAT, EOMI, PERRLA, Anicteric Sclera, No Posterior Pharyngeal Erythema Neck-Supple, No JVD, No Thyromegaly, No Masses, No LAD, No Bruits Lungs-Diminished R>L, No Rales, No Rhonchi, Faint B/L Wheezing, No Crepitus Chest-Irreg/Irreg No S4, +S1, +S2, No S3, + 2/6 MICHAEL at the Base, No Rubs, No Gallops Abdomen-Soft, Bowel Sounds Present, Non Tender, Non Distended, No Hepatomegaly, No Splenomegaly, No Palpable Masses, No Rebound, No Rigidity, No Guarding Musculoskeletal-Full Range of Motion Bilaterally, No CVAT Extremities-No Cyanosis, No Clubbing, No Edema Nuero-Cranial Nerves II-XII grossly intact, Motor WNL, DTRs WNL, Strength WNL, Non Focal Psych-Normal Mood Results & Data Vital Signs (Past 12 Hours) Vital Signs Temp Pulse Pulse Resp BP BP Pulse Ox 03/14/19 09:03 120 H 03/14/19 06:26 36.8 C 101 H 19 111/91 98 03/14/19 03:39 36.9 C 114 H 20 121/81 95 03/14/19 00:00 120 H 03/13/19 23:44 36.6 C 118 H 20 107/80 96 (1) COPD (chronic obstructive pulmonary disease) COPD type: unspecified COPD Qualified Code(s): J44.9 - Chronic obstructive pulmonary disease, unspecified
--- NOTE | 2019-03-14 13:10 | Cardiology Progress Note ---
Date of Service March 14, 2019 Assessment & Plan (1) Acute on chronic systolic CHF (congestive heart failure): Patient with multifactorial decline recent diminished use of diuretics. Has initially responded to therapy as a single dose of furosemide diuresis. Renal function however is worsened slightly possibly in association with contrast administration as well We will hold diuretics tonight. Ultimately will require further diuresis. Hold lisinopril until reviewed in a.m. Change metoprolol to metoprolol succinate for CHF indicated beta-matt and hopefully increased rate control Underlying condition is resultant of multiple issues as above as well as severe ischemic cardiomyopathy and severe aortic stenosis Patient responded to initial dose of IV furosemide yesterday we will give an additional 40 mg IV today Resume spironolactone Continue to hold lisinopril Patient tolerating increased dose of metoprolol and overall clinically making progress (2) Acute pulmonary embolism: Anticoagulation plans will be followed (3) Atrial fibrillation: Rates are slowing on increased dose of metoprolol so far hemodynamically allowed (4) Aortic stenosis: Echocardiogram once again demonstrates severe LV dysfunction in a pattern consistent with ischemic cardiomyopathy. Severe aortic stenosis is present (5) Dilated cardiomyopathy: (6) Status post percutaneous abdominal aortic aneurysm (AAA) repair: With stable aneurysm size without endovascular leak (7) COPD (chronic obstructive pulmonary disease): Subjective Chart medications telemetry reviewed. Patient has initially responded to therapies with heart rate lower, edema less pronounced patient less dyspneic and more comfortable. No chest pains or discomfort no dizziness or lightheadedness. Has manifested diuresis with dose of furosemide yesterday. Heart rate improved with increase Toprol blood, pressure actually improving Physical Exam Constitutional: no acute distress Eyes: PERRL, conjunctivae normal, anicteric sclerae ENMT: external ear and nose normal, oropharynx normal Neck: + thick neck Respiratory: Auscultation: + diminished lung sounds and + wheezes Cardiovascular: Rate/Rhythm: + irregularly irregular Heart Sounds: + murmur (Grade 2/6 systolic) Vessels: no JVD Extremities: + edema (1-2+ bilateral lower extremity) Gastrointestinal (Abdomen): Percussion/Palpation: abdomen soft; abdomen nontender and no hepatosplenomegaly Musculoskeletal: no cyanosis or clubbing, extremities motor strength 5/5 Results & Data Vital Signs (Past 12 Hours) Vital Signs Temp Pulse Pulse Pulse Resp BP BP 03/14/19 11:52 36.7 C 99 H 23 124/87 03/14/19 09:03 120 H 03/14/19 06:26 36.8 C 101 H 19 111/91 03/14/19 03:39 36.9 C 114 H 20 121/81 Pulse Ox 03/14/19 11:52 96 03/14/19 09:03 03/14/19 06:26 98 03/14/19 03:39 95 (1) Acute pulmonary embolism Acute cor pulmonale presence: without acute cor pulmonale Pulmonary embolism type: unspecified Qualified Code(s): I26.99 - Other pulmonary embolism without acute cor pulmonale (2) COPD (chronic obstructive pulmonary disease) COPD type: unspecified COPD Qualified Code(s): J44.9 - Chronic obstructive pulmonary disease, unspecified
[2019-03-14] MEDS: SPIRONOLACTONE 25 MG TAB PO SCH (13:53)
--- NOTE | 2019-03-14 15:13 | Progress Note ---
DATE: 03/14/2019 He actually looks better to me than he did with better saturations on room air today; however, he still has a significant effusion. He has decreased breath sounds on the right. Dr. Ugarte and Dr. Kline as well as Dr. Rosa's notes are appreciated. I am going to wait until his INR improves, but again more than likely we are dealing with a transudative effusion from his congestive heart failure. This effusion has not changed since September.
[2019-03-14] MEDS: Heparin Adult LOW DOSE Wt-Based Dextrose 5% 25,000 units/500 mL IV SCH (20:04)
[2019-03-14] MEDS: TAMSULOSIN HCL 0.4 MG CAP PO SCH (20:06)
[2019-03-15] MEDS: methylPREDNISolone 20 MG in SYRINGE 0 ML IV SCH ×3 (01:17→16:00)
[2019-03-15] MEDS: LEVOTHYROXINE SODIUM 137 MCG TABLET PO SCH (06:27)
[2019-03-15 06:47] LABS: Hematocrit (blood only) 37.1 % (42-52); Hemoglobin 12.5 g/dL (14.0-18.0); Mean Corpuscular Hgb Conc 33.7 g/dL (32-36); Mean Corpuscular Volume 93.5 fL (80-100); Mean Platelet Volume 9.8 fL (7.4-10.4); Platelet Count 134 K/uL (130-400); RDW Coefficient of Variation 16.4 % (11.5-14.5); RDW Standard Deviation 56.1 fL (36.4-46.3); Red Blood Count 3.97 M/uL (4.7-6.1); White Blood Count 8.21 K/uL (4.8-10.8)
--- NOTE | 2019-03-15 06:51 | Hospitalist Progress Note ---
Date of Service March 15, 2019 Assessment & Plan (1) Pulmonary embolism: Patient presented with chest pain, worsening dyspnea, rapid A. fib. CTA chest demonstrated bilateral pulmonary emboli, apparently new. Venous duplex of lower extremities demonstrated bilateral DVTs. VTE present on admission. Previous history of pulmonary emboli. Anticoagulated in past on apixaban, but it was discontinued because of side effects. Has been on warfarin therapy with fluctuating INRs. INR at the time of admission 3.9. Resume IV heparin. Will do Xarelto on DC I'm not an IVC filter fan? Hematology on case (2) DVT (deep venous thrombosis): IV Heparin (3) Acute on chronic systolic CHF (congestive heart failure): History of dilated idiopathic cardiomyopathy with LVEF of 10% in September 2018. Chest x-ray at time of admission showed CHF and right pleural effusion. Received IV furosemide with good diuresis. Creatinine normal this morning. Furosemide held. Follow-up chest [id number] right pleural effusion with associated right lower lobe atelectasis/consolidation (4) Aortic stenosis: Echocardiogram in September 2018 demonstrated severe aortic stenosis. Management per Cardiology. (5) Atrial fibrillation: Chronic atrial fibrillation, now with rapid ventricular response. Takes metoprolol and digoxin at home. Ventricular rate 120 this morning; Cards on case Continue IV Heparin (6) COPD (chronic obstructive pulmonary disease): History of COPD. Change low-dose levalbuterol because of rapid atrial fib. (7) Lung cancer: History of lung cancer, but no evidence of recurrent disease per Thoracic Surgery. Follow. (8) Pleural effusion: Moderate right pleural effusion, previously noted. Thoracic Surgery on case, INR 1,7 yesterday, should be down enough to do thoracentesis. Pleural effusion most likely secondary to CHF, but could be also related to pulmonary emboli or recurrent lung cancer. (9) Hypothyroidism: Continue levothyroxine. TSH normal (10) DVT prophylaxis: Anticoagulated for acute VTE as discussed above. (11) Discharge planning issues: Anticipated discharge to home in 2-3 days. Internal Medicine follow-up with Dr. Torres. Cardiology follow-up with [facility]. Thoracic Surgery follow-up with Dr. Skelton. Labs and scans reviewed Patient comfortable, no new issues ROS-No Headache, No Visual Changes, No Nausea, No Vomiting, No Fever, No Chills, No Neck Pain or Stiffness, No Chest Pain, No Palpitations, No SOB, No SEQUEIRA, No Cough, No Sputum, No Wheezing, No Abdominal Pain, No Diarrhea, No Hematemesis, No Hemoptysis, No Unexpected Weight Loss, No Flank pain, No Melena, No King tochezia, No Frequency, No Urgency, No Burning, No Hematuria, No Rashes, No Diaphoresis. Appetite is Normal Physical Exam Gen-AAO x 3, NAD, Afebrile Head-NCAT, EOMI, PERRLA, Anicteric Sclera, No Posterior Pharyngeal Erythema Neck-Supple, No JVD, No Thyromegaly, No Masses, No LAD, No Bruits Lungs-Diminished R>L, No Rales, No Rhonchi, Faint B/L Wheezing, No Crepitus Chest-Irreg/Irreg No S4, +S1, +S2, No S3, + 2/6 MICHAEL at the Base, No Rubs, No Gallops Abdomen-Soft, Bowel Sounds Present, Non Tender, Non Distended, No Hepatomegaly, No Splenomegaly, No Palpable Masses, No Rebound, No Rigidity, No Guarding Musculoskeletal-Full Range of Motion Bilaterally, No CVAT Extremities-No Cyanosis, No Clubbing, No Edema Nuero-Cranial Nerves II-XII grossly intact, Motor WNL, DTRs WNL, Strength WNL, Non Focal Psych-Normal Mood Results & Data Vital Signs (Past 12 Hours) Vital Signs Temp Pulse Resp BP Pulse Ox 03/15/19 03:23 36.5 C 98 H 17 106/76 95 03/14/19 23:31 37.0 C 115 H 18 107/76 93 03/14/19 19:24 36.2 C L 106 H 19 132/87 98 (1) COPD (chronic obstructive pulmonary disease) COPD type: unspecified COPD Qualified Code(s): J44.9 - Chronic obstructive pulmonary disease, unspecified
[2019-03-15 07:02] LABS: INR 2.2 (0.9-1.1); Partial Thromboplastin Ratio 1.6; Partial Thromboplastin Time 43.6 Seconds (21.0-31.0); Prothrombin Time 21.4 Seconds (9.0-12.0)
[2019-03-15 07:14] LABS: BUN Creatinine Ratio 23.6 (10-20); Calcium 8.3 mg/dl (8.5-10.1); Creatinine Clr Calc Pharmacy 75.5 ml/min; Est GFR (African American) 91.3; Est GFR (Non-African American) 78.8; Potassium 4.1 mmol/L (3.5-5.1)
--- NOTE | 2019-03-15 08:47 | XRay Report ---
XR chest 1V portable CLINICAL HISTORY: 68 years-old Male presenting with thoracentesis. TECHNIQUE: Portable upright AP view of the chest was obtained. COMPARISON: 03/13/2019. FINDINGS: Atherosclerosis of the aortic arch. Cardiac silhouette enlarged. Elevation of the right hemidiaphragm . Slight interval decrease in size of the right pleural effusion. Persistent architectural distortion at the right lung base. No pneumothorax. Left lung and pleural space clear. Degenerative changes of the thoracic spine. Upper abdomen normal. IMPRESSION: 1. Slight interval decrease in size of the right pleural effusion status post thoracentesis. No pneu mothorax. 2. Right lower lobe atelectasis and/or scarring. Electronically signed by: Sami Erickson M.D. 03/15/2019 8:46 AM
[2019-03-15] MEDS: CYANOCOBALAMIN 500 MCG TABLET (VITAMIN B-12) PO SCH (08:56)
[2019-03-15] MEDS: SPIRONOLACTONE 25 MG TAB PO SCH (08:56)
[2019-03-15] MEDS: DIGOXIN 0.125 MG TAB PO SCH (08:56)
[2019-03-15] MEDS ORDERED: HEPARIN IV BOLUS 3,000 UNITS in SYRINGE 0 ML IV ONE (09:00)
[2019-03-15] MEDS: METOPROLOL SUCC 50MG EXT REL TAB PO SCH ×2 (09:00→20:07)
[2019-03-15 09:38] LABS: Glucose Pleural Fluid 140 mg/dl
[2019-03-15 09:43] LABS: Amylase Pleural Fluid 9 U/L; LDH Pleural Fluid 69 U/L
--- NOTE | 2019-03-15 10:16 | Operative Report ---
DATE OF OPERATION: 03/15/2019 PREOPERATIVE DIAGNOSIS: Chronic right pleural effusion. POSTOPERATIVE DIAGNOSIS: Chronic right pleural effusion. PROCEDURE: Right thoracentesis under ultrasound guidance. SURGEON: John Skelton MD [employer] H[employer]/HOSTESS: THANIA Schaeffer ANESTHESIA: Local. SPECIFICS OF PROCEDURE: The patient in a seated position, his right chest was evaluated with ultrasound and he had a significant amount of fluid. A good window was selected between ribs and this was marked with an indelible ink. He was then prepped and draped in usual sterile fashion. After appropriate timeout had been called, a 25-gauge needle with 1% Xylocaine without epinephrine was used to anesthetize skin and subcutaneous tissues. A large bore needle was used to anesthetize the deeper tissues and we got fluid after going through the pleura in a free flowing fashion. A guidewire was inserted through the needle and the needle removed. A triple-lumen catheter was slid over the guidewire and the guidewire removed. 1000 mL of a light yellow fluid was drained. We could not get any more fluid. The catheter was removed. There was no bleeding. An antimicrobial dressing was placed. His x-ray looked much improved afterwards. It should be noted I had a long discussion with the patient's and explained that his heart is in terrible shape. I reinforced this to make sure that she understood that, she does. We will continue to follow along and I will be curious to see the fluid analysis as this certainly appears to be a transudate and the pH was 7.42. I attest to the content of the Intraoperative Record and any orders documented therein. Any exception s are noted below.
[2019-03-15 11:12] LABS: Appearance Pleural Fluid CLEAR; Color Pleural Fluid YELLOW; Mononuclear WBC Pleural 67.5 %; Polynuclear WBC Pleural 32.5 %; RBC Pleural Fluid (A) < 3000 /uL; Source Pleural Fluid RIGHT LUNG; WBC Pleural Fluid (A) 101 /uL
--- NOTE | 2019-03-15 14:02 | Cardiology Progress Note ---
Date of Service March 15, 2019 Assessment & Plan (1) Acute on chronic systolic CHF (congestive heart failure): Patient with multifactorial decline recent diminished use of diuretics. Has initially responded to therapy as a single dose of furosemide diuresis. Renal function however is worsened slightly possibly in association with contrast administration as well We will hold diuretics tonight. Ultimately will require further diuresis. Hold lisinopril until reviewed in a.m. Change metoprolol to metoprolol succinate for CHF indicated beta-matt and hopefully increased rate control Underlying condition is resultant of multiple issues as above as well as severe ischemic cardiomyopathy and severe aortic stenosis Patient had successful thoracentesis earlier continues to be negative on I's and O's good hemodynamic tolerance We will continue to hold lisinopril. Give additional IV furosemide today and begin oral furosemide in a.m. (2) Acute pulmonary embolism: Anticoagulation plans will be followed (3) Atrial fibrillation: Heart rates have slowed this would like to slow slightly further will increase metoprolol succinate 75 mg a.m. 50 mg p.o. (4) Aortic stenosis: Echocardiogram once again demonstrates severe LV dysfunction in a pattern consistent with ischemic cardiomyopathy. Severe aortic stenosis is present (5) Dilated cardiomyopathy: (6) Status post percutaneous abdominal aortic aneurysm (AAA) repair: With stable aneurysm size without endovascular leak (7) COPD (chronic obstructive pulmonary disease): Subjective Patient was seen and examined, chart, telemetry reviewed. Patient slowly improving. Less dyspneic today. Underwent thoracentesis earlier for greater than 1 L of transudate appearing fluid No dizziness or lightheadedness no arrhythmias remains in atrial fibrillation though with better rate control Physical Exam Constitutional: no acute distress Eyes: PERRL, conjunctivae normal, anicteric sclerae ENMT: external ear and nose normal, oropharynx normal Neck: + thick neck Respiratory: Auscultation: + diminished lung sounds and + wheezes Cardiovascular: Rate/Rhythm: + irregularly irregular Heart Sounds: + murmur (Grade 2/6 systolic) Vessels: no JVD Extremities: + edema (1-2+ bilateral lower extremity) Gastrointestinal (Abdomen): Percussion/Palpation: abdomen soft; abdomen nontender and no hepatosplenomegaly Musculoskeletal: no cyanosis or clubbing, extremities motor strength 5/5 Results & Data Vital Signs (Past 12 Hours) Vital Signs Temp Pulse Pulse Pulse Resp BP BP 03/15/19 10:49 37.1 C 90 22 128/82 03/15/19 08:56 110 H 03/15/19 07:34 36.4 C L 109 H 21 132/94 03/15/19 03:23 36.5 C 98 H 17 106/76 Pulse Ox 03/15/19 10:49 95 03/15/19 08:56 03/15/19 07:34 95 03/15/19 03:23 95 Laboratory Results Laboratory Results - last 24 hr 03/15/19 03/15/19 03/15/19 06:13 06:13 06:13 WBC 8.21 RBC 3.97 L Hgb 12.5 L Hct 37.1 L MCV 93.5 MCH 31.5 MCHC 33.7 RDW Std Deviation 56.1 H RDW Coeff of Debra 16.4 H Plt Count 134 MPV 9.8 PT 21.4 H INR 2.2 H APTT 43.6 H PTT Ratio 1.6 Sodium 135 L Potassium 4.1 Chloride 99 Carbon Dioxide 33 H Anion Gap 3.0 BUN 23 H Creatinine 0.97 Est Cr Clr Drug Dosing 75.5 Est GFR ( Amer) 91.3 Est GFR (Non-Af Amer) 78.8 BUN/Creatinine Ratio 23.6 H Glucose 128 H Calcium 8.3 L Pleural Fluid Source Pleural Color Pleural Appearance Pleural WBC Pleural RBC Pleural Polynuclear % Pleural Mononuclear % Pleural Total Protein Pleural LDH Pleural Glucose Pleural Amylase Pleural Cholesterol 03/15/19 03/15/19 03/15/19 08:10 08:10 08:10 WBC RBC Hgb Hct MCV MCH MCHC RDW Std Deviation RDW Coeff of Debra Plt Count MPV PT INR APTT PTT Ratio Sodium Potassium Chloride Carbon Dioxide Anion Gap BUN Creatinine Est Cr Clr Drug Dosing Est GFR ( Amer) Est GFR (Non-Af Amer) BUN/Creatinine Ratio Glucose Calcium Pleural Fluid Source RIGHT LUNG Pleural Color YELLOW Pleural Appearance CLEAR Pleural WBC 101 Pleural RBC < 3000 Pleural Polynuclear % 32.5 Pleural Mononuclear % 67.5 Pleural Total Protein 2.0 Pleural LDH 69 Pleural Glucose 140 Pleural Amylase 9 Cancelled Pleural Cholesterol Pending (1) Acute pulmonary embolism Acute cor pulmonale presence: without acute cor pulmonale Pulmonary embolism type: unspecified Qualified Code(s): I26.99 - Other pulmonary embolism without acute cor pulmonale (2) COPD (chronic obstructive pulmonary disease) COPD type: unspecified COPD Qualified Code(s): J44.9 - Chronic obstructive pulmonary disease, unspecified
[2019-03-15] MEDS ORDERED: FUROSEMIDE 40 MG/4 ML VIAL IV ONE (14:15)
[2019-03-15 15:42] LABS: Partial Thromboplastin Ratio 2.1
[2019-03-15 15:44] LABS: Partial Thromboplastin Time 56.7 Seconds (21.0-31.0)
[2019-03-15] MEDS: TAMSULOSIN HCL 0.4 MG CAP PO SCH (20:07)
[2019-03-15] MEDS: Heparin Adult LOW DOSE Wt-Based Dextrose 5% 25,000 units/500 mL IV SCH (20:09)
[2019-03-16] MEDS: methylPREDNISolone 20 MG in SYRINGE 0 ML IV SCH ×3 (01:03→17:05)
[2019-03-16] MEDS: LEVOTHYROXINE SODIUM 137 MCG TABLET PO SCH (06:19)
[2019-03-16 06:35] LABS: Hematocrit (blood only) 37.3 % (42-52); Hemoglobin 12.6 g/dL (14.0-18.0); Mean Corpuscular Hgb Conc 33.8 g/dL (32-36); Mean Corpuscular Volume 93.3 fL (80-100); Mean Platelet Volume 9.9 fL (7.4-10.4); Platelet Count 140 K/uL (130-400); RDW Coefficient of Variation 16.3 % (11.5-14.5); RDW Standard Deviation 55.4 fL (36.4-46.3); White Blood Count 9.43 K/uL (4.8-10.8)
[2019-03-16 06:57] LABS: INR 1.8 (0.9-1.1); Partial Thromboplastin Ratio 1.8
[2019-03-16 07:01] LABS: Partial Thromboplastin Time 47.9 Seconds (21.0-31.0)
--- NOTE | 2019-03-16 07:03 | XRay Report ---
SINGLE VIEW CHEST CLINICAL HISTORY: Pleural effusion. FINDINGS: 2 AP, portable, upright chest radiographs are compared to study dated 03/15/2019 and correla jaimie with chest CT dated 03/11/2019. The examination is degraded by portable technique and patient rota tion. The heart is enlarged and there is atherosclerotic calcification of the thoracic aorta. The p ulmonary vasculature is noncongested. Enlargement of the main pulmonary arteries suggests pulmonary a rtery hypertension. Emphysema and chronic interstitial thickening are similar to previous. There is a small right pleural effusion with associated right basilar consolidation, similar appearance to yest amelia. The left lung appears clear. No pneumothorax is seen. The skeletal structures are osteopenic. The bony thorax is grossly intact. IMPRESSION: 1. Cardiomegaly and emphysema without radiographic evidence of congestive failure. 2. A right pleural effusion with associated right basilar consolidation has not significantly changed from yesterday. Electronically signed by: Gregorio Tamez M.D. 03/16/2019 7:02 AM
[2019-03-16 07:09] LABS: BUN Creatinine Ratio 25.6 (10-20); Calcium 8.9 mg/dl (8.5-10.1); Creatinine Clr Calc Pharmacy 78.7 ml/min; Est GFR (African American) 96.1; Est GFR (Non-African American) 82.9; Potassium 4.3 mmol/L (3.5-5.1)
--- NOTE | 2019-03-16 07:10 | Hospitalist Progress Note ---
Date of Service March 16, 2019 Assessment & Plan (1) Pulmonary embolism: Patient presented with chest pain, worsening dyspnea, rapid A. fib. CTA chest demonstrated bilateral pulmonary emboli, apparently new. Venous duplex of lower extremities demonstrated bilateral DVTs. VTE present on admission. Previous history of pulmonary emboli. Anticoagulated in past on apixaban, but it was discontinued because of side effects. Has been on warfarin therapy with fluctuating INRs. INR at the time of admission 3.9. Resume IV heparin. Will do Xarelto on DC I'm not an IVC filter fan? Hematology on case (2) DVT (deep venous thrombosis): IV Heparin (3) Acute on chronic systolic CHF (congestive heart failure): History of dilated idiopathic cardiomyopathy with LVEF of 10% in September 2018. Chest x-ray at time of admission showed CHF and right pleural effusion. Received IV furosemide with good diuresis. Creatinine normal this morning. Furosemide held. Follow-up chest [id number] right pleural effusion with associated right lower lobe atelectasis/consolidation (4) Aortic stenosis: Echocardiogram in September 2018 demonstrated severe aortic stenosis. Management per Cardiology. (5) Atrial fibrillation: Chronic atrial fibrillation, now with rapid ventricular response. Takes metoprolol and digoxin at home. Ventricular rate 120 this morning; Cards on case Continue IV Heparin (6) COPD (chronic obstructive pulmonary disease): History of COPD. Change low-dose levalbuterol because of rapid atrial fib. (7) Lung cancer: History of lung cancer, but no evidence of recurrent disease per Thoracic Surgery. Follow. (8) Pleural effusion: Moderate right pleural effusion, previously noted. Thoracic Surgery on case, s/p thoracentesis. Pleural effusion most likely secondary to CHF, but could be also related to pulmonary emboli or recurrent lung cancer. (9) Hypothyroidism: Continue levothyroxine. TSH normal (10) DVT prophylaxis: Anticoagulated for acute VTE as discussed above. (11) Discharge planning issues: Anticipated discharge to home in 2-3 days. Internal Medicine follow-up with Dr. Torres. Cardiology follow-up with [facility]. Thoracic Surgery follow-up with Dr. Skelton. Labs and scans reviewed Patient comfortable, no new issues ROS-No Headache, No Visual Changes, No Nausea, No Vomiting, No Fever, No Chills, No Neck Pain or Stiffness, No Chest Pain, No Palpitations, No SOB, No SEQUEIRA, +Cough, No Sputum, No Wheezing, No Abdominal Pain, No Diarrhea, No Hematemesis, No Hemoptysis, No Unexpected Weight Loss, No Flank pain, No Melena, No Hematochezia, No Frequency, No Urgency, No Burning, No Hematuria, No Rashes, No Diaphoresis. Appetite is Normal Physical Exam Gen-AAO x 3, NAD, Afebrile Head-NCAT, EOMI, PERRLA, Anicteric Sclera, No Posterior Pharyngeal Erythema Neck-Supple, No JVD, No Thyromegaly, No Masses, No LAD, No Bruits Lungs-Diminished R>L, Scattered Rhonchi, Faint B/L Wheezing, No Crepitus Chest-Irreg/Irreg No S4, +S1, +S2, No S3, + 2/6 MICHAEL at the Base, No Rubs, No Gal lops Abdomen-Soft, Bowel Sounds Present, Non Tender, Non Distended, No Hepatomegaly, No Splenomegaly, No Palpable Masses, No Rebound, No Rigidity, No Guarding Musculoskeletal-Full Range of Motion Bilaterally, No CVAT Extremities-No Cyanosis, No Clubbing, No Edema Nuero-Cranial Nerves II-XII grossly intact, Motor WNL, DTRs WNL, Strength WNL, Non Focal Psych-Normal Mood Results & Data Vital Signs (Past 12 Hours) Vital Signs Temp Pulse Resp BP BP Pulse Ox 03/16/19 03:50 36.4 C L 105 H 19 132/87 96 03/15/19 23:54 36.5 C 105 H 20 136/89 94 (1) COPD (chronic obstructive pulmonary disease) COPD type: unspecified COPD Qualified Code(s): J44.9 - Chronic obstructive pulmonary disease, unspecified
[2019-03-16] MEDS: DIGOXIN 0.125 MG TAB PO SCH (08:52)
[2019-03-16] MEDS: FUROSEMIDE 40 MG TAB PO SCH (08:53)
[2019-03-16] MEDS: CYANOCOBALAMIN 500 MCG TABLET (VITAMIN B-12) PO SCH (08:53)
[2019-03-16] MEDS: SPIRONOLACTONE 25 MG TAB PO SCH (08:55)
[2019-03-16] MEDS: METOPROLOL SUCC 50MG EXT REL TAB PO SCH ×2 (08:59→20:14)
--- NOTE | 2019-03-16 10:40 | Progress Note ---
DATE: 03/16/2019 Mr. Domínguez was seen today on 03/16/2019. Mr. Domínguez underwent a thoracentesis yesterday. We drained about 1000 mL of fluid which drained him well. In reviewing the samples, his LDH was only 69. This is a transudate. He more than likely has developed this because of his poor heart function. This is a transudative effusion, probably due to congestive heart failure. The patient sounds better today. His imaging today shows very little in the way of reaccumulation of fluid on the right. He is on room air. From my standpoint, this patient could be discharged, I will follow him up in the office in a week or so with an x-ray. I did explain to the patient and his that he has simply terrible heart. They understand. I will see him back in a week or so.
--- NOTE | 2019-03-16 14:05 | Cardiology Progress Note ---
Date of Service March 16, 2019 Assessment & Plan (1) Acute on chronic systolic CHF (congestive heart failure): Patient with multifactorial decline recent diminished use of diuretics. Change metoprolol to metoprolol succinate for CHF indicated beta-matt and hopefully increased rate control bp a little low, would not restart lisinopril at this time start po lasix in AM Underlying condition is resultant of multiple issues as above as well as severe ischemic cardiomyopathy and severe aortic stenosis Patient had successful thoracentesis earlier continues to be negative on I's and O's good hemodynamic tolerance does not examine as volume overloaded ok to d/c from cardiac standpoint (2) Acute pulmonary embolism: as per primary team (3) Atrial fibrillation: cont metoprolol and digoxin (4) Aortic stenosis: Echocardiogram once again demonstrates severe LV dysfunction in a pattern consistent with ischemic cardiomyopathy. Severe aortic stenosis is present poor prognosis, particularly given medical noncompliance (5) Dilated cardiomyopathy: (6) Status post percutaneous abdominal aortic aneurysm (AAA) repair: With stable aneurysm size without endovascular leak (7) COPD (chronic obstructive pulmonary disease): Subjective Pt seen and examined, upright at side of bed, eating lunch. Denies cp, sob, palpitations, lightheadedness or dizziness. States, "When can I get the hell out of here?" tele reviewed: afib, rate controlled. Review of Systems Review of Systems: All systems reviewed & are unremarkable except as noted in HPI & below Physical Exam Physical Exam: General: Awake, alert and oriented x 3. No acute distress. HEENT: Normocephalic, atraumatic. Pupils equal, round and reactive to light and accommodation. Extraocular muscles are intact. Anicteric sclera. Moist mucous membranes. Neck: No JVD. No bruit. Cardiovascular: irregularly irregular, unable to appreciate murmur, rub or gallop. Pulmonary: decreased breath sounds in right base Abdomen: Bowel sounds x 4, soft. No rebound, guarding or tenderness. No organomegaly. Extremities: No clubbing, cyanosis or edema. +2 pedal pulses bilaterally. Skin: Warm and dry. Results & Data Vital Signs (Past 12 Hours) Vital Signs Temp Pulse Pulse Pulse Resp BP BP 03/16/19 10:52 36.5 C 99 H 22 101/53 L 03/16/19 08:52 114 H 03/16/19 07:42 36.5 C 103 H 103 H 16 134/87 03/16/19 03:50 36.4 C L 105 H 19 132/87 Pulse Ox 03/16/19 10:52 96 03/16/19 08:52 03/16/19 07:42 96 03/16/19 03:50 96 (1) Acute pulmonary embolism Acute cor pulmonale presence: without acute cor pulmonale Pulmonary embolism type: unspecified Qualified Code(s): I26.99 - Other pulmonary embolism without acute cor pulmonale (2) COPD (chronic obstructive pulmonary disease) COPD type: unspecified COPD Qualified Code(s): J44.9 - Chronic obstructive pulmonary disease, unspecified
[2019-03-16] MEDS: Heparin Adult LOW DOSE Wt-Based Dextrose 5% 25,000 units/500 mL IV SCH (17:03)
[2019-03-16] MEDS: TAMSULOSIN HCL 0.4 MG CAP PO SCH (20:14)
[2019-03-16] MEDS ORDERED: MIRTAZAPINE TAB 15 MG TAB PO SCH (21:00)
[2019-03-17] MEDS: methylPREDNISolone 20 MG in SYRINGE 0 ML IV SCH ×2 (01:03→09:27)
[2019-03-17] MEDS: LEVOTHYROXINE SODIUM 137 MCG TABLET PO SCH (05:50)
[2019-03-17 07:00] LABS: Hematocrit (blood only) 37.9 % (42-52); Hemoglobin 12.6 g/dL (14.0-18.0); Mean Corpuscular Hgb Conc 33.2 g/dL (32-36); Mean Corpuscular Volume 92.7 fL (80-100); Mean Platelet Volume 9.9 fL (7.4-10.4); Platelet Count 151 K/uL (130-400); RDW Coefficient of Variation 16.4 % (11.5-14.5); RDW Standard Deviation 55.6 fL (36.4-46.3); Red Blood Count 4.09 M/uL (4.7-6.1); White Blood Count 8.13 K/uL (4.8-10.8)
[2019-03-17 07:20] LABS: Partial Thromboplastin Ratio 1.8
[2019-03-17 07:28] LABS: Partial Thromboplastin Time 47.6 Seconds (21.0-31.0)
[2019-03-17 07:33] LABS: BUN Creatinine Ratio 27.1 (10-20); Calcium 8.3 mg/dl (8.5-10.1); Creatinine Clr Calc Pharmacy 82.3 ml/min; Est GFR (African American) 100.4; Est GFR (Non-African American) 86.6; Potassium 4.4 mmol/L (3.5-5.1)
[2019-03-17] MEDS ORDERED: RIVAROXABAN 15 MG TAB PO ONE (08:45)
--- NOTE | 2019-03-17 08:46 | Discharge Summary ---
Date of Service March 17, 2019 Admission HPI Per Admitting Provider 68-year-old male who presents the ED with shortness of breath and lower extremity edema. Patient most recently admitted to [facility] 09/2018 after being diagnosed with acute PE with supratherapeutic INR as well as acute systolic CHF.. Patient signed out AMA from that admission. Patient has history of medical noncompliance. At discharge, it was recommended the patient stop Coumadin start Eliquis which he did shortly after admission however he reports it gave him severe mouth ulcers and he went back on the Coumadin. Patient was also prescribed torsemide at discharge however he reports this caused urinary retention for him and he stopped taking it as well. Over the past 6 weeks, patient reports increasing generalized weakness, shortness of breath, lower extremity edema, abdominal distention. He denies orthopnea. He does not weigh himself at home. He reports a persistent chest pain across his entire chest that he describes as a heaviness. He denies any specific causative or relieving factors. He has had lightheadedness and dizziness but denies any syncopal event. No abdominal pain, nausea, vomiting, diarrhea. He denies fevers and chills. No urinary symptoms aside from those he reported associate with torsemide. In the ED, CTA chest shows extensive acute lobar and segmental pulmonary emboli best visualized throughout the left lung and patchy groundglass consolidation in the periphery of the left upper and to a greater extent the left lower lobes concerning for developing infarcts. Of note, INR is 3.9. Patient is saturating well on 2 L of oxygen. On arrival, patient had A. fib with RVR, was given metoprolol 5 mg IV with improvement in heart rate. He was also given Lasix 40 mg IV. Admission Exam Per Admitting Provider Constitutional: WD/WN, vitals as above Eyes: PERRL, conjunctivae normal, anicteric sclerae ENMT: external ear and nose normal, oropharynx normal Respiratory: normal respiratory effort; no respiratory distress Auscultation: + diminished lung sounds (Right lung stoll) and + wheezes (Bilateral, inspiratory and expiratory) Cardiovascular: Rate/Rhythm: + tachycardic and + irregularly irregular Vessels: normal peripheral pulses Extremities: + edema (+3 pitting edema BLE) Gastrointestinal (Abdomen): normal bowel sounds, soft, nontender, no hepatosplenomegaly Inspection/Auscultation: + abdomen distended Musculoskeletal: no cyanosis or clubbing, extremities motor strength 5/5 Skin: no rashes, warm and dry Neurologic: PERRL, EOMI, accommodation nl, no face palsy, no dysarthria Psychiatric: A+Ox3, euthymic affect Principal Diagnosis Ischemic Cardiomyopathy Pleural Effusion Combined Systolic and Diastolic CHF AFIB PE DVT Thoracic Ascending Aneurysm Aortic Stenosis Hypothyroidism Alcohol Use Dilated cardiomyopathy COPD PVD Lung Cancer Oral Cancer Discharge Exam ROS-No Headache, No Visual Changes, No Nausea, No Vomiting, No Fever, No Chills, No Neck Pain or Stiffness, No Chest Pain, No Palpitations, No SOB, No SEQUEIRA, +Cough, No Sputum, No Wheezing, No Abdominal Pain, No Diarrhea, No Hematemesis, No Hemoptysis, No Unexpected Weight Loss, No Flank pain, No Melena, No Hematochezia, No Frequency, No Urgency, No Burning, No Hematuria, No Rashes, No Diaphoresis. Appetite is Normal Physical Exam Gen-AAO x 3, NAD, Afebrile Head-NCAT, EOMI, PERRLA, Anicteric Sclera, No Posterior Pharyngeal Erythema Neck-Supple, No JVD, No Thyromegaly, No Masses, No LAD, No Bruits Lungs-Diminished R>L, Scattered Rhonchi, Faint B/L Wheezing, No Crepitus Chest-Irreg/Irreg No S4, +S1, +S2, No S3, + 2/6 MICHAEL at the Base, No Rubs, No Gallops Abdomen-Soft, Bowel Sounds Present, Non Tender, Non Distended, No Hepatomegaly, No Splenomegaly, No Palpable Masses, No Rebound, No Rigidity, No Guarding Musculoskeletal-Full Range of Motion Bilaterally, No CVAT Extremities-No Cyanosis, No Clubbing, No Edema Nuero-Cranial Nerves II-XII grossly intact, Motor WNL, DTRs WNL, Strength WNL, Non Focal Psych-Normal Mood Discharge Data Allergies Allergy/AdvReac Type Severity Reaction Status Date / Time naproxen Allergy Unknown ITCHY Unverified 03/11/19 11:37 nicotine Allergy Unknown Rash -- Verified 03/11/19 11:37 from nicotine patch Consultations 03/11/19 14:12 ED Decision to Admit Stat 03/11/19 16:31 Consult Cardiology Routine Consult Case Management - Discharge Planning Routine Consult Hematology Routine Consult Thoracic Surgery Routine Ordered Studies 03/11/19 13:28 CT abd pelvis IV con only Stat CT angio chest PE protocol Stat 03/11/19 16:31 US venous doppler LE Routine Current Diagnoses Malignant neoplasm of unspecified part of unspecified bronchus or lung (03/11/19) Hypothyroidism, unspecified (03/11/19) Other pulmonary embolism without acute cor pulmonale (03/11/19) Nonrheumatic aortic (valve) stenosis (03/11/19) Dilated cardiomyopathy (03/11/19) Unspecified atrial fibrillation (03/11/19) Acute on chronic systolic (congestive) heart failure (03/11/19) Thoracic aortic aneurysm, without rupture (03/11/19) Acute embolism and thrombosis of unspecified deep veins of unspecified lower extremity (03/11/19) Chronic obstructive pulmonary disease, unspecified (03/11/19) Pleural effusion, not elsewhere classified (03/11/19) Encounter for administrative examinations, unspecified (03/11/19) Encounter for prophylactic measures, unspecified (03/11/19) Personal history of other diseases of the circulatory system (03/11/19) Other specified postprocedural states (03/11/19) Allergies naproxen Allergy (Unknown, Unverified 03/11/19 11:37) ITCHY nicotine Allergy (Unknown, Verified 03/11/19 11:37) Rash -- from nicotine patch Height/Weight/Isolation Height 5 ft 11 in Weight 79.2 kg Chemistry 03/16/19 03/17/19 06:18 06:36 Sodium 138 138 Potassium 4.3 4.4 Chloride 100 100 Carbon Dioxide 34 H 34 H Anion Gap 4.0 4.0 BUN 24 H 24 H Creatinine 0.93 0.89 Glucose 128 H 125 H Microbiology 03/15/19 08:10 Pleural Fluid Acid Fast Bacilli Smear - Final 03/15/19 08:10 Pleural Fluid Acid Fast Bacilli Culture - Pending 03/15/19 08:10 Pleural Fluid Gram Stain - Final 03/15/19 08:10 Pleural Fluid Aerobic and Anaerobic Culture - Preliminary No growth to date. 03/15/19 08:10 Pleural Fluid Fungal Smear - Final 03/15/19 08:10 Pleural Fluid Fungal Culture - Pending Hospital Course (1) Pulmonary embolism: Patient presented with chest pain, worsening dyspnea, rapid A. fib. CTA chest demonstrated bilateral pulmonary emboli, apparently new. Venous duplex of lower extremities demonstrated bilateral DVTs. VTE present on admission. Previous history of pulmonary emboli. Anticoagulated in past on apixaban, but it was discontinued because of side effects. Has been on warfarin therapy with fluctuating INRs. INR at the time of admission 3.9. DC IV heparin. Xarelto on DC (2) DVT (deep venous thrombosis): Home on Xarelto (3) Acute on chronic systolic CHF (congestive heart failure): History of dilated idiopathic cardiomyopathy with LVEF of 10% in September 2018. Chest x-ray at time of admission showed CHF and right pleural effusion. Received IV furosemide with good diuresis. Creatinine normal this morning. Furosemide on DC in am Follow-up chest [id number]-Ayhtmnostp right pleural effusion with associated right lower lobe atelectasis/consolidation (4) Aortic stenosis: Echocardiogram in September 2018 demonstrated severe aortic stenosis. Management per Cardiology. (5) Atrial fibrillation: Chronic atrial fibrillation, now with rapid ventricular response. Takes metoprolol and digoxin at home. Ventricular rate 113 this morning; Cards on case said home from their viewpoint (6) COPD (chronic obstructive pulmonary disease): History of COPD. (7) Lung cancer: History of lung cancer, but no evidence of recurrent disease per Thoracic Surgery. Follow up c Dr Skelton in the Office (8) Pleural effusion: Moderate right pleural effusion, previously noted. Thoracic Surgery on case, s/p thoracentesis. Pleural effusion most likely secondary to CHF, but could be also related to pulmonary emboli or recurrent lung cancer. (9) Hypothyroidism: Continue levothyroxine. TSH normal (10) DVT prophylaxis: Anticoagulated for acute VTE as discussed above. (11) Discharge planning issues: Discharge to home Internal Medicine follow-up with Dr. Torres. Cardiology follow-up with [facility]. Thoracic Surgery follow-up with Dr. Skelton. Total Time Total Time Spent Total Time Spent (In Minutes): 60 mins Total Time Includes: Examination of the Patient, Discharge Planning, Medication Reconciliation and Communication With Other Providers Discharge Plan Discharge Items Patient Disposition: Home - Self-Care Reason For Visit: CHF,PE Discharge Diagnosis: Ischemic Cardiomyopathy Pleural Effusion Combined Systolic and Diastolic CHF AFIB PE DVT Thoracic Ascending Aneurysm Aortic Stenosis Hypothyroidism Alcohol Use Dilated cardiomyopathy COPD PVD Lung Cancer Oral Cancer Condition: Fair Discharge Goals: Improve disease control and Improve function Activity: As commented below Activity Comment: As per Cardiology Lifting: None Bathing: No limitations Sexual Activity: Wait until after follow-up appointment Exercise/Sports: None Driving/Machine Use Comment: Would not drive Weightbearing: Left weightbearing and Right weightbearing Non-emergency contact: Primary Care Provider, Surgeon and Computer Aided Drafter Call non-emergency contact if: you have any medication questions and your symptoms worsen Follow-up/Referrals: John Skelton MD, FACS [Surgeon] - (1-2 weeks) Gilberto Rosa MD [Physician] - (3-5 days) Can Torres DO [Physician] - (3-5 days) Diet: Heart Healthy and Low Sodium (2gm) Fluids: 1200ml (5 cups) Addtl Provider Instructions: CHF clinic referral Cardiac Rehab Prescriptions: New metoprolol succinate 50 mg Tablet Extended Release 24 Hr 50 mg PO QPM Qty: 30 RF: 0 metoprolol succinate 50 mg Tablet Extended Release 24 Hr 75 mg PO QAM Qty: 30 RF: 0 tamsulosin 0.4 mg Capsule 0.4 mg PO HS Qty: 30 RF: 0 nitroglycerin [Nitrostat] 0.4 mg Tablet, Sublingual 0.4 mg sublingual UD PRN (Reason: chest pain) Qty: 30 RF: 0 furosemide 40 mg Tablet 40 mg PO QAM Qty: 30 RF: 0 Xarelto 15 mg (42)- 20 mg (9) tablets,dose pack See Rx Instructions .ROUTE .COMPLEX Qty: 51 RF: 0 Continued cyanocobalamin (vitamin B-12) [Vitamin B-12] 500 mcg Tablet 500 mcg PO QAM RF: 0 albuterol sulfate [ProAir HFA] 90 mcg/actuation HFA aerosol inhaler 2 puff Inhalation QID PRN (Reason: Shortness Of Breath) RF: 0 mirtazapine [Remeron] 15 mg Tablet 15 mg PO HS PRN (Reason: Insomnia) RF: 0 levothyroxine 137 mcg tablet 137 mcg PO QAM RF: 0 digoxin 125 mcg tablet 125 mcg PO QAM RF: 0 melatonin 5 mg Tablet 5 mg PO HS RF: 0 lisinopril 2.5 mg tablet 2.5 mg PO QAM RF: 0 Discontinued warfarin 5 mg tablet 5 mg PO MO RF: 0 spironolactone 25 mg tablet 12.5 mg PO QAM RF: 0 metoprolol tartrate 25 mg tablet 25 mg PO BID RF: 0 warfarin 5 mg tablet 2.5 mg PO SUTUWETHFRSA RF: 0 Stand-Alone Forms: [facility] Discharge Orders: Discharge Order (Routine); Ordered 03/17/19 Ordered By: Miguel Ugarte Admission Data Admit Date/Time: 03/11/19 15:05 Attending Provider: Miguel Ugarte Admit Provider: Lucius Buchanan Primary Care Provider: Mat Carlisle Other Providers: Gilberto Rosa ; Rian Arita ; John Skelton ; Lucius Buchanan Service: Telemetry
[2019-03-17] MEDS: DIGOXIN 0.125 MG TAB PO SCH (09:26)
[2019-03-17] MEDS: SPIRONOLACTONE 25 MG TAB PO SCH (09:27)
[2019-03-17] MEDS: FUROSEMIDE 40 MG TAB PO SCH (09:28)
--- NOTE | 2019-03-17 09:53 | Cardiology Progress Note ---
Date of Service March 17, 2019 Assessment & Plan (1) Acute on chronic systolic CHF (congestive heart failure): Patient with multifactorial decline recent diminished use of diuretics. Change metoprolol to metoprolol succinate for CHF indicated beta-matt and hopefully increased rate control bp a little low, would not restart lisinopril at this time, f/u as outpatient cont po lasixAM Underlying condition is resultant of multiple issues as above as well as severe ischemic cardiomyopathy and severe aortic stenosis Patient had successful thoracentesis earlier continues to be negative on I's and O's good hemodynamic tolerance does not examine as volume overloaded ok to d/c from cardiac standpoint (2) Acute pulmonary embolism: as per primary team (3) Atrial fibrillation: cont metoprolol and digoxin rates a little elevated today, however, likely due to current steroid treatment would not make any med changes, f/u as outpatient (4) Aortic stenosis: Echocardiogram once again demonstrates severe LV dysfunction in a pattern consistent with ischemic cardiomyopathy. Severe aortic stenosis is present poor prognosis, particularly given medical noncompliance (5) Dilated cardiomyopathy: (6) Status post percutaneous abdominal aortic aneurysm (AAA) repair: With stable aneurysm size without endovascular leak (7) COPD (chronic obstructive pulmonary disease): Subjective Pt seen and examined, states that he feels great and wants to get out of here. Denies cp, sob, palpitations, lightheadedness or dizziness. tele reviewed: afib, rates 100's-110's, no other arrhythmia Review of Systems Review of Systems: All systems reviewed & are unremarkable except as noted in HPI & below Physical Exam Physical Exam: General: Awake, alert and oriented x 3. No acute distress. HEENT: Normocephalic, atraumatic. Pupils equal, round and reactive to light and accommodation. Extraocular muscles are intact. Anicteric sclera. Moist mucous membranes. Neck: No JVD. No bruit. Cardiovascular: irregularly irregular, unable to appreciate murmur, rub or gallop. Pulmonary: Clear to auscultation bilaterally. No rales, rhonchi, or wheezing. Abdomen: Bowel sounds x 4, soft. No rebound, guarding or tenderness. No organomegaly. Extremities: No clubbing, cyanosis or edema. +2 pedal pulses bilaterally. Skin: Warm and dry. Results & Data Vital Signs (Past 12 Hours) Vital Signs Temp Pulse Pulse Resp BP Pulse Ox 06/30/19 09:26 114 H 03/17/19 07:31 36.5 C 113 H 30 H 138/84 97 03/17/19 04:04 36.9 C 84 23 105/67 97 03/16/19 23:42 36.4 C L 121 H 19 103/83 98 (1) Acute pulmonary embolism Acute cor pulmonale presence: without acute cor pulmonale Pulmonary embolism type: unspecified Qualified Code(s): I26.99 - Other pulmonary embolism without acute cor pulmonale (2) COPD (chronic obstructive pulmonary disease) COPD type: unspecified COPD Qualified Code(s): J44.9 - Chronic obstructive pulmonary disease, unspecified
[2019-03-17] MEDS: CYANOCOBALAMIN 500 MCG TABLET (VITAMIN B-12) PO SCH (09:56)
[2019-03-17] MEDS: METOPROLOL SUCC 50MG EXT REL TAB PO SCH (09:56)
--- NOTE | 2019-03-17 11:03 | Progress Note ---
DATE: 03/17/2019 Mr. Domínguez was seen today. He is very eager to leave the hospital. His pulse oximetry is 97% on room air. His x-ray yesterday showed very little reaccumulation of fluid. I will see him back in the office in the next week or so. The fluid appears to be a transudate and probably related to his cardiac dysfunction.
== END 2019-03-17 11:11 | disposition home or self-care (01) | DRG 175 ==
LOC: ED 10:50 → 2E 15:05 → SUATTDRO 15:05 → 2E 16:08

== ENCOUNTER 2019-07-09 13:50 | Inpatient (IN) ==
[2019-07-09] MEDS ORDERED: methylPREDNISolone 125 MG/2 ML VIAL IV STA (14:21)
[2019-07-09] MEDS ORDERED: ALBUT/IPRATROP 3MG/0.5MG NEB 3 ML VIAL NEB STA (14:21)
[2019-07-09] MEDS ORDERED: MAGNESIUM SULFATE / D5W 1 GM/100 ML BAG IV ONE (14:21)
[2019-07-09 14:32] LABS: Basophils # (auto) 0.06 K/uL (0-0.2); Basophils % (auto) 0.8 %; Eosinophils # (auto) 0.03 K/uL (0-0.5); Eosinophils % (auto) 0.4 %; Hematocrit (blood only) 35.6 % (42-52); Immature Granulocytes # (auto) 0.02 K/uL (0.00-0.02); Immature Granulocytes % (auto) 0.3 %; Lymphocytes # (auto) 1.81 K/uL (1.2-3.4); Lymphocytes % (auto) 24.6 %; Mean Corpuscular Hemoglobin 30.6 pg (25-34); Mean Corpuscular Hgb Conc 33.7 g/dL (32-36); Mean Corpuscular Volume 90.8 fL (80-100); Mean Platelet Volume 10.4 fL (7.4-10.4); Monocytes # (auto) 0.58 K/uL (0.11-0.59); Monocytes % (auto) 7.9 %; Neutrophils # (auto) 4.85 K/uL (1.4-6.5); Platelet Count 184 K/uL (130-400); RDW Standard Deviation 52.3 fL (36.4-46.3); Red Blood Count 3.92 M/uL (4.7-6.1); White Blood Count 7.35 K/uL (4.8-10.8)
[2019-07-09 14:50] LABS: INR 1.9 (0.9-1.1); Partial Thromboplastin Ratio 1.3; Partial Thromboplastin Time 36.5 Seconds (21.0-31.0); Prothrombin Time 18.8 Seconds (9.0-12.0)
[2019-07-09 15:02] LABS: Base Excess VBG 1.2 mEq/L; HCO3 VBG 26 mmol/L; PCO2 VBG 43 mmHg (38-50); PO2 VBG 27 mmHg; pH VBG 7.41 (7.36-7.41)
[2019-07-09 15:04] LABS: Oxygen Saturation VBG < 60.0 %
[2019-07-09 15:04] LABS: Alanine Aminotransferase 32 U/L (12-78); Albumin Level 3.4 gm/dl (3.4-5.0); Aspartate Aminotransferase 19 U/L (15-37); BUN Creatinine Ratio 18.9 (10-20); Blood Urea Nitrogen 21 mg/dl (7-18); Calcium 8.6 mg/dl (8.5-10.1); Carbon Dioxide 28 mmol/L (21-32); Chloride 106 mmol/L (98-107); Est GFR (African American) 75.9; Est GFR (Non-African American) 65.5; Glucose 104 mg/dl (70-99); Potassium 3.6 mmol/L (3.5-5.1); Sodium 138 mmol/L (136-145)
[2019-07-09 15:27] LABS: Albumin Globulin Ratio 0.9 (0.9-2); Alkaline Phosphatase 107 U/L (45-117); Bilirubin,Total 1.1 mg/dl (0.2-1); Globulin 3.8 gm/dl (2.5-4.0); NT Pro B Type Natriuretic Pept 25713 pg/ml (0-900); Total Protein 7.2 gm/dl (6.4-8.2); Troponin I 0.093 ng/ml (0-0.045)
--- NOTE | 2019-07-09 15:27 | XRay Report ---
XR chest 1V portable CLINICAL HISTORY: 68 years-old Male presenting with Dyspnea. TECHNIQUE: Portable upright AP view of the chest was obtained. COMPARISON: 04/02/2019. FINDINGS: Atherosclerosis of the aortic arch. Cardiac silhouette enlarged. Interval development of a moderate t o large right pleural effusion. Postsurgical changes in the right hilum. Poor aeration of the right m id to lower lung. Left lung and pleural space grossly clear. Degenerative changes of the thoracic spi ne. Degenerative changes of the left AC joint. IMPRESSION: 1. Interval development of a moderate to large right pleural effusion with extensive right lung atel ectasis. Underlying infection is not excluded. 2. Postsurgical changes of the right lung. 3. Cardiomegaly. Electronically signed by: Sami Erickson M.D. 07/09/2019 3:25 PM
[2019-07-09] MEDS ORDERED: dilTIAZem HCl 5 MG/ML 5 ML VIAL IV STA (15:49)
[2019-07-09] MEDS ORDERED: DIGOXIN 0.125 MG/2.5 ML UDP PO STA (15:49)
[2019-07-09] MEDS ORDERED: FUROSEMIDE 40 MG/4 ML VIAL IV STA (15:49)
[2019-07-09] MEDS ORDERED: ASPIRIN CHEW 324 MG PO STA (15:51)
--- NOTE | 2019-07-09 17:12 | History & Physical Report ---
Date of Service July 09, 2019 Assessment & Plan (1) Acute on chronic systolic CHF (congestive heart failure): This is a 68-year-old male who has significant past medical history of ischemic cardiomyopathy EF less than 15%, A. 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 In ED patient was found to be in A. fib with RVR, heart rates 120s, blood pressure systolically low 100s. He remained afebrile and was saturating well on room air. Is a WBC 7.35, H&H 12.0 and 35.6, platelet 184, INR 1.9, VBG blood gas WNL, BUN 21, creatinine 1.13. Troponin elevated at 0.093, proBNP 25,713, procalcitonin WNL, TSH WNL, dig level low at 0.4. Chest x-ray revealed moderate to large right pleural effusion with compressive atelectasis which appears worsened from prior film -also with history with right lung lobectomy in setting of right lung SCC CA. In ED patient received Lasix 40 mg IV x1, 60 mg IV methylprednisolone, DuoNeb treatment x2 and diltiazem 15 mg IV x1. He did have improvements in heart rate, urine output and felt breathing had improved slightly since arrival. Symptoms concerning for acute decompensated systolic CHF in setting of dilated cardiomyopathy EF less than 15%, A. fib with RVR, COPD exacerbation versus cardiac asthma Admit to PCU Lasix 40 mg IV daily -monitor for response and titrate accordingly Consult cardiology - Dr. Cerda Last echocardiogram 03/16/2019 revealed EF less than 50%, mild concentric LVH, inferior and inferior septal and posterior jackson akinetic, bicuspid AV with moderate to severe , RVSP 30 to 40 mmHg daily weights Strict I&O Heart healthy, low Na diet cycle troponin, ecg (2) Atrial fibrillation: Pt in afib with RVR cardiology consulted continue dig rates improved with diltiazem - consider prn metoprolol as BP allows treat cautiously in setting of low EF and low blood pressure (3) Elevated troponin: Troponin 0.093, likely demand in setting of decompensated CHF and A. fib with RVR More pronounced lateral T wave inversions from previous ECG 11/02/2018 Cycle troponin Repeat ECG Currently chest pain-free (4) COPD exacerbation: COPD exacerbation versus cardiac asthma Received IV methylprednisolone 60 mg in ED Continue with pulmonary toilet incentive spirometry and levalbuterol 4 times daily His WBC WNL, afebrile, procalcitonin WNL no Indication for antibiotics at this time Will not continue IV steroids at this point until improvement in cardiac condition sputum culture ordered (5) Pleural effusion: Patient with chronic right pleural effusion Current chest x-ray appears mildly worsened from previous in 02/2019 Patient follows closely with Dr. Skelton Last thoracentesis 03/16/2019 Consult thoracic surgery - spoke to Dr. Skelton who will evaluate pt in a.m. (6) Aortic stenosis: as per last echo management as per cardiology (7) Hypothyroidism: Continue levothyroxine TSH 0.883 (8) Elevated INR: Unknown etiology? Patient currently on Xarelto Will confirm patient not taking warfarin ? coagulopathy 2/2 right-sided heart failure and hepatic congestion (9) Alcohol use: AW protocol to monitor for s/sx of withdrawal last drink - 1 light beer yesterday ( past 2 weeks drinks 1 beer daily; previously had been 3-4 a day) Lorazepam prn (10) Tobacco use: Encourage smoking cessation Patient currently declines nicotine patch (11) DVT prophylaxis: Continue Xarelto SCD/teds Disposition: Admit to PCU Follow-up: PCP Dr. Carlisle upon discharge along with appropriate cardiology follow-up Patient was seen and examined in collaboration with Dr. Young, please see addendum Starting 07/10/2019 patient will be under the care of Dr. Cardona History of Present Illness Chief Complaint: Shortness of breath and edema x2 weeks. Primary Care Provider: Mat Carlisle MD This is a 68-year-old male who has significant past medical history of ischemic cardiomyopathy EF less than 15%, A. 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 Over the past 2 weeks patient has been having persistent and increasing shortness of breath with exertion, now at rest, worsening lower extremity edema, bloating of abdomen, decreased appetite, chronic cough secondary to tobacco use occasionally productive with brown sputum, wheezing, inability to walk more than 4-5 steps secondary to shortness of breath, decreased urinary output, occasional precordial chest pain that is intermittent, comes and goes, last 1 to 2 minutes, resolves without action. Denies increased sputum production or increase in appearance. He denies any recent fever, sweats, but is always cold. Denies any lightheadedness, dizziness, syncope, fall, hemoptysis, nausea, vomiting, abdominal pain, dysuria, increased urgency or frequency with urination, hematuria, melena, hematochezia. Last BM this morning. At baseline patient is usually able to ambulate without difficulty or shortness of breath, does not need assistive device, still drives. He usually drives to the, "club" daily and will have a drink, "but I have not even been able to do that." Usually patient would drink 3-4 light beers daily; however, for the past 2 weeks he has been having difficulty having 1 drink nightly. He does still smoke roughly 1 pack/day. He has been compliant with me dication including diuretic and Xarelto. is at bedside and confirms this. He does not weigh himself on a regular basis. Allergies Allergy/AdvReac Type Severity Reaction Status Date / Time naproxen Allergy Unknown ITCHY Unverified 07/09/19 14:36 nicotine Allergy Unknown Rash -- Verified 07/09/19 14:36 from nicotine patch Home Medications Home Medications Medication Instructions Recorded Confirmed Type albuterol sulfate 2 puff INHALATION QID PRN 10/03/18 07/09/19 History cyanocobalamin (vitamin B-12) 500 mcg PO QAM 10/03/18 07/09/19 History [Vitamin B-12] digoxin 125 mcg PO QAM 03/11/19 07/09/19 History levothyroxine 137 mcg PO QAM 03/11/19 07/09/19 History melatonin 5 mg PO HS PRN 03/11/19 07/09/19 History furosemide 40 mg PO QAM #30 tab 03/17/19 07/09/19 Rx nitroglycerin [Nitrostat] 0.4 mg SUBLINGUAL UD PRN #30 tab 03/17/19 07/09/19 Rx aspirin [Aspir-81] 81 mg PO DAILY 07/09/19 07/09/19 History rivaroxaban [Xarelto] 20 mg PO DAILY 07/09/19 07/09/19 History Past Med/Surg History Medical History Thoracic ascending aortic aneurysm (Chronic) Pleural effusion (Chronic) Pulmonary embolism (Chronic) Atrial fibrillation (Chronic) Aortic stenosis (Chronic) Dilated cardiomyopathy (Chronic) AAA (abdominal aortic aneurysm) (Chronic) Hypothyroidism (Chronic) Alcohol use (Chronic) Tobacco use (Chronic) COPD (chronic obstructive pulmonary disease) (Chronic) PVD (peripheral vascular disease) (Chronic) "chronic BL SFA occlusions" Carotid artery disease (Chronic) "US 2011- Right carotid artery duplex examination indicates evidence of 50- 69% stenosis of the internal carotid artery. 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 Lung cancer (Chronic) s/p [facility] Son Kline Surgical History Status post percutaneous abdominal aortic aneurysm (AAA) repair (Chronic) History of arthroscopy of left shoulder (Chronic) H/O bursectomy (Chronic) History of nasal septoplasty (Chronic) History of back surgery (Chronic) H/O arthroscopy of shoulder (Chronic) Hx of tonsillectomy (Chronic) S/P lobectomy of lung (Chronic) Family History Father Heart disease Mother Heart disease Social History Preferred Language: Occitan Communication Ability: Effective 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 Beliefs That Will Affect Care: None marital status: Current Living Situation: Spouse current occupational status: retired Other Information That Helps Us Care for You: No Feels Safe at Home: Yes Safety Concerns: Feels Safe At This Time Smoking Status: Current every day smoker Tobacco Type: cigarettes ; Cigarettes Per Day: 1PPD ; Do You Dip or Chew Tobacco: No ; Second Hand Exposure: No ; Tobacco Cessation Education Requested by Patient: No Hx Alcohol Use: Yes Alcohol type: beer Alcohol Intake Frequency Comment: 3 beers day; however for past 2 weeks only has been having 1 Hx Substance Use: No Review of Systems Review of Systems: All systems reviewed & are unremarkable except as noted in HPI & below Physical Exam Physical Exam: Constitutional: Chronically ill-appearing male, appears older than stated age, lying in bed in lateral decubitus position, vitals as above, NAD,conversing easily Head: Normocephalic, Atraumatic Eyes: PERRL, conjunctivae normal, anicteric sclerae ENMT: external ear and nose normal, oropharynx normal Neck: trachea midline, no thyromegaly normal visual inspection Respiratory: normal respiratory effort, lungs clear to auscultation, with right basilar expiratory wheeze, no rales rhonchi noted, decreased lung sounds at right lung base. He does have audible wheezing with conversation. normal insp/exp effort, no accessory muscle use, saturating well on room air Cardiovascular: Irregular rate, irregular rhythm, 2/6 precordial systolic murmur noted, +1 pretibial edema and pedal edema, no erythema, warmth, negative Homans sign Vessels: no JVD or carotid bruit Chest: normal inspection of chest Abdomen: normal bowel sounds, soft, nontender, mildly distended, no hepatosplenomegaly Musculoskeletal: no cyanosis, extremities motor strength 4/5 Skin: no rashes, warm and dry normal turgor Neurologic: PERRL, EOMI, accommodation nl, no face palsy, no dysarthria CN's II-XI intact bilaterally and moves all extremities Psychiatric: A+Ox3, flat affect Lymphatic: no cervical or axillary lymphadenopathy : deferred Results & Data Vital Signs (Past 12 Hours) Vital Signs Temp Pulse Pulse Resp BP BP Pulse Ox 07/09/19 15:40 98 07/09/19 15:00 123 H 25 H 102/80 95 07/09/19 14:36 118 H 18 99 07/09/19 14:22 100 10/22/19 13:55 36.6 C 104 H 18 105/67 100 Laboratory Results Short CBC 07/09/19 Range/Units 14:15 WBC 7.35 (4.8-10.8) K/uL Hgb 12.0 L (14.0-18.0) g/dL Hct 35.6 L (42-52) % Plt Count 184 (130-400) K/uL BMP 07/09/19 14:15 Sodium 138 Potassium 3.6 Chloride 106 Carbon Dioxide 28 BUN 21 H Creatinine 1.13 Glucose 104 H Calcium 8.6 Cardiac Enzymes 07/09/19 Range/Units 14:15 Troponin I 0.093 H* (0-0.045) ng/ml Liver Function 07/09/19 Range/Units 14:15 Total Bilirubin 1.1 H (0.2-1) mg/dl AST 19 (15-37) U/L ALT 32 (12-78) U/L Alkaline Phosphatase 107 (45-117) U/L Albumin 3.4 (3.4-5.0) gm/dl Diagnostic Findings CXR: IMPRESSION: 1. Interval development of a moderate to large right pleural effusion with extensive right lung atelectasis. Underlying infection is not excluded. 2. Postsurgical changes of the right lung. 3. Cardiomegaly. Medications Administered Discontinued Medications Albuterol (Duoneb) 6 ml NEB NOW STA Stop: 07/09/19 14:22 Last Admin: 07/09/19 14:34 Dose: 6 ml Documented by: [id number] Aspirin (Aspirin) 324 mg PO NOW STA Stop: 07/09/19 15:52 Last Admin: 07/09/19 16:01 Dose: 324 mg Documented by: [id number] Digoxin (Lanoxin) 0.125 mg PO NOW STA Stop: 07/09/19 15:50 Last Admin: 07/09/19 16:21 Dose: 0.125 mg Documented by: [id number] Diltiazem HCl (Cardizem) 15 mg IV NOW STA Stop: 07/09/19 15:50 Last Admin: 07/09/19 16:01 Dose: 15 mg Documented by: [id number] Cosigned by: [id number] Furosemide (Lasix) 40 mg IV NOW STA Stop: 07/09/19 15:50 Last Admin: 07/09/19 16:01 Dose: 40 mg Documented by: [id number] Magnesium Sulfate/Dextrose (Magnesium Sulfate / D5w) 1 gm in 100 mls @ 100 mls/hr IV ONE ONE Stop: 07/09/19 15:20 Last Infusion: 07/09/19 15:40 Dose: 0 mls/hr Documented by: [id number] Admin: 07/09/19 14:39 Dose: 100 mls/hr Documented by: [id number] Methylprednisolone (Solumedrol) 60 mg IV NOW STA Stop: 07/09/19 14:22 Last Admin: 07/09/19 14:39 Dose: 60 mg Documented by: [id number] ECG Rate (beats per minute): 127 Rhythm: atrial fibrillation Findings: + T-wave inversion (v4-v6) Change: the following changes noted Additional Comments: lateral t wave inversions more prominent in todays ecg Code Status & VTE Plan Code Status Full Code VTE Prophylaxis Plan VTE Prophylaxis will be ordered: Yes Supervising Physician Co-Signing Physician Notes HISTORY: Record reviewed. Patient interviewed and examined. Care coordinated with Josefina Short PA-C. Please refer to her documentation for complete history. Briefly, 68-year-old male with history of coronary artery disease, systolic CHF, atrial fibrillation, COPD, lung cancer, pleural effusion, and other problems. Presented to ED with worsening dyspnea on exertion, abdominal distention, dependent edema. Congested cough. No fever. EXAM: General- appears to be chronically ill, no acute distress Lungs- scattered rhonchi, diffuse mild wheezing, decreased breath sounds right base; no respiratory distress Cardiovascular- irregularly irregular, systolic murmur at base, no gallop appreciated; + JVD; 2+ pretibial edema Abdomen- + bowel sounds, soft, nontender Extremities- no cyanosis; no calf tenderness Neuro- alert, oriented Skin- warm & dry DATA: Hemoglobin 12.0, white count 7350, platelet count 184,000. PT 18.8, INR 1.9, PTT 36.5. Sodium 138, potassium 3.6, chloride 106, CO2 28, BUN 21, creatinine 1.1, glucose 104. Total bilirubin 1.1, AST 19, ALT 32, alkaline phosphatase 107. Troponin I = 0.093. Pro BNP = 25,713. Procalcitonin less than 0.05. Lactate 1.4. Other lab studies as noted. Chest x-ray reviewed by the undersigned and formally interpreted by Radiology. Cardiomegaly. No overt pulmonary edema. Right pleural effusion. EKG performed at 1408 reviewed and demonstrated atrial fibrillation with a ventricular rate of 130/minute, left axis deviation, possible age-indeterminate inferior infarct, poor R wave progression, T wave inversions laterally. ASSESSMENT AND PLAN: Worsening dyspnea associated with abdominal distention and weight gain. Chest x-ray shows right pleural effusion, but no overt pulmonary edema. proBNP elevated. Known ischemic cardiomyopathy with low EF. Has been prescribed metoprolol succinate in the past, but stopped taking it because of perceived side effects. Probable right-sided heart failure secondary to underlying pulmonary disease. Recurrent/worsening right pleural effusion could be due to CHF, but consider other underlying etiologies. Atrial fibrillation with rapid ventricular response. Digoxin level subtherapeutic. EKG shows lateral T wave inversions more pronounced than baseline. No antiplatelet medications on patient's home medication list. No apparent reason not to use aspirin, so will start aspirin 81 mg daily. Try low-dose carvedilol for ischemic heart disease, systolic CHF, and control of ventricular rate. Continue digoxin. Titrate diuretics. Continue rivaroxaban for atrial fibrillation. INR is elevated, suggesting possibility of coagulopathy, perhaps due to hepatic congestion from right-sided CHF. Check follow-up echocardiogram. Consult Cardiology. Patient has scattered rhonchi and mild wheezing. Underlying COPD. No fever. Procalcitonin normal. No apparent indication for antibiotics at this time. Continue nebulizer treatments, will convert to low-dose levalbuterol because of tachycardia. Recurrent right pleural effusion. History of lung cancer. Has been followed by Dr. Skelton who will be consulted. VTE prophylaxis with rivaroxaban-will need to be held if thoracentesis is recommended. Please refer to THANIA Short's documentation for discussion of other issues. (1) Atrial fibrillation Atrial fibrillation type: unspecified Qualified Code(s): I48.91 - Unspecified atrial fibrillation
[2019-07-09 17:36] LABS: Thyroid Stimulating Hormone 0.883 uIu/ml (0.300-4.500)
--- NOTE | 2019-07-09 18:08 | Emergency Department Note ---
Entered by Jamal Biggs acting as a scribe for History of Present Illness General Chief complaint: Shortness of Breath/Dyspnea Stated complaint: SHORTNESS OF BREATH Time Seen by Provider: 07/09/19 14:11 Source: patient History of Present Illness Provider complaint: SOB Onset (ago): week(s) 2 Location: chest Radiation: non-radiation Pain Consistency: + constant Exacerbated By: + movement Associated symptoms: + other (feet swelling and chest discomfort ) The patient is a 68 y/o male with a past medical history of A-fib, PE, AAA, and hypothyroidism, COPD, PVD, CAD and DVT, who presents to the emergency department for evaluation of constant shortness of breath that began two weeks ago. The patient states that he has been having the shortness for two weeks and it is worse with light activity. He notes he has a chronic cough with production. The family reports he took all his regular medication except for his A-fib. He States his feet have been swelling and he has chest discomfort as well. The patient denies nausea, vomiting, and any other symptoms. Home Medications Home Medications Medication Instructions Recorded Confirmed Type albuterol sulfate 2 puff INHALATION QID PRN 10/03/18 07/09/19 History cyanocobalamin (vitamin B-12) 500 mcg PO QAM 10/03/18 07/09/19 History [Vitamin B-12] digoxin 125 mcg PO QAM 03/11/19 07/09/19 History levothyroxine 137 mcg PO QAM 03/11/19 07/09/19 History melatonin 5 mg PO HS PRN 03/11/19 07/09/19 History furosemide 40 mg PO QAM #30 tab 03/17/19 07/09/19 Rx nitroglycerin [Nitrostat] 0.4 mg SUBLINGUAL UD PRN #30 tab 03/17/19 07/09/19 Rx aspirin [Aspir-81] 81 mg PO DAILY 07/09/19 07/09/19 History rivaroxaban [Xarelto] 20 mg PO DAILY 07/09/19 07/09/19 History Allergies Allergy/AdvReac Type Severity Reaction Status Date / Time naproxen Allergy Unknown ITCHY Unverified 07/09/19 14:36 nicotine Allergy Unknown Rash -- Verified 07/09/19 14:36 from nicotine patch Past Med/Surg History Medical History Thoracic ascending aortic aneurysm (Chronic) Pleural effusion (Chronic) Pulmonary embolism (Chronic) Atrial fibrillation (Chronic) Aortic stenosis (Chronic) Dilated cardiomyopathy (Chronic) AAA (abdominal aortic aneurysm) (Chronic) Hypothyroidism (Chronic) Alcohol use (Chronic) Tobacco use (Chronic) COPD (chronic obstructive pulmonary disease) (Chronic) PVD (peripheral vascular disease) (Chronic) "chronic BL SFA occlusions" Carotid artery disease (Chronic) "US 2011- Right carotid artery duplex examination indicates evidence of 50- 69% stenosis of the internal carotid artery. 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 Lung cancer (Chronic) [facility] Son Kline Surgical History Status post percutaneous abdominal aortic aneurysm (AAA) repair (Chronic) History of arthroscopy of left shoulder (Chronic) H/O bursectomy (Chronic) History of nasal septoplasty (Chronic) History of back surgery (Chronic) H/O arthroscopy of shoulder (Chronic) Hx of tonsillectomy (Chronic) S/P lobectomy of lung (Chronic) Family History Father Heart disease Mother Heart disease Social History Preferred Language: Thai Communication Ability: Effective Federal Mediation Commissioner Required: No Beliefs That Will Affect Care: None marital status: Current Living Situation: Spouse current occupational status: retired Other Information That Helps Us Care for You: No Feels Safe at Home: Yes Safety Concerns: Feels Safe At This Time Smoking Status: Current every day smoker Tobacco Type: cigarettes ; Cigarettes Per Day: 1PPD ; Do You Dip or Chew Tobacco: No ; Second Hand Exposure: No ; Tobacco Cessation Education Requested by Patient: No Hx Alcohol Use: Yes Alcohol type: beer Alcohol Intake Frequency Comment: 3 beers day; however for past 2 weeks only has been having 1 Hx Substance Use: No Review of Systems See HPI for pertinent positives & negatives. and A total of 10 systems reviewed and were otherwise negative Physical Exam Vital Signs Vital Signs - 24 hr 07/09/19 13:51 07/09/19 13:55 07/09/19 14:22 Temperature 36.6 C Temperature Source Oral Sepsis Recent Fever Within 48 Hours No Sepsis New/Unexplained Change in Mental Status No Sepsis Action Taken by Nursing No Action Required Pulse Rate 104 H Pulse Rate [Right Apical] Respiratory Rate 18 Respiratory Effort / Characteristics Non-Labored Spontaneous Non-Labored Respiratory Depth Normal Normal Respiratory Pattern Regular Blood Pressure 105/67 Blood Pressure [Left Arm] Blood Pressure Mean 79 Blood Pressure Mean [Left Arm] Blood Pressure Position Sitting Blood Pressure Position [Left Arm] Pulse Oximetry 100 100 Oxygen Delivery Method Room Air Room Air 07/09/19 14:36 07/09/19 15:00 07/09/19 15:40 Temperature Temperature Source Sepsis Recent Fever Within 48 Hours Sepsis New/Unexplained Change in Mental Status Sepsis Action Taken by Nursing Pulse Rate Pulse Rate [Right Apical] 118 H 123 H Respiratory Rate 18 25 H Respiratory Effort / Characteristics Spontaneous Labored Non-Labored Spontaneous Respiratory Depth Normal Respiratory Pattern Regular Blood Pressure Blood Pressure [Left Arm] 102/80 Blood Pressure Mean Blood Pressure Mean [Left Arm] 87 Blood Pressure Position Blood Pressure Position [Left Arm] Lying Pulse Oximetry 99 95 98 Oxygen Delivery Method Room Air Room Air Room Air 07/09/19 17:00 Temperature Temperature Source Sepsis Recent Fever Within 48 Hours Sepsis New/Unexplained Change in Mental Status Sepsis Action Taken by Nursing Pulse Rate Pulse Rate [Right Apical] 110 H Respiratory Rate 24 Respiratory Effort / Characteristics Non-Labored Spontaneous Respiratory Depth Normal Respiratory Pattern Blood Pressure Blood Pressure [Left Arm] 108/84 Blood Pressure Mean Blood Pressure Mean [Left Arm] 92 Blood Pressure Position Blood Pressure Position [Left Arm] Lying Pulse Oximetry 94 Oxygen Delivery Method Room Air GENERAL: Well nourished, mild distress. EYE EXAM: Normal conjunctiva. PERRL, no anisocoria and EOM's grossly intact w/o pain. OROPHARYNX: Dry mucus membranes. Grossly normal dentition. Edentulous NECK: Supple, no nuchal rigidity, no adenopathy, non-tender. No signs of meningismus. LUNGS: Diffuse wheezing throughout. No obvious bronchi. HEART: Tachycardic and irregular rate, no MRG. ABDOMEN: Abdomen soft, non-tender, normo-active bowel sounds, no masses, no rebound or guarding. BACK: No CVA TTP. SKIN: No rashes and no bruising. UPPER EXTREMITIES: Upper extremities are grossly normal. LOWER EXTREMITIES: 1+ edema symmetric. No calf pain.Negative Jann's sign. NEURO EXAM: A&O x3, cranial nerves II-XII grossly intact, normal speech, moves all 4 extremities on command w/o issue. Course 1415: Past medical records reviewed. The patient was evaluated in room C07. A complete history and physical exam was performed. 1610: I spoke with Josefina Short [facility]. They will evaluate for further management. 1620: I updated the patient on his results and discussed the treatment plan with him. Administered Medications Aspirin (Ecotrin Ectab) 81 mg PO DAILY BRANDT Stop: 08/09/19 08:59 Last Admin: 07/10/19 08:08 Dose: 81 mg Documented by: [id number] Carvedilol (Coreg) 3.125 mg PO BID BRANDT Stop: 08/08/19 20:59 Last Admin: 07/10/19 08:08 Dose: 3.125 mg Documented by: [id number] Admin: 07/09/19 22:53 Dose: 3.125 mg Documented by: [id number] Cyanocobalamin (Vitamin B-12) 500 mcg PO QAM BRANDT Stop: 08/09/19 08:59 Last Admin: 07/10/19 08:08 Dose: 500 mcg Documented by: [id number] Digoxin (Lanoxin) 0.125 mg PO QAM BRANDT Stop: 08/09/19 08:59 Last Admin: 07/10/19 08:08 Dose: 0.125 mg Documented by: [id number] Furosemide 40 mg/ Syringe 4 mls @ 4 mls/min IV DAILY BRANDT Stop: 08/09/19 08:59 Last Admin: 07/10/19 08:09 Dose: 4 mls/min Documented by: [id number] Ipratropium Glasco (Atrovent 0.02% 0.5mg/2.5ml) 0.5 mg INH Q6R BRANDT Stop: 08/08/19 18:59 Last Admin: 07/10/19 07:07 Dose: 0.5 mg Documented by: [id number] Admin: 07/10/19 01:30 Dose: 0.5 mg Documented by: [id number] Admin: 07/09/19 19:29 Dose: 0.5 mg Documented by: [id number] Levalbuterol HCl (Xopenex 0.63 Mg/3 Ml Neb) 0.63 mg NEB Q6R BRANDT Stop: 08/08/19 18:59 Last Admin: 07/10/19 07:06 Dose: 0.63 mg Documented by: [id number] Admin: 07/10/19 01:30 Dose: 0.63 mg Documented by: [id number] Admin: 07/09/19 19:29 Dose: 0.63 mg Documented by: [id number] Levothyroxine Sodium (Levothyroxine Sodium) 137 mcg PO DAILYBB BRANDT Stop: 08/09/19 06:29 Last Admin: 07/10/19 05:31 Dose: 137 mcg Documented by: [id number] Rivaroxaban (Xarelto) 20 mg PO DAILY BRANDT Stop: 08/09/19 08:59 Last Admin: 07/10/19 08:07 Dose: 20 mg Documented by: [id number] Discontinued Medications Albuterol (Duoneb) 6 ml NEB NOW STA Stop: 07/09/19 14:22 Last Admin: 07/09/19 14:34 Dose: 6 ml Documented by: [id number] Aspirin (Aspirin) 324 mg PO NOW STA Stop: 07/09/19 15:52 Last Admin: 07/09/19 16:01 Dose: 324 mg Documented by: [id number] Digoxin (Lanoxin) 0.125 mg PO NOW STA Stop: 07/09/19 15:50 Last Admin: 07/09/19 16:21 Dose: 0.125 mg Documented by: [id number] Diltiazem HCl (Cardizem) 15 mg IV NOW STA Stop: 07/09/19 15:50 Last Admin: 07/09/19 16:01 Dose: 15 mg Documented by: [id number] Cosigned by: [id number] Furosemide (Lasix) 40 mg IV NOW STA Stop: 07/09/19 15:50 Last Admin: 07/09/19 16:01 Dose: 40 mg Documented by: [id number] Magnesium Sulfate/Dextrose (Magnesium Sulfate / D5w) 1 gm in 100 mls @ 100 mls/hr IV ONE ONE Stop: 07/09/19 15:20 Last Infusion: 07/09/19 15:40 Dose: 0 mls/hr Documented by: [id number] Admin: 07/09/19 14:39 Dose: 100 mls/hr Documented by: [id number] Magnesium Sulfate/Dextrose (Magnesium Sulfate / D5w) 1 gm in 100 mls @ 100 mls/hr IV ONE ONE Stop: 07/10/19 06:29 Last Infusion: 07/10/19 06:37 Dose: 0 mls/hr Documented by: [id number] Admin: 07/10/19 05:28 Dose: 100 mls/hr Documented by: [id number] Digoxin 250 mcg/ Syringe 10 mls @ 2 mls/min IV ONE ONE Stop: 07/10/19 05:34 Last Admin: 07/10/19 05:26 Dose: 2 mls/min Documented by: [id number] Digoxin 250 mcg/ Syringe 10 mls @ 2 mls/min IV NOW STA Stop: 07/10/19 06:25 Last Admin: 07/10/19 06:36 Dose: 2 mls/min Documented by: [id number] Methylprednisolone (Solumedrol) 60 mg IV NOW STA Stop: 07/09/19 14:22 Last Admin: 07/09/19 14:39 Dose: 60 mg Documented by: [id number] Potassium Chloride (Klor-Con M20) 40 meq PO NOW STA Stop: 07/10/19 05:01 Last Admin: 07/10/19 05:26 Dose: 40 meq Documented by: [id number] Medical Decision Making Differential Diagnosis Differential diagnosis: Etiologies such as infections, reactive airway disease, COPD, pneumonia, pleural effusion, pulmonary edema, ARDS, pneumothorax, CHF, cardiac ischemia, cardiac tamponade, dysrhythmia, anemia, pulmonary embolism, musculoskeletal, gastrointestinal process, as well as others were entertained. Medical Records Attestation: I reviewed the patient's medical records. Home Medications Current Medication List: was personally reviewed by me Laboratory Data Attestation: I reviewed the patient's lab results. Result diagrams: 07/10/19 05:10 07/10/19 05:10 Lab Results 07/09/19 07/09/19 07/09/19 Range/Units 14:15 14:15 14:15 WBC 7.35 (4.8-10.8) K/uL RBC 3.92 L (4.7-6.1) M/uL Hgb 12.0 L (14.0-18.0) g/dL Hct 35.6 L (42-52) % MCV 90.8 (80-100) fL MCH 30.6 (25-34) pg MCHC 33.7 (32-36) g/dL RDW Std Deviation 52.3 H (36.4-46.3) fL RDW Coeff of Debra 16.0 H (11.5-14.5) % Plt Count 184 (130-400) K/uL MPV 10.4 (7.4-10.4) fL Immature Gran % (Auto) 0.3 % Neut % (Auto) 66.0 % Lymph % (Auto) 24.6 % [place] % (Auto) 7.9 % Eos % (Auto) 0.4 % Baso % (Auto) 0.8 % Immature Gran # (Auto) 0.02 (0.00-0.02) K/uL Neut # (Auto) 4.85 (1.4-6.5) K/uL Lymph # (Auto) 1.81 (1.2-3.4) K/uL [place] # (Auto) 0.58 (0.11-0.59) K/uL Eos # (Auto) 0.03 (0-0.5) K/uL Baso # (Auto) 0.06 (0-0.2) K/uL PT 18.8 H (9.0-12.0) Seconds INR 1.9 H (0.9-1.1) APTT 36.5 H (21.0-31.0) Seconds PTT Ratio 1.3 VBG pH (7.36-7.41) VBG pCO2 (38-50) mmHg VBG pO2 mmHg VBG HCO3 mmol/L VBG O2 Saturation % VBG Base Excess mEq/L Barometric Pressure mm/Hg Sodium 138 (136-145) mmol/L Potassium 3.6 (3.5-5.1) mmol/L Chloride 106 (98-107) mmol/L Carbon Dioxide 28 (21-32) mmol/L Anion Gap 4.0 (3-11) BUN 21 H (7-18) mg/dl Creatinine 1.13 (0.6-1.4) mg/dl Est Cr Clr Drug Dosing Not Reportable Est GFR ( Amer) 75.9 Est GFR (Non-Af Amer) 65.5 BUN/Creatinine Ratio 18.9 (10-20) Glucose 104 H (70-99) mg/dl Lactate (0.4-2.0) mmol/L Calcium 8.6 (8.5-10.1) mg/dl Total Bilirubin 1.1 H (0.2-1) mg/dl AST 19 (15-37) U/L ALT 32 (12-78) U/L Alkaline Phosphatase 107 (45-117) U/L Troponin I 0.093 H* (0-0.045) ng/ml NT-Pro-B Natriuret Pep 38015 H (0-900) pg/ml Total Protein 7.2 (6.4-8.2) gm/dl Albumin 3.4 (3.4-5.0) gm/dl Globulin 3.8 (2.5-4.0) gm/dl Albumin/Globulin Ratio 0.9 (0.9-2) Procalcitonin (0-0.5) ng/ml TSH 0.883 (0.300-4.500) uIu/ml Digoxin (0.8-2.0) ng/ml 07/09/19 07/09/19 07/09/19 Range/Units 14:15 14:45 14:45 WBC (4.8-10.8) K/uL RBC (4.7-6.1) M/uL Hgb (14.0-18.0) g/dL Hct (42-52) % MCV (80-100) fL MCH (25-34) pg MCHC (32-36) g/dL RDW Std Deviation (36.4-46.3) fL RDW Coeff of Debra (11.5-14.5) % Plt Count (130-400) K/uL MPV (7.4-10.4) fL Immature Gran % (Auto) % Neut % (Auto) % Lymph % (Auto) % [place] % (Auto) % Eos % (Auto) % Baso % (Auto) % Immature Gran # (Auto) (0.00-0.02) K/uL Neut # (Auto) (1.4-6.5) K/uL Lymph # (Auto) (1.2-3.4) K/uL [place] # (Auto) (0.11-0.59) K/uL Eos # (Auto) (0-0.5) K/uL Baso # (Auto) (0-0.2) K/uL PT (9.0-12.0) Seconds INR (0.9-1.1) APTT (21.0-31.0) Seconds PTT Ratio VBG pH (7.36-7.41) VBG pCO2 (38-50) mmHg VBG pO2 mmHg VBG HCO3 mmol/L VBG O2 Saturation % VBG Base Excess mEq/L Barometric Pressure mm/Hg Sodium (136-145) mmol/L Potassium (3.5-5.1) mmol/L Chloride (98-107) mmol/L Carbon Dioxide (21-32) mmol/L Anion Gap (3-11) BUN (7-18) mg/dl Creatinine (0.6-1.4) mg/dl Est Cr Clr Drug Dosing Est GFR ( Amer) Est GFR (Non-Af Amer) BUN/Creatinine Ratio (10-20) Glucose (70-99) mg/dl Lactate 1.4 (0.4-2.0) mmol/L Calcium (8.5-10.1) mg/dl Total Bilirubin (0.2-1) mg/dl AST (15-37) U/L ALT (12-78) U/L Alkaline Phosphatase (45-117) U/L Troponin I (0-0.045) ng/ml NT-Pro-B Natriuret Pep (0-900) pg/ml Total Protein (6.4-8.2) gm/dl Albumin (3.4-5.0) gm/dl Globulin (2.5-4.0) gm/dl Albumin/Globulin Ratio (0.9-2) Procalcitonin < 0.05 (0-0.5) ng/ml TSH (0.300-4.500) uIu/ml Digoxin 0.4 L (0.8-2.0) ng/ml 07/09/19 Range/Units 14:45 WBC (4.8-10.8) K/uL RBC (4.7-6.1) M/uL Hgb (14.0-18.0) g/dL Hct (42-52) % MCV (80-100) fL MCH (25-34) pg MCHC (32-36) g/dL RDW Std Deviation (36.4-46.3) fL RDW Coeff of Debra (11.5-14.5) % Plt Count (130-400) K/uL MPV (7.4-10.4) fL Immature Gran % (Auto) % Neut % (Auto) % Lymph % (Auto) % [place] % (Auto) % Eos % (Auto) % Baso % (Auto) % Immature Gran # (Auto) (0.00-0.02) K/uL Neut # (Auto) (1.4-6.5) K/uL Lymph # (Auto) (1.2-3.4) K/uL [place] # (Auto) (0.11-0.59) K/uL Eos # (Auto) (0-0.5) K/uL Baso # (Auto) (0-0.2) K/uL PT (9.0-12.0) Seconds INR (0.9-1.1) APTT (21.0-31.0) Seconds PTT Ratio VBG pH 7.41 (7.36-7.41) VBG pCO2 43 (38-50) mmHg VBG pO2 27 mmHg VBG HCO3 26 mmol/L VBG O2 Saturation < 60.0 % VBG Base Excess 1.2 mEq/L Barometric Pressure 727.7 mm/Hg Sodium (136-145) mmol/L Potassium (3.5-5.1) mmol/L Chloride (98-107) mmol/L Carbon Dioxide (21-32) mmol/L Anion Gap (3-11) BUN (7-18) mg/dl Creatinine (0.6-1.4) mg/dl Est Cr Clr Drug Dosing Est GFR ( Amer) Est GFR (Non-Af Amer) BUN/Creatinine Ratio (10-20) Glucose (70-99) mg/dl Lactate (0.4-2.0) mmol/L Calcium (8.5-10.1) mg/dl Total Bilirubin (0.2-1) mg/dl AST (15-37) U/L ALT (12-78) U/L Alkaline Phosphatase (45-117) U/L Troponin I (0-0.045) ng/ml NT-Pro-B Natriuret Pep (0-900) pg/ml Total Protein (6.4-8.2) gm/dl Albumin (3.4-5.0) gm/dl Globulin (2.5-4.0) gm/dl Albumin/Globulin Ratio (0.9-2) Procalcitonin (0-0.5) ng/ml TSH (0.300-4.500) uIu/ml Digoxin (0.8-2.0) ng/ml Imaging Data Radiologist's Impression: Radiology results as stated below per my review and the radiologist's interpretation: XR chest 1V portable CLINICAL HISTORY: 68 years-old Male presenting with Dyspnea. TECHNIQUE: Portable upright AP view of the chest was obtained. COMPARISON: 04/02/2019. FINDINGS: Atherosclerosis of the aortic arch. Cardiac silhouette enlarged. Interval development of a moderate to large right pleural effusion. Postsurgical changes in the right hilum. Poor aeration of the right mid to lower lung. Left lung and pleural space grossly clear. Degenerative changes of the thoracic spine. Degenerative changes of the left AC joint. IMPRESSION: 1. Interval development of a moderate to large right pleural effusion with extensive right lung atelectasis. Underlying infection is not excluded. 2. Postsurgical changes of the right lung. 3. Cardiomegaly. Electronically signed by: aSmi Erickson M.D. 07/09/2019 3:25 PM ECG Data Attestation: I personally reviewed and interpreted this ECG as follows: Indication: SOB/dyspnea Rate (beats per minute): 128 Rhythm: atrial fibrillation (with RVR) Findings: + Q waves (Anterior, inferior), + T-wave inversion (high lateral) and + left axis deviation Comparison ECG Date: from (04/05/19) Change: the following changes noted (only rate change) Blood Pressure Blood Pressure Findings: Normal blood pressure MDM Narrative The patient is a 68 y/o male with a past medical history of A-fib, PE, AAA, and hypothyroidism, COPD, PVD, CAD and DVt, who presents to the emergency department for evaluation of constant shortness of breath that began two weeks ago. Patient was seen and evaluated the bedside. The patient did present with concern for shortness of breath. The patient does have significant wheezing on exam. Patient is in A. fib with RVR. The patient does have some mild volume ov erload. The patient was treated with duo nebs and steroids. To repeat blood work to come back to the patient's noted more wheezy than with crackles. The patient on chest x-ray does have a pleural effusion. Elevated BNP positive troponin. Believe the troponin is related to demand ischemia. Patient's EKG does not appear to have any acute changes. The patient denies any current chest pains. Patient was given some Cardizem which did improve his rate control Lasix to help with his volume and digoxin as he did not take it this morning and his level was low. I did speak the on-call hospitalist who agreed to further evaluate treat the patient. Patient was admitted to the medicine service. Impression & Plan Atrial fibrillation, Pleural effusion, CHF exacerbation, Elevated troponin Discharge Plan Visit Data *Final* Discharge Date/Time: 07/09/19 18:02 Chief Complaint: Shortness of Breath/Dyspnea Stated Complaint: SHORTNESS OF BREATH ED Provider: Rick Kendrick Discharge Problem: Atrial fibrillation, Pleural effusion, CHF exacerbation, Elevated troponin Patient Disposition: Admitted As Inpatient Discharge Instructions Interventions: ED Discharge Assessment Last Done: 07/09/19 18:02 Discharge Problem: Atrial fibrillation Qualifiers: Atrial fibrillation type: unspecified Qualified Code(s): I48.91 - Unspecified atrial fibrillation CHF exacerbation Qualifiers: Heart failure type: diastolic Qualified Code(s): I50.33 - Acute on chronic diastolic (congestive) heart failure The scribe's documentation has been prepared under my direction and personally reviewed by me in its entirety. I confirm that the note above accurately reflects all work, treatment, procedures, and medical decision making performed by me.
[2019-07-09] MEDS ORDERED: ALUMINUM/MAGNESIUM SUSP 30 ML UDC PO PRN (18:14)
[2019-07-09] MEDS ORDERED: LORazepam 1 MG TAB PO PRN (18:14)
[2019-07-09] MEDS ORDERED: POLYETHYLENE (MIRALAX) 17 GM PACK PO PRN (18:14)
[2019-07-09] MEDS ORDERED: ONDANSETRON INJ 2 MG/ML 2 ML VIAL IV PRN (18:14)
[2019-07-09] MEDS ORDERED: ACETAMINOPHEN 325 MG TAB PO PRN (18:14)
[2019-07-09] MEDS ORDERED: NON-FORMULARY MEDICATION (Melatonin 5 MG) PO PRN (18:14)
[2019-07-09] MEDS ORDERED: MAGNESIUM HYDROXIDE SUSP 30 ML UDC PO PRN (18:14)
[2019-07-09] MEDS ORDERED: XOPENEX/ATROVENT 0.63mg/0.5MG NEB COMBO NEB SCH (19:00)
[2019-07-09] MEDS: LEVALBUTEROL HCL 0.63 MG/3 ML NEB NEB SCH (19:29)
[2019-07-09] MEDS: IPRATROPIUM BROMIDE NEB SOLN 0.02% 2.5 ML VIAL INH SCH (19:29)
[2019-07-09] MEDS: CARVEDILOL 3.125 MG TAB PO SCH (22:53)
[2019-07-10] MEDS: LEVALBUTEROL HCL 0.63 MG/3 ML NEB NEB SCH ×4 (01:30→18:46)
[2019-07-10] MEDS: IPRATROPIUM BROMIDE NEB SOLN 0.02% 2.5 ML VIAL INH SCH ×4 (01:30→18:46)
[2019-07-10] MEDS ORDERED: POTASSIUM CHLORIDE 20 MEQ TABCR PO STA ×2 (05:00→06:21)
[2019-07-10 05:27] LABS: Hemoglobin 11.6 g/dL (14.0-18.0); Mean Corpuscular Hgb Conc 35.2 g/dL (32-36); Mean Corpuscular Volume 88.2 fL (80-100); Mean Platelet Volume 10.2 fL (7.4-10.4); Platelet Count 168 K/uL (130-400); RDW Coefficient of Variation 15.6 % (11.5-14.5); Red Blood Count 3.74 M/uL (4.7-6.1); White Blood Count 4.08 K/uL (4.8-10.8)
[2019-07-10] MEDS ORDERED: MAGNESIUM SULFATE / D5W 1 GM/100 ML BAG IV ONE (05:30)
[2019-07-10] MEDS ORDERED: DIGOXIN 250 MCG in SYRINGE 9 ML IV ONE (05:30)
[2019-07-10] MEDS: LEVOTHYROXINE SODIUM 137 MCG TABLET PO SCH (05:31)
[2019-07-10 05:51] LABS: BUN Creatinine Ratio 19.2 (10-20); Calcium 8.3 mg/dl (8.5-10.1); Creatinine Clr Calc Pharmacy 69.7 ml/min; Est GFR (Non-African American) 71.6; Magnesium 1.9 mg/dl (1.8-2.4)
[2019-07-10 06:09] LABS: Potassium 3.7 mmol/L (3.5-5.1)
[2019-07-10] MEDS ORDERED: DIGOXIN 250 MCG in SYRINGE 9 ML IV STA (06:21)
[2019-07-10] MEDS ORDERED: PNEUMOCOCCAL POLYSACCHARIDES 25 MCG/0.5 ML VIAL/SYR IM ONE (08:00)
[2019-07-10] MEDS ORDERED: INFLUENZA ADMINISTRATION CHARGE ONE (08:00)
[2019-07-10] MEDS ORDERED: PNEUMOCOCCAL ADMINISTRATION CHARGE ONE (08:00)
[2019-07-10] MEDS ORDERED: INFLUENZA VACCINE HIGH DOSE 65+ 0.5 ML SYR IM ONE (08:00)
[2019-07-10] MEDS: CARVEDILOL 3.125 MG TAB PO SCH ×2 (08:08→20:05)
[2019-07-10] MEDS: DIGOXIN 0.125 MG TAB PO SCH (08:08)
[2019-07-10] MEDS: CYANOCOBALAMIN 500 MCG TABLET (VITAMIN B-12) PO SCH (08:08)
[2019-07-10] MEDS: FUROSEMIDE 40 MG in SYRINGE 0 ML IV SCH (08:09)
[2019-07-10] MEDS ORDERED: ASPIRIN 81 MG ECTAB PO SCH (09:00)
[2019-07-10] MEDS ORDERED: RIVAROXABAN 20 MG TAB PO SCH (09:00)
[2019-07-10 09:36] LABS: INR 1.9 (0.9-1.1); Prothrombin Time 18.2 Seconds (9.0-12.0)
--- NOTE | 2019-07-10 11:58 | Cardiology Consultation ---
Date of Consultation July 10, 2019 Assessment & Plan (1) Pleural effusion: (2) Acute on chronic systolic CHF (congestive heart failure): (3) Atrial fibrillation: (4) Aortic stenosis: (5) Dilated cardiomyopathy: (6) S/P lobectomy of lung: (7) Lung cancer: (8) Tonsil carcinoma: (9) Pulmonary embolism: (10) Medical non-compliance: The patient's indicates me that recently he has been trying to be compliant with his medications. He has a large right pleural effusion which wi ll be tapped by surgery today. This pleural effusion may be from heart failure however with his previous history of malignancies could be a malignant effusion. I would continue diuretics. Further management options after we have results of his pleural fluid from the lab. 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 He has a history of an ischemic cardiomyopathy with severe LV dysfunction and an estimated left ventricular ejection fraction of less than 15-20%. He also has aortic stenosis versus pseudo aortic stenosis due to poor LV function. He has been anticoagulated but non compliant with medications and presented in September with a pulmonary emboli. He was on Eliquis which he did not tolerate and he was started on Coumadin with probable noncompliance and then re-presented in February of this year with a DVT and additional pulmonary emboli. At that time he had a thoracentesis done due to a large pleural effusion. Previously he has signed out AMA from the hospital. His is with him today and she is very supportive and helpful. The patient has had progressive shortness of breath. On admission he is noted to have a large right pleural effusion and has been seen by surgery in anticipation of a tap. He has not had increased lower extremity edema but his indicates that his abdomen has been distended. Allergies Allergy/AdvReac Type Severity Reaction Status Date / Time naproxen Allergy Unknown ITCHY Unverified 07/09/19 14:36 nicotine Allergy Unknown Rash -- Verified 07/09/19 14:36 from nicotine patch Home Medications Home Medications Medication Instructions Recorded Confirmed Type albuterol sulfate 2 puff INHALATION QID PRN 10/03/18 07/09/19 History cyanocobalamin (vitamin B-12) 500 mcg PO QAM 10/03/18 07/09/19 History [Vitamin B-12] digoxin 125 mcg PO QAM 03/11/19 07/09/19 History levothyroxine 137 mcg PO QAM 03/11/19 07/09/19 History melatonin 5 mg PO HS PRN 03/11/19 07/09/19 History furosemide 40 mg PO QAM #30 tab 03/17/19 07/09/19 Rx nitroglycerin [Nitrostat] 0.4 mg SUBLINGUAL UD PRN #30 tab 03/17/19 07/09/19 Rx aspirin [Aspir-81] 81 mg PO DAILY 07/09/19 07/09/19 History rivaroxaban [Xarelto] 20 mg PO DAILY 07/09/19 07/09/19 History Patient History Medical History Thoracic ascending aortic aneurysm (Chronic) Pleural effusion (Chronic) Pulmonary embolism (Chronic) Atrial fibrillation (Chronic) Aortic stenosis (Chronic) Dilated cardiomyopathy (Chronic) AAA (abdominal aortic aneurysm) (Chronic) Hypothyroidism (Chronic) Alcohol use (Chronic) Tobacco use (Chronic) COPD (chronic obstructive pulmonary disease) (Chronic) PVD (peripheral vascular disease) (Chronic) "chronic BL SFA occlusions" Carotid artery disease (Chronic) "US 2011- Right carotid artery duplex examination indicates evidence of 50- 69% stenosis of the internal carotid artery. 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 Lung cancer (Chronic) [facility] Son Kline Surgical History Status post percutaneous abdominal aortic aneurysm (AAA) repair (Chronic) History of arthroscopy of left shoulder (Chronic) H/O bursectomy (Chronic) History of nasal septoplasty (Chronic) History of back surgery (Chronic) H/O arthroscopy of shoulder (Chronic) Hx of tonsillectomy (Chronic) S/P lobectomy of lung (Chronic) Family History Father Heart disease Mother Heart disease Social History Preferred Language: Greenlandic Communication Ability: Effective Talent Director Required: No Beliefs That Will Affect Care: None marital status: Current Living Situation: Spouse current occupational status: retired Other Information That Helps Us Care for You: No Feels Safe at Home: Yes Safety Concerns: Feels Safe At This Time Smoking Status: Current every day smoker Tobacco Type: cigarettes ; Cigarettes Per Day: 1PPD ; Do You Dip or Chew Tobacco: No ; Second Hand Exposure: No ; Tobacco Cessation Education Requested by Patient: No Hx Alcohol Use: Yes Alcohol type: beer Alcohol Intake Frequency Comment: 3 beers day; however for past 2 weeks only has been having 1 Hx Substance Use: No Results & Data Vital Signs (Past 12 Hours) Vital Signs Temp Pulse Pulse Resp BP Pulse Ox 07/10/19 08:08 103 H 07/10/19 08:00 103 H 07/10/19 07:35 36.7 C 104 H 18 111/77 96 07/10/19 07:07 84 18 91 07/10/19 06:36 115 H 07/10/19 06:35 115 H 115/87 07/10/19 05:26 121 H 07/10/19 03:13 36.5 C 102 H 16 100/65 93 07/10/19 01:30 120 H 18 96 (1) Atrial fibrillation Atrial fibrillation type: unspecified Qualified Code(s): I48.91 - Unspecified atrial fibrillation
--- NOTE | 2019-07-10 13:10 | Consultation Report ---
DATE OF CONSULTATION: 07/10/2019 REASON FOR CONSULTATION: Recurrent right pleural effusion. HISTORY OF PRESENT ILLNESS: Terence Domínguez is a 68-year-old male who underwent a robot-assisted thoracoscopic right upper lobectomy for squamous cell carcinoma on 08/2017. The patient did very well for well over a year; however, presented back with a pleural effusion on the right. Back on 03/15/2019, I drained 1000 mL of fluid. I was a bit concerned about the fact that he had cirrhosis. This fluid was not malignant 4 months ago. He presents now today with signs and symptoms consistent with congestive heart failure. He has an EF of about 10%. He also has a history of PEs. He is noncompliant, continues to smoke. I was asked to evaluate him for this pleural effusion. Despite the fact that he is on room air with acceptable saturations, he is quite short of breath when he pushes himself. PAST MEDICAL HISTORY: 1. 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 2. Recurrent right pleural effusion. 3. Active cigarette smoking. 4. History of alcohol abuse. 5. Nasopharyngeal carcinoma. 6. Abdominal aortic aneurysm treated with an EVAR. 7. Anemia. 8. Pulmonary emboli. 9. Peripheral vascular disease. 10. Ascites with possible cirrhosis. 11. Hyperlipidemia. 12. Markedly dilated cardiomyopathy with biventricular failure. 13. Chronic atrial fibrillation. PAST SURGICAL HISTORY: 1. Robot-assisted thoracoscopic right upper lobectomy 08/2017. 2. Arthroscopy, left shoulder. 3. Endovascular abdominal aortic aneurysm repair. 4. Resection of tonsillar carcinoma. 5. Bursectomy. 6. Nasal septoplasty. 7. Lumbar laminectomy with fixation. MEDICATIONS: Please see chart, but include warfarin. ALLERGIES: The patient states NAPROSYN CAUSES RASH and NICOTINE PATCH CAUSES RASH. SOCIAL HISTORY: The patient lives with his for many years. He used to be heavy drinker, but he states he drinks very little now. He continues to smoke between half-pack and a pack a day. FAMILY MEDICAL HISTORY: Mother and father both had coronary artery disease and there is a history of hypertension in his parents as well as a carcinoma, although he was not quite clear of the etiology or even who had it. REVIEW OF SYSTEMS: The patient has not felt well. His dyspnea on exertion has worsened. He has had worsening lower extremity edema and ascites. He has also been anorexic. He continues to smoke cigarettes. He has a chronic cough, which produces brown sputum on occasion. He gets so short of breath and he has really been unable to walk. He also complained of chest pain on occasion. He denies palpitations. He does have a history of atrial fibrillation. He denies fevers or sweats. He has had no neurologic events such as transient ischemic attack or seizures. He has had no wound breakdown. He has had no change in his vision or his hearing. PHYSICAL EXAMINATION: GENERAL: This is an ill-appearing male who stands 5 feet 11 inches tall and weighs about 167 pounds. HEENT: His extraocular movements are intact. His sclerae are pale, but anicteric. His pupils are reactive to light. He is edentulous. His oral mucosa actually appears a bit dry to me. He has no nasolabial flattening. His tongue is midline. NECK: Supple. I do not detect carotid bruits. He has no lymphadenopathy. He has mild neck vein distention at 15 degrees. LUNGS: He has markedly decreased breath sounds on the right, and some mild wheezing on the right. HEART: He has a regular rate and rhythm of his heart. He does have a systolic murmur. ABDOMEN: Soft. He may have some ascites. EXTREMITIES: He does have edema of his lower legs about 1+. He has no mottling. He has no joint effusions. NEUROLOGIC: He has no asterixis. He is awake and alert, although I do think there are some cognitive issues here. ASSESSMENT AND PLAN: Recurrent right pleural effusion. I discussed this with the patient and his . We will proceed with a right thoracentesis under ultrasound guidance today.
--- NOTE | 2019-07-10 17:54 | Hospitalist Progress Note ---
Date of Service July 10, 2019 Assessment & Plan (1) Acute on chronic systolic CHF (congestive heart failure): somewhat improved continue Lasix 40mg IV for R sided thoracentesis HOLD Xarelto and Aspirin (2) Atrial fibrillation: Pt in afib with RVR cardiology consulted Carvedilol started continue dig -- Xarelto on HOLD for thoracentesis (3) Elevated troponin: ACS ruled out (4) COPD exacerbation: resolved no wheezing continue bronchidilators (5) Pleural effusion: Patient with chronic right pleural effusion Current chest x-ray appears mildly worsened from previous in 02/2019 Patient follows closely with Dr. Skelton Last thoracentesis 03/16/2019 -- for R sided thoracentesis HOLD Xarelto and Aspirin (6) Aortic stenosis: as per last echo (7) Hypothyroidism: Continue levothyroxine TSH 0.883 (8) Elevated INR: Unknown etiology? Patient currently on Xarelto ? coagulopathy 2/2 right-sided heart failure and hepatic congestion -- INR remains 1.9 (9) Alcohol use: [facility] protocol to monitor for s/sx of withdrawal last drink - 1 light beer yesterday ( past 2 weeks drinks 1 beer daily; previously had been 3-4 a day) Lorazepam prn - no signs of alcohol withdrawal (10) Tobacco use: Encourage smoking cessation Patient currently declines nicotine patch (11) DVT prophylaxis: Xarelto ON HOLD SCD/teds Disposition: Admit to PCU Follow-up: PCP Dr. Carlisle upon discharge along with appropriate cardiology follow-up Subjective ff up for acute CHF exacerbation seen resting in bed, comfortable states he feels improved today compared to yesterday denies shortness of breath, chest pain no palpitations, dizziness no bleeding denies other symptoms Review of Systems Review of Systems: All systems reviewed & are unremarkable except as noted in HPI & below Physical Exam Physical Exam: General- oriented x 3, not in distress, speaks in sentences with no effort or accessory muscle use Head- atraumatic Eyes- PERRL, EOMI, anicteric ENT- oropharynx clear Neck- supple, no JVD, no adenopathy, no thyromegaly; carotids +2/2, no bruits appreciated Lungs- decreased breath sounds right mid-base clear on the left Heart- normal rate, regular rhythm; no murmur, no gallop, no rub appreciated Abdomen- normal bowel sounds, nondistended, soft, nontender, no masses or hepatosplenomegaly Extremities- mild pretibial edema, no calf tenderness; peripheral pulses intact Neuro- alert, oriented x 3; CN 2-12 grossly intact; motor 5/5 bilaterally;sensation 100% on all extremities; no other gross focal neurologic deficits Skin- warm & dry Results & Data Vital Signs (Past 12 Hours) Vital Signs Temp Pulse Pulse Resp BP Pulse Ox 07/10/19 16:00 103 H 07/10/19 15:28 36.6 C 101 H 19 93/56 L 94 07/10/19 12:59 62 18 94 07/10/19 12:37 36.7 C 104 H 18 93/65 L 99 07/10/19 08:08 103 H 07/10/19 08:00 103 H 07/10/19 07:35 36.7 C 104 H 18 111/77 96 07/10/19 07:07 84 18 91 07/10/19 06:36 115 H 07/10/19 06:35 115 H 115/87 (1) Atrial fibrillation Atrial fibrillation type: unspecified Qualified Code(s): I48.91 - Unspecified atrial fibrillation
[2019-07-11] MEDS: IPRATROPIUM BROMIDE NEB SOLN 0.02% 2.5 ML VIAL INH SCH ×4 (01:34→19:33)
[2019-07-11] MEDS: LEVALBUTEROL HCL 0.63 MG/3 ML NEB NEB SCH ×4 (01:35→19:33)
[2019-07-11] MEDS ORDERED: MAGNESIUM SULFATE / D5W 1 GM/100 ML BAG IV ONE (01:50)
[2019-07-11] MEDS ORDERED: POTASSIUM CHLORIDE 20 MEQ TABCR PO STA (01:50)
[2019-07-11 03:08] LABS: Basophils # (auto) 0.05 K/uL (0-0.2); Basophils % (auto) 0.7 %; Eosinophils # (auto) 0.04 K/uL (0-0.5); Eosinophils % (auto) 0.5 %; Hematocrit (blood only) 35.4 % (42-52); Hemoglobin 11.5 g/dL (14.0-18.0); Immature Granulocytes # (auto) 0.01 K/uL (0.00-0.02); Immature Granulocytes % (auto) 0.1 %; Lymphocytes # (auto) 1.64 K/uL (1.2-3.4); Lymphocytes % (auto) 21.4 %; Mean Corpuscular Hemoglobin 29.5 pg (25-34); Mean Corpuscular Hgb Conc 32.5 g/dL (32-36); Mean Corpuscular Volume 90.8 fL (80-100); Mean Platelet Volume 10.2 fL (7.4-10.4); Monocytes # (auto) 0.71 K/uL (0.11-0.59); Monocytes % (auto) 9.3 %; Platelet Count 185 K/uL (130-400); RDW Coefficient of Variation 15.7 % (11.5-14.5); RDW Standard Deviation 51.5 fL (36.4-46.3); White Blood Count 7.65 K/uL (4.8-10.8)
[2019-07-11 03:28] LABS: BUN Creatinine Ratio 26.2 (10-20); Creatinine Clr Calc Pharmacy 73.9 ml/min; Est GFR (African American) 89.1; Est GFR (Non-African American) 76.8; Magnesium 2.4 mg/dl (1.8-2.4); Potassium 3.9 mmol/L (3.5-5.1)
[2019-07-11] MEDS: LEVOTHYROXINE SODIUM 137 MCG TABLET PO SCH (06:15)
[2019-07-11] MEDS: CARVEDILOL 3.125 MG TAB PO SCH (09:17)
[2019-07-11] MEDS: FUROSEMIDE 40 MG in SYRINGE 0 ML IV SCH (09:17)
[2019-07-11] MEDS: DIGOXIN 0.125 MG TAB PO SCH (09:18)
[2019-07-11] MEDS: CYANOCOBALAMIN 500 MCG TABLET (VITAMIN B-12) PO SCH (09:18)
--- NOTE | 2019-07-11 09:27 | Operative Report ---
DATE OF OPERATION: 07/11/2019 PREOPERATIVE DIAGNOSIS: Recurrent right pleural effusion. POSTOPERATIVE DIAGNOSIS: Recurrent right pleural effusion. PROCEDURE: Right thoracentesis under ultrasound guidance. SURGEON: John Skelton MD. TOBACCO SPRAYER: zbigniew Benitez 3. ANESTHESIA: Local. SPECIFICS OF PROCEDURE: The patient in upright position, ultrasound was used to pinpoint an area with good entry into the pleural cavity. He has significant amount of pleural fluid noted. He was marked and then prepped and draped in usual sterile fashion and appropriate timeout was called. A 25-gauge needle and 1% Xylocaine were used to raise the skin wheal, the skin and subcutaneous tissues. A large bore needle was used to anesthetize the intercostal muscles and pleura above the rib. We got free flowing yellow fluid back. Guidewire was inserted through the needle and the needle removed. Triple lumen catheter was slid over the guidewire and the guidewire removed. A 1500 mL of a [place] fluid was drained. He had no reexpansion pain and he had some mild coughing. We could have drained more and I stopped at this point because he has poor LV function and I did not want to exacerbate any symptoms. He had no pain whatsoever. I removed the catheter and put an antimicrobial dressing. Chest x-ray is pending. He tolerated it well. I attest to the content of the Intraoperative Record and any orders documented therein. Any exception s are noted below.
--- NOTE | 2019-07-11 09:33 | XRay Report ---
XR chest 1V portable HISTORY: S/P Thoracentesis COMPARISON: Chest 07/09/2019. FINDINGS: Decrease in size in the small right pleural effusion status post thoracentesis. No right-si ded pneumothorax. The heart remains mildly enlarged. No evidence for pulmonary edema. Improved aerati on within the right lung base. No new focal lung consolidations. Postoperative changes again noted wi thin the right lung. IMPRESSION: Decrease in size in the small right pleural effusion status post thoracentesis. No pneumothorax. Electronically signed by: Enrrique aCpps M.D. 07/11/2019 9:32 AM
--- NOTE | 2019-07-11 10:19 | Cardiology Progress Note ---
Date of Service July 11, 2019 Assessment & Plan (1) Pleural effusion: (2) Acute on chronic systolic CHF (congestive heart failure): (3) Atrial fibrillation: (4) Aortic stenosis: (5) Dilated cardiomyopathy: (6) S/P lobectomy of lung: (7) Lung cancer: (8) Tonsil carcinoma: (9) Pulmonary embolism: (10) Medical non-compliance: The patient feels much improved after his thoracentesis. He is walking the brady. He is on a stable group of medications. At this point I think he can be discharged to outpatient follow-up. I will arrange follow-up. Subjective The patient is up walking the brady. He has no complaints and feels much im proved after 1500 cc of a transudate were removed yesterday from his right pleural space. Review of Systems Review of Systems: All systems reviewed & are unremarkable except as noted in HPI & below Nothing additional to add. Physical Exam Physical Exam: General: no acute distress and stated age Head: normocephalic, no masses, lesions, tenderness or abnormalities Eyes: conjunctiva are pink and non-injected, sclera clear Neck: supple, no adenopathy, no bruits, normal jugular venous pulse, no hepatojugular reflux Chest: normal shape and normal respiratory effort Lungs: clear to auscultation and percussion Cardiac Exam: - irregular rate & rhythm, no murmurs gallops or rubs - normal S1, normal S2 Pulses: 2(+) throughout Abdomen: abdomen soft, non-tender, no abnormal masses and no hepatosplenomegaly Musculoskeletal: no gait disturbance, no joint inflammation, no deforming arthritis Extremities: no edema and no cyanosis Neuro: grossly normal exam Results & Data Vital Signs (Past 12 Hours) Vital Signs Temp Pulse Pulse Resp BP BP Pulse Ox 07/11/19 10:01 102 H 07/11/19 09:47 68 16 99/68 L 94 07/11/19 09:18 114 H 07/11/19 08:45 36.3 C L 112 H 18 107/71 98 07/11/19 06:58 113 H 18 96 07/11/19 03:45 36.4 C L 97 H 22 91/60 L 97 07/11/19 01:35 74 18 96 07/10/19 23:19 37.1 C 98 H 20 99/61 L 95 Laboratory Results Laboratory Results - last 24 hr 07/11/19 07/11/19 07/11/19 02:54 02:54 09:14 WBC 7.65 RBC 3.90 L Hgb 11.5 L Hct 35.4 L MCV 90.8 MCH 29.5 MCHC 32.5 RDW Std Deviation 51.5 H RDW Coeff of Debra 15.7 H Plt Count 185 MPV 10.2 Immature Gran % (Auto) 0.1 Neut % (Auto) 68.0 Lymph % (Auto) 21.4 [place] % (Auto) 9.3 Eos % (Auto) 0.5 Baso % (Auto) 0.7 Immature Gran # (Auto) 0.01 Neut # (Auto) 5.20 Lymph # (Auto) 1.64 [place] # (Auto) 0.71 H Eos # (Auto) 0.04 Baso # (Auto) 0.05 Sodium 139 Potassium 3.9 Chloride 108 H Carbon Dioxide 25 Anion Gap 6.0 BUN 26 H Creatinine 0.99 Est Cr Clr Drug Dosing 73.9 Est GFR ( Amer) 89.1 Est GFR (Non-Af Amer) 76.8 BUN/Creatinine Ratio 26.2 H Glucose 128 H Calcium 8.0 L Magnesium 2.4 Pleural Fluid Source Pending Pleural Color Pending Pleural Appearance Pending Pleural pH Pleural WBC Pending Pleural RBC Pending Pleural Total Protein Pleural LDH Pleural Glucose Pleural Amylase 07/11/19 07/11/19 09:14 09:14 WBC RBC Hgb Hct MCV MCH MCHC RDW Std Deviation RDW Coeff of Debra Plt Count MPV Immature Gran % (Auto) Neut % (Auto) Lymph % (Auto) [place] % (Auto) Eos % (Auto) Baso % (Auto) Immature Gran # (Auto) Neut # (Auto) Lymph # (Auto) [place] # (Auto) Eos # (Auto) Baso # (Auto) Sodium Potassium Chloride Carbon Dioxide Anion Gap BUN Creatinine Est Cr Clr Drug Dosing Est GFR ( Amer) Est GFR (Non-Af Amer) BUN/Creatinine Ratio Glucose Calcium Magnesium Pleural Fluid Source Pleural Color Pleural Appearance Pleural pH 7.47 H Pleural WBC Pleural RBC Pleural Total Protein Pending Pleural LDH Pending Pleural Glucose 108 Pleural Amylase Pending Diagnostic Findings Final pathology on the pleural fluid reveals it is a transudate. Medications Administered Current Inpatient Medications Acetaminophen (Tylenol) 650 mg PO Q4H PRN PRN Reason: Pain or Fever Stop: 08/08/19 18:13 Al Hydrox/Mg Hydrox/Simethicone (Maalox) 15 ml PO Q4H PRN PRN Reason: Dyspepsia Stop: 08/08/19 18:13 Aspirin (Ecotrin Ectab) 81 mg PO DAILY [facility] Stop: 08/09/19 08:59 Last Admin: 07/10/19 08:08 Dose: 81 mg Documented by: Carvedilol (Coreg) 3.125 mg PO BID [facility] Stop: 08/08/19 20:59 Last Admin: 07/11/19 09:17 Dose: 3.125 mg Documented by: Cyanocobalamin (Vitamin B-12) 500 mcg PO QAM [facility] Stop: 08/09/19 08:59 Last Admin: 07/11/19 09:18 Dose: 500 mcg Documented by: Digoxin (Lanoxin) 0.125 mg PO QAM [facility] Stop: 08/09/19 08:59 Last Admin: 07/11/19 09:18 Dose: 0.125 mg Documented by: Furosemide 40 mg/ Syringe 4 mls @ 4 mls/min IV DAILY [facility] Stop: 08/09/19 08:59 Last Admin: 07/11/19 09:17 Dose: 4 mls/min Documented by: Ipratropium Fajardo (Atrovent 0.02% 0.5mg/2.5ml) 0.5 mg INH Q6R [facility] Stop: 08/08/19 18:59 Last Admin: 07/11/19 06:58 Dose: 0.5 mg Documented by: Levalbuterol HCl (Xopenex 0.63 Mg/3 Ml Neb) 0.63 mg NEB Q6R [facility] Stop: 08/08/19 18:59 Last Admin: 07/11/19 06:58 Dose: 0.63 mg Documented by: Levothyroxine Sodium (Levothyroxine Sodium) 137 mcg PO DAILYBB [facility] Stop: 08/09/19 06:29 Last Admin: 07/11/19 06:15 Dose: 137 mcg Documented by: Lorazepam (Ativan) 1 mg PO ONE PRN; Protocol PRN Reason: EtoH Withdrawal AWSS 6-10 Magnesium Hydroxide (Milk Of Magnesia) 30 ml PO Q12H PRN PRN Reason: Constipation Stop: 08/08/19 18:13 Ondansetron HCl (Zofran) 4 mg IV Q6H PRN PRN Reason: Nausea Stop: 08/08/19 18:13 Polyethylene Glycol (Miralax Powder Packet) 17 gm PO DAILY PRN PRN Reason: Constipation Stop: 08/08/19 18:13 Rivaroxaban (Xarelto) 20 mg PO DAILY [facility] Stop: 08/09/19 08:59 Last Admin: 07/10/19 08:07 Dose: 20 mg Documented by: (1) Atrial fibrillation Atrial fibrillation type: unspecified Qualified Code(s): I48.91 - Unspecified atrial fibrillation
[2019-07-11 10:25] LABS: Appearance Pleural Fluid CLEAR; Color Pleural Fluid YELLOW; Mononuclear WBC Pleural 81.4 %; Polynuclear WBC Pleural 18.6 %; RBC Pleural Fluid (A) < 3000 /uL; Source Pleural Fluid RIGHT LUNG; WBC Pleural Fluid (A) 313 /uL
--- NOTE | 2019-07-11 17:37 | Hospitalist Progress Note ---
Date of Service July 11, 2019 Assessment & Plan (1) Acute on chronic systolic CHF (congestive heart failure): improved s/p R sided thoracentesis Pleural fluid studies: pending continue Lasix 40mg daily cleared for d/c per Cardio and [facility] (2) Atrial fibrillation: Pt in afib with RVR cardiology consulted Carvedilol started continue dig resume Xarelto , ok with Dr. Skelton (3) Elevated troponin: ACS ruled out (4) COPD exacerbation: resolved no wheezing continue bronchidilators (5) Pleural effusion: Patient with chronic right pleural effusion Current chest x-ray appears mildly worsened from previous in 02/2019 Patient follows closely with Dr. Skelton Last thoracentesis 03/16/2019 --s/p R sided thoracentesis may resume Xarelto and Aspirin per Dr. Skelton (6) Aortic stenosis: as per last echo (7) Hypothyroidism: Continue levothyroxine TSH 0.883 (8) Elevated INR: Unknown etiology? Patient currently on Xarelto ? coagulopathy 2/2 right-sided heart failure and hepatic congestion -- INR remains 1.9 (9) Alcohol use: AW protocol to monitor for s/sx of withdrawal last drink - 1 light beer yesterday ( past 2 weeks drinks 1 beer daily; previously had been 3-4 a day) Lorazepam prn - no signs of alcohol withdrawal (10) Tobacco use: Encourage smoking cessation Patient currently declines nicotine patch (11) DVT prophylaxis: Xarelto Disposition: Admit to PCU Follow-up: D/C home ff up with PCP as outlined in DC summary ff up with Cardiology Clinic, they will schedule the patient Subjective ff up for r pleural effusion s/p thoracentesis, tolerated well seen resting in chair , comfortable not in distress states he feels much better denies SOB, ambulates with no problems denies other symptoms states he is ready and would like to be discharged Review of Systems Review of Systems: All systems reviewed & are unremarkable except as noted in HPI & below Physical Exam Physical Exam: General- oriented x 3, not in distress, speaks in sentences with no effort or accessory muscle use Eyes- anicteric Neck- no JVD Lungs- clear breath sounds bilaterally, no rales/wheezes thoracentesis site: no bleeding, hematoma Heart- normal rate, regular rhythm; no murmurs Abdomen- normal bowel sounds, nondistended, soft, nontender Extremities- no pretibial edema, no calf tenderness Neuro- alert, oriented x 3; no gross focal neurologic deficits Skin- warm & dry Results & Data Vital Signs (Past 12 Hours) Vital Signs Temp Pulse Pulse Resp BP BP Pulse Ox 07/11/19 16:00 64 07/11/19 15:10 36.8 C 91 H 19 99/73 L 96 07/11/19 13:04 67 16 98 07/11/19 11:47 36.4 C L 96 H 18 105/70 99 07/11/19 10:58 36.4 C L 105 H 18 104/64 103/74 98 07/11/19 10:01 102 H 07/11/19 09:47 68 16 99/68 L 94 07/11/19 09:18 114 H 07/11/19 08:45 36.3 C L 112 H 18 107/71 98 07/11/19 06:58 113 H 18 96 Laboratory Results Laboratory Results - last 24 hr 07/11/19 07/11/19 07/11/19 02:54 02:54 09:14 WBC 7.65 RBC 3.90 L Hgb 11.5 L Hct 35.4 L MCV 90.8 MCH 29.5 MCHC 32.5 RDW Std Deviation 51.5 H RDW Coeff of Debra 15.7 H Plt Count 185 MPV 10.2 Immature Gran % (Auto) 0.1 Neut % (Auto) 68.0 Lymph % (Auto) 21.4 [place] % (Auto) 9.3 Eos % (Auto) 0.5 Baso % (Auto) 0.7 Immature Gran # (Auto) 0.01 Neut # (Auto) 5.20 Lymph # (Auto) 1.64 [place] # (Auto) 0.71 H Eos # (Auto) 0.04 Baso # (Auto) 0.05 Sodium 139 Potassium 3.9 Chloride 108 H Carbon Dioxide 25 Anion Gap 6.0 BUN 26 H Creatinine 0.99 Est Cr Clr Drug Dosing 73.9 Est GFR ( Amer) 89.1 Est GFR (Non-Af Amer) 76.8 BUN/Creatinine Ratio 26.2 H Glucose 128 H Calcium 8.0 L Magnesium 2.4 Pleural Fluid Source RIGHT LUNG Pleural Color YELLOW Pleural Appearance CLEAR Pleural pH Pleural WBC 313 Pleural RBC < 3000 Pleural Polynuclear % 18.6 Pleural Mononuclear % 81.4 Pleural Total Protein Pleural LDH Pleural Glucose Pleural Amylase 07/11/19 07/11/19 09:14 09:14 WBC RBC Hgb Hct MCV MCH MCHC RDW Std Deviation RDW Coeff of Debra Plt Count MPV Immature Gran % (Auto) Neut % (Auto) Lymph % (Auto) [place] % (Auto) Eos % (Auto) Baso % (Auto) Immature Gran # (Auto) Neut # (Auto) Lymph # (Auto) [place] # (Auto) Eos # (Auto) Baso # (Auto) Sodium Potassium Chloride Carbon Dioxide Anion Gap BUN Creatinine Est Cr Clr Drug Dosing Est GFR ( Amer) Est GFR (Non-Af Amer) BUN/Creatinine Ratio Glucose Calcium Magnesium Pleural Fluid Source Pleural Color Pleural Appearance Pleural pH 7.47 H Pleural WBC Pleural RBC Pleural Polynuclear % Pleural Mononuclear % Pleural Total Protein 2.0 Pleural LDH 63 Pleural Glucose 108 Pleural Amylase 9 (1) Atrial fibrillation Atrial fibrillation type: unspecified Qualified Code(s): I48.91 - Unspecified atrial fibrillation
--- NOTE | 2019-07-11 21:28 | Discharge Summary ---
Date of Service July 11, 2019 Admission HPI Per Admitting Provider This is a 68-year-old male who has significant past medical history of ischemic cardiomyopathy EF less than 15%, A. fib anticoagulated on Xarelto, chronic right pleural effusion, CAD, aortic stenosis, COPD, tobacco abuse, alcohol abuse, hypothyroidism, PVD, history of DVT/PE, BPH, carotid artery stenosis, history of right lung SCC s/p lobectomy 2016, history of laryngeal CA status post radiation and chemo 2003 who presents to [facility] ED secondary to shortness of breath and edema x2 weeks. Over the past 2 weeks patient has been having persistent and increasing shortness of breath with exertion, now at rest, worsening lower extremity edema, bloating of abdomen, decreased appetite, chronic cough secondary to tobacco use occasionally productive with brown sputum, wheezing, inability to walk more than 4-5 steps secondary to shortness of breath, decreased urinary output, occasional precordial chest pain that is intermittent, comes and goes, last 1 to 2 minutes, resolves without action. Denies increased sputum production or increase in appearance. He denies any recent fever, sweats, but is always cold. Denies any lightheadedness, dizziness, syncope, fall, hemoptysis, nausea, vomiting, abdominal pain, dysuria, increased urgency or frequency with urination, hematuria, melena, hematochezia. Last BM this morning. At baseline patient is usually able to ambulate without difficulty or shortness of breath, does not need assistive device, still drives. He usually drives to the, "club" daily and will have a drink, "but I have not even been able to do that." Usually patient would drink 3-4 light beers daily; however, for the past 2 weeks he has been having difficulty having 1 drink nightly. He does still smoke roughly 1 pack/day. He has been compliant with medication including diuretic and Xarelto. is at bedside and confirms this. He does not weigh himself on a regular basis. Admission Exam Per Admitting Provider Constitutional: Chronically ill-appearing male, appears older than stated age, lying in bed in lateral decubitus position, vitals as above, NAD,conversing easily Head: Normocephalic, Atraumatic Eyes: PERRL, conjunctivae normal, anicteric sclerae ENMT: external ear and nose normal, oropharynx normal Neck: trachea midline, no thyromegaly normal visual inspection Respiratory: normal respiratory effort, lungs clear to auscultation, with right basilar expiratory wheeze, no rales rhonchi noted, decreased lung sounds at right lung base. He does have audible wheezing with conversation. normal insp/exp effort, no accessory muscle use, saturating well on room air Cardiovascular: Irregular rate, irregular rhythm, 2/6 precordial systolic murmur noted, +1 pretibial edema and pedal edema, no erythema, warmth, negative Homans sign Vessels: no JVD or carotid bruit Chest: normal inspection of chest Abdomen: normal bowel sounds, soft, nontender, mildly distended, no hep atosplenomegaly Musculoskeletal: no cyanosis, extremities motor strength 4/5 Skin: no rashes, warm and dry normal turgor Neurologic: PERRL, EOMI, accommodation nl, no face palsy, no dysarthria CN's II-XI intact bilaterally and moves all extremities Psychiatric: A+Ox3, flat affect Lymphatic: no cervical or axillary lymphadenopathy : deferred Principal Diagnosis Acute on chronic systolic CHF, right pleural effusion Discharge Exam General- oriented x 3, not in distress, speaks in sentences with no effort or accessory muscle use Eyes- anicteric Neck- no JVD Lungs- clear breath sounds bilaterally, no rales/wheezes thoracentesis site: no bleeding, hematoma Heart- normal rate, regular rhythm; no murmurs Abdomen- normal bowel sounds, nondistended, soft, nontender Extremities- no pretibial edema, no calf tenderness Neuro- alert, oriented x 3; no gross focal neurologic deficits Skin- warm & dry Discharge Data Allergies Allergy/AdvReac Type Severity Reaction Status Date / Time naproxen Allergy Unknown ITCHY Unverified 07/09/19 14:36 nicotine Allergy Unknown Rash -- Verified 07/09/19 14:36 from nicotine patch Consultations 07/09/19 16:10 ED Decision to Admit Stat 07/09/19 17:05 Consult Cardiology Routine 07/09/19 18:14 Consult Case Management - Discharge Planning Routine Consult Thoracic Surgery Routine Procedures Performed XR chest 1V portable CLINICAL HISTORY: 68 years-old Male presenting with Dyspnea. TECHNIQUE: Portable upright AP view of the chest was obtained. COMPARISON: 04/02/2019. FINDINGS: Atherosclerosis of the aortic arch. Cardiac silhouette enlarged. Interval development of a moderate to large right pleural effusion. Postsurgical changes in the right hilum. Poor aeration of the right mid to lower lung. Left lung and pleural space grossly clear. Degenerative changes of the thoracic spine. Degenerative changes of the left AC joint. IMPRESSION: 1. Interval development of a moderate to large right pleural effusion with extensive right lung atelectasis. Underlying infection is not excluded. 2. Postsurgical changes of the right lung. 3. Cardiomegaly. Electronically signed by: Sami Erickson M.D. 07/09/2019 3:25 PM XR chest 1V portable HISTORY: S/P Thoracentesis COMPARISON: Chest 07/09/2019. FINDINGS: Decrease in size in the small right pleural effusion status post thoracentesis. No right-sided pneumothorax. The heart remains mildly enlarged. No evidence for pulmonary edema. Improved aeration within the right lung base. No new focal lung consolidations. Postoperative changes again noted within the right lung. IMPRESSION: Decrease in size in the small right pleural effusion status post thoracentesis. No pneumothorax. Hospital Course (1) Acute on chronic systolic CHF (congestive heart failure): improved s/p R sided thoracentesis Pleural fluid studies: pending, PLEASE FOLLOW UP continue Lasix 40mg daily cleared for d/c per Cardio and [facility] (2) Atrial fibrillation: Pt in afib with RVR cardiology consulted Carvedilol started continue dig resumeDd Xarelto , ok with Dr. Skelton (3) Elevated troponin: Acute coronary syndrome ruled out (4) COPD exacerbation: resolved no wheezing continue bronchidilators (5) Pleural effusion: Patient with chronic right pleural effusion Current chest x-ray appears mildly worsened from previous in 02/2019 Patient follows closely with Dr. Skelton Last thoracentesis 03/16/2019 --s/p R sided thoracentesis during admission may resume Xarelto and Aspirin per Dr. Skelton (6) Aortic stenosis: as per last echo (7) Hypothyroidism: Continue levothyroxine TSH 0.883 (8) Elevated INR: Unknown etiology? Patient currently on Xarelto ? coagulopathy 2/2 right-sided heart failure and hepatic congestion -- INR remains 1.9 --Monitor and further work-up as an outpatient (9) Alcohol use: [facility] protocol to monitor for s/sx of withdrawal last drink - 1 light beer yesterday ( past 2 weeks drinks 1 beer daily; previously had been 3-4 a day) Lorazepam prn - no signs of alcohol withdrawal (10) Tobacco use: Encourage smoking cessation Patient currently declines nicotine patch (11) DVT prophylaxis: Xarelto Follow-up: D/C home ff up with PCP as outlined in DC summary ff up with Cardiology Clinic, they will schedule the patient Total Time Total Time Spent Total Time Spent (In Minutes): 40 minutes Discharge Plan Discharge Items Patient Disposition: Home - Home Health Services Reason For Visit: DECOMPENSATED CHF,COPD EXAC,AFIB WITH RVR,ELEV TRO Discharge Diagnosis: RIGHT SIDED PLEURAL EFFUSION Activity: As commented below Activity Comment: RESUME ACTIVITY GRADUALLY TOLERATED Lifting: Wait until after follow-up appointment Exercise/Sports: Wait until after follow-up appointment Driving/Machine Use: NO DRIVING UNTIL RE-EVALUATED BY PRIMARY CARE PHYSICIAN Non-emergency contact: Primary Care Provider Call non-emergency contact if: you have any medication questions, your symptoms worsen, you have a fever, your wound has increased redness, your wound has increased drainage and your wound pain has increased Follow-up/Referrals: Mat Carlisle MD [Primary Care Provider] - 07/18/19 10:45 am Donald Cerda DO [Freight Rate Specialist] - Diet: Heart Healthy Addtl Attending Provider Instructions: Your new medication is: Carvedilol 3.125mg by mouth twice a day Please follow up with your doctors as noted above. Call your primary care physician or return to the ER immediately if with recurrence or worsening of symptoms. Call your Primary Care doctor if any of the following symptoms or problems start or get worse: Shortness of breath or difficulty breathing Wake up at night short of breath Chest pain Cough Swelling of your hands, feet, or legs More fatigued or tired with your normal activity Palpitations - sudden fast heart beats WEIGHT Weigh yourself every morning after using the bathroom. Use the same scale. Wear the same amount of clothing. Write your weight down on a chart. Call your Primary Care doctor if you gain more than 2-3 pounds in 1-2 days. MEDICATIONS Use this discharge instruction sheet for medication instructions. Take your medications at the time your doctor ordered. Do not skip a dose of your medicines. If you miss a dose of medicine, take it as soon as possible, but DO NOT DOUBLE A DOSE. Read your medicine information when you get home. Know all of the side effects of your medicine. If in doubt, ask your pharmacist Call your Primary Care doctor's office if you have any side effects. Be sure all of your doctors know what medicine and herbs you take (including cold, flu, and herbal medicine). Take the following with you to your follow-up doctor appointments: Weight Chart Medication List List of questions Do not drink excessive alcohol, beer or wine. . Who to Call and When: Call 911 or go to the Emergency Room if: If at any time you feel your situation is an emergency You have tightness or pain in your chest that does not go away with rest or Nitroglycerin You are very short of breath even with rest. Pending Studies at Discharge: No Stand-Alone Forms: My [facility] [place], Smoking Cessation Medications and DC Order Prescriptions: New carvedilol 3.125 mg Tablet 3.125 mg PO BID 30 Days Qty: 60 RF: 2 Continued cyanocobalamin (vitamin B-12) [Vitamin B-12] 500 mcg Tablet 500 mcg PO QAM RF: 0 albuterol sulfate 90 mcg/actuation HFA aerosol inhaler 2 puff Inhalation QID PRN (Reason: Shortness Of Breath) RF: 0 levothyroxine 137 mcg tablet 137 mcg PO QAM RF: 0 digoxin 125 mcg tablet 125 mcg PO QAM RF: 0 melatonin 5 mg Tablet 5 mg PO HS PRN (Reason: Sleep) RF: 0 nitroglycerin [Nitrostat] 0.4 mg Tablet, Sublingual 0.4 mg sublingual UD PRN (Reason: chest pain) Qty: 30 RF: 0 furosemide 40 mg Tablet 40 mg PO QAM Qty: 30 RF: 0 aspirin [Aspir-81] 81 mg Tablet,Delayed Release (Dr/Ec) 81 mg PO DAILY RF: 0 Xarelto 20 mg tablet 20 mg PO DAILY RF: 0 Discharge Orders: Discharge Order (Routine); Ordered 07/11/19 Ordered By: Dayton Cardona Admission Data Admit Date/Time: 07/09/19 17:05 Attending Provider: Dayton Cardona Admit Provider: Nagi Young Primary Care Provider: Mat Carlisle Other Providers: Donald Cerda ; John Skelton ; Nagi Young Other Interventions: Discharge Summary Assessment (RN) Last Done: 07/11/19 17:40 DC Date/Time DO NOT enter until pt leaves facility: 07/11/19 19:32
== END 2019-07-11 19:32 | disposition home or self-care (01) | DRG 292 ==
LOC: ED 13:50 → SUATTDRO 17:05 → 2S 17:05

== ENCOUNTER 2021-02-03 16:08 | Inpatient (IN) ==
[2021-02-03] MEDS ORDERED: dexAMETHasone**PF** 10 MG/ML VIAL IV ONE (16:13)
[2021-02-03] MEDS ORDERED: ALBUT/IPRATROP 3MG/0.5MG NEB 3 ML VIAL NEB ONE (16:13)
[2021-02-03] MEDS ORDERED: ALBUT/IPRATROP 3MG/0.5MG NEB 3 ML VIAL ONE (16:14)
[2021-02-03] MEDS ORDERED: RAPID SEQUENCE INDUCTION BAG ONE (16:16)
--- NOTE | 2021-02-03 16:31 | XRay Report ---
XR chest 1V portable CLINICAL HISTORY: Sepsis. History of lung cancer. COMPARISON STUDY: Chest CT December 07, 2020. FINDINGS: A left subclavian biventricular pacer/AICD is in place. Cardiomegaly is unchanged. No evide nce for pulmonary edema. There is no pneumothorax. A small right pleural effusion is unchanged. Left apical opacity is better depicted on prior chest CT. Right lung volume loss is postoperative. The herman earance of the chest is unchanged. IMPRESSION: 1. No significant change in appearance of the chest. Stable postoperative findings within the right h emithorax with a small right pleural effusion. 2. Cardiomegaly. No evidence for pulmonary edema. 3. Stable left apical opacity since prior chest radiograph and chest CT. ACT 112: Negative or not required by law. Electronically signed by: Vinay Marie M.D. 02/03/2021 4:30 PM
[2021-02-03 16:32] LABS: Basophils # (auto) 0.01 K/uL (0-0.2); Basophils % (auto) 0.1 %; Hematocrit (blood only) 34.9 % (42-52); Hemoglobin 10.7 g/dL (14.0-18.0); Immature Granulocytes # (auto) 0.03 K/uL (0.00-0.02); Immature Granulocytes % (auto) 0.4 %; Lymphocytes # (auto) 0.82 K/uL (1.2-3.4); Lymphocytes % (auto) 10.8 %; Mean Corpuscular Hemoglobin 26.6 pg (25-34); Mean Corpuscular Hgb Conc 30.7 g/dL (32-36); Mean Corpuscular Volume 86.6 fL (80-100); Mean Platelet Volume 9.8 fL (7.4-10.4); Monocytes # (auto) 0.84 K/uL (0.11-0.59); Monocytes % (auto) 11.1 %; Neutrophils # (auto) 5.86 K/uL (1.4-6.5); Neutrophils % (auto) 77.6 %; Nucleated RBC # (auto) 0.02 K/uL (0-0); Nucleated RBC % (auto) 0.3 %; Platelet Count 240 K/uL (130-400); RDW Coefficient of Variation 18.2 % (11.5-14.5); RDW Standard Deviation 56.7 fL (36.4-46.3); Red Blood Count 4.03 M/uL (4.7-6.1); White Blood Count 7.56 K/uL (4.8-10.8)
[2021-02-03 16:42] LABS: INR 2.2 (0.9-1.1); Partial Thromboplastin Ratio 1.1; Partial Thromboplastin Time 28.9 Seconds (21.0-31.0); Prothrombin Time 20.7 Seconds (9.0-12.0)
[2021-02-03 16:44] LABS: Base Excess VBG -2.8 mEq/L; HCO3 VBG 27 mmol/L; PCO2 VBG 75 mmHg (38-50); PO2 VBG 22 mmHg; pH VBG 7.17 (7.36-7.41)
[2021-02-03 16:45] LABS: Oxygen Saturation VBG < 60.0 %
[2021-02-03 16:57] LABS: Alanine Aminotransferase 172 U/L (12-78); Albumin Globulin Ratio 0.9 (0.9-2); Albumin Level 3.7 gm/dl (3.4-5.0); Alkaline Phosphatase 104 U/L (45-117); Aspartate Aminotransferase 228 U/L (15-37); Blood Urea Nitrogen 39 mg/dl (7-18); Calcium 9.5 mg/dl (8.5-10.1); Carbon Dioxide 24 mmol/L (21-32); Chloride 105 mmol/L (98-107); Creatinine Clr Calc Pharmacy 38.4 ml/min; Est GFR (African American) 41.2 ml/min; Est GFR (Non-African American) 35.6 ml/min; Globulin 4.3 gm/dl (2.5-4.0); Glucose 66 mg/dl (70-99); Magnesium 2.7 mg/dl (1.8-2.4); NT Pro B Type Natriuretic Pept > 35000 pg/ml (0-900); Potassium 6.2 mmol/L (3.5-5.1); Sodium 140 mmol/L (136-145); Troponin I 0.091 ng/ml (0-0.045)
[2021-02-03] MEDS ORDERED: PIPERACILLIN/TAZOBACTAM 4.5 GM/120 ML BAG IV ONE (17:10)
[2021-02-03] MEDS ORDERED: PIPERACILL/TAZOBAC CONSULT ACTIVE PRN (17:10)
[2021-02-03] MEDS ORDERED: SODIUM CHLORIDE 0.9% 1000ML 500 ML IV ONE (17:10)
[2021-02-03] MEDS ORDERED: NOREPINEPHRINE/D5W 8 MG/508 ML IV ONE (17:21)
[2021-02-03] MEDS ORDERED: DOBUTamine 500MG / 250ML D5W IV ONE (17:21)
[2021-02-03 17:26] LABS: Appearance Urine Slightly Cloudy (Clear); Bilirubin Urine 1+ (Negative); Blood Urine 2+ (Negative); Color Urine Yellow; Glucose Urine UA Negative (Negative); Ketones Urine Negative (Negative); Leukocyte Esterase Urine Negative (Negative); Nitrite Urine Negative (Negative); Protein Urine 3+ (Negative); Specific Gravity Urine >= 1.030 (1.000-1.030); Urobilinogen Urine Negative (Negative)
[2021-02-03] MEDS ORDERED: fentaNYL DRIP 1,250 MCG/250 ML BAG IV SCH (17:30)
[2021-02-03] MEDS ORDERED: STAT IV Infusion **Titration per Protocol STA ×4 (17:30→22:34)
--- NOTE | 2021-02-03 17:37 | Emergency Department Note ---
Impression & Plan Congestive heart failure, Respiratory failure, Acute respiratory acidosis, Acute kidney injury, Acute hypotension, Acute hyperkalemia, Hypoglycemia, Atrial fibrillation with rapid ventricular response ED Provider Note NAME: CHARLOTTE CARRASCO AGE: 70 SEX: M : 1950 ARRIVES VIA: Ambulance INFORMANT: Patient, the patient's significant other and the special agent [employer] ED PROVIDER(S): Navid Hutchinson DO CHIEF COMPLAINT: Shortness of breath HPI: The patient is a 70-year-old male who presented to the emergency department for an evaluation of shortness of breath. The patient has a history of pulmonary edema and CHF with a very low ejection fraction and aortic stenosis. The patient does have a defibrillator pacer. He does have a history of atrial fibrillation as well. He told his significant other he was having difficulty breathing this morning. He started having worsening and worsening symptoms through the day. She called 911 when the patient started having very severe symptoms. The patient did not have a fever. He has had no cough. He has had lower extremity swelling which is not new for him. He was starting to change his Lasix and take extra doses because of worsening pulmonary edema. He denies having any nausea or vomiting. The patient was found to be obtunded by the prehospital personnel and was placed on CPAP prior to arrival. Oxygen saturation was noted to be in the 70s and 80s prior to arrival by the pr ehospital personnel. The patient also takes oral anticoagulation. It is unclear if the patient has been compliant with these medications. He has a history of lung cancer as well. ROS: See above HPI for pertinent positives & negatives. A total of 10 systems reviewed and were otherwise negative. PAST MEDICAL HISTORY: See Below PAST SURGICAL HISTORY: See Below FAMILY HISTORY: See Below SOCIAL HISTORY: See Below HOME MEDICATIONS: See Below ALLERGIES: See Below VITALS: See Below PHYSICAL EXAMINATION: GENERAL: The patient was listless and somewhat obtunded at times. He appears to be in significant respiratory distress. EYES: The conjunctivae are clear. The pupils are round and reactive. EARS, NOSE, MOUTH AND THROAT: The nose is without any evidence of any deformity. NECK: The neck is nontender and supple. RESPIRATORY: Increased respiratory effort was noted with significant conversational dyspnea. There were retractions noted as well as abdominal breathing. Diminished breath sounds are noted in the right lung field. There were rales noted throughout. CARDIOVASCULAR: Tachycardic and irregular heart sounds were noted to auscultation. No definite murmur was noted however the pulse was very fast. GASTROINTESTINAL: The abdomen is soft. Abdomen is nontender. MUSCULOSKELETAL/EXTREMITIES: There is no evidence of gross deformity full range of motion is noted in the hips and shoulders. SKIN: Skin was cool and dry. There is trace pedal edema bilaterally. NEUROLOGIC: Patient is awake to verbal commands. He appears to be oriented to person place and situation. Strength was symmetric. MEDICAL DECISION MAKING: The patient is a 70-year-old male who presented to the emergency department with respiratory distress. The patient does have a history of volume overload in the past. The patient apparently may have been taking extra Lasix. He was hypotensive. His exam did appear to be consistent with CHF with JVD noted on physical exam as well as rales. The patient was hypotensive and was found to have an elevation in his creatinine compared to baseline. He was treated with a small fluid bolus. After it was found that the patient was not able to tolerate the BiPAP and continued to have hypoxia the decision was made after discussion with his Valerie that he should be intubated. The patient was intubated in the usual fashion. He tolerated this quite well. He was then further treated with IV fluids. He was also given IV Decadron and IV antibiotics. I discussed the patient's laboratory and radiographic studies with his significant other. I also discussed his case with the on-call [facility] hospitalist group. They have agreed to evaluate the patient in the emergency department for further management and disposition. Triage Nursing notes reviewed. Prior medical records reviewed Vital Signs: reviewed and remarkable for hypotension, tachycardia and hypoxia. Differential diagnosis: Reactive airway disease, pneumonia, pneumothorax, COPD, CHF, infections, cardiac ischemia, pulmonary embolism, musculoskeletal, gastrointestinal, as well as other pathologies. ER treatment provided: See below Diagnostics interpreted by me: ECG: EKG was obtained in the emergency department. My interpretation is atrial fibrillation is an underlying rhythm. Paced beats were noted throughout. A left bundle branch block pattern was noted. This was compared to a tracing from October 052020. A similar pattern was noted previously. Cardiac Monitoring: An order was placed for continuous cardiac monitoring. The monitor shows a rate of 155 bpm with atrial fibrillation rhythm. Laboratory studies: As stated above and show below. Imaging studies: See below Consultation(s): 004: I discussed this case with Dr. Ugarte who is on-call for the [facility]ist group. He will evaluate the patient in the emergency department. ED COURSE: Procedures: Endotracheal Intubation Indication respiratory failure. The patient was on 100% oxygen via NRB prior to the procedure. Suction, airway equipment, RSI drugs, respiratory equipment, and appropriate personnel were prepared prior to the initiation of the procedure. A time out was taken. Induction was performed with etomidate and rocuronium. After observing the clinical benefit of the medications, the airway was easily visualized utilizing a glide scope. A 7.5 size ETT tube was placed atraumatically to 26 cm using standard technique. The cuff inflated without signs of malfunction. There were bilateral breath sounds, positive colormetric change, no gastric sounds, a good capnography waveform, and post procedure pulse oximetry was 95%. Post intubation sedation and paralysis was administered using fentanyl drip. There were no complications. Post intubation chest x-ray was reviewed. The tube was pulled back 1 cm. PDMP:reviewed and no issues Critical Care: I have personally spent greater than 60 minutes of critical care time in the direct management of this patient. This includes bedside care, interpretation of diagnostic studies, and testing, discussion with consultants, patient, and family members, and other required patient management activities. This 60 minutes is in excess of all separately billable procedures. 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 NUÑEZ AT [facility] -- reports yearly carotid US at [facility] CHF (congestive heart failure) NONISCHEMIC CM - S/P PACEMAKER PLACEMENT 08/2020 COPD (chronic obstructive pulmonary disease) CVA (cerebral vascular accident) Found incidentally on imaging. Per most recent brain MRI = " Multiple old infarcts are similar to head CT of April 02, 2019" Dilated cardiomyopathy DVT (deep venous thrombosis) 2016 - BLLE --> PE - on xarelto (unk etiology) History of pulmonary embolism 2016 Hypothyroidism Laryngeal carcinoma 2003 - status post radiation and chemotherapy LBBB (left bundle branch block) PER RECORDS Lung cancer 2017 - treated surgically + radiation Pacemaker LOAD OUT WORKER-D, placed 09/07/2020 bradycardia; [employer]; last checked 08/2020 - follows with Dr. Verma Pleural effusion S/P THORACENTESIS IN THE PAST- NO THORACENTESIS X 6 MONTHS Pulmonary nodule PVD (peripheral vascular disease) "chronic BL SFA occlusions" Thoracic ascending aortic aneurysm PT STATES DOCTOR IS JUST WATCHING EVERY 6 MONTHS 4.7CM ASCENDING THORACIC AORTA; 3.9CM DESCENDING THORACIC AORTA PER 02/2020 CTA ABDOMEN/PELVIS Surgical History H/O bursectomy Left History of arthroscopy of left shoulder History of back surgery 2005 - LUMBAR > CAGE IN PER PATIENT History of cardiac catheterization 02/2020 [facility] - per , no stents/angioplasty History of nasal septoplasty 2001 History of thoracentesis Hx of tonsillectomy 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 Mother , Passed age 26 of rheumatic fever No problems noted. Father , Passed age 44 of DC No problems noted. Sister , Passed age 60 of metastatic colon cancer No problems noted. Sister No problems noted. Sister No problems noted. Son No problems noted. Son No problems noted. Social History Smoking Status: Unknown if ever smoked Age Started Using Tobacco: 19; packs per day: 0.75; Years Smoked: 50; Cigarettes Per Day: 20; Second Hand Exposure: Yes; Hx Alcohol Use: Yes ("rare") Alcohol type: beer Alcohol Intake Frequency Comment: 3 beers day; however for past 2 weeks only has been having 1 Hx Substance Use: No Preferred Language: Portuguese Communication Ability: Effective Visual Impairment: No Limitations Hearing Ability: Use of Hearing Aid Trade Manager Required: No Beliefs That Will Affect Care: None marital status: Current Living Situation: Spouse current occupational status: retired 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 Feels Safe at Home: Yes Childhood Exposure to Second-Hand Smoke: Yes caffeine: No Dental Care, Regularly: No Assistive Devices: Denture - Upper, Denture - Lower, Glasses and Hearing Aid - Bilateral Allergies Allergies Allergy/AdvReac Type Severity Reaction Status Date / Time enoxaparin [From Lovenox] Allergy Intermediate itchy Verified 02/03/21 16:40 adhesive tape Allergy Mild redness Verified 02/03/21 16:40 metoprolol Allergy Mild itchy Verified 02/03/21 16:40 naproxen Allergy Unknown ITCHY Verified 02/03/21 16:40 Home Meds Home Medications Medication Instructions Recorded Confirmed digoxin 125 mcg PO QAM 03/11/19 02/03/21 melatonin 5 mg PO HS PRN 03/11/19 02/03/21 Xarelto 20 mg PO QAM 07/09/19 02/03/21 furosemide 40 mg PO QAM PRN 10/03/19 02/03/21 carvedilol 3.125 mg tablet 3.125 mg PO BID 11/21/19 02/03/21 mirtazapine 15 mg tablet 15 mg PO HS PRN tab 06/30/20 02/03/21 multivitamin 1 tab PO QAM 06/30/20 02/03/21 spironolactone 25 mg tablet 25 mg PO QAM tab 07/03/20 02/03/21 ezetimibe [Zetia] 10 mg PO QAM 09/25/20 02/03/21 levothyroxine 112 mcg PO QAM 09/25/20 02/03/21 aspirin [Aspirin Low Dose] 81 mg PO DAILY 02/03/21 02/03/21 ipratropium-albuterol 3 ml INHALATION UD 02/03/21 02/03/21 Previous Rx's Medication Instructions Recorded nitroglycerin [Nitrostat] 0.4 mg SUBLINGUAL UD PRN #30 tab 03/17/19 albuterol sulfate 90 mcg/actuation 2 puff INHALATION QID PRN #8.5 g 01/01/21 aerosol inhaler Results & Data (ED) Vital Signs Vital Signs - 24 hr 02/03/21 16:17 02/03/21 16:19 02/03/21 16:20 Temperature 36.6 C Temperature Source Rectal Pulse Rate 132 H 146 H 151 H Pulse Rate [Apical] Pulse Rate from SpO2 Sensor Respiratory Rate 45 H 40 H 42 H Respiratory Effort / Characteristics Spontaneous Labored Short of Breath Respiratory Depth Shallow Respiratory Pattern Tachypnea Blood Pressure 155/81 H Blood Pressure Mean 105 Blood Pressure Position Sitting Pulse Oximetry 76 L Oxygen Delivery Method CPAP BiPAP BiPAP Fraction of Inspired Oxygen Sepsis Recent Fever Within 48 Hours No Sepsis New/Unexplained Change in Mental Status No Sepsis Action Taken by Nursing Physician Notified End-Tidal CO2 02/03/21 16:21 02/03/21 16:25 02/03/21 16:30 Temperature Temperature Source Pulse Rate 135 H 136 H 130 H Pulse Rate [Apical] 136 H Pulse Rate from SpO2 Sensor Respiratory Rate 36 H 39 H 40 H Respiratory Effort / Characteristics Spontaneous Labored Respiratory Depth Shallow Respiratory Pattern Tachypnea Blood Pressure 130/82 Blood Pressure Mean 98 Blood Pressure Position Pulse Oximetry Oxygen Delivery Method BiPAP BiPAP BiPAP Fraction of Inspired Oxygen 100 Sepsis Recent Fever Within 48 Hours Sepsis New/Unexplained Change in Mental Status Sepsis Action Taken by Nursing End-Tidal CO2 02/03/21 16:31 02/03/21 16:40 02/03/21 16:41 Temperature Temperature Source Pulse Rate 157 H 146 H 147 H Pulse Rate [Apical] Pulse Rate from SpO2 Sensor 67 69 Respiratory Rate 38 H 35 H 33 H Respiratory Effort / Characteristics Respiratory Depth Respiratory Pattern Blood Pressure 132/105 H 123/99 Blood Pressure Mean 114 107 Blood Pressure Position Pulse Oximetry Oxygen Delivery Method BiPAP BiPAP BiPAP Fraction of Inspired Oxygen Sepsis Recent Fever Within 48 Hours Sepsis New/Unexplained Change in Mental Status Sepsis Action Taken by Nursing End-Tidal CO2 02/03/21 16:50 02/03/21 16:51 02/03/21 16:52 Temperature Temperature Source Pulse Rate 136 H 132 H 136 H Pulse Rate [Apical] Pulse Rate from SpO2 Sensor 102 H 67 68 Respiratory Rate 35 H 33 H 30 H Respiratory Effort / Characteristics Respiratory Depth Respiratory Pattern Blood Pressure 95/74 L Blood Pressure Mean 81 Blood Pressure Position Pulse Oximetry Oxygen Delivery Method BiPAP BiPAP BiPAP Fraction of Inspired Oxygen Sepsis Recent Fever Within 48 Hours Sepsis New/Unexplained Change in Mental Status Sepsis Action Taken by Nursing End-Tidal CO2 02/03/21 16:56 02/03/21 16:59 02/03/21 17:00 Temperature Temperature Source Pulse Rate 136 H 138 H Pulse Rate [Apical] Pulse Rate from SpO2 Sensor 67 68 Respiratory Rate 34 H 32 H 37 H Respiratory Effort / Characteristics Short of Breath Respiratory Depth Respiratory Pattern Blood Pressure Blood Pressure Mean Blood Pressure Position Pulse Oximetry Oxygen Delivery Method BiPAP BiPAP BiPAP Fraction of Inspired Oxygen Sepsis Recent Fever Within 48 Hours Sepsis New/Unexplained Change in Mental Status Sepsis Action Taken by Nursing End-Tidal CO2 02/03/21 17:07 02/03/21 17:10 02/03/21 17:17 Temperature Temperature Source Pulse Rate 152 H 120 H 139 H Pulse Rate [Apical] Pulse Rate from SpO2 Sensor 56 L 70 Respiratory Rate 33 H 32 H 34 H Respiratory Effort / Characteristics Respiratory Depth Respiratory Pattern Blood Pressure 97/65 L Blood Pressure Mean 42 75 Blood Pressure Position Pulse Oximetry Oxygen Delivery Method BiPAP BiPAP Mechanical Vent Fraction of Inspired Oxygen Sepsis Recent Fever Within 48 Hours Sepsis New/Unexplained Change in Mental Status Sepsis Action Taken by Nursing End-Tidal CO2 02/03/21 17:20 02/03/21 17:30 02/03/21 17:35 Temperature Temperature Source Pulse Rate 144 H 154 H 161 H Pulse Rate [Apical] Pulse Rate from SpO2 Sensor Respiratory Rate 25 H 16 16 Respiratory Effort / Characteristics Respiratory Depth Respiratory Pattern Blood Pressure 108/91 Blood Pressure Mean 96 Blood Pressure Position Pulse Oximetry Oxygen Delivery Method Mechanical Vent Mechanical Vent Mechanical Vent Fraction of Inspired Oxygen Sepsis Recent Fever Within 48 Hours Sepsis New/Unexplained Change in Mental Status Sepsis Action Taken by Nursing End-Tidal CO2 02/03/21 17:40 02/03/21 17:42 02/03/21 17:46 Temperature Temperature Source Pulse Rate 160 H 159 H 157 H Pulse Rate [Apical] Pulse Rate from SpO2 Sensor 185 H Respiratory Rate 16 Respiratory Effort / Characteristics Respiratory Depth Respiratory Pattern Blood Pressure 106/88 112/62 Blood Pressure Mean 94 78 Blood Pressure Position Pulse Oximetry Oxygen Delivery Method Fraction of Inspired Oxygen 100 Sepsis Recent Fever Within 48 Hours Sepsis New/Unexplained Change in Mental Status Sepsis Action Taken by Nursing End-Tidal CO2 34 24 36 02/03/21 17:47 02/03/21 17:50 02/03/21 17:51 Temperature Temperature Source Pulse Rate 145 H 157 H 159 H Pulse Rate [Apical] Pulse Rate from SpO2 Sensor 175 H Respiratory Rate Respiratory Effort / Characteristics Respiratory Depth Respiratory Pattern Blood Pressure 112/82 Blood Pressure Mean 92 Blood Pressure Position Pulse Oximetry Oxygen Delivery Method Mechanical Vent Mechanical Vent Mechanical Vent Fraction of Inspired Oxygen Sepsis Recent Fever Within 48 Hours Sepsis New/Unexplained Change in Mental Status Sepsis Action Taken by Nursing End-Tidal CO2 36 37 36 02/03/21 17:56 02/03/21 18:00 02/03/21 18:06 Temperature Temperature Source Pulse Rate 152 H 142 H 155 H Pulse Rate [Apical] Pulse Rate from SpO2 Sensor 179 H 171 H 176 H Respiratory Rate Respiratory Effort / Characteristics Respiratory Depth Respiratory Pattern Blood Pressure 69/56 L 75/35 L Blood Pressure Mean 60 48 Blood Pressure Position Pulse Oximetry Oxygen Delivery Method Mechanical Vent Mechanical Vent Mechanical Vent Fraction of Inspired Oxygen Sepsis Recent Fever Within 48 Hours Sepsis New/Unexplained Change in Mental Status Sepsis Action Taken by Nursing End-Tidal CO2 37 37 38 02/03/21 18:10 02/03/21 18:11 Temperature Temperature Source Pulse Rate 150 H 151 H Pulse Rate [Apical] Pulse Rate from SpO2 Sensor 177 H 175 H Respiratory Rate Respiratory Effort / Characteristics Respiratory Depth Respiratory Pattern Blood Pressure 106/84 Blood Pressure Mean 91 Blood Pressure Position Pulse Oximetry Oxygen Delivery Method Mechanical Vent Mechanical Vent Fraction of Inspired Oxygen Sepsis Recent Fever Within 48 Hours Sepsis New/Unexplained Change in Mental Status Sepsis Action Taken by Nursing End-Tidal CO2 38 36 Home Medications Current Medication List: was personally reviewed by me Laboratory Data Attestation: I reviewed the patient's lab results. Result diagrams: 02/03/21 16:21 02/03/21 16:21 Lab Results 02/03/21 02/03/21 02/03/21 Range/Units 16:21 16:21 16:21 WBC 7.56 (4.8-10.8) K/uL RBC 4.03 L (4.7-6.1) M/uL Hgb 10.7 L (14.0-18.0) g/dL Hct 34.9 L (42-52) % MCV 86.6 (80-100) fL MCH 26.6 (25-34) pg MCHC 30.7 L (32-36) g/dL RDW Std Deviation 56.7 H (36.4-46.3) fL RDW Coeff of Debra 18.2 H (11.5-14.5) % Plt Count 240 (130-400) K/uL MPV 9.8 (7.4-10.4) fL Immature Gran % (Auto) 0.4 % Neut % (Auto) 77.6 % Lymph % (Auto) 10.8 % Bay % (Auto) 11.1 % Eos % (Auto) 0.0 % Baso % (Auto) 0.1 % Neut # (Auto) 5.86 (1.4-6.5) K/uL Lymph # (Auto) 0.82 L (1.2-3.4) K/uL Bay # (Auto) 0.84 H (0.11-0.59) K/uL Eos # (Auto) 0.00 (0-0.5) K/uL Baso # (Auto) 0.01 (0-0.2) K/uL Immature Gran # (Auto) 0.03 H (0.00-0.02) K/uL Absolute Nucleated RBC 0.02 H (0-0) K/uL Nucleated RBC % (auto) 0.3 % PT 20.7 H (9.0-12.0) Seconds INR 2.2 H (0.9-1.1) APTT 28.9 (21.0-31.0) Seconds PTT Ratio 1.1 VBG pH (7.36-7.41) VBG pCO2 (38-50) mmHg VBG pO2 mmHg VBG HCO3 mmol/L VBG O2 Saturation % VBG Base Excess mEq/L Barometric Pressure mm/Hg Sodium 140 (136-145) mmol/L Potassium 6.2 H* (3.5-5.1) mmol/L Chloride 105 (98-107) mmol/L Carbon Dioxide 24 (21-32) mmol/L Anion Gap 11.0 (3-11) BUN 39 H (7-18) mg/dl Creatinine 1.85 H (0.6-1.4) mg/dl Est Cr Clr Drug Dosing 38.4 ml/min Est GFR ( Amer) 41.2 ml/min Est GFR (Non-Af Amer) 35.6 ml/min BUN/Creatinine Ratio 21.0 H (10-20) Glucose 66 L (70-99) mg/dl POC Glucose (70-99) mg/dl Lactate (0.4-2.0) mmol/L Calcium 9.5 (8.5-10.1) mg/dl Magnesium 2.7 H (1.8-2.4) mg/dl Total Bilirubin 2.0 H (0.2-1) mg/dl AST 228 H (15-37) U/L ALT 172 H (12-78) U/L Alkaline Phosphatase 104 (45-117) U/L Troponin I 0.091 H* (0-0.045) ng/ml NT-Pro-B Natriuret Pep > 40722 H (0-900) pg/ml Total Protein 8.0 (6.4-8.2) gm/dl Albumin 3.7 (3.4-5.0) gm/dl Globulin 4.3 H (2.5-4.0) gm/dl Albumin/Globulin Ratio 0.9 (0.9-2) Procalcitonin (0-0.5) ng/ml Urine Color Urine Appearance (Clear) Urine pH (4.5-7.5) Ur Specific [place] (1.000-1.030) Urine Protein (Negative) Urine Glucose (UA) (Negative) Urine Ketones (Negative) Urine Blood (Negative) Urine Nitrite (Negative) Urine Bilirubin (Negative) Urine Urobilinogen (Negative) Ur Leukocyte Esterase (Negative) Urine RBC (0-4) /hpf Urine WBC (0-5) /hpf Ur Epithelial Cells (0-5) /lpf Urine Bacteria (Negative) Digoxin (0.8-2.0) ng/ml COVID-19 Eval Order SARS-CoV-2 (PCR) (Negative) 02/03/21 02/03/21 02/03/21 Range/Units 16:21 16:21 16:31 WBC (4.8-10.8) K/uL RBC (4.7-6.1) M/uL Hgb (14.0-18.0) g/dL Hct (42-52) % MCV (80-100) fL MCH (25-34) pg MCHC (32-36) g/dL RDW Std Deviation (36.4-46.3) fL RDW Coeff of Debra (11.5-14.5) % Plt Count (130-400) K/uL MPV (7.4-10.4) fL Immature Gran % (Auto) % Neut % (Auto) % Lymph % (Auto) % Bay % (Auto) % Eos % (Auto) % Baso % (Auto) % Neut # (Auto) (1.4-6.5) K/uL Lymph # (Auto) (1.2-3.4) K/uL Bay # (Auto) (0.11-0.59) K/uL Eos # (Auto) (0-0.5) K/uL Baso # (Auto) (0-0.2) K/uL Immature Gran # (Auto) (0.00-0.02) K/uL Absolute Nucleated RBC (0-0) K/uL Nucleated RBC % (auto) % PT (9.0-12.0) Seconds INR (0.9-1.1) APTT (21.0-31.0) Seconds PTT Ratio VBG pH 7.17 L (7.36-7.41) VBG pCO2 75 H (38-50) mmHg VBG pO2 22 mmHg VBG HCO3 27 mmol/L VBG O2 Saturation < 60.0 % VBG Base Excess -2.8 mEq/L Barometric Pressure 740.1 mm/Hg Sodium (136-145) mmol/L Potassium (3.5-5.1) mmol/L Chloride (98-107) mmol/L Carbon Dioxide (21-32) mmol/L Anion Gap (3-11) BUN (7-18) mg/dl Creatinine (0.6-1.4) mg/dl Est Cr Clr Drug Dosing ml/min Est GFR ( Amer) ml/min Est GFR (Non-Af Amer) ml/min BUN/Creatinine Ratio (10-20) Glucose (70-99) mg/dl POC Glucose (70-99) mg/dl Lactate 7.2 H* (0.4-2.0) mmol/L Calcium (8.5-10.1) mg/dl Magnesium (1.8-2.4) mg/dl Total Bilirubin (0.2-1) mg/dl AST (15-37) U/L ALT (12-78) U/L Alkaline Phosphatase (45-117) U/L Troponin I (0-0.045) ng/ml NT-Pro-B Natriuret Pep (0-900) pg/ml Total Protein (6.4-8.2) gm/dl Albumin (3.4-5.0) gm/dl Globulin (2.5-4.0) gm/dl Albumin/Globulin Ratio (0.9-2) Procalcitonin 0.11 (0-0.5) ng/ml Urine Color Urine Appearance (Clear) Urine pH (4.5-7.5) Ur Specific [place] (1.000-1.030) Urine Protein (Negative) Urine Glucose (UA) (Negative) Urine Ketones (Negative) Urine Blood (Negative) Urine Nitrite (Negative) Urine Bilirubin (Negative) Urine Urobilinogen (Negative) Ur Leukocyte Esterase (Negative) Urine RBC (0-4) /hpf Urine WBC (0-5) /hpf Ur Epithelial Cells (0-5) /lpf Urine Bacteria (Negative) Digoxin (0.8-2.0) ng/ml COVID-19 Eval Order SARS-CoV-2 (PCR) (Negative) 02/03/21 02/03/21 02/03/21 Range/Units 16:32 16:50 16:50 WBC (4.8-10.8) K/uL RBC (4.7-6.1) M/uL Hgb (14.0-18.0) g/dL Hct (42-52) % MCV (80-100) fL MCH (25-34) pg MCHC (32-36) g/dL RDW Std Deviation (36.4-46.3) fL RDW Coeff of Debra (11.5-14.5) % Plt Count (130-400) K/uL MPV (7.4-10.4) fL Immature Gran % (Auto) % Neut % (Auto) % Lymph % (Auto) % Bay % (Auto) % Eos % (Auto) % Baso % (Auto) % Neut # (Auto) (1.4-6.5) K/uL Lymph # (Auto) (1.2-3.4) K/uL Bay # (Auto) (0.11-0.59) K/uL Eos # (Auto) (0-0.5) K/uL Baso # (Auto) (0-0.2) K/uL Immature Gran # (Auto) (0.00-0.02) K/uL Absolute Nucleated RBC (0-0) K/uL Nucleated RBC % (auto) % PT (9.0-12.0) Seconds INR (0.9-1.1) APTT (21.0-31.0) Seconds PTT Ratio VBG pH (7.36-7.41) VBG pCO2 (38-50) mmHg VBG pO2 mmHg VBG HCO3 mmol/L VBG O2 Saturation % VBG Base Excess mEq/L Barometric Pressure mm/Hg Sodium (136-145) mmol/L Potassium (3.5-5.1) mmol/L Chloride (98-107) mmol/L Carbon Dioxide (21-32) mmol/L Anion Gap (3-11) BUN (7-18) mg/dl Creatinine (0.6-1.4) mg/dl Est Cr Clr Drug Dosing ml/min Est GFR ( Amer) ml/min Est GFR (Non-Af Amer) ml/min BUN/Creatinine Ratio (10-20) Glucose (70-99) mg/dl POC Glucose (70-99) mg/dl Lactate (0.4-2.0) mmol/L Calcium (8.5-10.1) mg/dl Magnesium (1.8-2.4) mg/dl Total Bilirubin (0.2-1) mg/dl AST (15-37) U/L ALT (12-78) U/L Alkaline Phosphatase (45-117) U/L Troponin I (0-0.045) ng/ml NT-Pro-B Natriuret Pep (0-900) pg/ml Total Protein (6.4-8.2) gm/dl Albumin (3.4-5.0) gm/dl Globulin (2.5-4.0) gm/dl Albumin/Globulin Ratio (0.9-2) Procalcitonin (0-0.5) ng/ml Urine Color Urine Appearance (Clear) Urine pH (4.5-7.5) Ur Specific [place] (1.000-1.030) Urine Protein (Negative) Urine Glucose (UA) (Negative) Urine Ketones (Negative) Urine Blood (Negative) Urine Nitrite (Negative) Urine Bilirubin (Negative) Urine Urobilinogen (Negative) Ur Leukocyte Esterase (Negative) Urine RBC (0-4) /hpf Urine WBC (0-5) /hpf Ur Epithelial Cells (0-5) /lpf Urine Bacteria (Negative) Digoxin 0.2 L (0.8-2.0) ng/ml COVID-19 Eval Order Covid19 at [facility] SARS-CoV-2 (PCR) NEGATIVE (Negative) 02/03/21 02/03/21 02/03/21 Range/Units 17:12 17:52 17:53 WBC (4.8-10.8) K/uL RBC (4.7-6.1) M/uL Hgb (14.0-18.0) g/dL Hct (42-52) % MCV (80-100) fL MCH (25-34) pg MCHC (32-36) g/dL RDW Std Deviation (36.4-46.3) fL RDW Coeff of Debra (11.5-14.5) % Plt Count (130-400) K/uL MPV (7.4-10.4) fL Immature Gran % (Auto) % Neut % (Auto) % Lymph % (Auto) % [place] % (Auto) % Eos % (Auto) % Baso % (Auto) % Neut # (Auto) (1.4-6.5) K/uL Lymph # (Auto) (1.2-3.4) K/uL [place] # (Auto) (0.11-0.59) K/uL Eos # (Auto) (0-0.5) K/uL Baso # (Auto) (0-0.2) K/uL Immature Gran # (Auto) (0.00-0.02) K/uL Absolute Nucleated RBC (0-0) K/uL Nucleated RBC % (auto) % PT (9.0-12.0) Seconds INR (0.9-1.1) APTT (21.0-31.0) Seconds PTT Ratio VBG pH (7.36-7.41) VBG pCO2 (38-50) mmHg VBG pO2 mmHg VBG HCO3 mmol/L VBG O2 Saturation % VBG Base Excess mEq/L Barometric Pressure mm/Hg Sodium (136-145) mmol/L Potassium (3.5-5.1) mmol/L Chloride (98-107) mmol/L Carbon Dioxide (21-32) mmol/L Anion Gap (3-11) BUN (7-18) mg/dl Creatinine (0.6-1.4) mg/dl Est Cr Clr Drug Dosing ml/min Est GFR ( Amer) ml/min Est GFR (Non-Af Amer) ml/min BUN/Creatinine Ratio (10-20) Glucose (70-99) mg/dl POC Glucose 44 L* 56 L* (70-99) mg/dl Lactate (0.4-2.0) mmol/L Calcium (8.5-10.1) mg/dl Magnesium (1.8-2.4) mg/dl Total Bilirubin (0.2-1) mg/dl AST (15-37) U/L ALT (12-78) U/L Alkaline Phosphatase (45-117) U/L Troponin I (0-0.045) ng/ml NT-Pro-B Natriuret Pep (0-900) pg/ml Total Protein (6.4-8.2) gm/dl Albumin (3.4-5.0) gm/dl Globulin (2.5-4.0) gm/dl Albumin/Globulin Ratio (0.9-2) Procalcitonin (0-0.5) ng/ml Urine Color Yellow Urine Appearance Slightly Cloudy (Clear) Urine pH 5.0 (4.5-7.5) Ur Specific [place] >= 1.030 (1.000-1.030) Urine Protein 3+ H (Negative) Urine Glucose (UA) Negative (Negative) Urine Ketones Negative (Negative) Urine Blood 2+ H (Negative) Urine Nitrite Negative (Negative) Urine Bilirubin 1+ H (Negative) Urine Urobilinogen Negative (Negative) Ur Leukocyte Esterase Negative (Negative) Urine RBC (0-4) /hpf Urine WBC (0-5) /hpf Ur Epithelial Cells (0-5) /lpf Urine Bacteria (Negative) Digoxin (0.8-2.0) ng/ml COVID-19 Eval Order SARS-CoV-2 (PCR) (Negative) Administered Medications Fentanyl Citrate (Fentanyl Drip) 1,250 mcg in 250 mls @ 5 mls/hr IV .Q50H [facility]; Protocol Stop: 02/17/21 17:29 Last Admin: 02/03/21 17:44 Dose: 25 mcg/hr, 5 mls/hr Documented by: [id number] Cosigned by: [id number] Discontinued Medications Albuterol (Albut/Ipratrop 3mg/0.5mg Neb 3 Ml Vial) Confirm Administered Dose 12 ml .ROUTE .STK-MED ONE Stop: 02/03/21 16:15 Last Admin: 02/03/21 18:08 Dose: Not Given Documented by: [id number] Albuterol (Albut/Ipratrop 3mg/0.5mg Neb 3 Ml Vial) 12 ml NEB ONE ONE Stop: 02/03/21 16:14 Last Admin: 02/03/21 16:23 Dose: 12 ml Documented by: [id number] Dexamethasone Sodium Phosphate (DexamethasonePf 10 Mg/Ml Vial) 10 mg IV NOW ONE Stop: 02/03/21 16:14 Last Admin: 02/03/21 16:46 Dose: 10 mg Documented by: [id number] Dextrose (Dextrose 50% 50 Ml Syringe) Confirm Administered Dose 50 ml IV .STK- MED ONE Stop: 02/03/21 17:55 Last Admin: 02/03/21 17:58 Dose: Not Given Documented by: [id number] Dextrose (Dextrose 50% 50 Ml Syringe) 50 ml IV NOW ONE Stop: 02/03/21 17:55 Last Admin: 02/03/21 17:56 Dose: 50 ml Documented by: [id number] Piperacillin Sod/Tazobactam Sod (Zosyn) 4.5 gm in 120 mls @ 240 mls/hr IV NOW ONE Stop: 02/03/21 17:39 Last Admin: 02/03/21 17:42 Dose: 240 mls/hr Documented by: [id number] Sodium Chloride (Nss 1000ml) 500 mls @ 999 mls/hr IV .Q31M ONE Stop: 02/03/21 17:40 Last Infusion: 02/03/21 18:10 Dose: 0 mls/hr Documented by: [id number] Admin: 02/03/21 17:38 Dose: 999 mls/hr Documented by: [id number] Sodium Chloride (Nss) 500 mls @ 999 mls/hr IV .Q31M ONE Stop: 02/03/21 18:09 Last Admin: 02/03/21 18:08 Dose: 999 mls/hr Documented by: [id number] Miscellaneous (Rapid Sequence Induction Bag) Confirm Administered Dose 1 ea .ROUTE .STK-MED ONE Stop: 02/03/21 16:17 Last Admin: 02/03/21 17:42 Dose: 1 ea Documented by: [id number] Imaging Data Radiologist's Impression: Chest X-Ray 02/03/21 16:13 XR chest 1V portable CLINICAL HISTORY: Sepsis. History of lung cancer. COMPARISON STUDY: Chest CT December 07, 2020. FINDINGS: A left subclavian biventricular pacer/AICD is in place. Cardiomegaly is unchanged. No evidence for pulmonary edema. There is no pneumothorax. A small right pleural effusion is unchanged. Left apical opacity is better depicted on prior chest CT. Right lung volume loss is postoperative. The appearance of the chest is unchanged. IMPRESSION: 1. No significant change in appearance of the chest. Stable postoperative findings within the right hemithorax with a small right pleural effusion. 2. Cardiomegaly. No evidence for pulmonary edema. 3. Stable left apical opacity since prior chest radiograph and chest CT. ACT 112: Negative or not required by law. Electronically signed by: Vinay Marie M.D. 02/03/2021 4:30 PM Chest X-Ray 02/03/21 17:25 XR chest 1V portable CLINICAL HISTORY: intubation COMPARISON STUDY: Chest radiograph performed earlier today. Chest CT December 07, 2020. FINDINGS: The tip of the endotracheal tube is 1.6 cm above the yuridia. A left subclavian biventricular pacer/AICD is in place. A small right pleural effusion is again noted. There is no pneumothorax. Postoperative findings within the right hemithorax are unchanged. Left apical opacity appears unchanged. IMPRESSION: 1. Tip of endotracheal tube 1.6 cm above the yuridia. 2. Otherwise, unchanged appearance of the chest. ACT 112: Negative or not required by law. Electronically signed by: Vinay Marie M.D. 02/03/2021 5:37 PM Discharge Plan Visit Data Chief Complaint: Respiratory Distress ED Provider: Navid Hutchinson Discharge Problem: Congestive heart failure, Respiratory failure, Acute respiratory acidosis, Acute kidney injury, Acute hypotension, Acute hyperkalemia, Hypoglycemia, Atrial fibrillation with rapid ventricular response Patient Disposition: Being Evaluated by Hospitalist Condition: Good Forms Stand Alone Forms: [employer] Prescriptions Prescriptions: No Action mirtazapine [Remeron] 15 mg tablet 15 mg PO HS PRN (Reason: Sleep) RF: 0 multivitamin Tablet 1 tab PO QAM RF: 0 spironolactone 25 mg tablet 25 mg PO QAM RF: 0 carvedilol 3.125 mg tablet 3.125 mg PO BID RF: 0 albuterol sulfate 90 mcg/actuation HFA aerosol inhaler 2 puff Inhalation QID PRN (Reason: Shortness Of Breath) Qty: 8.5 RF: 4 digoxin 125 mcg tablet 125 mcg PO QAM RF: 0 melatonin 5 mg Tablet 5 mg PO HS PRN (Reason: Sleep) RF: 0 nitroglycerin [Nitrostat] 0.4 mg Tablet, Sublingual 0.4 mg sublingual UD PRN (Reason: chest pain) Qty: 30 RF: 0 levothyroxine 112 mcg Tablet 112 mcg PO QAM RF: 0 ezetimibe [Zetia] 10 mg Tablet 10 mg PO QAM RF: 0 Xarelto 20 mg tablet 20 mg PO QAM RF: 0 furosemide 40 mg tablet 40 mg PO QAM PRN (Reason: Edema) RF: 0 aspirin [Aspirin Low Dose] 81 mg Tablet,Delayed Release (Dr/Ec) 81 mg PO DAILY RF: 0 ipratropium-albuterol 0.5 mg-3 mg(2.5 mg base)/3 mL solution for nebulization 3 ml INHALATION UD RF: 0 Referrals Referrals: Mat Carlisle MD [Primary Care Provider] -
--- NOTE | 2021-02-03 17:38 | XRay Report ---
XR chest 1V portable CLINICAL HISTORY: intubation COMPARISON STUDY: Chest radiograph performed earlier today. Chest CT December 07, 2020. FINDINGS: The tip of the endotracheal tube is 1.6 cm above the yuridia. A left subclavian biventricula r pacer/AICD is in place. A small right pleural effusion is again noted. There is no pneumothorax. Po stoperative findings within the right hemithorax are unchanged. Left apical opacity appears unchanged . IMPRESSION: 1. Tip of endotracheal tube 1.6 cm above the yuridia. 2. Otherwise, unchanged appearance of the chest. ACT 112: Negative or not required by law. Electronically signed by: Vinay Marie M.D. 02/03/2021 5:37 PM
[2021-02-03] MEDS ORDERED: SODIUM CHLORIDE 0.9% 500 ML IV ONE (17:39)
[2021-02-03] MEDS ORDERED: DEXTROSE 50% 50 ML SYRINGE IV ONE ×3 (17:54→20:45)
[2021-02-03 18:24] LABS: iSTAT Arterial Blood Gas HCO3 25 meg/L (19-24); iSTAT Arterial Blood Gas pCO2 57 mmHg (35-46); iSTAT Arterial Blood Gas pH 7.24 (7.35-7.45); iSTAT Arterial Blood Gas pO2 411 mmHg (80-95); iSTAT Carbon Dioxide 26 mmol/L (24-31)
[2021-02-03] MEDS ORDERED: ICU PROTOCOL FOR HYPERGLYCEMIA PRN (19:48)
[2021-02-03] MEDS ORDERED: ALBUT/IPRATROP 3MG/0.5MG NEB 3 ML VIAL INH SCH (19:48)
[2021-02-03] MEDS ORDERED: NITROGLYCERIN SL 0.4 MG/TAB TAB SL PRN (19:48)
--- NOTE | 2021-02-03 20:12 | History & Physical Report ---
Date of Service February 03, 2021 Assessment & Plan (1) Congestive heart failure: (2) Respiratory failure: (3) Acute respiratory acidosis: (4) Acute kidney injury: (5) Acute hypotension: (6) Acute hyperkalemia: (7) Atrial fibrillation with rapid ventricular response: (8) Lung cancer: Patient admitted to ICU, Renal, Cardio, and Nephrology eval. Continue appropriate OP meds, OGT, repeat labs at 2200, IVFs gentle, was on Xarelto OP, May need IV Heparin if not off vent tomorrow. EKG now, Ca now, Insulin 10 units now, Glucose D%) now. recheck labs now and at 10 pm. Admission and Anticipated Discharge Date Admission Date: February 03, 2021 History of Present Illness Chief Complaint: SOB Primary Care Provider: Mat Carlisle MD From ER Dr. Bueno entered the room as patient was being intubated. per Dr [id number]-old male who presented to the emergency department for an evaluation of shortness of breath. The patient has a history of pulmonary edema and CHF with a very low ejection fraction (10%) and aortic stenosis. The patient does have a defibrillator pacer. He does have a history of atrial fibrillation as well. He told his significant other he was having difficulty breathing this morning. He started having worsening and worsening symptoms through the day. She called [phone] when the patient started having very severe symptoms. The patient did not have a fever. He has had no cough. He has had lower extremity swelling which is not new for him. He was starting to change his Lasix and take extra doses because of worsening pulmonary edema. He denies having any nausea or vomiting. The patient was found to be obtunded by the prehospital personnel and was placed on CPAP prior to arrival. Oxygen saturation was noted to be in the 70s and 80s prior to arrival by the prehospital personnel. The patient also takes oral anticoagulation. It is uncl ear if the patient has been compliant with these medications. He has a history of lung cancer as well. Allergies Allergy/AdvReac Type Severity Reaction Status Date / Time enoxaparin [From Lovenox] Allergy Intermediate itchy Verified 02/03/21 16:40 adhesive tape Allergy Mild redness Verified 02/03/21 16:40 metoprolol Allergy Mild itchy Verified 02/03/21 16:40 naproxen Allergy Unknown ITCHY Verified 02/03/21 16:40 Home Medications Medication Instructions Recorded Confirmed Type digoxin 125 mcg PO QAM 03/11/19 02/03/21 History melatonin 5 mg PO HS PRN 03/11/19 02/03/21 History nitroglycerin [Nitrostat] 0.4 mg SUBLINGUAL UD PRN #30 tab 03/17/19 02/03/21 Rx Xarelto 20 mg PO QAM 07/09/19 02/03/21 History furosemide 40 mg PO QAM PRN 10/03/19 02/03/21 History carvedilol 3.125 mg tablet 3.125 mg PO BID 11/21/19 02/03/21 History mirtazapine 15 mg tablet 15 mg PO HS PRN tab 06/30/20 02/03/21 History multivitamin 1 tab PO QAM 06/30/20 02/03/21 History spironolactone 25 mg tablet 25 mg PO QAM tab 07/03/20 02/03/21 History ezetimibe [Zetia] 10 mg PO QAM 09/25/20 02/03/21 History levothyroxine 112 mcg PO QAM 09/25/20 02/03/21 History albuterol sulfate 90 mcg/actuation 2 puff INHALATION QID PRN #8.5 g 01/01/21 02/03/21 Rx aerosol inhaler aspirin [Aspirin Low Dose] 81 mg PO DAILY 02/03/21 02/03/21 History ipratropium-albuterol 3 ml INHALATION UD 02/03/21 02/03/21 History Past Med/Surg History Medical History AAA (abdominal aortic aneurysm) S/P ENDOGRAFT REPAIR - [facility] 2004 AAA UNCHANGED FROM 2016/NO EVIDENCE OF ENDOLEAK PER 02/2020 CTA Anemia Aortic stenosis MODERATE TO SEVERE BY DSE IN 03/2020 (DEFERRING TAVR AT THIS TIME- REPEATING STUDIES IN 03/2021 PER CARDIO RECORD) Atrial fibrillation PER RECORDS - ON XARELTO CAD (coronary artery disease) WITH PHOTOENGRAVING PRINTER RCA Carotid stenosis PER PATIENT, "100% BLOCKAGE TO RIGHT SIDE" LEFT SIDE IS 55%" > FOLLOWS DR. NUÑEZ AT [facility] -- reports yearly carotid US at [facility] CHF (congestive heart failure) NONISCHEMIC CM - S/P PACEMAKER PLACEMENT 08/2020 COPD (chronic obstructive pulmonary disease) CVA (cerebral vascular accident) Found incidentally on imaging. Per most recent brain MRI = " Multiple old infarcts are similar to head CT of April 02, 2019" Dilated cardiomyopathy DVT (deep venous thrombosis) 2016 - BLLE --> PE - on xarelto (unk etiology) History of pulmonary embolism 2016 Hypothyroidism Laryngeal carcinoma 2004 - status post radiation and chemotherapy LBBB (left bundle branch block) PER RECORDS Lung cancer 2017 - treated surgically + radiation Pacemaker [employer]IN[employer]ACULTY-D, placed 09/07/2020 bradycardia; [employer]; last checked 08/2020 - follows with Dr. Verma Pleural effusion S/P THORACENTESIS IN THE PAST- NO THORACENTESIS X 6 MONTHS Pulmonary nodule PVD (peripheral vascular disease) "chronic BL SFA occlusions" Thoracic ascending aortic aneurysm PT STATES DOCTOR IS JUST WATCHING EVERY 6 MONTHS 4.7CM ASCENDING THORACIC AORTA; 3.9CM DESCENDING THORACIC AORTA PER 02/2020 CTA ABDOMEN/PELVIS Surgical History H/O bursectomy Left History of arthroscopy of left shoulder History of back surgery 2006 - LUMBAR > CAGE IN PER PATIENT History of cardiac catheterization 02/2020 [facility] - per , no stents/angioplasty History of nasal septoplasty 2001 History of thoracentesis Hx of tonsillectomy 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 Mother , Passed age 26 of rheumatic fever No problems noted. Father , Passed age 44 of NC No problems noted. Sister , Passed age 60 of metastatic colon cancer No problems noted. Sister No problems noted. Sister No problems noted. Son No problems noted. Son No problems noted. Social History Smoking Status: Unknown if ever smoked Age Started Using Tobacco: 19; packs per day: 0.75; Years Smoked: 50; Cigarettes Per Day: 20; Second Hand Exposure: Yes; Hx Alcohol Use: Yes ("rare") Alcohol type: beer Alcohol Intake Frequency Comment: 3 beers day; however for past 2 weeks only has been having 1 Hx Substance Use: No Preferred Language: Ethiopian Communication Ability: Effective Visual Impairment: No Limitations Hearing Ability: Use of Hearing Aid [place] Hand Required: No Beliefs That Will Affect Care: None marital status: Current Living Situation: Spouse current occupational status: retired 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 Feels Safe at Home: Yes Childhood Exposure to Second-Hand Smoke: Yes caffeine: No Dental Care, Regularly: No Assistive Devices: Denture - Upper, Denture - Lower, Glasses and Hearing Aid - Bilateral Physical Exam Physical Exam: ROS-Offers no history Physical Exam Gen-Vented, NAD, Afebrile Head-NCAT, EOMI, PERRLA, Anicteric Sclera Neck-Supple, No JVD, No Thyromegaly, No Masses, No LAD, No Bruits Lungs-Clear to Auscultation Bilaterally, No Rales, No Rhonchi, No Wheezing, No Crepitus Chest-No S4, +S1, +S2, No S3, No Murmurs, No Rubs, No Gallops, No Ectopy Abdomen-Soft, Bowel Sounds Present, Non Tender, Non Distended, No Hepatomegaly, No Splenomegaly, No Palpable Masses, No Rebound, No Rigidity, No Guarding Musculoskeletal-Full Range of Motion Bilaterally, No CVAT Extremities-No Cyanosis, No Clubbing, No Edema Nuero-Cranial Nerves II-XII grossly intact, Motor WNL, DTRs WNL, Strength WNL, Non Focal Psych-Normal Mood prior to intubation Results & Data Results & Data ([facility]) Vital Signs (Past 12 Hours) Vital Signs Temp Pulse Pulse Resp BP Pulse Ox 02/03/21 19:30 157 H 02/03/21 19:21 144 H 20 02/03/21 19:20 138 H 02/03/21 19:11 36.1 C L 02/03/21 19:10 36.1 C L 145 H 02/03/21 19:00 137 H 02/03/21 18:50 153 H 107/90 02/03/21 18:45 149 H 109/93 02/03/21 18:40 142 H 95/70 L 02/03/21 18:35 161 H 122/85 02/03/21 18:34 35.6 C L 02/03/21 18:30 35.6 C L 150 H 112/83 02/03/21 18:25 155 H 124/71 02/03/21 18:24 20 02/03/21 18:20 160 H 111/88 02/03/21 18:15 155 H 120/81 02/03/21 18:12 149 H 02/03/21 18:11 151 H 106/84 02/03/21 18:10 150 H 02/03/21 18:06 155 H 02/03/21 18:00 142 H 75/35 L 02/03/21 17:56 152 H 69/56 L 02/03/21 17:51 159 H 112/82 02/03/21 17:50 157 H 02/03/21 17:47 145 H 02/03/21 17:46 157 H 112/62 02/03/21 17:42 159 H 16 02/03/21 17:40 160 H 106/88 02/03/21 17:35 161 H 16 108/91 02/03/21 17:30 154 H 16 02/03/21 17:20 144 H 25 H 02/03/21 17:17 139 H 34 H 02/03/21 17:10 120 H 32 H 97/65 L 02/03/21 17:07 152 H 33 H 02/03/21 17:00 138 H 37 H 02/03/21 16:59 32 H 02/03/21 16:56 136 H 34 H 02/03/21 16:52 136 H 30 H 02/03/21 16:51 132 H 33 H 95/74 L 02/03/21 16:50 136 H 35 H 02/03/21 16:41 147 H 33 H 123/99 02/03/21 16:40 146 H 35 H 02/03/21 16:31 157 H 38 H 132/105 H 02/03/21 16:30 130 H 40 H 02/03/21 16:25 136 H 136 H 39 H 02/03/21 16:21 135 H 36 H 130/82 02/03/21 16:20 151 H 42 H 02/03/21 16:19 146 H 40 H 02/03/21 16:17 36.6 C 132 H 45 H 155/81 H 76 L Allergies enoxaparin [From Lovenox] Allergy (Intermediate, Verified 02/03/21 16:40) itchy adhesive tape Allergy (Mild, Verified 02/03/21 16:40) redness metoprolol Allergy (Mild, Verified 02/03/21 16:40) itchy naproxen Allergy (Unknown, Verified 02/03/21 16:40) ITCHY Height/Weight/Isolation Height 5 ft 11 in Weight 78 kg Chemistry 02/03/21 16:21 Sodium 140 Potassium 6.2 H* Chloride 105 Carbon Dioxide 24 Anion Gap 11.0 BUN 39 H Creatinine 1.85 H Glucose 66 L Urinalysis 02/03/21 17:12 Urine Color Yellow Urine Appearance Slightly Cloudy Urine pH 5.0 Ur Specific [place] >= 1.030 Urine Protein 3+ H Urine Glucose (UA) Negative Urine Ketones Negative Urine Blood 2+ H Urine Nitrite Negative Urine Bilirubin 1+ H Microbiology 02/03/21 16:31 Blood Aerobic Blood Culture - Pending 02/03/21 16:31 Blood Anaerobic Blood Culture - Pending 02/03/21 16:21 Blood Aerobic Blood Culture - Pending 02/03/21 16:21 Blood Anaerobic Blood Culture - Pending Code Status & VTE Plan VTE Prophylaxis Plan VTE Prophylaxis will be ordered: Yes (1) Congestive heart failure Heart failure chronicity: acute Heart failure type: unspecified Qualified Code(s): I50.9 - Heart failure, unspecified (2) Respiratory failure Chronicity: acute Respiratory failure complication: hypoxia and hypercapnia Qualified Code(s): J96.01 - Acute respiratory failure with hypoxia; J96.02 - Acute respiratory failure with hypercapnia (3) Lung cancer Laterality: left Lung location: upper lobe of lung Qualified Code(s): C34.12 - Malignant neoplasm of upper lobe, left bronchus or lung
[2021-02-03 20:24] LABS: D Dimer 5120 ug/L FEU (0-500)
[2021-02-03] MEDS ORDERED: SODIUM CHLORIDE 0.9% 500 ML IV SCH (20:30)
[2021-02-03] MEDS ORDERED: CALCIUM GLUCONATE 10% 1,000 MG in SODIUM CHLORIDE 0.9% 50 ML IV ONE (20:45)
[2021-02-03] MEDS ORDERED: INSULIN HUMAN REGULAR PER UNIT 10 UNITS in SYRINGE 9.9 ML IV ONE (20:45)
[2021-02-03] MEDS ORDERED: ETOMIDATE 2 MG/ML 20 ML VIAL IV ONE (20:52)
[2021-02-03] MEDS ORDERED: ROCURONIUM BROMIDE 10 MG/ML 5 ML VIAL IV ONE (20:52)
--- NOTE | 2021-02-03 20:53 | Critical Care Consultation ---
Date of Consultation February 03, 2021 Assessment & Plan (1) Admitted to intensive care unit: Reason Critically Ill: 70-year-old male with acute hypoxic respiratory failure requiring endotracheal intubation. Patient with NSTEMI and BNP of greater than 35,000. Elevated lactate greater than 7. VENTURA. Tachycardia with EF approximately 15%. NEURO - * CAM ICU: NEGATIVE * Sedation: Precedex * Pain: Fentanyl CARDIAC/VASCULAR - * NSTEMI: * Likely demand in the setting of ongoing tachycardia of questionable etiology at this point. * Does not appear to be overtly septic. * EKG appears similar to previous, however the patient is paced and with chronic left bundle. * Patient denies complaints of chest pain. * Will trend troponins. * EKGs as needed. * A. fib: * Presented to the ICU with heart rates in the 130s to 140s. * Initially was resuscitated with fluid in the emergency department. * Patient with poor EF of approximately 15% and known history of severe aortic stenosis. * Patient would benefit from rate control in the setting of known severe with poor EF. * Typically, would favor Timothy-Synephrine in this patient with hypotension and tachydysrytmia, however this patient has a known poor EF and I am concerned that the additional alpha-adrenergic agonist activity might put the patient at greater risk for cardiovascular collapse. * Patient's Dig level is 0.2. Will add additional IV Dig dose at 0.125 mg. Will re-bolus as needed. * Agree with Levophed initially. * Did reach out to [facility] (Dr. Rosa). He suggests addition of inotropic agent given his poor EF. Will add Dobutamine at 2.5 mg. Will try to avoid greater dosing 2/2 arrhythmogenic propensity of this drug. * Patient is obviously in a low flow state and I am suspicious that this is resulting in his subsequent transaminitis as well as VENTURA. Please see GI/Nephro. * Will add additional dose of IV Lasix. * d/c IVF * EKG: Ventricularly paced rhythm at 110 bpm. QTc 554 ms. * Monitor on telemetry. RESPIRATORY - * Respiratory failure: * Multifactorial in the CHF/COPD patient who appears to be volume up. * Intubated in the ED. * Saturating extremely well on 40% FiO2 * Will wean down ventilator settings as tolerated. * Will place A-line and obtain ABGs PRN. * Will add PRN nebs. * Repeat CXR in the ICU demonstrates acute accumulation of RIGHT sided pulmonary edema. Patient remains saturating well. Will obtain CT chest (while performing CT Abd/Pelvis) to r/o possible infectious sources driving patient's current cardiovascular status. * Currently covered w/ Zosyn. Appropriate currently given acuity of illness. GI/NUTRITION - * Transaminitis: * Likely 2/2 congestive hepatopathy in the setting of low flow cardiac state. * Will monitor for improvement pending improvement of cardiac output. * Regardless, it would be prudent to evaluate for possible underlying biliary sources in the critically ill patient w/ elevated lactate and transaminitis. * Will order Liver US as well as evaluate Portal Vein. * Prophylaxis: Famotidine RENAL/LYTES - * Hyperkalemia: * Given this as an isolated derangement, this likely represents effects of the patient's presenting acidemia. * Received IV Calcium, Insulin, Glucose and IVF. * Will trend PRP. * Evaluation of T-wave changes difficult in the pacer dependent patient w/ w idened QRS complex at baseline. * Consider additional treatments, i.e. Veltassa, Kayexalate pending response to initial treatment. * VENTURA: * Multifactorial in the hypotensive patient on chronic Lasix and chronic low output cardiac disease. * Patient has received IVF resuscitation in the ED. * Appears volume up clinically. * I am concerned w/ further IVF administration given poor EF and new, worsening pleural effusions. * Will d/c maintenance IVF. * I am suspicious, given the current clinical picture, that this may represent a degree of cardiorenal syndrome. * Patient's urine output was minimal despite IVF. * Will address BP/HR issues in hopes of increasing forward flow. * Will add Lasix dosing w/ hopes to achieve net negative fluid balance. * Trend electrolytes closely while actively diuresing. - * Larios in place - Strict I&Os. ENDO - * Hypoglycemia on arrival * BSGs per unit protocol. ISS --> gtt per unit policy. HEME - * Stable H&H * Monitor for s/s bleeding in the patient on chronic Xarelto. ID - * Patient concerning for possible septicemia. * While patient's tachycardia may represent compensatory cardiac/respiratory/renal/etc., I do not disagree with current antibiotics until further workup is completed to rule out possible sources. * Will evaluate GI, respiratory for possible sources. * Lactate still greater than 7. * PCT negative, thankfully. * Blood Cultures pending. LINES/IV ACCESS - * PIVs x2 * ET Tube * OG * Larios * RIGHT Radial Art Line * consents to CVL if needed. DVT PROPHYLAXIS - * Hold as patient is on Xarelto at home. * SCDs I have personally spent 58 minutes of critical care time in the direct management of this patient. This is a life/limb threatening event. This includes time spent evaluating patient, direct bedside care, chart review, placing order s, interpretation of diagnostic studies, discussion with consultants, patient, and family members, as well as other required patient management activities. This time is exclusive of all separately billable procedures, and teaching time and separate from and in addition to any other critical care service time. Thank you for allowing us to participate in the care of this patient. Please refer to my attending physician's documentation for any further recommendations. (2) Respiratory failure: (3) Acute respiratory acidosis: (4) Congestive heart failure: (5) Acute kidney injury: (6) Acute hypotension: (7) Acute hyperkalemia: (8) Hypoglycemia: (9) Lung cancer: (10) Elevated troponin: History of Present Illness Attending Physician: Miguel Ugarte DO History of Present Illness Patient is a 70-year-old male with significant past medical history of lung CA, coronary artery disease, chronic A. fib, CHF, dilated cardiomyopathy with ICD anticoagulated on Xarelto, left bundle branch block, severe aortic stenosis, peripheral vascular disease, thoracic aortic aneurysm, carotid stenosis, AAA, chronic RIGHT-sided pleural effusion, history of PE, COPD, history of CVA, and hypothyroidism. Per conversation with patient's , he has been short of breath of the last few days. There was adjustments made to the patient's Lasix and she reports that he has been urinating himself because of it. He has been extremely weak. She states that her shortness of breath had worsened today so she contacted EMS. The patient has had previous episodes where he is required endotracheal intubation secondary to volume overload. She states that his abdomen has become more filled with fluid and his legs have retained fluid bilaterally as well. She states that he is scheduled to take oral potassium, magnesium, and B12 which he does not. Otherwise, she reports that he takes all of his medications as prescribed. Upon arrival in the emergency department, he was placed on BiPAP. He failed noninvasive therapy and was subsequently intubated. The patient saturating well while intubated. He did have transient episodes of hypotension. Orders were placed for Levophed. He was covered with Zosyn. He received approximately 1.5 L of saline. Patient noted had of eleva jaimie troponin as well as a potassium of 6.2. Orders placed for calcium gluconate, insulin, dextrose. Lactate elevated at greater than 7. Procalcitonin and COVID-19 testing negative. Noted to have VENTURA with creatinine of 1.85 up from his baseline. Patient with transaminitis as well as BNP greater than 35,000. Upon arrival in the ICU, the patient is intubated and sedated with fentanyl. The patient is awake with stimuli. He does answer questions appropriately while nodding his head. Patient initially hypotensive with heart rates in the 140s. Levophed was initiated by nursing staff per previous order. I did have a conversation with the patient's via phone. She states that the patient has required endotracheal intubation in the past. She states that he would not wish to undergo chest compressions. Otherwise she is comfortable with defibrillation/cardioversion and ACLS medications as well as pressors. She states that the patient has had an arterial line in the past and verbally consents to procedure. She verbally consents to central line, however she is uncertain if he has had 1 of these in the past. Patient unable to contribute to history of present illness secondary to intubation with sedation. He does, however, denies any complaints of pain. Allergies Allergy/AdvReac Type Severity Reaction Status Date / Time enoxaparin [From Lovenox] Allergy Intermediate itchy Verified 02/03/21 16:40 adhesive tape Allergy Mild redness Verified 02/03/21 16:40 metoprolol Allergy Mild itchy Verified 02/03/21 16:40 naproxen Allergy Unknown ITCHY Verified 02/03/21 16:40 Home Medications Medication Instructions Recorded Confirmed Type digoxin 125 mcg PO QAM 03/11/19 02/03/21 History melatonin 5 mg PO HS PRN 03/11/19 02/03/21 History nitroglycerin [Nitrostat] 0.4 mg SUBLINGUAL UD PRN #30 tab 03/17/19 02/03/21 Rx Xarelto 20 mg PO QAM 07/09/19 02/03/21 History furosemide 40 mg PO QAM PRN 10/03/19 02/03/21 History carvedilol 3.125 mg tablet 3.125 mg PO BID 11/21/19 02/03/21 History mirtazapine 15 mg tablet 15 mg PO HS PRN tab 06/30/20 02/03/21 History multivitamin 1 tab PO QAM 06/30/20 02/03/21 History spironolactone 25 mg tablet 25 mg PO QAM tab 07/03/20 02/03/21 History ezetimibe [Zetia] 10 mg PO QAM 09/25/20 02/03/21 History levothyroxine 112 mcg PO QAM 09/25/20 02/03/21 History albuterol sulfate 90 mcg/actuation 2 puff INHALATION QID PRN #8.5 g 01/01/21 02/03/21 Rx aerosol inhaler aspirin [Aspirin Low Dose] 81 mg PO DAILY 02/03/21 02/03/21 History ipratropium-albuterol 3 ml INHALATION UD 02/03/21 02/03/21 History Patient History Medical History AAA (abdominal aortic aneurysm) S/P ENDOGRAFT REPAIR - [facility] 2004 AAA UNCHANGED FROM 2016/NO EVIDENCE OF ENDOLEAK PER 02/2020 CTA Anemia Aortic stenosis MODERATE TO SEVERE BY DSE IN 03/2020 (DEFERRING TAVR AT THIS TIME- REPEATING STUDIES IN 03/2021 PER CARDIO RECORD) Atrial fibrillation PER RECORDS - ON XARELTO CAD (coronary artery disease) WITH [employer] [employer] RCA Carotid stenosis PER PATIENT, "100% BLOCKAGE TO RIGHT SIDE" LEFT SIDE IS 55%" > FOLLOWS DR. NUÑEZ AT [facility] -- reports yearly carotid US at [facility] CHF (congestive heart failure) NONISCHEMIC CM - S/P PACEMAKER PLACEMENT 08/2020 COPD (chronic obstructive pulmonary disease) CVA (cerebral vascular accident) Found incidentally on imaging. 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 Verma Pleural effusion S/P THORACENTESIS IN THE PAST- NO THORACENTESIS X 6 MONTHS Pulmonary nodule PVD (peripheral vascular disease) "chronic BL SFA occlusions" Thoracic ascending aortic aneurysm PT STATES DOCTOR IS JUST WATCHING EVERY 6 MONTHS 4.7CM ASCENDING THORACIC AORTA; 3.9CM DESCENDING THORACIC AORTA PER 02/2020 CTA ABDOMEN/PELVIS Surgical History H/O bursectomy Left History of arthroscopy of left shoulder History of back surgery 2005 - LUMBAR > CAGE IN PER PATIENT History of cardiac catheterization 02/2020 [facility] - per , no stents/angioplasty History of nasal septoplasty 2001 History of thoracentesis Hx of tonsillectomy 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 Mother , Passed age 26 of rheumatic fever No problems noted. Father , Passed age 44 of IA No problems noted. Sister , Passed age 60 of metastatic colon cancer No problems noted. Sister No problems noted. Sister No problems noted. Son No problems noted. Son No problems noted. 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 GENERAL - 70-year-old male appearing his stated age who is intubated and sedated. Nods yes/no to questions. SKIN - Without rashes. HEAD - NC/AT. EYES - PERRL with EOMI bilaterally. Sclera anicteric. Palpebral conjunctiva pink and moist with no injection noted. EARS - No deformities of external structures noted on gross examination bilaterally. NOSE - Midline and without cyanosis. No epistaxis or purulent drainage noted. MOUTH/OROPHARYNX - ET Tube in place. Without perioral cyanosis. Buccal mucosa pink and moist. Edentulous. NECK - Neck with FROM. Supple to palpation. No lymphadenopathy noted. No nuchal rigidity. LUNGS - Chest wall symmetric without accessory muscle use, intercostals retractions, or central cyanosis. Normal vesicular breath sounds CTA B/L. No wh eezes, rales, or rhonchi appreciated. CARDIAC - RRR with S1/S2. No murmur, rubs, or gallops appreciated. ABDOMEN - Abdominal contour flat without pulsations or visible masses. BS normoactive all four quadrants. No tenderness, palpable masses, hepatosplenomegaly, or ascites noted. EXTREMITIES - No clubbing or peripheral cyanosis. Moderate pretibial edema present. +3/5 radial and dorsalis pedis pulses palpated throughout. +5/5 strength noted in UE/LE bilaterally. NEUROLOGIC - Cranial nerves II through XII grossly intact. Unable to fully assess 2/2 intubation/sedation. Results & Data Results & Data ([facility]) Vital Signs (Past 12 Hours) Vital Signs Temp Pulse Pulse Resp BP Pulse Ox 02/03/21 19:59 142 H 20 99 02/03/21 19:30 157 H 02/03/21 19:21 144 H 20 02/03/21 19:20 138 H 02/03/21 19:11 36.1 C L 02/03/21 19:10 36.1 C L 145 H 02/03/21 19:00 137 H 02/03/21 18:50 153 H 107/90 02/03/21 18:45 149 H 109/93 02/03/21 18:40 142 H 95/70 L 02/03/21 18:35 161 H 122/85 02/03/21 18:34 35.6 C L 02/03/21 18:30 35.6 C L 150 H 112/83 02/03/21 18:25 155 H 124/71 02/03/21 18:24 20 02/03/21 18:20 160 H 111/88 02/03/21 18:15 155 H 120/81 02/03/21 18:12 149 H 02/03/21 18:11 151 H 106/84 02/03/21 18:10 150 H 02/03/21 18:06 155 H 02/03/21 18:00 142 H 75/35 L 02/03/21 17:56 152 H 69/56 L 02/03/21 17:51 159 H 112/82 02/03/21 17:50 157 H 02/03/21 17:47 145 H 02/03/21 17:46 157 H 112/62 02/03/21 17:42 159 H 16 02/03/21 17:40 160 H 106/88 02/03/21 17:35 161 H 16 108/91 02/03/21 17:30 154 H 16 02/03/21 17:20 144 H 25 H 02/03/21 17:17 139 H 34 H 02/03/21 17:10 120 H 32 H 97/65 L 02/03/21 17:07 152 H 33 H 02/03/21 17:00 138 H 37 H 02/03/21 16:59 32 H 02/03/21 16:56 136 H 34 H 02/03/21 16:52 136 H 30 H 02/03/21 16:51 132 H 33 H 95/74 L 02/03/21 16:50 136 H 35 H 02/03/21 16:41 147 H 33 H 123/99 02/03/21 16:40 146 H 35 H 02/03/21 16:31 157 H 38 H 132/105 H 02/03/21 16:30 130 H 40 H 02/03/21 16:25 136 H 136 H 39 H 02/03/21 16:21 135 H 36 H 130/82 02/03/21 16:20 151 H 42 H 02/03/21 16:19 146 H 40 H 02/03/21 16:17 36.6 C 132 H 45 H 155/81 H 76 L Coding Level of Care Code Critical Care 1st 30-74 mins Diagnoses Admitted to intensive care unit Z78.9 Respiratory failure J96.01; J96.02 Chronicity: acute Respiratory failure complication: hypoxia and hypercapnia Acute respiratory acidosis E87.2 Congestive heart failure I50.9 Heart failure chronicity: acute Heart failure type: unspecified Acute kidney injury N17.9 Acute hypotension I95.9 Acute hyperkalemia E87.5 Hypoglycemia E16.2 Lung cancer C34.12 Laterality: left Lung location: upper lobe of lung Elevated troponin R77.8 Time Spent (min) 58 (1) Respiratory failure Chronicity: acute Respiratory failure complication: hypoxia and hypercapnia Qualified Code(s): J96.01 - Acute respiratory failure with hypoxia; J96.02 - Acute respiratory failure with hypercapnia (2) Congestive heart failure Heart failure chronicity: acute Heart failure type: unspecified Qualified Code(s): I50.9 - Heart failure, unspecified (3) Lung cancer Laterality: left Lung location: upper lobe of lung Qualified Code(s): C34.12 - Malignant neoplasm of upper lobe, left bronchus or lung
--- NOTE | 2021-02-03 20:53 | Procedure Note ---
Procedure Note Date of Service February 03, 2021 Procedure: Arterial Line Placement Attending: Dr. Cobb APC: Neftali Meek PA-C Indication: Monitoring on Pressors Anesthesia: Lidocaine 1% Emergent consent implied in the setting of need for frequent ABGs, lab draws, etc. A time-out was completed verifying correct patient, procedure, site, po sitioning, and implant(s) or special equipment if applicable. Allens test was performed to ensure adequate perfusion. Patients RIGHT wrist was prepped and draped in the usual sterile fashion. Ultrasound guidance was used to aid needle placement. A 20g Arrow arterial line was introduced into the RIGHT Radial artery. Catheter was threaded, and the needle was removed with appropriate blood return. Good waveform was observed. The patient tolerated the procedure well. Confirmation of placement with ultrasound. Blood Loss: Minimal Complications: None Procedural Ultrasound Guidance: Procedure Date: 02/03/2021 Indication: Pressors, ABGs, frequent labs Attending: Dr. Cobb APC: Neftali Meek PA-C Artery Identified: YES Line confirmed in Artery with ultrasound: YES Complications: NONE Patient tolerated procedure: WELL Coding CPT Codes Tubes, Drains, and Vasc Access - Tubes, Drains, and Vasc Access: [id number] Place Catheter In Artery ([id number]) [facility] [place]Charges) Tubes, Drains, and Vasc Access Procedure 1: Tubes, Drains, and Vasc Access: [id number] Place Catheter In Artery
[2021-02-03] MEDS ORDERED: DEXMEDETOMIDINE HCL 200 MCG in SODIUM CHLORIDE 0.9% 48 ML IV SCH (21:00)
[2021-02-03] MEDS ORDERED: GLUCOSE 10 TABS/TUBE PO PRN (21:01)
[2021-02-03] MEDS ORDERED: CARBOHYDRATES FOR HYPOGLYCEMIA PO PRN (21:01)
[2021-02-03] MEDS ORDERED: GLUCAGON FOR INJ 1 MG VIAL SQ PRN (21:01)
[2021-02-03] MEDS ORDERED: DEXTROSE 50% 50 ML SYRINGE IV PRN (21:01)
[2021-02-03] MEDS ORDERED: GLUCOSE 40% GEL 15 GM TUBE PO PRN (21:01)
[2021-02-03] MEDS ORDERED: DIGOXIN 125 MCG in SYRINGE 9.5 ML IV STA (21:09)
[2021-02-03] MEDS ORDERED: NOREPINEPHRINE/D5W 8 MG/508 ML BAG IV SCH (21:15)
[2021-02-03 21:18] LABS: Albumin Level 3.3 gm/dl (3.4-5.0); BUN Creatinine Ratio 24.6 (10-20); C Reactive Protein 2.41 mg/dl (0-0.29); Calcium 8.8 mg/dl (8.5-10.1); Creatinine Clr Calc Pharmacy 38.7 ml/min; Est GFR (African American) 41.5 ml/min; Est GFR (Non-African American) 35.8 ml/min; Potassium 5.3 mmol/L (3.5-5.1)
[2021-02-03] MEDS: carvediloL 3.125 MG TAB PO SCH (21:22)
[2021-02-03 21:27] LABS: Albumin Globulin Ratio 0.9 (0.9-2); Bilirubin,Total 2.1 mg/dl (0.2-1); Globulin 3.7 gm/dl (2.5-4.0); Phosphorus 6.9 mg/dl (2.5-4.9); Troponin I 0.128 ng/ml (0-0.045)
[2021-02-03 21:36] LABS: iSTAT Art Bld Gas pCO2 Correct 37 mmHg (35-46); iSTAT Art Bld Gas pH Corrected 7.388 (7.35-7.45); iSTAT Arterial Blood Gas HCO3 22 meg/L (19-24); iSTAT Arterial Blood Gas pCO2 37 mmHg (35-46); iSTAT Arterial Blood Gas pH 7.39 (7.35-7.45); iSTAT Arterial Blood Gas pO2 83 mmHg (80-95); iSTAT Arterial Blood Gas pO2 C 83; iSTAT Carbon Dioxide 24 mmol/L (24-31); iSTAT Hematocrit 33 % (42-52); iSTAT Hemoglobin 11.2 g/dl (14.0-18.0); iSTAT Potassium 5.3 mmol/L (3.3-5.0); iSTAT Site Art Line; iSTAT Sodium 139 mmol/L (135-144)
[2021-02-03] MEDS ORDERED: FUROSEMIDE 40 MG in SYRINGE 0 ML IV ONE (21:58)
[2021-02-03] MEDS ORDERED: FUROSEMIDE 40 MG/4 ML VIAL IV ONE (22:15)
[2021-02-03] MEDS: DEXMEDETOMIDINE HCL 400 MCG in 0.9 % SODIUM CHLORIDE 96 ML IV SCH (23:52)
[2021-02-03] MEDS: PIPERACILLIN/TAZOBACTAM 3.375 GM in DEXTROSE 5% 100 ML IV SCH (23:59)
[2021-02-04] MEDS ORDERED: PNEUMOCOCCAL POLYSACCHARIDES 25 MCG/0.5 ML VIAL/SYR IM ONE (01:04)
[2021-02-04 01:07] LABS: BUN Creatinine Ratio 27.8 (10-20); Creatinine Clr Calc Pharmacy 39.5 ml/min; Est GFR (African American) 43.2 ml/min; Est GFR (Non-African American) 37.3 ml/min; Magnesium 2.3 mg/dl (1.8-2.4); Potassium 4.2 mmol/L (3.5-5.1)
[2021-02-04 01:22] LABS: Troponin I 0.175 ng/ml (0-0.045)
[2021-02-04 01:23] LABS: Phosphorus 4.9 mg/dl (2.5-4.9)
[2021-02-04] MEDS ORDERED: ALBUT/IPRATROP 3MG/0.5MG NEB 3 ML VIAL INH PRN (01:33)
[2021-02-04] MEDS ORDERED: ACETAMINOPHEN 65 ML IV ONE (02:00)
[2021-02-04 02:58] LABS: Hepatitis B Surf Ag Rflx Conf Neg (Neg)
[2021-02-04 03:26] LABS: Hepatitis C IgG 13Yrs+Old_Rflx Neg (Neg)
[2021-02-04] MEDS: DEXMEDETOMIDINE HCL 400 MCG in 0.9 % SODIUM CHLORIDE 96 ML IV SCH ×6 (03:56→23:23)
[2021-02-04 04:42] LABS: iSTAT Art Bld Gas pCO2 Correct 34 mmHg (35-46); iSTAT Art Bld Gas pH Corrected 7.472 (7.35-7.45); iSTAT Arterial Blood Gas HCO3 24 meg/L (19-24); iSTAT Arterial Blood Gas pCO2 31 mmHg (35-46); iSTAT Arterial Blood Gas pO2 74 mmHg (80-95); iSTAT Arterial Blood Gas pO2 C 82; iSTAT Carbon Dioxide 25 mmol/L (24-31); iSTAT Hematocrit 34 % (42-52); iSTAT Hemoglobin 11.6 g/dl (14.0-18.0); iSTAT Potassium 4.6 mmol/L (3.3-5.0); iSTAT Site Art Line; iSTAT Sodium 142 mmol/L (135-144)
[2021-02-04 04:59] LABS: INR 2.1 (0.9-1.1); Prothrombin Time 20.4 Seconds (9.0-12.0)
[2021-02-04 05:12] LABS: Albumin Level 3.1 gm/dl (3.4-5.0); BUN Creatinine Ratio 28.2 (10-20); Calcium 8.3 mg/dl (8.5-10.1); Creatinine Clr Calc Pharmacy 38.2 ml/min; Est GFR (African American) 41.5 ml/min; Est GFR (Non-African American) 35.8 ml/min; Magnesium 2.4 mg/dl (1.8-2.4); Potassium 4.8 mmol/L (3.5-5.1)
[2021-02-04 05:34] LABS: Hematocrit (blood only) 32.3 % (42-52); Hemoglobin 10.3 g/dL (14.0-18.0); Mean Corpuscular Hemoglobin 26.1 pg (25-34); Mean Corpuscular Hgb Conc 31.9 g/dL (32-36); Mean Platelet Volume 10.2 fL (7.4-10.4); Nucleated RBC # (auto) 0.04 K/uL (0-0); Nucleated RBC % (auto) 0.6 %; Platelet Count 175 K/uL (130-400); RDW Coefficient of Variation 17.5 % (11.5-14.5); RDW Standard Deviation 52.1 fL (36.4-46.3); Red Blood Count 3.94 M/uL (4.7-6.1); White Blood Count 6.95 K/uL (4.8-10.8)
[2021-02-04 05:41] LABS: Albumin Globulin Ratio 0.8 (0.9-2); Bilirubin,Total 1.7 mg/dl (0.2-1); Globulin 3.7 gm/dl (2.5-4.0); Phosphorus 4.8 mg/dl (2.5-4.9); Total Protein 6.8 gm/dl (6.4-8.2)
[2021-02-04 05:56] LABS: Giant Platelets 1+; Immature Granulocytes # (auto) 0.02 K/uL (0.00-0.02); Immature Granulocytes % (auto) 0.3 %; Lymphocytes # (auto) 0.55 K/uL (1.2-3.4); Lymphocytes % (auto) 7.9 %; Monocytes # (auto) 0.44 K/uL (0.11-0.59); Monocytes % (auto) 6.3 %; Neutrophils # (auto) 5.94 K/uL (1.4-6.5); Neutrophils % (auto) 85.5 %; Ovalocytes 1+; Schistocytes 1+
[2021-02-04] MEDS ORDERED: FUROSEMIDE 40 MG in SYRINGE 0 ML IV ONE (06:05)
[2021-02-04] MEDS: LEVOTHYROXINE SODIUM 112 MCG TABLET PO SCH (06:26)
[2021-02-04] MEDS: PIPERACILLIN/TAZOBACTAM 3.375 GM in DEXTROSE 5% 100 ML IV SCH ×3 (06:43→23:16)
--- NOTE | 2021-02-04 07:22 | Ultrasound Report ---
ABDOMINAL ULTRASOUND, RIGHT UPPER QUADRANT HISTORY: transaminitis. COMPARISON: None. FINDINGS: Pancreas: The visualized pancreas demonstrates a normal echotexture. Liver: Unremarkable. Trace perihepatic fluid. Gallbladder: Nonspecific mild gallbladder wall thickening and trace pericholecystic fluid along the h epatic surface. Sonographic Seth sign could not be assessed due to the patient being intubated. No gallstones identified. CBD: 3 mm. Right kidney: No hydronephrosis. A 1.4 cm cyst. IMPRESSION: 1. Nonspecific mild gallbladder wall thickening and trace pericholecystic fluid along the hepatic maria elena face. This may be due to the patient's diffuse edematous state. An acalculous cholecystitis is consid ered less likely but not entirely excluded. 2. Trace perihepatic ascites. No hepatic masses. ACT 112: Negative or not required by law. Electronically signed by: Enrrique Capps M.D. 02/04/2021 7:20 AM
[2021-02-04] MEDS ORDERED: Nursing to Pharmacy Communication SCH (08:00)
--- NOTE | 2021-02-04 08:00 | XRay Report ---
XR chest 1V portable HISTORY: NG tube placement COMPARISON: Chest 02/03/2021. FINDINGS: Nasogastric tube terminates in the stomach. Endotracheal tube terminates 2.7 cm from the ca raina. There is a left-sided pacemaker/defibrillator. Progressive volume loss within the right hemitho rax with right mediastinal shift. This progressive consolidation within the right mid to lower lung z one and a small right pleural effusion. Therefore, these findings raise the possibility of right lowe r lobe collapse likely secondary to mucous plugging. The left lung is clear. IMPRESSION: 1. Satisfactory support line placement. 2. No pneumothorax. 3. Progressive right mid to lower lung zone density with associated volume loss within the right lincoln thorax. This favors right lower lobe collapse/atelectasis likely secondary to mucous plugging. Bronch oscopy recommended for further evaluation. ACT 112: Negative or not required by law. Electronically signed by: Enrrique Capps M.D. 02/04/2021 7:59 AM
--- NOTE | 2021-02-04 08:24 | CT Scan Report ---
CT SCAN OF THE CHEST WITHOUT IV CONTRAST CLINICAL HISTORY: Hypoxia. COMPARISON STUDY: Chest CT dated 12/07/2020 and 03/11/2019. TECHNIQUE: CT scan of the thorax was performed from the thoracic inlet to the upper abdomen. Images are reviewed in the axial, sagittal, and coronal planes. IV contrast was not administered for this ex amination as per the referring clinician. A dose lowering technique was utilized adhering to the ashlyn nciethan of [place]. The examination is significantly degraded by motion artifact, as well as by streak artifact from the arms which could not be elevated above the chest. FINDINGS: Thyroid: Imaged portions of the thyroid gland appear atrophic. Thoracic aorta: There is atherosclerotic calcification of the thoracic aorta. There is mild aneurysma l dilatation of the ascending thoracic aorta which measures up to 4.6 cm in diameter. The remainder o f the thoracic aorta is normal in caliber, and the arch demonstrates standard 3-vessel anatomy. Heart: The cardiac AICD is present in the left chest wall. The heart is enlarged and without pericard ial effusion. The coronary arteries and aortic valve leaflets are densely calcified. There is diminis hed attenuation of the cardiac blood flow as compared to the myocardium suggesting anemia. Lungs and pleural spaces: An endotracheal tube terminates above the yuridia. Emphysematous change is n oted. There is postoperative change and volume loss consistent with right-sided pulmonary resection. There is compensatory hyperinflation of the left lung and rightward shift of the mediastinum. Emphyse matous change is noted. There is a small to moderate right pleural effusion with dense consolidation of the left lower lung. There is trace left pleural effusion with left basilar atelectasis. A 3 cm ma sslike opacity at the left apex on image #41 is unchanged. There is increasing paramediastinal fibros is of the left upper lobe as compared to previous. Name millimeters groundglass focus in the lingula on image #162 and a 9 mm focus of pleural thickening in the left lower lobe along the major fissure s een on image 143 are unchanged. Mediastinum: There is rightward shift of mediastinum. Numerous mildly enlarged mediastinal lymph node s measure up to 1.5 cm in short axis. Sherry: Not well assessed without IV contrast. Axillae: There is no axillary lymphadenopathy. Upper abdomen: An enteric tube terminates in the stomach. There is trace perihepatic and perisplenic ascites. Skeletal structures: The skeletal structures are osteopenic. No lytic or blastic bony lesions are see n. There are healed right-sided rib fractures. IMPRESSION: 1. Streak and motion compromised examination. 2. Emphysema with postoperative change and volume loss from right-sided pulmonary resection. 3. There is a small to moderate right pleural effusion with dense consolidation at the right lung bas e. Consolidative change is new from 12/07/2020. Correlate clinically for evidence of pneumonia/aspirat ion pneumonitis. 4. Endotracheal and enteric tubes are in place. 5. Trace left pleural effusion. 6. There is increasing paramediastinal fibrosis in the left upper lobe. This may be treatment related and clinical correlation will be required. 7. A 3 cm masslike opacity at the left apex and a groundglass nodule in the lingula have not signific antly changed from 12/07/2020. 8. Cardiomegaly and AICD. 9. There is trace upper abdominal ascites. 10. Mildly enlarged mediastinal lymph nodes are nonspecific. 11. Aneurysmal dilatation of the ascending thoracic aorta is unchanged. 12. Additional findings as above. ACT 112: Negative or not required by law. Electronically signed by: Gregorio Tamez M.D. 02/04/2021 8:23 AM
--- NOTE | 2021-02-04 08:26 | XRay Report ---
XR chest 1V portable HISTORY: Right lung opacity. Follow-up. Shortness of breath. COMPARISON: Chest 02/03/2021. FINDINGS: Slight improvement in aeration within the right lung base. A small right pleural effusion p ersists. Findings suggest partial resolution of the right lower lobe collapse. Mild volume loss withi n the right hemithorax has improved. There are healing right anterior rib fractures. The heart remain s enlarged. The left lung is clear. Left-sided pacemaker. No pneumothorax. IMPRESSION: 1. Improved aeration within the right lung base and improvement in the right hemithorax volume loss. Findings suggest partial resolution of the right lower lobe collapse. 2. Satisfactory support line placement. ACT 112: Negative or not required by law. Electronically signed by: Enrrique Capps M.D. 02/04/2021 8:24 AM
--- NOTE | 2021-02-04 08:31 | Ultrasound Report ---
US duplex portal hepatic veins CLINICAL HISTORY: 70 years-old Male presenting with transaminitis. TECHNIQUE: Real-time grayscale and limited color Doppler ultrasound imaging of the abdomen was perfor med. COMPARISON: None. FINDINGS: Hepatic veins are patent with normal direction of the flow. Main portal vein is patent with normal direction of the flow. Pulsatility of the portal vein is nonsp ecific. Visualized portion of inferior vena cava is patent. IMPRESSION: Patent portal and hepatic veins with normal direction of the flow. ACT 112: Negative or not required by law. Electronically signed by: Kay Noe DO 02/04/2021 8:30 AM
[2021-02-04] MEDS ORDERED: ASPIRIN 81 MG ECTAB PO SCH (09:00)
[2021-02-04] MEDS ORDERED: FAMOTIDINE 20 MG in SYRINGE 3 ML IV SCH (09:00)
[2021-02-04] MEDS ORDERED: RIVAROXABAN 20 MG TAB PO SCH (09:00)
[2021-02-04] MEDS ORDERED: EZETIMIBE 10 MG TABLET PO SCH (09:00)
--- NOTE | 2021-02-04 09:20 | Nephrology Consultation ---
Date of Consultation February 04, 2021 Assessment & Plan (1) Acute kidney injury: nonoliguric acute kidney injury stage 2 in the setting of fever and multiorgan failure on already severely diminished EF w/ ongoing AF w/ RVR and severe aortic stenosis. baseline creatinine 0.9. no current indication for urgent dialysis and not clear that he would tolerate should the need arise in current clinical condition. especially after thoracentesis, would consider his volume status currently to be acceptable. significant risk for worsening renal failure and oligoanuria given hemodynamic instability, ongoing fever. hyperkalemia from presentation has resolved. chemistries this am are acceptable for the moment. -resend urine for microscopic exam and proteinuria eval - so ordered -continue strict I/O and per cardiology low dose inotropic support and digoxin dosing -monitor chem panel bid while dosing/adjust digoxin given likelihood of further worsening renal function -consider eval for anaplasmosis if no cause for F evident History of Present Illness Reason for Consultation: jordi, hyperkalemia Requesting Physician: Dr Ugarte Attending Physician: Brian Fried MD History of Present Illness 70-year-old male whom I am asked to evaluate for acute kidney injury and hyperkalemia after he was admitted last evening with acute hypoxic respiratory failure requiring intubation after presenting with a heart rate in the 130s and 140s and a few days of worsening generalized weakness and shortness of breath despite intensification of outpatient Lasix therapy. 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 He required intubation shortly after presentation. Presenting lactate greater than 7 with elevated troponins and BNP, as well as a creatinine of 1.9 and potassium 5.3. Digoxin levels were sub therapeutic / nearly undetectable on presentation. As an outpatient his creatinine runs 0.9. His transaminases were in the 100s on presentation and bumped last evening to the 1000s. Covid testing negative. He has been febrile since about 3 AM this morning with heart rate consistently in the 130s to 140s, currently on dobutamine, digoxin, Zosyn. He had 1.5 L normal saline shortly after presentation. Subsequently received 40 mg IV Lasix x2. Creatinine this morning essentially unchanged and potassium now within normal limits. He has made 600 mL of urine since last evening. Evaluated on rounds this am at 0930. he has in the interval undergone thoracentesis 1L for which studies are pending Allergies Allergy/AdvReac Type Severity Reaction Status Date / Time enoxaparin [From Lovenox] Allergy Intermediate itchy Verified 02/03/21 16:40 adhesive tape Allergy Mild redness Verified 02/03/21 16:40 metoprolol Allergy Mild itchy Verified 02/03/21 16:40 naproxen Allergy Unknown ITCHY Verified 02/03/21 16:40 Home Medications Medication Instructions Recorded Confirmed Type digoxin 125 mcg PO QAM 03/11/19 02/03/21 History melatonin 5 mg PO HS PRN 03/11/19 02/03/21 History nitroglycerin [Nitrostat] 0.4 mg SUBLINGUAL UD PRN #30 tab 03/17/19 02/03/21 Rx Xarelto 20 mg PO QAM 07/09/19 02/03/21 History furosemide 40 mg PO QAM PRN 10/03/19 02/03/21 History carvedilol 3.125 mg tablet 3.125 mg PO BID 11/21/19 02/03/21 History mirtazapine 15 mg tablet 15 mg PO HS PRN tab 06/30/20 02/03/21 History multivitamin 1 tab PO QAM 06/30/20 02/03/21 History spironolactone 25 mg tablet 25 mg PO QAM tab 07/03/20 02/03/21 History ezetimibe [Zetia] 10 mg PO QAM 09/25/20 02/03/21 History levothyroxine 112 mcg PO QAM 09/25/20 02/03/21 History albuterol sulfate 90 mcg/actuation 2 puff INHALATION QID PRN #8.5 g 01/01/21 02/03/21 Rx aerosol inhaler aspirin [Aspirin Low Dose] 81 mg PO DAILY 02/03/21 02/03/21 History ipratropium-albuterol 3 ml INHALATION UD 02/03/21 02/03/21 History Patient History Medical History AAA (abdominal aortic aneurysm) S/P ENDOGRAFT REPAIR - [facility] 2004 AAA UNCHANGED FROM 2016/NO EVIDENCE OF ENDOLEAK PER 02/2020 CTA Anemia Aortic stenosis MODERATE TO SEVERE BY DSE IN 03/2020 (DEFERRING TAVR AT THIS TIME- REPEATING STUDIES IN 03/2021 PER CARDIO RECORD) Atrial fibrillation PER RECORDS - ON XARELTO CAD (coronary artery disease) WITH DESIGNER ARCHITECT RCA Carotid stenosis PER PATIENT, "100% BLOCKAGE TO RIGHT SIDE" LEFT SIDE IS 55%" > FOLL[facility] -- reports yearly carotid US at [facility] CHF (congestive heart failure) NONISCHEMIC CM - S/P PACEMAKER PLACEMENT 08/2020 COPD (chronic obstructive pulmonary disease) CVA (cerebral vascular accident) Found incidentally on imaging. 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 Verma Pleural effusion S/P THORACENTESIS IN THE PAST- NO THORACENTESIS X 6 MONTHS Pulmonary nodule PVD (peripheral vascular disease) "chronic BL SFA occlusions" Thoracic ascending aortic aneurysm PT STATES DOCTOR IS JUST WATCHING EVERY 6 MONTHS 4.7CM ASCENDING THORACIC AORTA; 3.9CM DESCENDING THORACIC AORTA PER 02/2020 CTA ABDOMEN/PELVIS Surgical History H/O bursectomy Left History of arthroscopy of left shoulder History of back surgery 2006 - LUMBAR > CAGE IN PER PATIENT History of cardiac catheterization 02/2020 [facility] - per , no stents/angioplasty History of nasal septoplasty 2001 History of thoracentesis Hx of tonsillectomy 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 UNSURE OF NAME Family History Grandfather (Paternal) , Passed age 71 of metastatic prostate cancer No problems noted. Mother , Passed age 26 of rheumatic fever No problems noted. Father , Passed age 44 of [place] No problems noted. Sister , Passed age 60 of metastatic colon cancer No problems noted. Sister No problems noted. Sister No problems noted. Son No problems noted. Son No problems noted. 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 Feels Safe at Home: Yes Childhood Exposure to Second-Hand Smoke: Yes caffeine: No Dental Care, Regularly: No Assistive Devices: Denture - Upper, Denture - Lower, Glasses and Hearing Aid - Bilateral Assistive Devices Comment: Intubated and Sedated Review of Systems Review of Systems: Unobtainable due to endotracheal tube Physical Exam Constitutional: well developed, + thin and + mechanically ventilated; no acute distress ENMT: Ears: no external ear abnormality Nose: no external nose abnormality Mouth: + dry oral mucous membranes Neck: no nuchal rigidity Respiratory: normal respiratory effort Auscultation: lungs clear to auscultation bilaterally and + diminished lung sounds Cardiovascular: Rate/Rhythm: + tachycardic Extremities: no edema Gastrointestinal (Abdomen): Inspection/Auscultation: normal bowel sounds; abdomen not distended Percussion/Palpation: abdomen soft; abdomen nontender Musculoskeletal: Extremities: + abnormal strength Skin: no rash; cool extremities w/ slight cyanosis Genitourinary: rose w/ 200 mL clear yellow urine Results & Data ([facility]) Vital Signs (Past 12 Hours) Vital Signs Temp Pulse Resp BP Pulse Ox 02/04/21 09:01 38.4 C H 134 H 117/88 99 02/04/21 08:00 38.5 C H 125 H 128/85 97 02/04/21 07:20 124 H 02/04/21 07:00 38.6 C H 114 H 128/87 98 02/04/21 06:00 38.6 C H 123 H 134/98 98 02/04/21 05:00 38.8 C H 112 H 123/84 100 02/04/21 04:32 18 02/04/21 04:00 38.6 C H 115 H 123/93 100 02/04/21 03:10 117 H 20 100 02/04/21 03:00 38.4 C H 117 H 128/92 100 02/04/21 02:00 38.1 C H 122 H 130/82 100 02/04/21 01:30 38.0 C H 132 H 100 02/04/21 01:00 37.8 C H 123 H 111/82 100 02/04/21 00:36 37.7 C H 123 H 104/81 100 02/04/21 00:01 37.6 C H 136 H 104/85 100 02/03/21 23:30 121 H 110/84 100 02/03/21 23:28 123 H 21 100 02/03/21 22:31 111 H 93/67 L 100 02/03/21 22:13 134 H 94/57 L 100 02/03/21 22:10 117 H 69/53 L 99 02/03/21 22:07 130 H 95/57 L 99 02/03/21 22:02 131 H 88/64 L 100 02/03/21 22:01 129 H 60/28 L 98 02/03/21 21:55 128 H 98/63 L 99 02/03/21 21:51 134 H 88/73 L 100 02/03/21 21:46 125 H 116/82 95 02/03/21 21:39 152 H 75/61 L 98 02/03/21 21:34 135 H 77/31 L 98 02/03/21 21:23 129 H 02/03/21 21:15 133 H 93/78 L 99 Laboratory Results 02/04/21 04:38 02/04/21 04:38 Admission urinalysis: pH 5.0 with a specific gravity greater than 1030, 3+ protein, 2+ blood, 1+ bilirubin; insufficient specimen to allow for microscopy Diagnostic Findings cxr FINDINGS: Slight improvement in aeration within the right lung base. A small right pleural effusion persists. Findings suggest partial resolution of the right lower lobe collapse. Mild volume loss within the right hemithorax has improved. There are healing right anterior rib fractures. The heart remains en larged. The left lung is clear. Left-sided pacemaker. No pneumothorax. IMPRESSION: 1. Improved aeration within the right lung base and improvement in the right hemithorax volume loss. Findings suggest partial resolution of the right lower lobe collapse. 2. Satisfactory support line placement. CT chest non con Thyroid: Imaged portions of the thyroid gland appear atrophic. Thoracic aorta: There is atherosclerotic calcification of the thoracic aorta. There is mild aneurysmal dilatation of the ascending thoracic aorta which measures up to 4.6 cm in diameter. The remainder of the thoracic aorta is normal in caliber, and the arch demonstrates standard 3-vessel anatomy. Heart: The cardiac AICD is present in the left chest wall. The heart is enlarged and without pericardial effusion. The coronary arteries and aortic valve leaflets are densely calcified. There is diminished attenuation of the cardiac blood flow as compared to the myocardium suggesting anemia. Lungs and pleural spaces: An endotracheal tube terminates above the yuridia. Emphysematous change is noted. There is postoperative change and volume loss consistent with right-sided pulmonary resection. There is compensatory hyperinflation of the left lung and rightward shift of the mediastinum. Emphysematous change is noted. There is a small to moderate right pleural effusion with dense consolidation of the left lower lung. There is trace left pleural effusion with left basilar atelectasis. A 3 cm masslike opacity at the left apex on image #41 is unchanged. There is increasing paramediastinal fibrosis of the left upper lobe as compared to previous. Name millimeters groundglass focus in the lingula on image #162 and a 9 mm focus of pleural thickening in the left lower lobe along the major fissure seen on image 143 are unchanged. Mediastinum: There is rightward shift of mediastinum. Numerous mildly enlarged mediastinal lymph nodes measure up to 1.5 cm in short axis. Sherry: Not well assessed without IV contrast. Axillae: There is no axillary lymphadenopathy. Upper abdomen: An enteric tube terminates in the stomach. There is trace perihepatic and perisplenic ascites. Skeletal structures: The skeletal structures are osteopenic. No lytic or blastic bony lesions are seen. There are healed right-sided rib fractures. IMPRESSION: 1. Streak and motion compromised examination. 2. Emphysema ith postoperative change and volume loss from right-sided pulmonary resection. 3. There is a small to moderate right pleural effusion with dense consolidation at the right lung base. Consolidative change is new from 12/07/2020. Correlate clinically for evidence of pneumonia/aspiration pneumonitis. 4. Endotracheal and enteric tubes are in place. 5. Trace left pleural effusion. 6. There is increasing paramediastinal fibrosis in the left upper lobe. This may be treatment related and clinical correlation will be required. 7. A 3 cm masslike opacity at the left apex and a groundglass nodule in the lingula have not significantly changed from 12/07/2020. 8. Cardiomegaly and AICD. 9. There is trace upper abdominal ascites. 10. Mildly enlarged mediastinal lymph nodes are nonspecific. 11. Aneurysmal dilatation of the ascending thoracic aorta is unchanged. 12. Additional findings as above. CT abd/pelvis Lower chest: Moderate to large right pleural effusion is seen and associated with consolidative opacity/atelectasis of the right lower lobe as well as volume loss of the visualized portion of the right hemithorax and midlines shift to the right. Trace pericardial effusion and mild four-chamber cardiomegaly seen. Calcifications of aortic valve and distal leads of pacemaker. Liver: The unenhanced liver is normal in size and attenuation of its parenchyma without evidence of focal lesions or intrahepatic biliary dilatation. Mild ascites is seen. Gallbladder: Unremarkable. Spleen: Normal in size and attenuation. Pancreas: Pancreas is atrophic. Adrenal glands: Bilateral adrenal gland again appears prominent, evaluation is limited due to lack of IV contrast and ascites/mesenteric edema. Kidneys: The unenhanced kidneys are normal in size without hydronephrosis. There is no contour deforming renal mass lesion. No renal calculi are identified. Vascular calcifications are seen within bilateral renal pelvises. Bowel: Bowel loops are nondilated. Appendix is normal in caliber and gas filled. Evaluation is limited due to lack of contrast and mild motion artifact. Peritoneum: There is no intraperitoneal free air. Vasculature: Redemonstration of the fusiform dilatation of abdominal aorta with infrarenal stent extend into the bilateral iliac arteries. Mild interval asymmetrical increase in size of posterior nonstented lumen at the level L3 (series 7 image 216) and also associated with interval dilatation of aortic diameter, now measuring 4.8 cm, previously was measured 4.3 cm at this level. Overall evaluation is limited due to lack of IV contrast on this nondedicated exam. Adenopathy: No definite large mesenteric or retroperitoneal lymph nodes are seen however evaluation is limited due to mesenteric edema. Pelvic viscera: Urinary bladder is decompressed with Rose balloon within its lumen. Mild diffuse thickening of urinary bladder wall is seen and sometimes could be associated with cystitis. Skeletal structures: Osseous structures are diffusely demineralized. Redemonstration of orthopedic hardware within L3-S1 level and status post laminectomy. Mild anterolisthesis of L4 on L5 is again seen. IMPRESSION: 1. Moderate right pleural effusion associated with atelectasis/consolidative opacity within the right lower lobe and volume loss on the right. Please correlate above-mentioned findings was prior history. Further evaluation with CT of the chest might be considered if clinically indicated. 2. Infrarenal abdominal aortic aneurysm with intraluminal stent and mild interval increase in size at the level of L3. Evaluation is limited due to lack of IV contrast on this nondedicated exam. Further evaluation with CTA of abdominal aorta is suggested. 3. Small pericardial effusion. 4. Ascites. 5. Mild diffuse wall thickening of the partially decompressed urinary bladder with Rose balloon within its lumen. Bladder wall thickening sometimes could be seen with cystitis. Please correlate above-mentioned findings with results of urinalysis. TTE today EF 15%; severe , m-mod mitral rgg; RV systolic pressure in 40s
[2021-02-04] MEDS: carvediloL 3.125 MG TAB PO SCH ×2 (10:11→20:31)
[2021-02-04] MEDS: ASPIRIN 81 MG CHEW NG SCH (10:11)
--- NOTE | 2021-02-04 10:20 | Cardiology Consultation ---
Date of Consultation February 04, 2021 Assessment & Plan (1) Respiratory failure: Patient is a complex 70-year-old male with underlying issues as outlined. His baseline is notable for class C congestive heart failure in the setting of severe LV dysfunction, severe aortic stenosis. He has multiple underlying morbidities as well as well as chronic atrial fibrillation with indwelling biventricular pacer defibrillator. Medical management is complicated by poor patient medical compliance Patient presented this admission with several days complaints of both edema as well as weakness and urinary incontinence is a new finding. He presented with marked weakness fatigue and respiratory failure in the setting of acute acidosis and renal failure suspicious for possible sepsis versus hypoperfusion etiology. Chest x-ray without pulmonary edema or signs of profound volume overload with transient right lung collapse improved this morning LV systolic function is markedly impaired on echocardiogram today EF less than 15%. Atrial fibrillation rates are elevated as a compensatory response with minimal cardiovascular reserve given LV dysfunction and valvular disease. Hepatic enzyme elevation as well as troponin elevation likely secondary to hypoperfusion Recommendations: Would continue low-dose inotropic support. Digoxin nondetectable on presentation we will give an additional dose of 0.25 mg IV now, may be repeated in 4 hours. Carvedilol restarted this morning. Patient chronically on anticoagulation with Xarelto but difficult to ascertain where this has been present Agree with treating with antibiotics for possible underlying sepsis and cautious fluid resuscitation to maintain urinary outputs Recent thyroid check suggested significant lapse in treatment of hypothyroidism as well, laboratory studies ordered Prognosis limited (2) Atrial fibrillation with rapid ventricular response: (3) Nonischemic cardiomyopathy: (4) Acute kidney injury: (5) Severe aortic stenosis: Additions and patient has been contemplating TAVR through [facility] although uncertain with patient actual candidate History of Present Illness Reason for Consultation: Acute respiratory failure Requesting Physician: Dr Fried Attending Physician: Brian Fried MD History of Present Illness Patient is an extremely complex 70-year-old male with extensive underlying cardiovascular history. He follows with Dr Maninder Verma [facility]. His ongoing issues include 1. Nonischemic cardiomyopathy with severe LV systolic dysfunction 2. Single-vessel coronary disease with chronic right coronary artery total occlusion mild disease other vessels, cardiac catheterization February 2020 3. Bicuspid aortic valve with severe calcific aortic stenosis with low flow hemodynamics 4. Long-term persistent atrial fibrillation, left bundle branch block 5. Status post biventricular pacer defibrillator implantation 09/07/2020, [employer] CRTD, model G1 48 with initial improvement in LV systolic function 6. Peripheral vascular disease status post abdominal aortic aneurysm endovascular repair 7. Hepatic cirrhosis 8. Squamous cell carcinoma of the lung status post radiation therapy partial lung resection 9. Chronic right pleural effusion 10. Hypothyroidism significant TSH elevation on last testing December 2020 11. Medical noncompliance Patient currently intubated and sedated and unable to add information to data. All information derived from review of outpatient as well as current inpatient records. Patient and contacted outpatient providers noting slight increase in lower extremity edema in association with discontinuation of diuretics. Patient had been having symptoms with increased urinary incontinence as a new finding followed by weakness and fatigue. He ultimately worsened with shortness of breath and presented to the emergency room. He was initially begun on BiPAP due to respiratory failure and ultimately intubated. Initial presentation notable for atrial fibrillation with elevated ventricular response rate, hypotension, acidosis and acute renal insufficiency. Pulmonary edema not significantly present. Partial right lung collapse noted after intubation Patient initially required pressor support. He received both IV fluids and IV furosemide with some response in urinary outputs. Currently sedated and tachycardic but with improved systolic blood pressure. Chest x-ray improved aeration to the right base this morning no signs of pulmonary edema once again. He has been febrile overnight Allergies Allergy/AdvReac Type Severity Reaction Status Date / Time enoxaparin [From Lovenox] Allergy Intermediate itchy Verified 02/03/21 16:40 adhesive tape Allergy Mild redness Verified 02/03/21 16:40 metoprolol Allergy Mild itchy Verified 02/03/21 16:40 naproxen Allergy Unknown ITCHY Verified 02/03/21 16:40 Home Medications Medication Instructions Recorded Confirmed Type digoxin 125 mcg PO QAM 03/11/19 02/03/21 History melatonin 5 mg PO HS PRN 03/11/19 02/03/21 History nitroglycerin [Nitrostat] 0.4 mg SUBLINGUAL UD PRN #30 tab 03/17/19 02/03/21 Rx Xarelto 20 mg PO QAM 07/09/19 02/03/21 History furosemide 40 mg PO QAM PRN 10/03/19 02/03/21 History carvedilol 3.125 mg tablet 3.125 mg PO BID 11/21/19 02/03/21 History mirtazapine 15 mg tablet 15 mg PO HS PRN tab 06/30/20 02/03/21 History multivitamin 1 tab PO QAM 06/30/20 02/03/21 History spironolactone 25 mg tablet 25 mg PO QAM tab 07/03/20 02/03/21 History ezetimibe [Zetia] 10 mg PO QAM 09/25/20 02/03/21 History levothyroxine 112 mcg PO QAM 09/25/20 02/03/21 History albuterol sulfate 90 mcg/actuation 2 puff INHALATION QID PRN #8.5 g 01/01/21 02/03/21 Rx aerosol inhaler aspirin [Aspirin Low Dose] 81 mg PO DAILY 02/03/21 02/03/21 History ipratropium-albuterol 3 ml INHALATION UD 02/03/21 02/03/21 History Patient History Medical History AAA (abdominal aortic aneurysm) S/P ENDOGRAFT REPAIR - [facility] 2004 AAA UNCHANGED FROM 2016/NO EVIDENCE OF ENDOLEAK PER 02/2020 [facility] Anemia Aortic stenosis MODERATE TO SEVERE BY DSE IN 03/2020 (DEFERRING TAVR AT THIS TIME- REPEATING STUDIES IN 03/2021 PER CARDIO RECORD) Atrial fibrillation PER RECORDS - ON XARELTO CAD (coronary artery disease) WITH RN OPERATING ROOM RCA Carotid stenosis PER PATIENT, "100% BLOCKAGE TO RIGHT SIDE" LEFT SIDE IS 55%" > [facility] -- reports yearly carotid US at [facility] CHF (congestive heart failure) NONISCHEMIC CM - S/P PACEMAKER PLACEMENT 08/2020 COPD (chronic obstructive pulmonary disease) CVA (cerebral vascular accident) Found incidentally on imaging. 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 Verma Pleural effusion S/P THORACENTESIS IN THE PAST- NO THORACENTESIS X 6 MONTHS Pulmonary nodule PVD (peripheral vascular disease) "chronic BL SFA occlusions" Thoracic ascending aortic aneurysm PT STATES DOCTOR IS JUST WATCHING EVERY 6 MONTHS 4.7CM ASCENDING THORACIC AORTA; 3.9CM DESCENDING THORACIC AORTA PER 02/2020 [facility] ABDOMEN/PELVIS Surgical History H/O bursectomy Left History of arthroscopy of left shoulder History of back surgery 2005 - LUMBAR > CAGE IN PER PATIENT History of cardiac catheterization 02/2020 [facility] - per , no stents/angioplasty History of nasal septoplasty 2001 History of thoracentesis Hx of tonsillectomy 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 Mother , Passed age 26 of rheumatic fever No problems noted. Father , Passed age 44 of [place] No problems noted. Sister , Passed age 60 of metastatic colon cancer No problems noted. Sister No problems noted. Sister No problems noted. Son No problems noted. Son No problems noted. 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 Feels Safe at Home: Yes Childhood Exposure to Second-Hand Smoke: Yes caffeine: No Dental Care, Regularly: No Assistive Devices: Denture - Upper, Denture - Lower, Glasses and Hearing Aid - Bilateral Assistive Devices Comment: Intubated and Sedated Review of Systems Review of Systems: Unobtainable due to endotracheal tube Physical Exam Constitutional: + mechanically ventilated ENMT: Oral endotracheal tube in Neck: trachea midline, no thyromegaly Respiratory: Auscultation: + bronchovesicular breath sounds Cardiovascular: Rate/Rhythm: + tachycardic and + irregularly irregular Heart Sounds: + murmur (Grade 3/6 but distant heart murmur) Palpation: + abnormal PMI Vessels: no JVD Extremities: + edema (1+) Chest (Breasts): Chest: + pacemaker Gastrointestinal (Abdomen): normal bowel sounds, soft, nontender, no hepatosplenomegaly Genitourinary: Larios in place Results & Data ([facility]) Vital Signs (Past 12 Hours) Vital Signs Temp Pulse Resp BP Pulse Ox 02/04/21 09:01 38.4 C H 134 H 117/88 99 02/04/21 08:00 38.5 C H 134 H 135/79 97 02/04/21 07:20 124 H 02/04/21 07:15 128 H 21 98 02/04/21 07:00 38.6 C H 114 H 128/87 98 02/04/21 06:00 38.6 C H 123 H 134/98 98 02/04/21 05:00 38.8 C H 112 H 123/84 100 02/04/21 04:32 18 02/04/21 04:00 38.6 C H 115 H 123/93 100 02/04/21 03:10 117 H 20 100 02/04/21 03:00 38.4 C H 117 H 128/92 100 02/04/21 02:00 38.1 C H 122 H 130/82 100 02/04/21 01:30 38.0 C H 132 H 100 02/04/21 01:00 37.8 C H 123 H 111/82 100 02/04/21 00:36 37.7 C H 123 H 104/81 100 02/04/21 00:01 37.6 C H 136 H 104/85 100 02/03/21 23:30 121 H 110/84 100 02/03/21 23:28 123 H 21 100 02/03/21 22:31 111 H 93/67 L 100 Laboratory Results Laboratory Results - last 24 hr 02/03/21 02/03/21 02/03/21 16:21 16:21 16:21 WBC 7.56 RBC 4.03 L Hgb 10.7 L POC Hgb Hct 34.9 L POC Hct MCV 86.6 MCH 26.6 MCHC 30.7 L RDW Std Deviation 56.7 H RDW Coeff of Debra 18.2 H Plt Count 240 MPV 9.8 Immature Gran % (Auto) 0.4 Neut % (Auto) 77.6 Lymph % (Auto) 10.8 [place] % (Auto) 11.1 Eos % (Auto) 0.0 Baso % (Auto) 0.1 Neut # (Auto) 5.86 Lymph # (Auto) 0.82 L [place] # (Auto) 0.84 H Eos # (Auto) 0.00 Baso # (Auto) 0.01 Immature Gran # (Auto) 0.03 H Absolute Nucleated RBC 0.02 H Nucleated RBC % (auto) 0.3 Giant Platelets Ovalocytes Schistocytes PT 20.7 H INR 2.2 H APTT 28.9 PTT Ratio 1.1 D-Dimer Sample Site POC pH POC pCO2 POC pO2 POC HCO3 POC Total CO2 POC Base Excess ABG pH (Temp Correct) ABG pCO2 (Temp Corrct POC ABG pO2 at Pt Temp POC ABG O2 Sat Heber Test VBG pH VBG pCO2 VBG pO2 VBG HCO3 VBG O2 Saturation VBG Base Excess Barometric Pressure POC Sodium Sodium 140 POC Potassium Potassium 6.2 H* Chloride 105 Carbon Dioxide 24 Anion Gap 11.0 BUN 39 H Creatinine 1.85 H Est Cr Clr Drug Dosing 38.4 Est GFR ( Amer) 41.2 Est GFR (Non-Af Amer) 35.6 BUN/Creatinine Ratio 21.0 H Glucose 66 L POC Glucose Lactate Calcium 9.5 Ionized Calcium Phosphorus Magnesium 2.7 H Total Bilirubin 2.0 H AST 228 H ALT 172 H Alkaline Phosphatase 104 Troponin I 0.091 H* C-Reactive Protein NT-Pro-B Natriuret Pep > 18997 H Total Protein 8.0 Albumin 3.7 Globulin 4.3 H Albumin/Globulin Ratio 0.9 Procalcitonin TSH Random Cortisol Urine Color Urine Appearance Urine pH Ur Specific [place] Urine Protein Urine Glucose (UA) Urine Ketones Urine Blood Urine Nitrite Urine Bilirubin Urine Urobilinogen Ur Leukocyte Esterase Urine RBC Urine WBC Ur Epithelial Cells Urine Bacteria Nasal Screen MRSA (PCR) Digoxin Acetaminophen COVID-19 Eval Order SARS-CoV-2 (PCR) Hepatitis A IgM Ab Hep Bs Antigen Hep B Core IgM Ab Hepatitis C Antibody 02/03/21 02/03/21 02/03/21 16:21 16:21 16:21 WBC RBC Hgb POC Hgb Hct POC Hct MCV MCH MCHC RDW Std Deviation RDW Coeff of Debra Plt Count MPV Immature Gran % (Auto) Neut % (Auto) Lymph % (Auto) [place] % (Auto) Eos % (Auto) Baso % (Auto) Neut # (Auto) Lymph # (Auto) [place] # (Auto) Eos # (Auto) Baso # (Auto) Immature Gran # (Auto) Absolute Nucleated RBC Nucleated RBC % (auto) Giant Platelets Ovalocytes Schistocytes PT INR APTT PTT Ratio D-Dimer 5120 H* Sample Site POC pH POC pCO2 POC pO2 POC HCO3 POC Total CO2 POC Base Excess ABG pH (Temp Correct) ABG pCO2 (Temp Corrct POC ABG pO2 at Pt Temp POC ABG O2 Sat Heber Test VBG pH VBG pCO2 VBG pO2 VBG HCO3 VBG O2 Saturation VBG Base Excess Barometric Pressure POC Sodium Sodium POC Potassium Potassium Chloride Carbon Dioxide Anion Gap BUN Creatinine Est Cr Clr Drug Dosing Est GFR ( Amer) Est GFR (Non-Af Amer) BUN/Creatinine Ratio Glucose POC Glucose Lactate 7.2 H* Calcium Ionized Calcium Phosphorus Magnesium Total Bilirubin AST ALT Alkaline Phosphatase Troponin I C-Reactive Protein NT-Pro-B Natriuret Pep Total Protein Albumin Globulin Albumin/Globulin Ratio Procalcitonin 0.11 TSH Random Cortisol Urine Color Urine Appearance Urine pH Ur Specific [place] Urine Protein Urine Glucose (UA) Urine Ketones Urine Blood Urine Nitrite Urine Bilirubin Urine Urobilinogen Ur Leukocyte Esterase Urine RBC Urine WBC Ur Epithelial Cells Urine Bacteria Nasal Screen MRSA (PCR) Digoxin Acetaminophen COVID-19 Eval Order SARS-CoV-2 (PCR) Hepatitis A IgM Ab Hep Bs Antigen Hep B Core IgM Ab Hepatitis C Antibody 02/03/21 02/03/21 02/03/21 16:31 16:32 16:50 WBC RBC Hgb POC Hgb Hct POC Hct MCV MCH MCHC RDW Std Deviation RDW Coeff of Debra Plt Count MPV Immature Gran % (Auto) Neut % (Auto) Lymph % (Auto) [place] % (Auto) Eos % (Auto) Baso % (Auto) Neut # (Auto) Lymph # (Auto) [place] # (Auto) Eos # (Auto) Baso # (Auto) Immature Gran # (Auto) Absolute Nucleated RBC Nucleated RBC % (auto) Giant Platelets Ovalocytes Schistocytes PT INR APTT PTT Ratio D-Dimer Sample Site POC pH POC pCO2 POC pO2 POC HCO3 POC Total CO2 POC Base Excess ABG pH (Temp Correct) ABG pCO2 (Temp Corrct POC ABG pO2 at Pt Temp POC ABG O2 Sat Heber Test VBG pH 7.17 L VBG pCO2 75 H VBG pO2 22 VBG HCO3 27 VBG O2 Saturation < 60.0 VBG Base Excess -2.8 Barometric Pressure 740.1 POC Sodium Sodium POC Potassium Potassium Chloride Carbon Dioxide Anion Gap BUN Creatinine Est Cr Clr Drug Dosing Est GFR ( Amer) Est GFR (Non-Af Amer) BUN/Creatinine Ratio Glucose POC Glucose Lactate Calcium Ionized Calcium Phosphorus Magnesium Total Bilirubin AST ALT Alkaline Phosphatase Troponin I C-Reactive Protein NT-Pro-B Natriuret Pep Total Protein Albumin Globulin Albumin/Globulin Ratio Procalcitonin TSH Random Cortisol Urine Color Urine Appearance Urine pH Ur Specific [place] Urine Protein Urine Glucose (UA) Urine Ketones Urine Blood Urine Nitrite Urine Bilirubin Urine Urobilinogen Ur Leukocyte Esterase Urine RBC Urine WBC Ur Epithelial Cells Urine Bacteria Nasal Screen MRSA (PCR) Digoxin 0.2 L Acetaminophen COVID-19 Eval Order Covid19 at [facility] SARS-CoV-2 (PCR) Hepatitis A IgM Ab Hep Bs Antigen Hep B Core IgM Ab Hepatitis C Antibody 02/03/21 02/03/21 02/03/21 16:50 17:12 17:52 WBC RBC Hgb POC Hgb Hct POC Hct MCV MCH MCHC RDW Std Deviation RDW Coeff of Debra Plt Count MPV Immature Gran % (Auto) Neut % (Auto) Lymph % (Auto) [place] % (Auto) Eos % (Auto) Baso % (Auto) Neut # (Auto) Lymph # (Auto) [place] # (Auto) Eos # (Auto) Baso # (Auto) Immature Gran # (Auto) Absolute Nucleated RBC Nucleated RBC % (auto) Giant Platelets Ovalocytes Schistocytes PT INR APTT PTT Ratio D-Dimer Sample Site POC pH POC pCO2 POC pO2 POC HCO3 POC Total CO2 POC Base Excess ABG pH (Temp Correct) ABG pCO2 (Temp Corrct POC ABG pO2 at Pt Temp POC ABG O2 Sat Heber Test VBG pH VBG pCO2 VBG pO2 VBG HCO3 VBG O2 Saturation VBG Base Excess Barometric Pressure POC Sodium Sodium POC Potassium Potassium Chloride Carbon Dioxide Anion Gap BUN Creatinine Est Cr Clr Drug Dosing Est GFR ( Amer) Est GFR (Non-Af Amer) BUN/Creatinine Ratio Glucose POC Glucose 44 L* Lactate Calcium Ionized Calcium Phosphorus Magnesium Total Bilirubin AST ALT Alkaline Phosphatase Troponin I C-Reactive Protein NT-Pro-B Natriuret Pep Total Protein Albumin Globulin Albumin/Globulin Ratio Procalcitonin TSH Random Cortisol Urine Color Yellow Urine Appearance Slightly Cloudy Urine pH 5.0 Ur Specific [place] >= 1.030 Urine Protein 3+ H Urine Glucose (UA) Negative Urine Ketones Negative Urine Blood 2+ H Urine Nitrite Negative Urine Bilirubin 1+ H Urine Urobilinogen Negative Ur Leukocyte Esterase Negative Urine RBC Urine WBC Ur Epithelial Cells Urine Bacteria Nasal Screen MRSA (PCR) Digoxin Acetaminophen COVID-19 Eval Order SARS-CoV-2 (PCR) NEGATIVE Hepatitis A IgM Ab Hep Bs Antigen Hep B Core IgM Ab Hepatitis C Antibody 02/03/21 02/03/21 02/03/21 17:53 18:08 18:17 WBC RBC Hgb POC Hgb Hct POC Hct MCV MCH MCHC RDW Std Deviation RDW Coeff of Debra Plt Count MPV Immature Gran % (Auto) Neut % (Auto) Lymph % (Auto) [place] % (Auto) Eos % (Auto) Baso % (Auto) Neut # (Auto) Lymph # (Auto) [place] # (Auto) Eos # (Auto) Baso # (Auto) Immature Gran # (Auto) Absolute Nucleated RBC Nucleated RBC % (auto) Giant Platelets Ovalocytes Schistocytes PT INR APTT PTT Ratio D-Dimer Sample Site POC pH 7.24 L POC pCO2 57 H POC pO2 411 H POC HCO3 25 H POC Total CO2 26 POC Base Excess -3.0 ABG pH (Temp Correct) ABG pCO2 (Temp Corrct POC ABG pO2 at Pt Temp POC ABG O2 Sat 100.0 H Heber Test VBG pH VBG pCO2 VBG pO2 VBG HCO3 VBG O2 Saturation VBG Base Excess Barometric Pressure POC Sodium Sodium POC Potassium Potassium Chloride Carbon Dioxide Anion Gap BUN Creatinine Est Cr Clr Drug Dosing Est GFR ( Amer) Est GFR (Non-Af Amer) BUN/Creatinine Ratio Glucose POC Glucose 56 L* 86 Lactate Calcium Ionized Calcium Phosphorus Magnesium Total Bilirubin AST ALT Alkaline Phosphatase Troponin I C-Reactive Protein NT-Pro-B Natriuret Pep Total Protein Albumin Globulin Albumin/Globulin Ratio Procalcitonin TSH Random Cortisol Urine Color Urine Appearance Urine pH Ur Specific [place] Urine Protein Urine Glucose (UA) Urine Ketones Urine Blood Urine Nitrite Urine Bilirubin Urine Urobilinogen Ur Leukocyte Esterase Urine RBC Urine WBC Ur Epithelial Cells Urine Bacteria Nasal Screen MRSA (PCR) Digoxin Acetaminophen COVID-19 Eval Order SARS-CoV-2 (PCR) Hepatitis A IgM Ab Hep Bs Antigen Hep B Core IgM Ab Hepatitis C Antibody 02/03/21 02/03/21 02/03/21 18:28 18:50 20:15 WBC RBC Hgb POC Hgb Hct POC Hct MCV MCH MCHC RDW Std Deviation RDW Coeff of Debra Plt Count MPV Immature Gran % (Auto) Neut % (Auto) Lymph % (Auto) [place] % (Auto) Eos % (Auto) Baso % (Auto) Neut # (Auto) Lymph # (Auto) [place] # (Auto) Eos # (Auto) Baso # (Auto) Immature Gran # (Auto) Absolute Nucleated RBC Nucleated RBC % (auto) Giant Platelets Ovalocytes Schistocytes PT INR APTT PTT Ratio D-Dimer Sample Site POC pH POC pCO2 POC pO2 POC HCO3 POC Total CO2 POC Base Excess ABG pH (Temp Correct) ABG pCO2 (Temp Corrct POC ABG pO2 at Pt Temp POC ABG O2 Sat Heber Test VBG pH VBG pCO2 VBG pO2 VBG HCO3 VBG O2 Saturation VBG Base Excess Barometric Pressure POC Sodium Sodium POC Potassium Potassium Chloride Carbon Dioxide Anion Gap BUN Creatinine Est Cr Clr Drug Dosing Est GFR ( Amer) Est GFR (Non-Af Amer) BUN/Creatinine Ratio Glucose POC Glucose 165 H Lactate 7.6 H* Calcium Ionized Calcium Phosphorus Magnesium Total Bilirubin AST ALT Alkaline Phosphatase Troponin I C-Reactive Protein NT-Pro-B Natriuret Pep Total Protein Albumin Globulin Albumin/Globulin Ratio Procalcitonin TSH Random Cortisol Urine Color Urine Appearance Urine pH Ur Specific [place] Urine Protein Urine Glucose (UA) Urine Ketones Urine Blood Urine Nitrite Urine Bilirubin Urine Urobilinogen Ur Leukocyte Esterase Urine RBC Urine WBC Ur Epithelial Cells Urine Bacteria Nasal Screen MRSA (PCR) Negative Digoxin Acetaminophen COVID-19 Eval Order SARS-CoV-2 (PCR) Hepatitis A IgM Ab Hep Bs Antigen Hep B Core IgM Ab Hepatitis C Antibody 02/03/21 02/03/21 02/03/21 20:48 20:48 20:48 WBC RBC Hgb POC Hgb Hct POC Hct MCV MCH MCHC RDW Std Deviation RDW Coeff of Debra Plt Count MPV Immature Gran % (Auto) Neut % (Auto) Lymph % (Auto) [place] % (Auto) Eos % (Auto) Baso % (Auto) Neut # (Auto) Lymph # (Auto) [place] # (Auto) Eos # (Auto) Baso # (Auto) Immature Gran # (Auto) Absolute Nucleated RBC Nucleated RBC % (auto) Giant Platelets Ovalocytes Schistocytes PT INR APTT PTT Ratio D-Dimer Sample Site POC pH POC pCO2 POC pO2 POC HCO3 POC Total CO2 POC Base Excess ABG pH (Temp Correct) ABG pCO2 (Temp Corrct POC ABG pO2 at Pt Temp POC ABG O2 Sat Heber Test VBG pH VBG pCO2 VBG pO2 VBG HCO3 VBG O2 Saturation VBG Base Excess Barometric Pressure POC Sodium Sodium 141 POC Potassium Potassium 5.3 H Chloride 108 H Carbon Dioxide 21 Anion Gap 12.0 H BUN 45 H Creatinine 1.84 H Est Cr Clr Drug Dosing 38.7 Est GFR ( Amer) 41.5 Est GFR (Non-Af Amer) 35.8 BUN/Creatinine Ratio 24.6 H Glucose 166 H POC Glucose Lactate Calcium 8.8 Ionized Calcium 1.03 L Phosphorus 6.9 H Magnesium Total Bilirubin 2.1 H AST 1607 H ALT 1057 H Alkaline Phosphatase 86 Troponin I 0.128 H* C-Reactive Protein 2.41 H NT-Pro-B Natriuret Pep Total Protein 7.0 Albumin 3.3 L Globulin 3.7 Albumin/Globulin Ratio 0.9 Procalcitonin TSH Random Cortisol 112.75 Urine Color Urine Appearance Urine pH Ur Specific [place] Urine Protein Urine Glucose (UA) Urine Ketones Urine Blood Urine Nitrite Urine Bilirubin Urine Urobilinogen Ur Leukocyte Esterase Urine RBC Urine WBC Ur Epithelial Cells Urine Bacteria Nasal Screen MRSA (PCR) Digoxin Acetaminophen COVID-19 Eval Order SARS-CoV-2 (PCR) Hepatitis A IgM Ab Hep Bs Antigen Hep B Core IgM Ab Hepatitis C Antibody 02/03/21 02/04/21 02/04/21 21:21 00:37 00:37 WBC RBC Hgb POC Hgb 11.2 L Hct POC Hct 33 L MCV MCH MCHC RDW Std Deviation RDW Coeff of Debra Plt Count MPV Immature Gran % (Auto) Neut % (Auto) Lymph % (Auto) [place] % (Auto) Eos % (Auto) Baso % (Auto) Neut # (Auto) Lymph # (Auto) [place] # (Auto) Eos # (Auto) Baso # (Auto) Immature Gran # (Auto) Absolute Nucleated RBC Nucleated RBC % (auto) Giant Platelets Ovalocytes Schistocytes PT INR APTT PTT Ratio D-Dimer Sample Site Art Line POC pH 7.39 POC pCO2 37 POC pO2 83 POC HCO3 22 POC Total CO2 24 POC Base Excess -3.0 ABG pH (Temp Correct) 7.388 ABG pCO2 (Temp Corrct 37 POC ABG pO2 at Pt Temp 83 POC ABG O2 Sat 96.0 H Heber Test NA VBG pH VBG pCO2 VBG pO2 VBG HCO3 VBG O2 Saturation VBG Base Excess Barometric Pressure POC Sodium 139 Sodium 141 POC Potassium 5.3 H Potassium 4.2 D Chloride 107 Carbon Dioxide 25 Anion Gap 9.0 BUN 49 H Creatinine 1.78 H Est Cr Clr Drug Dosing 39.5 Est GFR ( Amer) 43.2 Est GFR (Non-Af Amer) 37.3 BUN/Creatinine Ratio 27.8 H Glucose 174 H POC Glucose Lactate 2.3 H* Calcium 9.0 Ionized Calcium Phosphorus 4.9 D Magnesium 2.3 Total Bilirubin AST ALT Alkaline Phosphatase Troponin I 0.175 H* C-Reactive Protein NT-Pro-B Natriuret Pep Total Protein Albumin Globulin Albumin/Globulin Ratio Procalcitonin TSH Random Cortisol Urine Color Urine Appearance Urine pH Ur Specific [place] Urine Protein Urine Glucose (UA) Urine Ketones Urine Blood Urine Nitrite Urine Bilirubin Urine Urobilinogen Ur Leukocyte Esterase Urine RBC Urine WBC Ur Epithelial Cells Urine Bacteria Nasal Screen MRSA (PCR) Digoxin Acetaminophen COVID-19 Eval Order SARS-CoV-2 (PCR) Hepatitis A IgM Ab Hep Bs Antigen Hep B Core IgM Ab Hepatitis C Antibody 02/04/21 02/04/21 02/04/21 01:43 01:43 01:43 WBC RBC Hgb POC Hgb Hct POC Hct MCV MCH MCHC RDW Std Deviation RDW Coeff of Debra Plt Count MPV Immature Gran % (Auto) Neut % (Auto) Lymph % (Auto) [place] % (Auto) Eos % (Auto) Baso % (Auto) Neut # (Auto) Lymph # (Auto) [place] # (Auto) Eos # (Auto) Baso # (Auto) Immature Gran # (Auto) Absolute Nucleated RBC Nucleated RBC % (auto) Giant Platelets Ovalocytes Schistocytes PT INR APTT PTT Ratio D-Dimer Sample Site POC pH POC pCO2 POC pO2 POC HCO3 POC Total CO2 POC Base Excess ABG pH (Temp Correct) ABG pCO2 (Temp Corrct POC ABG pO2 at Pt Temp POC ABG O2 Sat Heber Test VBG pH VBG pCO2 VBG pO2 VBG HCO3 VBG O2 Saturation VBG Base Excess Barometric Pressure POC Sodium Sodium POC Potassium Potassium Chloride Carbon Dioxide Anion Gap BUN Creatinine Est Cr Clr Drug Dosing Est GFR ( Amer) Est GFR (Non-Af Amer) BUN/Creatinine Ratio Glucose POC Glucose Lactate Calcium Ionized Calcium Phosphorus Magnesium Total Bilirubin AST ALT Alkaline Phosphatase Troponin I C-Reactive Protein NT-Pro-B Natriuret Pep Total Protein Albumin Globulin Albumin/Globulin Ratio Procalcitonin TSH Random Cortisol Urine Color Urine Appearance Urine pH Ur Specific [place] Urine Protein Urine Glucose (UA) Urine Ketones Urine Blood Urine Nitrite Urine Bilirubin Urine Urobilinogen Ur Leukocyte Esterase Urine RBC Urine WBC Ur Epithelial Cells Urine Bacteria Nasal Screen MRSA (PCR) Digoxin Acetaminophen < 2 L COVID-19 Eval Order SARS-CoV-2 (PCR) Hepatitis A IgM Ab Pending Hep Bs Antigen Neg Hep B Core IgM Ab Pending Hepatitis C Antibody Neg 02/04/21 02/04/21 02/04/21 04:29 04:38 04:38 WBC 6.95 RBC 3.94 L Hgb 10.3 L POC Hgb 11.6 L Hct 32.3 L POC Hct 34 L MCV 82.0 D MCH 26.1 MCHC 31.9 L RDW Std Deviation 52.1 H RDW Coeff of Debra 17.5 H Plt Count 175 MPV 10.2 Immature Gran % (Auto) 0.3 Neut % (Auto) 85.5 Lymph % (Auto) 7.9 [place] % (Auto) 6.3 Eos % (Auto) 0.0 Baso % (Auto) 0.0 Neut # (Auto) 5.94 Lymph # (Auto) 0.55 L [place] # (Auto) 0.44 Eos # (Auto) 0.00 Baso # (Auto) 0.00 Immature Gran # (Auto) 0.02 Absolute Nucleated RBC 0.04 H Nucleated RBC % (auto) 0.6 Giant Platelets 1+ Ovalocytes 1+ Schistocytes 1+ PT 20.4 H INR 2.1 H APTT PTT Ratio D-Dimer Sample Site Art Line POC pH 7.50 H POC pCO2 31 L POC pO2 74 L POC HCO3 24 POC Total CO2 25 POC Base Excess 1.0 ABG pH (Temp Correct) 7.472 H ABG pCO2 (Temp Corrct 34 L POC ABG pO2 at Pt Temp 82 POC ABG O2 Sat 96.0 H Heber Test NA VBG pH VBG pCO2 VBG pO2 VBG HCO3 VBG O2 Saturation VBG Base Excess Barometric Pressure POC Sodium 142 Sodium POC Potassium 4.6 Potassium Chloride Carbon Dioxide Anion Gap BUN Creatinine Est Cr Clr Drug Dosing Est GFR ( Amer) Est GFR (Non-Af Amer) BUN/Creatinine Ratio Glucose POC Glucose Lactate Calcium Ionized Calcium Phosphorus Magnesium Total Bilirubin AST ALT Alkaline Phosphatase Troponin I C-Reactive Protein NT-Pro-B Natriuret Pep Total Protein Albumin Globulin Albumin/Globulin Ratio Procalcitonin TSH Random Cortisol Urine Color Urine Appearance Urine pH Ur Specific [place] Urine Protein Urine Glucose (UA) Urine Ketones Urine Blood Urine Nitrite Urine Bilirubin Urine Urobilinogen Ur Leukocyte Esterase Urine RBC Urine WBC Ur Epithelial Cells Urine Bacteria Nasal Screen MRSA (PCR) Digoxin Acetaminophen COVID-19 Eval Order SARS-CoV-2 (PCR) Hepatitis A IgM Ab Hep Bs Antigen Hep B Core IgM Ab Hepatitis C Antibody 02/04/21 02/04/21 02/04/21 04:38 04:38 04:38 WBC RBC Hgb POC Hgb Hct POC Hct MCV MCH MCHC RDW Std Deviation RDW Coeff of Debra Plt Count MPV Immature Gran % (Auto) Neut % (Auto) Lymph % (Auto) [place] % (Auto) Eos % (Auto) Baso % (Auto) Neut # (Auto) Lymph # (Auto) [place] # (Auto) Eos # (Auto) Baso # (Auto) Immature Gran # (Auto) Absolute Nucleated RBC Nucleated RBC % (auto) Giant Platelets Ovalocytes Schistocytes PT INR APTT PTT Ratio D-Dimer Sample Site POC pH POC pCO2 POC pO2 POC HCO3 POC Total CO2 POC Base Excess ABG pH (Temp Correct) ABG pCO2 (Temp Corrct POC ABG pO2 at Pt Temp POC ABG O2 Sat Heber Test VBG pH VBG pCO2 VBG pO2 VBG HCO3 VBG O2 Saturation VBG Base Excess Barometric Pressure POC Sodium Sodium 142 POC Potassium Potassium 4.8 Chloride 110 H Carbon Dioxide 25 Anion Gap 7.0 BUN 52 H Creatinine 1.84 H Est Cr Clr Drug Dosing 38.2 Est GFR ( Amer) 41.5 Est GFR (Non-Af Amer) 35.8 BUN/Creatinine Ratio 28.2 H Glucose 151 H POC Glucose Lactate 1.5 Calcium 8.3 L Ionized Calcium 1.06 L Phosphorus 4.8 Magnesium 2.4 Total Bilirubin 1.7 H AST 2530 H ALT 1459 H Alkaline Phosphatase 85 Troponin I C-Reactive Protein NT-Pro-B Natriuret Pep Total Protein 6.8 Albumin 3.1 L Globulin 3.7 Albumin/Globulin Ratio 0.8 L Procalcitonin TSH Random Cortisol Urine Color Urine Appearance Urine pH Ur Specific [place] Urine Protein Urine Glucose (UA) Urine Ketones Urine Blood Urine Nitrite Urine Bilirubin Urine Urobilinogen Ur Leukocyte Esterase Urine RBC Urine WBC Ur Epithelial Cells Urine Bacteria Nasal Screen MRSA (PCR) Digoxin Acetaminophen COVID-19 Eval Order SARS-CoV-2 (PCR) Hepatitis A IgM Ab Hep Bs Antigen Hep B Core IgM Ab Hepatitis C Antibody 02/04/21 02/04/21 02/04/21 04:38 04:38 07:49 WBC RBC Hgb POC Hgb Hct POC Hct MCV MCH MCHC RDW Std Deviation RDW Coeff of Debra Plt Count MPV Immature Gran % (Auto) Neut % (Auto) Lymph % (Auto) [place] % (Auto) Eos % (Auto) Baso % (Auto) Neut # (Auto) Lymph # (Auto) [place] # (Auto) Eos # (Auto) Baso # (Auto) Immature Gran # (Auto) Absolute Nucleated RBC Nucleated RBC % (auto) Giant Platelets Ovalocytes Schistocytes PT INR APTT PTT Ratio D-Dimer Sample Site POC pH POC pCO2 POC pO2 POC HCO3 POC Total CO2 POC Base Excess ABG pH (Temp Correct) ABG pCO2 (Temp Corrct POC ABG pO2 at Pt Temp POC ABG O2 Sat Heber Test VBG pH VBG pCO2 VBG pO2 VBG HCO3 VBG O2 Saturation VBG Base Excess Barometric Pressure POC Sodium Sodium POC Potassium Potassium Chloride Carbon Dioxide Anion Gap BUN Creatinine Est Cr Clr Drug Dosing Est GFR ( Amer) Est GFR (Non-Af Amer) BUN/Creatinine Ratio Glucose POC Glucose Lactate Calcium Ionized Calcium Phosphorus Magnesium Total Bilirubin AST ALT Alkaline Phosphatase Troponin I 0.336 H* C-Reactive Protein NT-Pro-B Natriuret Pep Total Protein Albumin Globulin Albumin/Globulin Ratio Procalcitonin 3.61 H TSH Pending Random Cortisol Urine Color Urine Appearance Urine pH Ur Specific [place] Urine Protein Urine Glucose (UA) Urine Ketones Urine Blood Urine Nitrite Urine Bilirubin Urine Urobilinogen Ur Leukocyte Esterase Urine RBC Urine WBC Ur Epithelial Cells Urine Bacteria Nasal Screen MRSA (PCR) Digoxin Acetaminophen COVID-19 Eval Order SARS-CoV-2 (PCR) Hepatitis A IgM Ab Hep Bs Antigen Hep B Core IgM Ab Hepatitis C Antibody (1) Respiratory failure Chronicity: acute Respiratory failure complication: hypoxia and hypercapnia Qualified Code(s): J96.01 - Acute respiratory failure with hypoxia; J96.02 - Acute respiratory failure with hypercapnia
[2021-02-04] MEDS: TUBE FEEDING WATER FLUSH OG SCH ×4 (10:46→23:16)
[2021-02-04] MEDS ORDERED: NOVASOURCE RENAL 2.0 CAL 1000ML BAG OG SCH (11:00)
--- NOTE | 2021-02-04 11:00 | CT Scan Report ---
CT SCAN OF THE ABDOMEN AND PELVIS WITHOUT CONTRAST CLINICAL HISTORY: transaminitis, abd pain COMPARISON STUDY: March 11, 2019 TECHNIQUE: CT scan of the abdomen and pelvis was performed from the lung bases to the proximal femurs . Images are reviewed in the axial, sagittal, and coronal planes. IV contrast was not administered fo r this examination. A dose lowering technique was utilized adhering to the principles of ALARA. CT DOSE: 1946.57 mGy.cm FINDINGS: Lower chest: Moderate to large right pleural effusion is seen and associated with consolidative opaci ty/atelectasis of the right lower lobe as well as volume loss of the visualized portion of the right hemithorax and midlines shift to the right. Trace pericardial effusion and mild four-chamber cardiomegaly seen. Calcifications of aortic valve an d distal leads of pacemaker. Liver: The unenhanced liver is normal in size and attenuation of its parenchyma without evidence of focal le sions or intrahepatic biliary dilatation. Mild ascites is seen. Gallbladder: Unremarkable. Spleen: Normal in size and attenuation. Pancreas: Pancreas is atrophic. Adrenal glands: Bilateral adrenal gland again appears prominent, evaluation is limited due to lack of IV contrast and ascites/mesenteric edema. Kidneys: The unenhanced kidneys are normal in size without hydronephrosis. There is no contour deform ing renal mass lesion. No renal calculi are identified. Vascular calcifications are seen within bilat eral renal pelvises. Bowel: Bowel loops are nondilated. Appendix is normal in caliber and gas filled. Evaluation is limite d due to lack of contrast and mild motion artifact. Peritoneum: There is no intraperitoneal free air. Vasculature: Redemonstration of the fusiform dilatation of abdominal aorta with infrarenal stent exte nd into the bilateral iliac arteries. Mild interval asymmetrical increase in size of posterior nonste nted lumen at the level L3 (series 7 image 216) and also associated with interval dilatation of aorti c diameter, now measuring 4.8 cm, previously was measured 4.3 cm at this level. Overall evaluation is limited due to lack of IV contrast on this nondedicated exam. Adenopathy: No definite large mesenteric or retroperitoneal lymph nodes are seen however evaluation i s limited due to mesenteric edema. Pelvic viscera: Urinary bladder is decompressed with Larios balloon within its lumen. Mild diffuse thi ckening of urinary bladder wall is seen and sometimes could be associated with cystitis. Skeletal structures: Osseous structures are diffusely demineralized. Redemonstration of orthopedic senior rdware within L3-S1 level and status post laminectomy. Mild anterolisthesis of L4 on L5 is again seen . IMPRESSION: 1. Moderate right pleural effusion associated with atelectasis/consolidative opacity within the righ t lower lobe and volume loss on the right. Please correlate above-mentioned findings was prior histor y. Further evaluation with CT of the chest might be considered if clinically indicated. 2. Infrarenal abdominal aortic aneurysm with intraluminal stent and mild interval increase in size a t the level of L3. Evaluation is limited due to lack of IV contrast on this nondedicated exam. Furthe r evaluation with CTA of abdominal aorta is suggested. 3. Small pericardial effusion. 4. Ascites. 5. Mild diffuse wall thickening of the partially decompressed urinary bladder with Larios balloon wit hin its lumen. Bladder wall thickening sometimes could be seen with cystitis. Please correlate above- mentioned findings with results of urinalysis. ACT 112: Positive. There are findings on this exam that require communication between the performing entity and the patient following Patient Test Result Information Act ([place] Act 112) guidelines. The above report was generated using voice recognition software. It may contain grammatical, syntax o r spelling errors. Electronically signed by: Kay Noe DO 02/04/2021 10:59 AM
[2021-02-04] MEDS ORDERED: DIGOXIN 250 MCG in SYRINGE 9 ML IV ONE (11:45)
[2021-02-04] MEDS ORDERED: SODIUM CHLORIDE 0.9% 250 ML IV PRN (12:18)
--- NOTE | 2021-02-04 12:22 | Critical Care Progress Note ---
Date of Service February 04, 2021 Assessment & Plan (1) Admitted to intensive care unit: Impression: 70-year-old male with acute hypoxic respiratory failure requiring endotracheal intubation. Patient has a known history of severe ischemic cardiomyopathy with an ejection fraction of less than 15% as well as severe MR and severe . Patient with NSTEMI and BNP of greater than 35,000. Elevated lactate greater than 7. VENTURA. Tachycardia with EF approximately 15%. 24-hour events: The patient presented to the emergency room and was intubated despite previous discussions indicating DNR status. He had an arterial line placed. confirms no desire to pursue CPR. He has an AED in place. He has been persistently febrile. Recommendations: Neuro-continue sedation with Precedex and fentanyl. CARDIAC/VASCULAR - NSTEMI: Likely demand in the setting of ongoing tachycardia of questionable etiology at this point. Appreciate cardiology consultation. The patient is in A. fib with a rapid ventricular response. Due to relative hypotension, it is difficult to give him rate lowering agents. Carvedilol will be restarted. He is on dobutamine currently. Unfortunately his severe valvular heart disease including MR and AAS complicate the issue. He is not a surgical candidate for intervention currently. We will try and wean the dobutamine as tolerated. He has received additional digoxin doses. Lactic acidosis has blanquita ared. Suspect his elevated troponin is related to supply demand mismatch. He has markedly elevated BNP of unclear significance in the setting of his chronic kidney disease. He does not have significant edema. He had been tolerating diuretics to control his ascites and pleural effusion previously. RESPIRATORY -hypoxemic and hypercarbic respiratory failure. The patient has a longstanding history of tobacco abuse and continued to smoke at the rate of 1 pack/day up until his admission. He has known severe obstructive lung disease. Continue current ventilator settings. He is not overtly bronchospastic so we will hold steroids for now. He did have evidence of some volume loss in the right lower lobe initially which improved with pulmonary toilet. No indication for bronchoscopy currently. He does have a increasing right-sided pleural effusion. This could be secondarily infected. Sampling is indicated. Will give FFP until his INR is below 1.5 and then consider thoracentesis versus pigtail catheter placement. GI/NUTRITION -patient has a history of cirrhosis likely multifactorial due to combinations of congestive hepatopathy superimposed on prior history of alcohol. No significant ascites identified on CT scan. Surgery was consulted for potential acalculous cholecystitis however the patient is not a surgical candidate given his comorbidities. At this point time will trend liver function tests and if they worsen have a low threshold for considering HIDA scan and possible percutaneous cholecystostomy. Normal portal venous flow without evidence of thrombosis. I suspect his liver function abnormalities are secondary to congestive hepatopathy. They will continue to be trended at this point time. Avoid any additional hepatotoxins. RENAL/LYTES -acute on chronic kidney disease. Serum creatinine stable. Appreciate nephrology consultation. Replacing electrolytes. Trying to maintain patient on the dry side. - Larios in place - Strict I&Os. ENDO -continue glycemic control per protocol. Continue home Synthroid. HEME -no signs of bleeding. The patient is on lifelong anticoagulation for PEs. He is been followed by the [facility] hematology clinic. Given his liver function abnormalities, will hold Xarelto. He is not a great candidate for Lovenox and reports an allergy. May need to reinitiate heparin when INR drops down below 1.8 for anticoagulation given his atrial fibrillation. ID -patient has an elevated procalcitonin as well as elevated white blood cell count and fevers concerning for infection. Sources would include pleural effusion, atelectasis/pneumonia, or intra-abdominal process. He is day #2 empiric Zosyn. We will continue for now and await cultures. Lactate has improved. Patient's overall prognosis is significantly guarded due to his underlying comorbidities. I had discussed previously with the patient in the outpatient setting advanced directives and at that time he agreed to DNR/DNI. I am unclear how we got in this current situation given his expressed wishes to avoid life support. I attempted to reach the today but no answer. We will engage palliative care. Unfortunately given his significant cardiovascular comorbidities which are not easily correctable or medically manageable (severe and severe MR with an EF of 15%, I am not confident that the patient will be able to make a full recovery. LINES/IV ACCESS - PIVs x2 ET Tube OG Larios RIGHT Radial Art Line consents to CVL if needed. DVT PROPHYLAXIS - INR elevated. May consider heparin once INR drops SCDs Attempted to reach by phone to update however no answer. I have personally spent 50 minutes of critical care time in the direct management of this patient. This is a life/limb threatening event. This includes time spent evaluating patient, direct bedside care, chart review, placing orders, interpretation of diagnostic studies, discussion with consultants, patient, and family members, as well as other required patient management activities. This time is exclusive of all separately billable procedures, and teaching time and separate from and in addition to any other critical care service time. (2) Congestive heart failure: (3) Respiratory failure: (4) Acute kidney injury: (5) Atrial fibrillation with rapid ventricular response: (6) Pleural effusion: Admission and Anticipated Discharge Date Admission Date: February 03, 2021 Subjective intubated and sedated Review of Systems Review of Systems: Unobtainable due to endotracheal tube Physical Exam Constitutional: + ill appearing, + thin, + mechanically ventilated and + malnourished Neck: trachea midline, no thyromegaly Respiratory: normal respiratory effort Auscultation: no crackles and no wheezes decreased breath sounds. No wheezing or crackles Cardiovascular: Rate/Rhythm: + tachycardic and + irregularly irregular Heart Sounds: normal S1, normal S2 and + murmur Extremities: no edema extremities cool to touch Gastrointestinal (Abdomen): normal bowel sounds, soft, nontender, no hepatosplenomegaly Musculoskeletal: Extremities: extremities normal to inspection Skin: no rashes, warm and dry Neurologic: Nonfocal exam Lymphatic: no cervical lymphadenopathy Results & Data Results & Data ([facility]) Vital Signs (Past 12 Hours) Vital Signs Temp Pulse Resp BP Pulse Ox 02/04/21 12:00 38.2 C H 149 H 106/80 98 02/04/21 11:21 131 H 22 98 02/04/21 11:01 38.2 C H 138 H 111/84 99 02/04/21 10:00 38.3 C H 125 H 121/86 100 02/04/21 09:01 38.4 C H 134 H 117/88 99 02/04/21 08:00 38.5 C H 134 H 135/79 97 02/04/21 07:20 124 H 02/04/21 07:15 128 H 21 98 02/04/21 07:00 38.6 C H 114 H 128/87 98 02/04/21 06:00 38.6 C H 123 H 134/98 98 02/04/21 05:00 38.8 C H 112 H 123/84 100 02/04/21 04:32 18 02/04/21 04:00 38.6 C H 115 H 123/93 100 02/04/21 03:10 117 H 20 100 02/04/21 03:00 38.4 C H 117 H 128/92 100 02/04/21 02:00 38.1 C H 122 H 130/82 100 02/04/21 01:30 38.0 C H 132 H 100 02/04/21 01:00 37.8 C H 123 H 111/82 100 02/04/21 00:36 37.7 C H 123 H 104/81 100 Diagnostic Findings Echocardiogram performed today showed mildly dilated left ventricle with ejection fraction of less than 15% and severe global hypokinesis of the left ventricle. Left atrium was moderately dilated. Severe valvular left ear was noted with moderate to severe MR. Aortic valve area is estimated at 0.9 cm with max pressure gradient of 31 Critical Care Results & Data Vital Signs (Past 12 Hours) Vital Signs Temp Pulse Resp BP Pulse Ox 02/04/21 12:00 38.2 C H 149 H 106/80 98 02/04/21 11:21 131 H 22 98 02/04/21 11:01 38.2 C H 138 H 111/84 99 02/04/21 10:00 38.3 C H 125 H 121/86 100 02/04/21 09:01 38.4 C H 134 H 117/88 99 02/04/21 08:00 38.5 C H 134 H 135/79 97 02/04/21 07:20 124 H 02/04/21 07:15 128 H 21 98 02/04/21 07:00 38.6 C H 114 H 128/87 98 02/04/21 06:00 38.6 C H 123 H 134/98 98 02/04/21 05:00 38.8 C H 112 H 123/84 100 02/04/21 04:32 18 02/04/21 04:00 38.6 C H 115 H 123/93 100 02/04/21 03:10 117 H 20 100 02/04/21 03:00 38.4 C H 117 H 128/92 100 02/04/21 02:00 38.1 C H 122 H 130/82 100 02/04/21 01:30 38.0 C H 132 H 100 02/04/21 01:00 37.8 C H 123 H 111/82 100 02/04/21 00:36 37.7 C H 123 H 104/81 100 Lab & Micro Results (Past 24 Hours) RBC 3.94 M/uL (4.7-6.1) L 02/04/21 WBC 6.95 K/uL (4.8-10.8) 02/04/21 Hgb 10.3 g/dL (14.0-18.0) L 02/04/21 Hct 32.3 % (42-52) L 02/04/21 MCV 82.0 fL (80-100) 02/04/21 MCH 26.1 pg (25-34) 02/04/21 MCHC 31.9 g/dL (32-36) L 02/04/21 RDW Standard Deviation 52.1 fL (36.4-46.3) H 02/04/21 RDW Coefficient of Variation 17.5 % (11.5-14.5) H 02/04/21 Plt Count 175 K/uL (130-400) 02/04/21 MPV 10.2 fL (7.4-10.4) 02/04/21 Nucleated Red Blood Cells % (auto) 0.6 % 02/04/21 Nucleated RBC Absolute Count (auto) 0.04 K/uL (0-0) H 02/04/21 Neutrophils (%) (Auto) 85.5 % 02/04/21 Lymphocytes (%) (Auto) 7.9 % 02/04/21 Monocytes # (Auto) 0.44 K/uL (0.11-0.59) 02/04/21 Eosinophils # (Auto) 0.00 K/uL (0-0.5) 02/04/21 Immature Granulocyte % (Auto) 0.3 % 02/04/21 Neutrophils # (Auto) 5.94 K/uL (1.4-6.5) 02/04/21 Lymphocytes # (Auto) 0.55 K/uL (1.2-3.4) L 02/04/21 Monocytes # (Auto) 0.44 K/uL (0.11-0.59) 02/04/21 Eosinophils # (Auto) 0.00 K/uL (0-0.5) 02/04/21 Basophils # (Auto) 0.00 K/uL (0-0.2) 02/04/21 Immature Granulocyte # (Auto) 0.02 K/uL (0.00-0.02) 02/04/21 Giant Platelets 1+ 02/04/21 Ovalocytes 1+ 02/04/21 Schistocytes 1+ 02/04/21 Na 142 mmol/L (136-145) 02/04/21 K 4.8 mmol/L (3.5-5.1) 02/04/21 Cl 110 mmol/L (98-107) H 02/04/21 CO2 25 mmol/L (21-32) 02/04/21 Anion Gap 7.0 (3-11) 02/04/21 BUN 52 mg/dl (7-18) H 02/04/21 Creatinine 1.84 mg/dl (0.6-1.4) H 02/04/21 Estimated GFR ( Amer) 41.5 ml/min 02/04/21 Estimated GFR (Non-Af Amer) 35.8 ml/min 02/04/21 BUN/Creatinine Ratio 28.2 (10-20) H 02/04/21 Glu 151 mg/dl (70-99) H 02/04/21 Ca 8.3 mg/dl (8.5-10.1) L 02/04/21 Phosphorus Level 4.8 mg/dl (2.5-4.9) 02/04/21 Total Bilirubin 1.7 mg/dl (0.2-1) H 02/04/21 AST 2530 U/L (15-37) H 02/04/21 ALT 1459 U/L (12-78) H 02/04/21 Alkaline Phosphatase 85 U/L (45-117) 02/04/21 TP 6.8 gm/dl (6.4-8.2) 02/04/21 Albumin 3.1 gm/dl (3.4-5.0) L 02/04/21 Globulin 3.7 gm/dl (2.5-4.0) 02/04/21 Albumin/Globulin Ratio 0.8 (0.9-2) L 02/04/21 Mg 2.4 mg/dl (1.8-2.4) 02/04/21 04:38 02/04/21 Calcium Level 8.3 mg/dl (8.5-10.1) L 02/04/21 04:38 02/04/21 Ionized Calcium 1.06 mmol/L (1.12-1.32) L 02/04/21 04:38 02/04/21 Prothromb Time International Ratio 2.1 (0.9-1.1) H 02/04/21 04:38 02/04/21 Venous Blood pH 7.17 (7.36-7.41) L 02/03/21 16:31 02/03/21 Venous Blood Partial Pressure CO2 75 mmHg (38-50) H 02/03/21 16:31 02/03/21 Venous Blood Partial Pressure O2 22 mmHg 02/03/21 16:31 02/03/21 Venous Blood HCO3 27 mmol/L 02/03/21 16:31 02/03/21 Venous Blood Base Excess -2.8 mEq/L 02/03/21 16:31 02/03/21 Venous Blood Oxygen Saturation < 60.0 % 02/03/21 16:31 02/03/21 Blood Gas Barometric Pressure 740.1 mm/Hg 02/03/21 16:31 02/03/21 Heber Test NA 02/04/21 04:29 02/04/21 Blood Gas Barometric Pressure 740.1 mm/Hg 02/03/21 16:31 02/03/21 Diagnostic Findings (Past 24 Hours) Chest X-Ray 02/03/21 16:13 XR chest 1V portable CLINICAL HISTORY: Sepsis. History of lung cancer. COMPARISON STUDY: Chest CT December 07, 2020. FINDINGS: A left subclavian biventricular pacer/AICD is in place. Cardiomegaly is unchanged. No evidence for pulmonary edema. There is no pneumothorax. A small right pleural effusion is unchanged. Left apical opacity is better depicted on prior chest CT. Right lung volume loss is postoperative. The appearance of the chest is unchanged. IMPRESSION: 1. No significant change in appearance of the chest. Stable postoperative findings within the right hemithorax with a small right pleural effusion. 2. Cardiomegaly. No evidence for pulmonary edema. 3. Stable left apical opacity since prior chest radiograph and chest CT. ACT 112: Negative or not required by law. Electronically signed by: Vinay Marie M.D. 02/03/2021 4:30 PM Chest X-Ray 02/03/21 17:25 XR chest 1V portable CLINICAL HISTORY: intubation COMPARISON STUDY: Chest radiograph performed earlier today. Chest CT December 07, 2020. FINDINGS: The tip of the endotracheal tube is 1.6 cm above the yuridia. A left subclavian biventricular pacer/AICD is in place. A small right pleural effusion is again noted. There is no pneumothorax. Postoperative findings within the right hemithorax are unchanged. Left apical opacity appears unchanged. IMPRESSION: 1. Tip of endotracheal tube 1.6 cm above the yuridia. 2. Otherwise, unchanged appearance of the chest. ACT 112: Negative or not required by law. Electronically signed by: Vinay Marie M.D. 02/03/2021 5:37 PM Chest X-Ray 02/03/21 19:48 XR chest 1V portable HISTORY: NG tube placement COMPARISON: Chest 02/03/2021. FINDINGS: Nasogastric tube terminates in the stomach. Endotracheal tube terminates 2.7 cm from the yuridia. There is a left-sided pacemaker/defibrillator. Progressive volume loss within the right hemithorax with right mediastinal shift. This progressive consolidation within the right mid to lower lung zone and a small right pleural effusion. Therefore, these findings raise the possibility of right lower lobe collapse likely secondary to mucous plugging. The left lung is clear. IMPRESSION: 1. Satisfactory support line placement. 2. No pneumothorax. 3. Progressive right mid to lower lung zone density with associated volume loss within the right hemithorax. This favors right lower lobe collapse/atelectasis likely secondary to mucous plugging. Bronchoscopy recommended for further evaluation. ACT 112: Negative or not required by law. Electronically signed by: Enrrique Capps M.D. 02/04/2021 7:59 AM Gallbladder Ultrasound 02/03/21 21:58 ABDOMINAL ULTRASOUND, RIGHT UPPER QUADRANT HISTORY: transaminitis. COMPARISON: None. FINDINGS: Pancreas: The visualized pancreas demonstrates a normal echotexture. Liver: Unremarkable. Trace perihepatic fluid. Gallbladder: Nonspecific mild gallbladder wall thickening and trace pericholecystic fluid along the hepatic surface. Sonographic Seth sign could not be assessed due to the patient being intubated. No gallstones identified. CBD: 3 mm. Right kidney: No hydronephrosis. A 1.4 cm cyst. IMPRESSION: 1. Nonspecific mild gallbladder wall thickening and trace pericholecystic fluid along the hepatic surface. This may be due to the patient's diffuse edematous state. An acalculous cholecystitis is considered less likely but not entirely excluded. 2. Trace perihepatic ascites. No hepatic masses. ACT 112: Negative or not required by law. Electronically signed by: Enrrique Capps M.D. 02/04/2021 7:20 AM Portal Vein US 02/03/21 21:58 US duplex portal hepatic veins CLINICAL HISTORY: 70 years-old Male presenting with transaminitis. TECHNIQUE: Real-time grayscale and limited color Doppler ultrasound imaging of the abdomen was performed. COMPARISON: None. FINDINGS: Hepatic veins are patent with normal direction of the flow. Main portal vein is patent with normal direction of the flow. Pulsatility of the portal vein is nonspecific. Visualized portion of inferior vena cava is patent. IMPRESSION: Patent portal and hepatic veins with normal direction of the flow. ACT 112: Negative or not required by law. Electronically signed by: Kay Noe DO 02/04/2021 8:30 AM Abdomen/Pelvis CT 02/03/21 22:38 CT SCAN OF THE ABDOMEN AND PELVIS WITHOUT CONTRAST CLINICAL HISTORY: transaminitis, abd pain COMPARISON STUDY: March 11, 2019 TECHNIQUE: CT scan of the abdomen and pelvis was performed from the lung bases to the proximal femurs. Images are reviewed in the axial, sagittal, and coronal planes. IV contrast was not administered for this examination. A dose lowering technique was utilized adhering to the principles of ALARA. CT DOSE: 1946.57 mGy.cm FINDINGS: Lower chest: Moderate to large right pleural effusion is seen and associated with consolidative opacity/atelectasis of the right lower lobe as well as volume loss of the visualized portion of the right hemithorax and midlines shift to the right. Trace pericardial effusion and mild four-chamber cardiomegaly seen. Calcifications of aortic valve and distal leads of pacemaker. Liver: The unenhanced liver is normal in size and attenuation of its parenchyma without evidence of focal lesions or intrahepatic biliary dilatation. Mild ascites is seen. Gallbladder: Unremarkable. Spleen: Normal in size and attenuation. Pancreas: Pancreas is atrophic. Adrenal glands: Bilateral adrenal gland again appears prominent, evaluation is limited due to lack of IV contrast and ascites/mesenteric edema. Kidneys: The unenhanced kidneys are normal in size without hydronephrosis. There is no contour deforming renal mass lesion. No renal calculi are identified. Vascular calcifications are seen within bilateral renal pelvises. Bowel: Bowel loops are nondilated. Appendix is normal in caliber and gas filled. Evaluation is limited due to lack of contrast and mild motion artifact. Peritoneum: There is no intraperitoneal free air. Vasculature: Redemonstration of the fusiform dilatation of abdominal aorta with infrarenal stent extend into the bilateral iliac arteries. Mild interval asymmetrical increase in size of posterior nonstented lumen at the level L3 (series 7 image 216) and also associated with interval dilatation of aortic diameter, now measuring 4.8 cm, previously was measured 4.3 cm at this level. Overall evaluation is limited due to lack of IV contrast on this nondedicated exam. Adenopathy: No definite large mesenteric or retroperitoneal lymph nodes are seen however evaluation is limited due to mesenteric edema. Pelvic viscera: Urinary bladder is decompressed with Larios balloon within its lumen. Mild diffuse thickening of urinary bladder wall is seen and sometimes could be associated with cystitis. Skeletal structures: Osseous structures are diffusely demineralized. Redemonstration of orthopedic hardware within L3-S1 level and status post laminectomy. Mild anterolisthesis of L4 on L5 is again seen. IMPRESSION: 1. Moderate right pleural effusion associated with atelectasis/consolidative opacity within the right lower lobe and volume loss on the right. Please correlate above-mentioned findings was prior history. Further evaluation with CT of the chest might be considered if clinically indicated. 2. Infrarenal abdominal aortic aneurysm with intraluminal stent and mild interval increase in size at the level of L3. Evaluation is limited due to lack of IV contrast on this nondedicated exam. Further evaluation with CTA of abdominal aorta is suggested. 3. Small pericardial effusion. 4. Ascites. 5. Mild diffuse wall thickening of the partially decompressed urinary bladder with Larios balloon within its lumen. Bladder wall thickening sometimes could be seen with cystitis. Please correlate above-mentioned findings with results of urinalysis. ACT 112: Positive. There are findings on this exam that require communication between the performing entity and the patient following Patient Test Result Information Act ([place] Act 112) guidelines. The above report was generated using voice recognition software. It may contain grammatical, syntax or spelling errors. Electronically signed by: Kay Noe DO 02/04/2021 10:[address] 02/03/21 22:38 CT SCAN OF THE CHEST WITHOUT IV CONTRAST CLINICAL HISTORY: Hypoxia. COMPARISON STUDY: Chest CT dated 12/07/2020 and 03/11/2019. TECHNIQUE: CT scan of the thorax was performed from the thoracic inlet to the upper abdomen. Images are reviewed in the axial, sagittal, and coronal planes. IV contrast was not administered for this examination as per the referring clinician. A dose lowering technique was utilized adhering to the principles of ALARA. The examination is significantly degraded by motion artifact, as well as by streak artifact from the arms which could not be elevated above the chest. FINDINGS: Thyroid: Imaged portions of the thyroid gland appear atrophic. Thoracic aorta: There is atherosclerotic calcification of the thoracic aorta. There is mild aneurysmal dilatation of the ascending thoracic aorta which measures up to 4.6 cm in diameter. The remainder of the thoracic aorta is normal in caliber, and the arch demonstrates standard 3-vessel anatomy. Heart: The cardiac AICD is present in the left chest wall. The heart is enlarged and without pericardial effusion. The coronary arteries and aortic valve leaflets are densely calcified. There is diminished attenuation of the cardiac blood flow as compared to the myocardium suggesting anemia. Lungs and pleural spaces: An endotracheal tube terminates above the yuridia. Emphysematous change is noted. There is postoperative change and volume loss consistent with right-sided pulmonary resection. There is compensatory hyp erinflation of the left lung and rightward shift of the mediastinum. Emphysematous change is noted. There is a small to moderate right pleural effusion with dense consolidation of the left lower lung. There is trace left pleural effusion with left basilar atelectasis. A 3 cm masslike opacity at the left apex on image #41 is unchanged. There is increasing paramediastinal fibrosis of the left upper lobe as compared to previous. Name millimeters groundglass focus in the lingula on image #162 and a 9 mm focus of pleural thickening in the left lower lobe along the major fissure seen on image 143 are unchanged. Mediastinum: There is rightward shift of mediastinum. Numerous mildly enlarged mediastinal lymph nodes measure up to 1.5 cm in short axis. Sherry: Not well assessed without IV contrast. Axillae: There is no axillary lymphadenopathy. Upper abdomen: An enteric tube terminates in the stomach. There is trace perihepatic and perisplenic ascites. Skeletal structures: The skeletal structures are osteopenic. No lytic or blastic bony lesions are seen. There are healed right-sided rib fractures. IMPRESSION: 1. Streak and motion compromised examination. 2. Emphysema with postoperative change and volume loss from right-sided pulmonary resection. 3. There is a small to moderate right pleural effusion with dense consolidation at the right lung base. Consolidative change is new from 12/07/2020. Correlate clinically for evidence of pneumonia/aspiration pneumonitis. 4. Endotracheal and enteric tubes are in place. 5. Trace left pleural effusion. 6. There is increasing paramediastinal fibrosis in the left upper lobe. This may be treatment related and clinical correlation will be required. 7. A 3 cm masslike opacity at the left apex and a groundglass nodule in the lingula have not significantly changed from 12/07/2020. 8. Cardiomegaly and AICD. 9. There is trace upper abdominal ascites. 10. Mildly enlarged mediastinal lymph nodes are nonspecific. 11. Aneurysmal dilatation of the ascending thoracic aorta is unchanged. 12. Additional findings as above. ACT 112: Negative or not required by law. Electronically signed by: Gregorio Tamez M.D. 02/04/2021 8:23 AM Chest X-Ray 02/04/21 07:00 XR chest 1V portable HISTORY: Right lung opacity. Follow-up. Shortness of breath. COMPARISON: Chest 02/03/2021. FINDINGS: Slight improvement in aeration within the right lung base. A small right pleural effusion persists. Findings suggest partial resolution of the right lower lobe collapse. Mild volume loss within the right hemithorax has improved. There are healing right anterior rib fractures. The heart remains enlarged. The left lung is clear. Left-sided pacemaker. No pneumothorax. IMPRESSION: 1. Improved aeration within the right lung base and improvement in the right hemithorax volume loss. Findings suggest partial resolution of the right lower lobe collapse. 2. Satisfactory support line placement. ACT 112: Negative or not required by law. Electronically signed by: Enrrique Capps M.D. 02/04/2021 8:24 AM I & O Totals 24 Hours 02/03/21 02/04/21 02/05/21 06:59 06:59 06:59 Intake Total 1677.490 / 1677.490 399.013 / 399.013 Output Total 581 / 581 550 / 550 Balance 1096.490 / 1096.490 -150.987 / -150.987 Cumulative 02/03/21 15:52 thru 02/04/21 12:10 Intake Total 2076.503 Output Total 1131 Balance 945.503 RT Ventilator Mngmt (Last Documented) Ventilator Ordered Settings Ventilator Support Mode Assist Control 02/04/21 11:21 Respiratory Rate 22 02/04/21 11:21 Ventilator Tidal Volume 400 02/04/21 11:21 Setting Minute Ventilation 8.7 02/04/21 11:21 Positive End Expiratory 8 02/04/21 11:21 Pressure Fraction of Inspired Oxygen 30 02/04/21 11:21 Machine Comment weaned to 25% fi02 02/04/21 11:21 Ventilator - PT Measurements Respiratory Rate 22 Exhaled Tidal Volume 400 Minute Ventilation 8.7 Peak Inspiratory Airway 20 Pressure Mean Airway Pressure 12 Plateau Pressure 18 Respiratory Cycle Inspiratory: 1:1.9 Expiratory Ratio Inspiratory Phase Time 0.90 End-Tidal CO2 26 Static Lung Compliance 40.00 Dynamic Lung Compliance 33.33 Normal Static Lung Compliance 47.00 Patient Measurements Comment Sent sputum sample at this time per Dr. Cobb. Coding Level of Care Code Critical Care 1st 30-74 mins Diagnoses Admitted to intensive care unit Z78.9 Congestive heart failure I50.9 Heart failure chronicity: acute Heart failure type: unspecified Respiratory failure J96.01; J96.02 Chronicity: acute Respiratory failure complication: hypoxia and hypercapnia Acute kidney injury N17.9 Atrial fibrillation with rapid ventricular response I48.91 Pleural effusion J90 Time Spent (min) 48 (1) Congestive heart failure Heart failure chronicity: acute Heart failure type: unspecified Qualified Code(s): I50.9 - Heart failure, unspecified (2) Respiratory failure Chronicity: acute Respiratory failure complication: hypoxia and hypercapnia Qualified Code(s): J96.01 - Acute respiratory failure with hypoxia; J96.02 - Acute respiratory failure with hypercapnia
[2021-02-04] MEDS: DIGOXIN 0.125 MG TAB PO SCH (15:51)
--- NOTE | 2021-02-04 15:55 | Procedure Note ---
Procedure Note Date of Service February 04, 2021 Procedure: Diagnostic therapeutic ultrasound-guided catheter thoracentesis on the right Grocery Manager: Dr. Emmett Cobb Indication: Pleural effusion Consent: Signed by patient and verified with timeout prior to procedure Anesthesia: 8 mL's 1% lidocaine without epinephrine local. Procedure: Consent was obtained verbally to the patient's prior to commencement of the procedure. Patient was unable to provide consent due to being intubated and on the ventilator. Appropriate imaging studies were reviewed prior to the procedure. Patient was placed in a seated position and limited thoracic ultrasound was performed of the right chest. Site appropriate for thoracentesis was selected. The skin was prepped and draped in normal sterile fashion. Lidocaine was used for local analgesia. Fluid was aspirated via the finder needle. A small skin mckayla was made with the scalpel and the catheter over the needle apparatus was advanced over the rib into the pleural space. Using the syringe one-way valve system, a total of 1000 mL's of sherita slightly clouded fluid was removed. Procedure was terminated due to inability to withdraw additional fluid. The catheter was removed and observed to be intact. A sterile dressing was applied. Post procedure chest x-ray was ordered. Post procedure ultrasound demonstrated lung sliding with minimal residual fluid. Fluid was sent for cell count differential, Gram stain and culture, cytology, LDH, glucose, total protein, and pH.. The patient tolerated the procedure well without obvious complication Coding CPT Codes Pulmonary/Thoracic - Pulmonary and Thoracic: 31590 Thoracentesis w imaging ([id number]) [facility] Procedure Codes (Charges) Pulmonary/Thoracic Procedure 1: Pulmonary and Thoracic: 50585 Thoracentesis w imaging
--- NOTE | 2021-02-04 16:16 | XRay Report ---
XR chest 1V portable CLINICAL HISTORY: S/P Thoracentesis COMPARISON STUDY: Chest CT February 03, 2021 and chest radiograph February 04, 2021. FINDINGS: Tip of endotracheal tube is 4.1 cm above the yuridia. Tip of nasogastric tube is within the stomach. A left subclavian biventricular pacer/AICD is in place. Cardiomegaly is unchanged. There is mild interstitial thickening. Right pleural effusion has significantly decreased in size. Right lower lung aeration has improved. There is no pneumothorax following thoracentesis. IMPRESSION: 1. No pneumothorax. Significant decrease in size of the right pleural effusion with improved right lo wer lung aeration. 2. Satisfactory positioning of lines and tubes. ACT 112: Negative or not required by law. Electronically signed by: Vinay Marie M.D. 02/04/2021 4:15 PM
[2021-02-04 16:18] LABS: Glucose Pleural Fluid 138 mg/dl
[2021-02-04 16:33] LABS: LDH Pleural Fluid 112 U/L; Total Protein Pleural Fluid 2.6 g/dl
--- NOTE | 2021-02-04 17:30 | Hospitalist Progress Note ---
Date of Service February 04, 2021 Assessment & Plan (1) Respiratory failure: Acute hypoxic, hypercarbic respiratory failure Multifactorial Right pleural effusion History of severe COPD, H/O right-sided pulmonary resection CHF contributing as well -CT Chest: Emphysema with postoperative change and volume loss from right-sided pulmonary resection. There is a small to moderate right pleural effusion with dense consolidation at the right lung base. Consolidative change is new from 12/07/2020. Correlate clinically for evidence of pneumonia/aspiration pneumonitis. Endotracheal and enteric tubes are in place. Trace left pleural effusion. There is increasing paramediastinal fibrosis in the left upper lobe. This may be treatment related and clinical correlation will be required. A 3 cm masslike opacity at the left apex and a groundglass nodule in the lingula have not significantly changed from 12/07/2020. Cardiomegaly and AICD. There is trace upper abdominal ascites. Mildly enlarged mediastinal lymph nodes are nonspecific. Aneurysmal dilatation of the ascending thoracic aorta is unchanged. -Currently Intubated -Plan for thoracentesis today -Appreciate critical care input -Continue Vent support Acute on chronic systolic heart failure -ECHO: Severe global hypokinesis of the left ventricle, septal motion is consistent with conduction abnormality. EF less than 15%. Left atrium is moderately dilated. Severe aortic stenosis. Moderate to severe mitral regurgitation. Moderate aortic root dilatation. Poor prognosis Continue dobutamine Continue digoxin Appreciate cardiology input Monitor volume status Myocardial infarction type 2 In the setting of demand ischemia Echo as above Chronic elevated troponin Acute kidney injury Baseline creatinine 0.9 Avoid nephrotoxic agents as able Appreciate neurology input Monitor renal function Creatinine 1.84 A. fib RVR Continue digoxin, carvedilol Was on Xarelto for anticoagulation INR reversed for thoracentesis Cardiology on board Hyperkalemia Likely secondary to VENTURA Potassium levels improved Possible Sepsis Continue empiric antibiotics Blood, fluoroscopy fluid cultures pending Hypothyroidism Continue levothyroxine DVT Px: INR:2.1 Consider Heparin if INR is reversed Code Status Conditional Code Admission and Anticipated Discharge Date Admission Date: February 03, 2021 Subjective Patient is sedated and intubated Currently on pressors Plan to be given FFP's and have thoracentesis done Febrile today Remains tachycardic on monitor Review of Systems Review of Systems: Unobtainable due to endotracheal tube Physical Exam Physical Exam: Physical Exam: Vitals signs as noted above General Appearance: Thin, ill-appearing, mechanically ventilated Head: normocephalic, Atraumatic Eyes: normal inspection Neck: supple, Trachea midline Respiratory/Chest: Decreased breath sounds, CTA Cardiovascular: Irregularly irregular, tachycardic , + murmur Abdomen/GI:Soft, Non tender, Bowel sounds present Extremities/Musculoskeletal:normal inspection, no edema Neurologic/Psych:sedated and Intubated Skin: normal color, warm Results & Data Results & Data ([facility]) Vital Signs (Past 12 Hours) Vital Signs Temp Pulse Resp BP Pulse Ox 02/04/21 16:00 38.5 C H 120 H 21 122/96 90 02/04/21 15:51 130 H 02/04/21 15:01 38.5 C H 128 H 99 02/04/21 15:00 38.5 C H 117 H 24 130/95 99 02/04/21 14:46 38.5 C H 117 H 116/80 98 02/04/21 14:35 38.5 C H 121 H 23 122/93 99 02/04/21 14:30 38.5 C H 120 H 23 122/93 99 02/04/21 14:19 38.4 C H 122 H 22 149/79 H 100 02/04/21 14:12 38.4 C H 122 H 22 149/79 H 100 02/04/21 13:53 38.4 C H 124 H 22 119/97 100 02/04/21 13:38 38.4 C H 126 H 22 147/82 H 100 02/04/21 13:21 38.3 C H 123 H 22 127/91 98 02/04/21 13:00 38.3 C H 123 H 127/91 02/04/21 12:55 132 H 02/04/21 12:00 38.2 C H 149 H 106/80 98 02/04/21 11:21 131 H 22 98 02/04/21 11:01 38.2 C H 138 H 111/84 99 02/04/21 10:00 38.3 C H 125 H 121/86 100 02/04/21 09:01 38.4 C H 134 H 117/88 99 02/04/21 08:00 38.5 C H 134 H 135/79 97 02/04/21 07:20 124 H 02/04/21 07:15 128 H 21 98 02/04/21 07:00 38.6 C H 114 H 128/87 98 02/04/21 06:00 38.6 C H 123 H 134/98 98 Laboratory Results Short CBC 02/04/21 Range/Units 04:38 WBC 6.95 (4.8-10.8) K/uL Hgb 10.3 L (14.0-18.0) g/dL Hct 32.3 L (42-52) % Plt Count 175 (130-400) K/uL BMP 02/03/21 02/04/21 02/04/21 20:48 00:37 04:38 Sodium 141 141 142 Potassium 5.3 H 4.2 D 4.8 Chloride 108 H 107 110 H Carbon Dioxide 21 25 25 BUN 45 H 49 H 52 H Creatinine 1.84 H 1.78 H 1.84 H Glucose 166 H 174 H 151 H Calcium 8.8 9.0 8.3 L Cardiac Enzymes 02/03/21 02/04/21 02/04/21 Range/Units 20:48 00:37 07:49 Troponin I 0.128 H* 0.175 H* 0.336 H* (0-0.045) ng/ml Liver Function 02/03/21 02/04/21 Range/Units 20:48 04:38 Total Bilirubin 2.1 H 1.7 H (0.2-1) mg/dl AST 1607 H 2530 H (15-37) U/L ALT 1057 H 1459 H (12-78) U/L Alkaline Phosphatase 86 85 (45-117) U/L Albumin 3.3 L 3.1 L (3.4-5.0) gm/dl Urine 02/03/21 Range/Units 17:12 Urine Color Yellow Urine Appearance Slightly Cloudy (Clear) Urine pH 5.0 (4.5-7.5) Ur Specific [place] >= 1.030 (1.000-1.030) Urine Protein 3+ H (Negative) Urine Glucose (UA) Negative (Negative) (1) Respiratory failure Chronicity: acute Respiratory failure complication: hypoxia and hypercapnia Qualified Code(s): J96.01 - Acute respiratory failure with hypoxia; J96.02 - Acute respiratory failure with hypercapnia
[2021-02-04 18:02] LABS: Appearance Pleural Fluid CLEAR; Basophils, Fluid 0 %; Color Pleural Fluid YELLOW; Eosinophils, Fluid 0 %; Lymphocytes, Fluid 19 %; Mono,Macrophage,Mesothelial 33 %; Neutrophils, Fluid 48 %; RBC Pleural Fluid (A) 3000 /uL; Source Pleural Fluid RIGHT LUNG; WBC Pleural Fluid (A) 820 /uL
[2021-02-04 18:20] LABS: Appearance Urine Clear (Clear); Bacteria Urine Automated Negative (Negative); Bilirubin Urine Negative (Negative); Blood Urine 2+ (Negative); Color Urine Yellow; Glucose Urine UA Negative (Negative); Ketones Urine Negative (Negative); Leukocyte Esterase Urine Negative (Negative); Nitrite Urine Negative (Negative); Protein Urine Trace (Negative); Specific Gravity Urine 1.016 (1.000-1.030); Urobilinogen Urine Negative (Negative)
[2021-02-04 18:37] LABS: Cast Urine Automated 0 /lpf (0-5); RBC Urine Automated 0-4 /hpf (0-4)
[2021-02-04 18:39] LABS: BUN Creatinine Ratio 31.6 (10-20); Calcium 8.7 mg/dl (8.5-10.1); Creatinine Clr Calc Pharmacy 34.5 ml/min; Est GFR (African American) 36.2 ml/min; Est GFR (Non-African American) 31.2 ml/min
[2021-02-04 19:04] LABS: Protein Creatinine Ratio Urine 0.8 (0-0.2); Total Protein Urine Random 31.2 mg/dl (0-11.9)
[2021-02-05] MEDS: DEXMEDETOMIDINE HCL 400 MCG in 0.9 % SODIUM CHLORIDE 96 ML IV SCH ×2 (03:00→06:24)
[2021-02-05] MEDS: TUBE FEEDING WATER FLUSH OG SCH ×5 (03:33→17:12)
[2021-02-05] MEDS: LEVOTHYROXINE SODIUM 112 MCG TABLET PO SCH (03:33)
[2021-02-05 04:51] LABS: Hematocrit (blood only) 32.4 % (42-52); Hemoglobin 10.6 g/dL (14.0-18.0); Immature Granulocytes # (auto) 0.03 K/uL (0.00-0.02); Immature Granulocytes % (auto) 0.3 %; Lymphocytes # (auto) 0.47 K/uL (1.2-3.4); Lymphocytes % (auto) 4.2 %; Mean Corpuscular Hemoglobin 27.2 pg (25-34); Mean Corpuscular Hgb Conc 32.7 g/dL (32-36); Mean Corpuscular Volume 83.3 fL (80-100); Mean Platelet Volume 10.8 fL (7.4-10.4); Monocytes # (auto) 0.52 K/uL (0.11-0.59); Monocytes % (auto) 4.7 %; Neutrophils # (auto) 10.07 K/uL (1.4-6.5); Neutrophils % (auto) 90.8 %; Platelet Count 129 K/uL (130-400); RDW Coefficient of Variation 17.9 % (11.5-14.5); RDW Standard Deviation 53.9 fL (36.4-46.3); Red Blood Count 3.89 M/uL (4.7-6.1); White Blood Count 11.09 K/uL (4.8-10.8)
[2021-02-05 04:59] LABS: INR 1.9 (0.9-1.1); Prothrombin Time 18.7 Seconds (9.0-12.0)
[2021-02-05 05:11] LABS: Albumin Level 2.9 gm/dl (3.4-5.0); BUN Creatinine Ratio 37.6 (10-20); Calcium 8.1 mg/dl (8.5-10.1); Creatinine Clr Calc Pharmacy 44.4 ml/min; Est GFR (African American) 49.2 ml/min; Est GFR (Non-African American) 42.4 ml/min; Magnesium 2.6 mg/dl (1.8-2.4); Potassium 3.8 mmol/L (3.5-5.1)
[2021-02-05 05:18] LABS: iSTAT Arterial Blood Gas HCO3 28 meg/L (19-24); iSTAT Arterial Blood Gas pCO2 42 mmHg (35-46); iSTAT Arterial Blood Gas pH 7.43 (7.35-7.45); iSTAT Arterial Blood Gas pO2 105 mmHg (80-95); iSTAT Carbon Dioxide 29 mmol/L (24-31)
[2021-02-05 05:22] LABS: Albumin Globulin Ratio 0.8 (0.9-2); Globulin 3.8 gm/dl (2.5-4.0); Phosphorus 4.5 mg/dl (2.5-4.9); Total Protein 6.7 gm/dl (6.4-8.2)
[2021-02-05] MEDS ORDERED: POTASSIUM CHLORIDE 20 MEQ/15 ML UDC PO STA (05:58)
[2021-02-05] MEDS: PIPERACILLIN/TAZOBACTAM 3.375 GM in DEXTROSE 5% 100 ML IV SCH ×3 (06:25→23:30)
[2021-02-05 07:31] LABS: Hepatitis A Antibody IgM NON-REACTIVE (NON-REACTIVE); Hepatitis B Core Antibody IgM NON-REACTIVE (NON-REACTIVE)
--- NOTE | 2021-02-05 08:38 | Critical Care Progress Note ---
Date of Service February 05, 2021 Assessment & Plan (1) Admitted to intensive care unit: Impression: 70-year-old male with acute hypoxic respiratory failure requiring endotracheal intubation. Patient has a known history of severe ischemic cardiomyopathy with an ejection fraction of less than 15% as well as severe MR and severe . Patient with NSTEMI and BNP of greater than 35,000. Elevated lactate greater than 7. VENTURA. Tachycardia/atrial fibrillation with EF approximately 15%. 24-hour events: Patient was maintained on low-dose dobutamine overnight. He underwent thoracentesis on the right with removal of 1000 ml and fluid studies noted as above. Respiratory cultures are growing gram-negative frank. His I/O have been even. Recommendations: Neuro-we will discontinue fentanyl and wean Precedex plans to perform an SBT later today. CARDIAC/VASCULAR - NSTEMI: Likely demand in the setting of ongoing tachycardia of questionable etiology at this point. Appreciate cardiology consultation. The patient is in A. fib with a rapid ventricular response. Unfortunately his severe valvular heart disease including MR and complicate the issue. He is not a surgical candidate for intervention currently. We will try and wean the dobutamine as tolerated. He has received additional digoxin doses. Lactic acidosis has cleared. Suspect his elevated troponin is related to supply demand mismatch. Not a candidate for amio given LFTs and chronic a fib. Anticoagulation with heparin gtt. RESPIRATORY -hypoxemic and hypercarbic respiratory failure. The patient has a longstanding history of tobacco abuse and continued to smoke at the rate of 1 pack/day up until his admission. He has known severe obstructive lung disease. Continue current ventilator settings. SBT when awake and possible extubation. No evidence of reaccumulation of pleural effusion - had been controlled in outpatient setting with diuretics. May restart depending on HD stability. GI/NUTRITION -patient has a history of cirrhosis likely multifactorial due to combinations of congestive hepatopathy superimposed on prior history of alcohol. No significant ascites identified on CT scan. Surgery was consulted for potential acalculous cholecystitis however the patient is not a surgical candidate given his comorbidities. GGT normal, so hold on HIDA. Normal portal venous flow without evidence of thrombosis. I suspect his liver function abnormalities are secondary to congestive hepatopathy - now returning to normal. They will continue to be trended at this point time. Avoid any additional hepatotoxins. RENAL/LYTES -acute on chronic kidney disease. Serum creatinine stable. Appreciate nephrology consultation. Replacing electrolytes. Trying to maintain patient on the dry side. - Larios in place - Strict I&Os. ENDO -continue glycemic control per protocol. Continue home Synthroid. HEME -no signs of bleeding. The patient is on lifelong anticoagulation for PEs. He is been followed by the [facility] hematology clinic. Given his liver function abnormalities, will hold Xarelto. He is not a great candidate for Lovenox and reports an allergy. Will restart heparin ID -patient has an elevated procalcitonin as well as elevated white blood cell count and fevers concerning for infection. GNR in sputum. He is day #3 Zosyn - continue for now. Lactate has improved. Patient's overall prognosis is significantly guarded due to his underlying comorbidities. I had discussed previously with the patient in the outpatient setting advanced directives and at that time he agreed to DNR/DNI. I am unclear how we got in this current situation given his expressed wishes to avoid life support. Discussed with the yesterday at bedside but she is somewhat tangential in efforts to try and engage regarding goals of therapy for this patient. Unfortunately given his significant cardiovascular comorbidities which are not easily correctable or medically manageable (severe and severe MR with an EF of 15%, I am not confident that the patient will be able to make a full recovery. Await palliative care input. 45 min CC time clearing discussion with bedside nurses and on multidisciplinary rounds and other consultants. LINES/IV ACCESS - PIVs x2 ET Tube OG Larios RIGHT Radial Art Line consents to CVL if needed. DVT PROPHYLAXIS - INR elevated. May consider heparin once INR drops SCDs Attempted to reach by phone to update however no answer. I have personally spent 50 minutes of critical care time in the direct management of this patient. This is a life/limb threatening event. This includes time spent evaluating patient, direct bedside care, chart review, placing orders, interpretation of diagnostic studies, discussion with consultants, patient, and family members, as well as other required patient management activities. This time is exclusive of all separately billable procedures, and teaching time and separate from and in addition to any other critical care service time. (2) Congestive heart failure: (3) Respiratory failure: (4) Acute kidney injury: (5) Atrial fibrillation with rapid ventricular response: (6) Pleural effusion: Admission and Anticipated Discharge Date Admission Date: February 03, 2021 Subjective Intubated and sedated Review of Systems Review of Systems: Unobtainable due to endotracheal tube Physical Exam Constitutional: + ill appearing, + thin, + mechanically ventilated and + malnourished Neck: trachea midline, no thyromegaly Respiratory: normal respiratory effort Auscultation: no crackles and no wheezes Cardiovascular: Rate/Rhythm: + tachycardic and + irregularly irregular Heart Sounds: normal S1, normal S2 and + murmur Extremities: no edema Gastrointestinal (Abdomen): normal bowel sounds, soft, nontender, no hepatosplenomegaly Musculoskeletal: Extremities: extremities normal to inspection Skin: no rashes, warm and dry Lymphatic: no cervical lymphadenopathy Results & Data Results & Data ([facility]) Vital Signs (Past 12 Hours) Vital Signs Temp Pulse Resp BP Pulse Ox 02/05/21 07:28 110 H 18 91 02/05/21 06:00 37.4 C 116 H 18 109/86 96 02/05/21 05:00 37.4 C 114 H 18 111/77 100 02/05/21 04:00 37.4 C 114 H 18 109/88 99 02/05/21 03:30 120 H 20 99 02/05/21 03:00 37.4 C 115 H 18 120/96 98 02/05/21 02:01 37.5 C 120 H 114/81 99 02/05/21 01:00 37.5 C 123 H 128/96 99 02/05/21 00:00 37.6 C H 122 H 115/68 99 02/04/21 23:59 122 H 02/04/21 23:53 120 H 21 99 02/04/21 23:01 37.5 C 120 H 119/88 99 02/04/21 22:00 37.6 C H 132 H 105/76 98 02/04/21 21:00 37.8 C H 111 H 115/96 97 Laboratory Results Pleural fluid studies: Cell count differential: 48% neutrophils, 19% lymphocytes, 0 eosinophils, 33% mesothelial cells pH 7.47 Total protein 2.6 Pleural LDH 112 Pleural glucose 138 Cytology pending Gram stain moderate polys with no organisms. Culture pending. Critical Care Results & Data Vital Signs (Past 12 Hours) Vital Signs Temp Pulse Resp BP Pulse Ox 02/05/21 07:28 110 H 18 91 02/05/21 06:00 37.4 C 116 H 18 109/86 96 02/05/21 05:00 37.4 C 114 H 18 111/77 100 02/05/21 04:00 37.4 C 114 H 18 109/88 99 02/05/21 03:30 120 H 20 99 02/05/21 03:00 37.4 C 115 H 18 120/96 98 02/05/21 02:01 37.5 C 120 H 114/81 99 02/05/21 01:00 37.5 C 123 H 128/96 99 02/05/21 00:00 37.6 C H 122 H 115/68 99 02/04/21 23:59 122 H 02/04/21 23:53 120 H 21 99 02/04/21 23:01 37.5 C 120 H 119/88 99 02/04/21 22:00 37.6 C H 132 H 105/76 98 02/04/21 21:00 37.8 C H 111 H 115/96 97 Lab & Micro Results (Past 24 Hours) RBC 3.89 M/uL (4.7-6.1) L 02/05/21 WBC 11.09 K/uL (4.8-10.8) H 02/05/21 Hgb 10.6 g/dL (14.0-18.0) L 02/05/21 Hct 32.4 % (42-52) L 02/05/21 MCV 83.3 fL (80-100) 02/05/21 MCH 27.2 pg (25-34) 02/05/21 MCHC 32.7 g/dL (32-36) 02/05/21 RDW Standard Deviation 53.9 fL (36.4-46.3) H 02/05/21 RDW Coefficient of Variation 17.9 % (11.5-14.5) H 02/05/21 Plt Count 129 K/uL (130-400) L 02/05/21 MPV 10.8 fL (7.4-10.4) H 02/05/21 Neutrophils (%) (Auto) 90.8 % 02/05/21 Lymphocytes (%) (Auto) 4.2 % 02/05/21 Monocytes # (Auto) 0.52 K/uL (0.11-0.59) 02/05/21 Eosinophils # (Auto) 0.00 K/uL (0-0.5) 02/05/21 Immature Granulocyte % (Auto) 0.3 % 02/05/21 Neutrophils # (Auto) 10.07 K/uL (1.4-6.5) H 02/05/21 Lymphocytes # (Auto) 0.47 K/uL (1.2-3.4) L 02/05/21 Monocytes # (Auto) 0.52 K/uL (0.11-0.59) 02/05/21 Eosinophils # (Auto) 0.00 K/uL (0-0.5) 02/05/21 Basophils # (Auto) 0.00 K/uL (0-0.2) 02/05/21 Immature Granulocyte # (Auto) 0.03 K/uL (0.00-0.02) H 02/05/21 Na 140 mmol/L (136-145) 02/05/21 K 3.8 mmol/L (3.5-5.1) 02/05/21 Cl 107 mmol/L (98-107) 02/05/21 CO2 28 mmol/L (21-32) 02/05/21 Anion Gap 5.0 (3-11) 02/05/21 BUN 60 mg/dl (7-18) H 02/05/21 Creatinine 1.60 mg/dl (0.6-1.4) H 02/05/21 Estimated GFR ( Amer) 49.2 ml/min 02/05/21 Estimated GFR (Non-Af Amer) 42.4 ml/min 02/05/21 BUN/Creatinine Ratio 37.6 (10-20) H 02/05/21 Glu 173 mg/dl (70-99) H 02/05/21 Ca 8.1 mg/dl (8.5-10.1) L 02/05/21 Phosphorus Level 4.5 mg/dl (2.5-4.9) 02/05/21 Total Bilirubin 2.0 mg/dl (0.2-1) H 02/05/21 AST 626 U/L (15-37) H 02/05/21 ALT 1000 U/L (12-78) H 02/05/21 Alkaline Phosphatase 76 U/L (45-117) 02/05/21 TP 6.7 gm/dl (6.4-8.2) 02/05/21 Albumin 2.9 gm/dl (3.4-5.0) L 02/05/21 Globulin 3.8 gm/dl (2.5-4.0) 02/05/21 Albumin/Globulin Ratio 0.8 (0.9-2) L 02/05/21 GGT 36 U/L (3-70) 02/04/21 Mg 2.6 mg/dl (1.8-2.4) H 02/05/21 04:32 02/05/21 Calcium Level 8.1 mg/dl (8.5-10.1) L 02/05/21 04:32 02/05/21 Prothromb Time International Ratio 1.9 (0.9-1.1) H 02/05/21 04:32 02/05/21 Microbiology 02/04/21 09:50 Gram Stain - Final Sputum,Vent Suction Sputum Culture - Preliminary Gram negative bacilli 02/04/21 Unknown Gram Stain - Final Pleural Fluid 02/03/21 16:31 Aerobic Blood Culture - Preliminary Blood No growth in Aerobic bottle after 24 hours. Anaerobic Blood Culture - Preliminary No growth in Anaerobic bottle after 24 hours. 02/03/21 16:21 Aerobic Blood Culture - Preliminary Blood No growth in Aerobic bottle after 24 hours. Anaerobic Blood Culture - Preliminary No growth in Anaerobic bottle after 24 hours. Diagnostic Findings (Past 24 Hours) Portal Vein US 02/03/21 21:58 US duplex portal hepatic veins CLINICAL HISTORY: 70 years-old Male presenting with transaminitis. TECHNIQUE: Real-time grayscale and limited color Doppler ultrasound imaging of the abdomen was performed. COMPARISON: None. FINDINGS: Hepatic veins are patent with normal direction of the flow. Main portal vein is patent with normal direction of the flow. Pulsatility of the portal vein is nonspecific. Visualized portion of inferior vena cava is patent. IMPRESSION: Patent portal and hepatic veins with normal direction of the flow. ACT 112: Negative or not required by law. Electronically signed by: Kay Noe DO 02/04/2021 8:30 AM Abdomen/Pelvis CT 02/03/21 22:38 CT SCAN OF THE ABDOMEN AND PELVIS WITHOUT CONTRAST CLINICAL HISTORY: transaminitis, abd pain COMPARISON STUDY: March 11, 2019 TECHNIQUE: CT scan of the abdomen and pelvis was performed from the lung bases to the proximal femurs. Images are reviewed in the axial, sagittal, and coronal planes. IV contrast was not administered for this examination. A dose lowering technique was utilized adhering to the principles of ALARA. CT DOSE: 1946.57 mGy.cm FINDINGS: Lower chest: Moderate to large right pleural effusion is seen and associated with consolidative opacity/atelectasis of the right lower lobe as well as volume loss of the visualized portion of the right hemithorax and midlines shift to the right. Trace pericardial effusion and mild four-chamber cardiomegaly seen. Calcifications of aortic valve and distal leads of pacemaker. Liver: The unenhanced liver is normal in size and attenuation of its parenchyma without evidence of focal lesions or intrahepatic biliary dilatation. Mild ascites is seen. Gallbladder: Unremarkable. Spleen: Normal in size and attenuation. Pancreas: Pancreas is atrophic. Adrenal glands: Bilateral adrenal gland again appears prominent, evaluation is limited due to lack of IV contrast and ascites/mesenteric edema. Kidneys: The unenhanced kidneys are normal in size without hydronephrosis. There is no contour deforming renal mass lesion. No renal calculi are identified. Vascular calcifications are seen within bilateral renal pelvises. Bowel: Bowel loops are nondilated. Appendix is normal in caliber and gas filled. Evaluation is limited due to lack of contrast and mild motion artifact. Peritoneum: There is no intraperitoneal free air. Vasculature: Redemonstration of the fusiform dilatation of abdominal aorta with infrarenal stent extend into the bilateral iliac arteries. Mild interval asymmetrical increase in size of posterior nonstented lumen at the level L3 (series 7 image 216) and also associated with interval dilatation of aortic diameter, now measuring 4.8 cm, previously was measured 4.3 cm at this level. Overall evaluation is limited due to lack of IV contrast on this nondedicated exam. Adenopathy: No definite large mesenteric or retroperitoneal lymph nodes are seen however evaluation is limited due to mesenteric edema. Pelvic viscera: Urinary bladder is decompressed with Larios balloon within its lumen. Mild diffuse thickening of urinary bladder wall is seen and sometimes could be associated with cystitis. Skeletal structures: Osseous structures are diffusely demineralized. Redemonstration of orthopedic hardware within L3-S1 level and status post laminectomy. Mild anterolisthesis of L4 on L5 is again seen. IMPRESSION: 1. Moderate right pleural effusion associated with atelectasis/consolidative opacity within the right lower lobe and volume loss on the right. Please correlate above-mentioned findings was prior history. Further evaluation with CT of the chest might be considered if clinically indicated. 2. Infrarenal abdominal aortic aneurysm with intraluminal stent and mild interval increase in size at the level of L3. Evaluation is limited due to lack of IV contrast on this nondedicated exam. Further evaluation with CTA of abdomi nal aorta is suggested. 3. Small pericardial effusion. 4. Ascites. 5. Mild diffuse wall thickening of the partially decompressed urinary bladder with Larios balloon within its lumen. Bladder wall thickening sometimes could be seen with cystitis. Please correlate above-mentioned findings with results of urinalysis. ACT 112: Positive. There are findings on this exam that require communication between the performing entity and the patient following Patient Test Result Information Act ([place] Act 112) guidelines. The above report was generated using voice recognition software. It may contain grammatical, syntax or spelling errors. Electronically signed by: Kay Noe DO 02/04/2021 10:[address] 02/03/21 22:38 CT SCAN OF THE CHEST WITHOUT IV CONTRAST CLINICAL HISTORY: Hypoxia. COMPARISON STUDY: Chest CT dated 12/07/2020 and 03/11/2019. TECHNIQUE: CT scan of the thorax was performed from the thoracic inlet to the upper abdomen. Images are reviewed in the axial, sagittal, and coronal planes. IV contrast was not administered for this examination as per the referring clinician. A dose lowering technique was utilized adhering to the principles of ALARA. The examination is significantly degraded by motion artifact, as well as by streak artifact from the arms which could not be elevated above the chest. FINDINGS: Thyroid: Imaged portions of the thyroid gland appear atrophic. Thoracic aorta: There is atherosclerotic calcification of the thoracic aorta. There is mild aneurysmal dilatation of the ascending thoracic aorta which measures up to 4.6 cm in diameter. The remainder of the thoracic aorta is normal in caliber, and the arch demonstrates standard 3-vessel anatomy. Heart: The cardiac AICD is present in the left chest wall. The heart is enlarged and without pericardial effusion. The coronary arteries and aortic valve leaflets are densely calcified. There is diminished attenuation of the cardiac blood flow as compared to the myocardium suggesting anemia. Lungs and pleural spaces: An endotracheal tube terminates above the yuridia. Emphysematous change is noted. There is postoperative change and volume loss consistent with right-sided pulmonary resection. There is compensatory hyperinflation of the left lung and rightward shift of the mediastinum. Emphysematous change is noted. There is a small to moderate right pleural effusion with dense consolidation of the left lower lung. There is trace left pleural effusion with left basilar atelectasis. A 3 cm masslike opacity at the left apex on image #41 is unchanged. There is increasing paramediastinal fibrosis of the left upper lobe as compared to previous. Name millimeters groundglass focus in the lingula on image #162 and a 9 mm focus of pleural thickening in the left lower lobe along the major fissure seen on image 143 are unchanged. Mediastinum: There is rightward shift of mediastinum. Numerous mildly enlarged mediastinal lymph nodes measure up to 1.5 cm in short axis. Sherry: Not well assessed without IV contrast. Axillae: There is no axillary lymphadenopathy. Upper abdomen: An enteric tube terminates in the stomach. There is trace perihepatic and perisplenic ascites. Skeletal structures: The skeletal structures are osteopenic. No lytic or blastic bony lesions are seen. There are healed right-sided rib fractures. IMPRESSION: 1. Streak and motion compromised examination. 2. Emphysema with postoperative change and volume loss from right-sided pulmonary resection. 3. There is a small to moderate right pleural effusion with dense consolidation at the right lung base. Consolidative change is new from 12/07/2020. Correlate clinically for evidence of pneumonia/aspiration pneumonitis. 4. Endotracheal and enteric tubes are in place. 5. Trace left pleural effusion. 6. There is increasing paramediastinal fibrosis in the left upper lobe. This may be treatment related and clinical correlation will be required. 7. A 3 cm masslike opacity at the left apex and a groundglass nodule in the lingula have not significantly changed from 12/07/2020. 8. Cardiomegaly and AICD. 9. There is trace upper abdominal ascites. 10. Mildly enlarged mediastinal lymph nodes are nonspecific. 11. Aneurysmal dilatation of the ascending thoracic aorta is unchanged. 12. Additional findings as above. ACT 112: Negative or not required by law. Electronically signed by: Gregorio Tamez M.D. 02/04/2021 8:23 AM Chest X-Ray 02/04/21 07:00 XR chest 1V portable HISTORY: Right lung opacity. Follow-up. Shortness of breath. COMPARISON: Chest 02/03/2021. FINDINGS: Slight improvement in aeration within the right lung base. A small right pleural effusion persists. Findings suggest partial resolution of the right lower lobe collapse. Mild volume loss within the right hemithorax has improved. There are healing right anterior rib fractures. The heart remains enlarged. The left lung is clear. Left-sided pacemaker. No pneumothorax. IMPRESSION: 1. Improved aeration within the right lung base and improvement in the right hemithorax volume loss. Findings suggest partial resolution of the right lower lobe collapse. 2. Satisfactory support line placement. ACT 112: Negative or not required by law. Electronically signed by: Enrrique Capps M.D. 02/04/2021 8:24 AM Chest X-Ray 02/04/21 15:53 XR chest 1V portable CLINICAL HISTORY: S/P Thoracentesis COMPARISON STUDY: Chest CT February 03, 2021 and chest radiograph February 04, 2021. FINDINGS: Tip of endotracheal tube is 4.1 cm above the yuridia. Tip of nasogastric tube is within the stomach. A left subclavian biventricular pacer/AICD is in place. Cardiomegaly is unchanged. There is mild interstitial thickening. Right pleural effusion has significantly decreased in size. Right lower lung aeration has improved. There is no pneumothorax following thoracentesis. IMPRESSION: 1. No pneumothorax. Significant decrease in size of the right pleural effusion with improved right lower lung aeration. 2. Satisfactory positioning of lines and tubes. ACT 112: Negative or not required by law. Electronically signed by: Vinay Marie M.D. 02/04/2021 4:15 PM I & O Totals 24 Hours 02/04/21 02/05/21 02/06/21 06:59 06:59 06:59 Intake Total 1677.490 / 2498.516 8079.191 / 2059.191 141.558 / 141.558 Output Total 581 / 581 2250 / 2250 Balance 1096.490 / 1096.490 -190.809 / -190.809 141.558 / 141.558 Cumulative 02/03/21 15:52 thru 02/05/21 07:09 Intake Total 3878.239 Output Total 2831 Balance 1047.239 RT Ventilator Mngmt (Last Documented) Ventilator Ordered Settings Ventilator Support Mode Assist Control 02/05/21 07:28 Respiratory Rate 18 02/05/21 07:28 Ventilator Tidal Volume 400 02/05/21 07:28 Setting Minute Ventilation 8 02/05/21 07:28 Positive End Expiratory 8 02/05/21 07:28 Pressure Fraction of Inspired Oxygen 30 02/05/21 07:28 Machine Comment increased to 40% to increase Sp02 02/04/21 16:31 to 90%. Ventilator - PT Measurements Respiratory Rate 18 Exhaled Tidal Volume 397 Minute Ventilation 8 Peak Inspiratory Airway 10 Pressure Mean Airway Pressure 8 Plateau Pressure 18 Respiratory Cycle Inspiratory: 1:2.3 Expiratory Ratio Inspiratory Phase Time 0.9 End-Tidal CO2 30 Static Lung Compliance 39.70 Dynamic Lung Compliance 198.50 Normal Static Lung Compliance 50.00 Patient Measurements Comment Attempted to wean PEEP to 5 at this time at 25% Fi02, Sp02 dropped to 82%. Increased PEEP back to 8 and 35% Sp02 90%. Coding Level of Care Code Critical Care 1st 30-74 mins Diagnoses Admitted to intensive care unit Z78.9 Congestive heart failure I50.9 Heart failure chronicity: acute Heart failure type: unspecified Respiratory failure J96.01; J96.02 Chronicity: acute Respiratory failure complication: hypoxia and hypercapnia Acute kidney injury N17.9 Atrial fibrillation with rapid ventricular response I48.91 Pleural effusion J90 Time Spent (min) 45 (1) Congestive heart failure Heart failure chronicity: acute Heart failure type: unspecified Qualified Code(s): I50.9 - Heart failure, unspecified (2) Respiratory failure Chronicity: acute Respiratory failure complication: hypoxia and hypercapnia Qualified Code(s): J96.01 - Acute respiratory failure with hypoxia; J96.02 - Acute respiratory failure with hypercapnia
[2021-02-05] MEDS: ASPIRIN 81 MG CHEW NG SCH (08:46)
[2021-02-05] MEDS: carvediloL 3.125 MG TAB PO SCH ×2 (08:46→21:09)
[2021-02-05] MEDS: FAMOTIDINE 20 MG in SYRINGE 3 ML IV SCH (08:47)
[2021-02-05] MEDS ORDERED: HEPARIN SOD (PORCINE) 1000 UNIT/ML IV ONE (08:54)
[2021-02-05] MEDS: Heparin IV Adult Wt-Based Standard WITH Bolus Protocol IV SCH ×3 (09:02→10:24)
--- NOTE | 2021-02-05 10:14 | XRay Report ---
XR chest 1V portable CLINICAL HISTORY: Respiratory failure. COMPARISON STUDY: Chest CT February 03, 2021. Chest radiograph February 04, 2021. FINDINGS: Tip of the endotracheal tube is 3.1 cm above the yuridia. Tip of nasogastric tube is within the gastric fundus. A left subclavian biventricular pacer/AICD is in place. Postoperative findings wi thin the right hemithorax are noted. Right lung volume loss is unchanged. Right lower lung opacity is noted. Cardiomegaly is unchanged. There is a small right pleural effusion. There is no pneumothorax. There is pulmonary vascular congestion. Left apical opacity is better depicted on prior chest CT. IMPRESSION: 1. Satisfactory positioning of lines and tubes. 2. No change in appearance of the chest. Small right pleural effusion with right basilar opacity. 3. Pulmonary vascular congestion. ACT 112: Negative or not required by law. Electronically signed by: Vinay Marie M.D. 02/05/2021 10:13 AM
[2021-02-05] MEDS: HEPARIN SODIUM/DEXTROSE 25,000 UNITS/500 ML BAG IV SCH (10:23)
--- NOTE | 2021-02-05 10:37 | Palliative Care Consultation ---
Date of Consultation February 05, 2021 Assessment & Plan (1) Palliative care encounter: This is a 70 year old male who presented to the ED via EMS with increased shortness of breath and an SpO2 of 70%. The patient was ultimately obtunded and intubated, despite a previously documented DNR/DNI. The patient has a significant history that includes CHF with an EF of 10%. Further PMH includes: lung cancer, CAD s/p ICD implantation, Aortic Stenosis, PVD, PE, COPD, CVA, hypothryoidism, cardiomegaly, and AAA. On admission, the patient was noted to have an NSTEMI with BNP > 35,000 and a lactic acid > 7. On diagnosis imaging, a 3cm masslike opacity was noted in the left apex. Palliative medicine was consulted to address goals of care with the family. Patient is intubated on PS 8 PEEP 5. Tolerating CPAP trials. His Fentanyl has been turned off, but he is still requiring Precedex. He does open his eyes to voice, but can't be confident that he is able to have meaningful interaction at this point. Goal is to remove the Precedex and wake him further to evaluate opportunity for extubation. Important to have a goal determined prior to extubation with . If he becomes hypoxic or fails extubation, does she wish to have him reintubated. I had called the patients and left her a VM. The [employer] was able to meet at the bedside with the patients and discuss current medical condition. The patient was able to communicate while on the ventilator that if he would get to the point of extubation, if he would decompensate, he would NOT want to be reintubated, he was changed to DNR/DNI to reflect this conversation. Palliative Medicine will follow along with this gentleman's progress and continue to assist with decision making as necessary. Thanks for involving us. (2) Congestive heart failure: EF 10%. On Dobutamine gtt of 2.5 mcg/hour. Recommend continuation per Cardiology. Significant PVD noted on exam. Weakened pulses, popliteal noted on doppler exam. Heart failure chronicity: acute Heart failure type: unspecified Qualified Code(s): I50.9 - Heart failure, unspecified (3) Hypoxia: Intubated and on PS 8/5. SpO2 96%. Thoracentesis performed yesterday with 1 L fluid removal. (4) Weakness: History of Present Illness Reason for Consultation: Goals of Care Requesting Physician: Dr. Cobb Attending Physician: Brian Fried MD History of Present Illness This is a 70 year old male who presented to the ED via EMS with increased shortness of breath and an SpO2 of 70%. The patient was ultimately obtunded and intubated, despite a previously documented DNR/DNI. The patient has a significant history that includes CHF with an EF of 10%. Further PMH includes: lung cancer, CAD s/p ICD implantation, Aortic Stenosis, PVD, PE, COPD, CVA, hypothryoidism, cardiomegaly, and AAA. On admission, the patient was noted to have an NSTEMI with BNP > 35,000 and a lactic acid > 7. On diagnosis imaging, a 3cm masslike opacity was noted in the left apex. Palliative medicine was consulted to address goals of care with the family. Please see A/P for further details. Thanks for involving palliative medicine with this individual. Allergies Allergy/AdvReac Type Severity Reaction Status Date / Time enoxaparin [From Lovenox] Allergy Intermediate itchy Verified 02/03/21 16:40 adhesive tape Allergy Mild redness Verified 02/03/21 16:40 metoprolol Allergy Mild itchy Verified 02/03/21 16:40 naproxen Allergy Unknown ITCHY Verified 02/03/21 16:40 Home Medications Medication Instructions Recorded Confirmed Type digoxin 125 mcg PO QAM 03/11/19 02/03/21 History melatonin 5 mg PO HS PRN 03/11/19 02/03/21 History nitroglycerin [Nitrostat] 0.4 mg SUBLINGUAL UD PRN #30 tab 03/17/19 02/03/21 Rx Xarelto 20 mg PO QAM 07/09/19 02/03/21 History furosemide 40 mg PO QAM PRN 10/03/19 02/03/21 History carvedilol 3.125 mg tablet 3.125 mg PO BID 11/21/19 02/03/21 History mirtazapine 15 mg tablet 15 mg PO HS PRN tab 06/30/20 02/03/21 History multivitamin 1 tab PO QAM 06/30/20 02/03/21 History spironolactone 25 mg tablet 25 mg PO QAM tab 07/03/20 02/03/21 History ezetimibe [Zetia] 10 mg PO QAM 09/25/20 02/03/21 History levothyroxine 112 mcg PO QAM 09/25/20 02/03/21 History albuterol sulfate 90 mcg/actuation 2 puff INHALATION QID PRN #8.5 g 01/01/21 02/03/21 Rx aerosol inhaler aspirin [Aspirin Low Dose] 81 mg PO DAILY 02/03/21 02/03/21 History ipratropium-albuterol 3 ml INHALATION UD 02/03/21 02/03/21 History Patient History Medical History (Updated 02/05/21 @ 10:33 by GAYLE Zambrano) AAA (abdominal aortic aneurysm) S/P ENDOGRAFT REPAIR - [facility] 2004 AAA UNCHANGED FROM 2016/NO EVIDENCE OF ENDOLEAK PER 02/2020 CTA Anemia Aortic stenosis MODERATE TO SEVERE BY DSE IN 03/2020 (DEFERRING TAVR AT THIS TIME- REPEATING STUDIES IN 03/2021 PER CARDIO RECORD) Atrial fibrillation PER RECORDS - ON XARELTO CAD (coronary artery disease) 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 NU[facility] -- reports yearly carotid US at [facility] CHF (congestive heart failure) NONISCHEMIC CM - S/P PACEMAKER PLACEMENT 08/2020 COPD (chronic obstructive pulmonary disease) CVA (cerebral vascular accident) Found incidentally on imaging. Per most recent brain MRI = " Multiple old infarcts are similar to head CT of April 02, 2019" Dilated cardiomyopathy DVT (deep venous thrombosis) 2016 - BLLE --> PE - on xarelto (unk etiology) History of pulmonary embolism 2016 Hypothyroidism Hypoxia Laryngeal carcinoma 2003 - status post radiation and chemotherapy LBBB (left bundle branch block) PER RECORDS Lung cancer 2017 - treated surgically + radiation Pacemaker BAR EXAMINER-D, placed 09/07/2020 bradycardia; [employer]; last checked 08/2020 - follows with Dr. Verma Palliative care encounter Pleural effusion S/P THORACENTESIS IN THE PAST- NO THORACENTESIS X 6 MONTHS Pulmonary nodule PVD (peripheral vascular disease) "chronic BL SFA occlusions" Thoracic ascending aortic aneurysm PT STATES DOCTOR IS JUST WATCHING EVERY 6 MONTHS 4.7CM ASCENDING THORACIC AORTA; 3.9CM DESCENDING THORACIC AORTA PER 02/2020 CTA ABDOMEN/PELVIS Weakness Surgical History H/O bursectomy Left History of arthroscopy of left shoulder History of back surgery 2006 - LUMBAR > CAGE IN PER PATIENT History of cardiac catheterization 02/2020 [facility] - per , no stents/angioplasty History of nasal septoplasty 2001 History of thoracentesis Hx of tonsillectomy 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 Mother , Passed age 26 of rheumatic fever No problems noted. Father , Passed age 44 of [place] No problems noted. Sister , Passed age 60 of metastatic colon cancer No problems noted. Sister No problems noted. Sister No problems noted. Son No problems noted. Son No problems noted. 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 Feels Safe at Home: Yes Childhood Exposure to Second-Hand Smoke: Yes caffeine: No Dental Care, Regularly: No Assistive Devices: Denture - Upper, Denture - Lower, Glasses, Hearing Aid - Bilateral and Oxygen - Continuous Assistive Devices Comment: Intubated and Sedated Review of Systems Review of Systems: Unobtainable due to endotracheal tube Physical Exam Constitutional: + ill appearing, + frail appearing and comfortable ENMT: Nose: + dry nasal mucous membranes Respiratory: normal respiratory effort (on ventilator) Auscultation: + diminished lung sounds Cardiovascular: Heart Sounds: normal S1 and normal S2 Vessels: popliteal pulses present (by doppler. ) Gastrointestinal (Abdomen): normal bowel sounds, soft, nontender, no hepatosplenomegaly Skin: + skin tightening, + dry skin and + pallor Psychiatric: Orientation: alert (attempts to open eyes to voice/name.) Results & Data ([facility]) Vital Signs (Past 12 Hours) Vital Signs Temp Pulse Resp BP Pulse Ox 02/05/21 07:28 110 H 18 91 02/05/21 06:00 37.4 C 116 H 18 109/86 96 02/05/21 05:00 37.4 C 114 H 18 111/77 100 02/05/21 04:00 37.4 C 114 H 18 109/88 99 02/05/21 03:30 120 H 20 99 02/05/21 03:00 37.4 C 115 H 18 120/96 98 02/05/21 02:01 37.5 C 120 H 114/81 99 02/05/21 01:00 37.5 C 123 H 128/96 99 02/05/21 00:00 37.6 C H 122 H 115/68 99 02/04/21 23:59 122 H 02/04/21 23:53 120 H 21 99 02/04/21 23:01 37.5 C 120 H 119/88 99 PG Care Time/CCT Total # of Minutes Spent Total Time Spent with Patient: Total time spent is greater than 50% in coordination of care (as documented) at patient's floor/unit and/or counseling patient: 70 minutes with >50% of that time assessing the patient, discussing goals of care and collaborating with IDT Coding Level of Care Code 70729 Inpt Consult Level 3 Diagnoses Palliative care encounter Z51.5 Congestive heart failure I50.9 Heart failure chronicity: acute Heart failure type: unspecified Hypoxia R09.02 Weakness R53.1 Time Spent (min) 70
--- NOTE | 2021-02-05 10:56 | Cardiology Progress Note ---
Date of Service February 05, 2021 Assessment & Plan (1) Respiratory failure: Patient is a complex 70-year-old male with underlying issues as outlined. His baseline is notable for class C congestive heart failure in the setting of severe LV dysfunction, severe aortic stenosis. He has multiple underlying morbidities as well as well as chronic atrial fibrillation with indwelling biventricular pacer defibrillator. Medical management is complicated by poor patient medical compliance Patient presented this admission with several days complaints of both edema as well as weakness and urinary incontinence is a new finding. He presented with marked weakness fatigue and respiratory failure in the setting of acute acidosis and renal failure suspicious for possible sepsis versus hypoperfusion etiology. Chest x-ray without pulmonary edema or signs of profound volume overload with transient right lung collapse improved this morning LV systolic function is markedly impaired on echocardiogram today EF less than 15%. Atrial fibrillation rates are elevated as a compensatory response with minimal cardiovascular reserve given LV dysfunction and valvular disease. Hepatic enzyme elevation as well as troponin elevation likely secondary to hypoperfusion Recommendations: Would continue low-dose inotropic support with dobutamine as ordered. Trial of ventilatory wean anticipated later today. Will likely need inotropes to aid with metabolic demands. Expect need for dose of diuretic in the next 24 hours If extubated and hemodynamically stable would titrate carvedilol slightly higher. If inotropic requirements remain persistent would likely switch to milrinone Overall prognosis remains significantly guarded (2) Atrial fibrillation with rapid ventricular response: (3) Nonischemic cardiomyopathy: (4) Acute kidney injury: (5) Severe aortic stenosis: Additions and patient has been contemplating TAVR through [facility] although uncertain with patient actual candidate Admission and Anticipated Discharge Date Admission Date: February 03, 2021 Subjective Patient seen and examined, chart medications and telemetry reviewed. He remains sedated and intubated. Recent events noted with patient having undergone thoracentesis of transudate effusion Telemetry reflects atrial fibrillation with intermittent ventricular pacing, rates improved but remain elevated 100 to 110 bpm Currently afebrile with blood pressure somewhat less labile I's and O's approximately equal with improvement in renal function Review of Systems Review of Systems: Unobtainable due to endotracheal tube Physical Exam Constitutional: + mechanically ventilated Neck: trachea midline, no thyromegaly Respiratory: Auscultation: + bronchovesicular breath sounds Cardiovascular: Rate/Rhythm: + tachycardic and + irregularly irregular Heart Sounds: + murmur (Grade 3/6 but distant heart murmur) Palpation: + abnormal PMI Vessels: no JVD Extremities: + edema (1+) Chest (Breasts): Chest: + pacemaker Gastrointestinal (Abdomen): normal bowel sounds, soft, nontender, no hepatosplenomegaly Results & Data ([facility]) Vital Signs (Past 12 Hours) Vital Signs Temp Pulse Resp BP Pulse Ox 02/05/21 10:00 37.3 C 106 H 118/83 98 02/05/21 09:01 37.2 C 113 H 97 02/05/21 09:00 37.2 C 125 H 98/81 L 98 02/05/21 08:00 37.2 C 110 H 89/70 L 93 02/05/21 07:28 110 H 18 91 02/05/21 07:00 37.4 C 114 H 118/74 93 02/05/21 06:00 37.4 C 116 H 18 109/86 96 02/05/21 05:00 37.4 C 114 H 18 111/77 100 02/05/21 04:00 37.4 C 114 H 18 109/88 99 02/05/21 03:30 120 H 20 99 02/05/21 03:00 37.4 C 115 H 18 120/96 98 02/05/21 02:01 37.5 C 120 H 114/81 99 02/05/21 01:00 37.5 C 123 H 128/96 99 02/05/21 00:00 37.6 C H 122 H 115/68 99 02/04/21 23:59 122 H 02/04/21 23:53 120 H 21 99 02/04/21 23:01 37.5 C 120 H 119/88 99 Laboratory Results Laboratory Results - last 24 hr 02/04/21 02/04/21 02/04/21 01:43 04:38 12:52 WBC RBC Hgb Hct MCV MCH MCHC RDW Std Deviation RDW Coeff of Debra Plt Count MPV Immature Gran % (Auto) Neut % (Auto) Lymph % (Auto) [place] % (Auto) Eos % (Auto) Baso % (Auto) Neut # (Auto) Lymph # (Auto) [place] # (Auto) Eos # (Auto) Baso # (Auto) Immature Gran # (Auto) PT INR POC pH POC pCO2 POC pO2 POC HCO3 POC Total CO2 POC Base Excess POC ABG O2 Sat Sodium Potassium Chloride Carbon Dioxide Anion Gap BUN Creatinine Est Cr Clr Drug Dosing Est GFR ( Amer) Est GFR (Non-Af Amer) BUN/Creatinine Ratio Glucose Calcium Phosphorus Magnesium Total Bilirubin GGT 36 AST ALT Alkaline Phosphatase Total Protein Albumin Globulin Albumin/Globulin Ratio TSH 2.880 Urine Color Urine Appearance Urine pH Ur Specific [place] Urine Protein Urine Glucose (UA) Urine Ketones Urine Blood Urine Nitrite Urine Bilirubin Urine Urobilinogen Ur Leukocyte Esterase Urine WBC (Auto) Urine RBC (Auto) U Hyaline Cast (Auto) U Epithel Cells (Auto) Urine Bacteria (Auto) Urine Yeast Ur Random Creatinine U Random Total Protein Protein/Creatinin Ratio Fluid Neutrophils % Fluid Lymphocytes % Fluid Eosinophils % Fluid Basophils % Fluid Meso/Macro/Am[place] % Fluid Comment Pleural Fluid Source Pleural Color Pleural Appearance Pleural pH Pleural WBC Pleural RBC Pleural Total Protein Pleural LDH Pleural Glucose Hepatitis A IgM Ab NON-REACTIVE Hep B Core IgM Ab NON-REACTIVE 02/04/21 02/04/21 02/04/21 17:29 18:02 18:02 WBC RBC Hgb Hct MCV MCH MCHC RDW Std Deviation RDW Coeff of Debra Plt Count MPV Immature Gran % (Auto) Neut % (Auto) Lymph % (Auto) [place] % (Auto) Eos % (Auto) Baso % (Auto) Neut # (Auto) Lymph # (Auto) [place] # (Auto) Eos # (Auto) Baso # (Auto) Immature Gran # (Auto) PT INR POC pH POC pCO2 POC pO2 POC HCO3 POC Total CO2 POC Base Excess POC ABG O2 Sat Sodium 142 Potassium 4.0 D Chloride 106 Carbon Dioxide 28 Anion Gap 8.0 BUN 65 H Creatinine 2.06 H Est Cr Clr Drug Dosing 34.5 Est GFR ( Amer) 36.2 Est GFR (Non-Af Amer) 31.2 BUN/Creatinine Ratio 31.6 H Glucose 156 H Calcium 8.7 Phosphorus Magnesium Total Bilirubin GGT AST ALT Alkaline Phosphatase Total Protein Albumin Globulin Albumin/Globulin Ratio TSH Urine Color Yellow Urine Appearance Clear Urine pH 5.0 Ur Specific [place] 1.016 Urine Protein Trace H Urine Glucose (UA) Negative Urine Ketones Negative Urine Blood 2+ H Urine Nitrite Negative Urine Bilirubin Negative Urine Urobilinogen Negative Ur Leukocyte Esterase Negative Urine WBC (Auto) 1-5 Urine RBC (Auto) 0-4 U Hyaline Cast (Auto) 0 U Epithel Cells (Auto) 10-20 H Urine Bacteria (Auto) Negative Urine Yeast Not Reportable Ur Random Creatinine 37.0 U Random Total Protein 31.2 H Protein/Creatinin Ratio 0.8 H Fluid Neutrophils % Fluid Lymphocytes % Fluid Eosinophils % Fluid Basophils % Fluid Meso/Macro/[place] % Fluid Comment Pleural Fluid Source Pleural Color Pleural Appearance Pleural pH Pleural WBC Pleural RBC Pleural Total Protein Pleural LDH Pleural Glucose Hepatitis A IgM Ab Hep B Core IgM Ab 02/04/21 02/04/21 02/05/21 Unknown Unknown 04:32 WBC 11.09 H RBC 3.89 L Hgb 10.6 L Hct 32.4 L MCV 83.3 MCH 27.2 MCHC 32.7 RDW Std Deviation 53.9 H RDW Coeff of Debra 17.9 H Plt Count 129 L MPV 10.8 H Immature Gran % (Auto) 0.3 Neut % (Auto) 90.8 Lymph % (Auto) 4.2 [place] % (Auto) 4.7 Eos % (Auto) 0.0 Baso % (Auto) 0.0 Neut # (Auto) 10.07 H Lymph # (Auto) 0.47 L [place] # (Auto) 0.52 Eos # (Auto) 0.00 Baso # (Auto) 0.00 Immature Gran # (Auto) 0.03 H PT INR POC pH POC pCO2 POC pO2 POC HCO3 POC Total CO2 POC Base Excess POC ABG O2 Sat Sodium Potassium Chloride Carbon Dioxide Anion Gap BUN Creatinine Est Cr Clr Drug Dosing Est GFR ( Amer) Est GFR (Non-Af Amer) BUN/Creatinine Ratio Glucose Calcium Phosphorus Magnesium Total Bilirubin GGT AST ALT Alkaline Phosphatase Total Protein Albumin Globulin Albumin/Globulin Ratio TSH Urine Color Urine Appearance Urine pH Ur Specific [place] Urine Protein Urine Glucose (UA) Urine Ketones Urine Blood Urine Nitrite Urine Bilirubin Urine Urobilinogen Ur Leukocyte Esterase Urine WBC (Auto) Urine RBC (Auto) U Hyaline Cast (Auto) U Epithel Cells (Auto) Urine Bacteria (Auto) Urine Yeast Ur Random Creatinine U Random Total Protein Protein/Creatinin Ratio Fluid Neutrophils % 48 Fluid Lymphocytes % 19 Fluid Eosinophils % 0 Fluid Basophils % 0 Fluid Meso/Macro/[place] % 33 Fluid Comment Pleural Fluid Source RIGHT LUNG Pleural Color YELLOW Pleural Appearance CLEAR Pleural pH 7.47 H Pleural WBC 820 Pleural RBC 3000 Pleural Total Protein 2.6 Pleural LDH 112 Pleural Glucose 138 Hepatitis A IgM Ab Hep B Core IgM Ab 05/02/05/21 02/05/21 04:32 04:32 05:05 WBC RBC Hgb Hct MCV MCH MCHC RDW Std Deviation RDW Coeff of Debra Plt Count MPV Immature Gran % (Auto) Neut % (Auto) Lymph % (Auto) [place] % (Auto) Eos % (Auto) Baso % (Auto) Neut # (Auto) Lymph # (Auto) [place] # (Auto) Eos # (Auto) Baso # (Auto) Immature Gran # (Auto) PT 18.7 H INR 1.9 H POC pH 7.43 POC pCO2 42 POC pO2 105 H POC HCO3 28 H POC Total CO2 29 POC Base Excess 4.0 H POC ABG O2 Sat 98.0 H Sodium 140 Potassium 3.8 Chloride 107 Carbon Dioxide 28 Anion Gap 5.0 BUN 60 H Creatinine 1.60 H D Est Cr Clr Drug Dosing 44.4 Est GFR ( Amer) 49.2 Est GFR (Non-Af Amer) 42.4 BUN/Creatinine Ratio 37.6 H Glucose 173 H Calcium 8.1 L Phosphorus 4.5 Magnesium 2.6 H Total Bilirubin 2.0 H GGT AST 626 H ALT 1000 H Alkaline Phosphatase 76 Total Protein 6.7 Albumin 2.9 L Globulin 3.8 Albumin/Globulin Ratio 0.8 L TSH Urine Color Urine Appearance Urine pH Ur Specific [place] Urine Protein Urine Glucose (UA) Urine Ketones Urine Blood Urine Nitrite Urine Bilirubin Urine Urobilinogen Ur Leukocyte Esterase Urine WBC (Auto) Urine RBC (Auto) U Hyaline Cast (Auto) U Epithel Cells (Auto) Urine Bacteria (Auto) Urine Yeast Ur Random Creatinine U Random Total Protein Protein/Creatinin Ratio Fluid Neutrophils % Fluid Lymphocytes % Fluid Eosinophils % Fluid Basophils % Fluid Meso/Macro/[place] % Fluid Comment Pleural Fluid Source Pleural Color Pleural Appearance Pleural pH Pleural WBC Pleural RBC Pleural Total Protein Pleural LDH Pleural Glucose Hepatitis A IgM Ab Hep B Core IgM Ab (1) Respiratory failure Chronicity: acute Respiratory failure complication: hypoxia and hypercapnia Qualified Code(s): J96.01 - Acute respiratory failure with hypoxia; J96.02 - Acute respiratory failure with hypercapnia
--- NOTE | 2021-02-05 15:28 | Communication Note ---
Date of Service: February 05, 2021 Reassessed patient this afternoon with at bedside. The patient is now been off sedation and on pressure support ventilation 8/ doing well with a minute ventilation of around 10 L/min and are BSI of around 30. He is hemodynamically stable. Patient is awake enough to be able to follow commands and nod his head to questions. When I discussed with the patient that he met criteria for extubation he enthusiastically nodded his head and gave me thumbs up. When asked if the patient would want to be reintubated if he failed, he equivocally nods his head no. This was asked on several occasions with the patient's and the bedside critical care nurse in attendance. We all confirmed that in the event of a respiratory arrest, the patient does not want to be reintubated. Will change status to DO NOT INTUBATE DO NOT RESUSCITATE although he already has an AICD in place. The patient's does understand the severity of the patient's underlying cardiovascular illnesses. We will continue to try and wean his dobutamine as tolerated. Additional critical care time including end-of-life issues 35 minutes Coding Level of Care Code Critical Care marcus sandoval 30 min Time Spent (min) 35
--- NOTE | 2021-02-05 16:38 | Hospitalist Progress Note ---
Date of Service February 05, 2021 Assessment & Plan (1) Respiratory failure: Acute hypoxic, hypercarbic respiratory failure Multifactorial Right pleural effusion S/P Thoracentesis History of severe COPD, H/O right-sided pulmonary resection CHF contributing as well -CT Chest: Emphysema with postoperative change and volume loss from right-sided pulmonary resection. There is a small to moderate right pleural effusion with dense consolidation at the right lung base. Consolidative change is new from 12/07/2020. Correlate clinically for evidence of pneumonia/aspiration pneumonitis. Endotracheal and enteric tubes are in place. Trace left pleural effusion. There is increasing paramediastinal fibrosis in the left upper lobe. This may be treatment related and clinical correlation will be required. A 3 cm masslike opacity at the left apex and a groundglass nodule in the lingula have not significantly changed from 12/07/2020. Cardiomegaly and AICD. There is trace upper abdominal ascites. Mildly enlarged mediastinal lymph nodes are nonspecific. Aneurysmal dilatation of the ascending thoracic aorta is unchanged. -CVOID Screen:Negative -Planned to be extubated today -Appreciate critical care input -Pleural fluid growing daily Cutibacterium species -Code Status changed to DNI/DNR -Palliative care following Acute on chronic systolic heart failure -ECHO: Severe global hypokinesis of the left ventricle, septal motion is consistent with conduction abnormality. EF less than 15%. Left atrium is moderately dilated. Severe aortic stenosis. Moderate to severe mitral regurgitation. Moderate aortic root dilatation. Poor prognosis Continue dobutamine Continue digoxin Appreciate cardiology input Monitor volume status, I/Os, daily weight Started on IV Lasix Palliative care following Myocardial infarction type 2 In the setting of demand ischemia Echo as above Chronic elevated troponin Acute kidney injury Baseline creatinine 0.9 Avoid nephrotoxic agents as able Appreciate neurology input Monitor renal function Creatinine 1.84>1.6 A. fib RVR Continue digoxin, carvedilol Was on Xarelto for anticoagulation Cardiology on board on IV heparin Hyperkalemia Likely secondary to VENTURA Monitor potassium levels Possible Sepsis Continue empiric antibiotics Blood culture: no growth Sputum: Gram-negative bacilli Pleural fluid culture:Cutibacterium Species Transaminitis Likely due to hepatic congestion Monitor LFTs Hypothyroidism Continue levothyroxine DVT Px: IV Heparin Code Status DNI/DNR Poor prognosis Admission and Anticipated Discharge Date Admission Date: February 03, 2021 Subjective Patient is seen and examined Sedated and intubated this morning On Dobutamine ggt Planned to be Extubated today on Tube feeds Had thoracentesis yesterday Review of Systems Review of Systems: Unobtainable due to endotracheal tube Physical Exam Physical Exam: Physical Exam: Vitals signs as noted above General Appearance: Thin, ill-appearing, mechanically ventilated Head: normocephalic, Atraumatic Eyes: normal inspection Neck: supple, Trachea midline Respiratory/Chest: Decreased breath sounds, CTA Cardiovascular: Irregularly irregular, tachycardic , + murmur Abdomen/GI:Soft, Non tender, Bowel sounds present Extremities/Musculoskeletal:normal inspection, no edema Neurologic/Psych:sedated and Intubated Skin: normal color, warm Results & Data Results & Data ([facility]) Vital Signs (Past 12 Hours) Vital Signs Temp Pulse Resp BP Pulse Ox 02/05/21 15:00 108 H 99 02/05/21 14:00 122 H 100 02/05/21 13:01 38.0 C H 121 H 93/66 L 98 02/05/21 13:00 38.0 C H 122 H 97 02/05/21 12:02 37.7 C H 123 H 121/58 L 97 02/05/21 12:00 37.7 C H 123 H 90/59 L 97 02/05/21 11:01 37.6 C H 122 H 90/59 L 96 02/05/21 11:00 37.6 C H 121 H 97 02/05/21 10:58 122 H 19 97 02/05/21 10:00 37.3 C 106 H 118/83 98 02/05/21 09:01 37.2 C 113 H 97 02/05/21 09:00 37.2 C 125 H 98/81 L 98 02/05/21 08:00 37.2 C 120 H 89/70 L 93 02/05/21 07:28 110 H 18 91 02/05/21 07:00 37.4 C 114 H 118/74 93 02/05/21 06:00 37.4 C 116 H 18 109/86 96 02/05/21 05:00 37.4 C 114 H 18 111/77 100 Laboratory Results Short CBC 02/05/21 Range/Units 04:32 WBC 11.09 H (4.8-10.8) K/uL Hgb 10.6 L (14.0-18.0) g/dL Hct 32.4 L (42-52) % Plt Count 129 L (130-400) K/uL BMP 02/04/21 02/05/21 17:29 04:32 Sodium 142 140 Potassium 4.0 D 3.8 Chloride 106 107 Carbon Dioxide 28 28 BUN 65 H 60 H Creatinine 2.06 H 1.60 H D Glucose 156 H 173 H Calcium 8.7 8.1 L Liver Function 02/04/21 02/05/21 Range/Units 12:52 04:32 Total Bilirubin 2.0 H (0.2-1) mg/dl GGT 36 (3-70) U/L AST 626 H (15-37) U/L ALT 1000 H (12-78) U/L Alkaline Phosphatase 76 (45-117) U/L Albumin 2.9 L (3.4-5.0) gm/dl Urine 02/04/21 Range/Units 18:02 Urine Color Yellow Urine Appearance Clear (Clear) Urine pH 5.0 (4.5-7.5) Ur Specific Emmet 1.016 (1.000-1.030) Urine Protein Trace H (Negative) Urine Glucose (UA) Negative (Negative) (1) Respiratory failure Chronicity: acute Respiratory failure complication: hypoxia and hypercapnia Qualified Code(s): J96.01 - Acute respiratory failure with hypoxia; J96.02 - Acute respiratory failure with hypercapnia
[2021-02-05 17:04] LABS: Partial Thromboplastin Ratio 2.9
[2021-02-05] MEDS ORDERED: Nursing to Pharmacy Communication SCH (17:15)
[2021-02-05] MEDS: DIGOXIN 0.125 MG TAB PO SCH ×2 (17:25→17:29)
--- NOTE | 2021-02-05 17:26 | Nephrology Progress Note ---
Date of Service February 05, 2021 Assessment & Plan (1) Acute kidney injury: improving ischemic/prerenal nonoliguric acute kidney injury stage 2 in the setting of fever and multiorgan failure on already severely diminished EF w/ ongoing AF w/ RVR and severe aortic stenosis. baseline creatinine 0.9. no current indication for urgent dialysis and not clear that he would tolerate should the need arise in current clinical condition. especially after thoracentesis, continue to deem his volume status acceptable. significant risk for worsening renal failure and oligoanuria given hemodynamic instability, ongoing fever. hyperkalemia from presentation has resolved. chemistries this am are acceptable for the moment. 800 mg proteinuria w/ microhematuria and otherwise bland urine sediment -continue strict I/O and per cardiology low dose inotropic support and digoxin dosing -monitor chem panel bid while dosing/adjust digoxin given likelihood of rapid changes in renal function Care coordinated w/ Dr Fried Admission and Anticipated Discharge Date Admission Date: February 03, 2021 Subjective seen and evaluated on rounds at 0915 this am; weaning precedex at that time; plan also was to rehang heparin gtt and to continue dobutamine Review of Systems Review of Systems: Unobtainable due to endotracheal tube Physical Exam Constitutional: well developed, + thin and + mechanically ventilated; no acute distress ENMT: Ears: no external ear abnormality Nose: no external nose abnormality Mouth: + dry oral mucous membranes Neck: no nuchal rigidity Respiratory: normal respiratory effort Auscultation: lungs clear to auscultation bilaterally and + diminished lung sounds Cardiovascular: Rate/Rhythm: + tachycardic Extremities: no edema Gastrointestinal (Abdomen): Inspection/Auscultation: normal bowel sounds; abdomen not distended Percussion/Palpation: abdomen soft; abdomen nontender Musculoskeletal: Extremities: + abnormal strength Results & Data ([facility]) Vital Signs (Past 12 Hours) Vital Signs Temp Pulse Resp BP Pulse Ox 02/05/21 15:00 108 H 99 02/05/21 14:00 122 H 100 02/05/21 13:01 38.0 C H 121 H 93/66 L 98 02/05/21 13:00 38.0 C H 122 H 97 02/05/21 12:02 37.7 C H 123 H 121/58 L 97 02/05/21 12:00 37.7 C H 123 H 90/59 L 97 02/05/21 11:01 37.6 C H 122 H 90/59 L 96 02/05/21 11:00 37.6 C H 121 H 97 02/05/21 10:58 122 H 19 97 02/05/21 10:00 37.3 C 106 H 118/83 98 02/05/21 09:01 37.2 C 113 H 97 02/05/21 09:00 37.2 C 125 H 98/81 L 98 02/05/21 08:00 37.2 C 120 H 89/70 L 93 02/05/21 07:28 110 H 18 91 02/05/21 07:00 37.4 C 114 H 118/74 93 02/05/21 06:00 37.4 C 116 H 18 109/86 96 Laboratory Results 02/05/21 04:32 02/05/21 04:32
[2021-02-05] MEDS: FUROSEMIDE 20 MG in SYRINGE 0 ML IV SCH (17:28)
[2021-02-05] MEDS: ALBUMIN 25% 12.5 GM/50 ML VIAL IV SCH ×2 (21:13→22:27)
[2021-02-06 00:15] LABS: Partial Thromboplastin Time 51.8 Seconds (21.0-31.0)
[2021-02-06] MEDS: HEPARIN SODIUM/DEXTROSE 25,000 UNITS/500 ML BAG IV SCH (05:23)
[2021-02-06 05:32] LABS: Hematocrit (blood only) 31.7 % (42-52); Hemoglobin 9.9 g/dL (14.0-18.0); Immature Granulocytes # (auto) 0.01 K/uL (0.00-0.02); Immature Granulocytes % (auto) 0.1 %; Lymphocytes # (auto) 0.44 K/uL (1.2-3.4); Lymphocytes % (auto) 4.8 %; Mean Corpuscular Hemoglobin 26.8 pg (25-34); Mean Corpuscular Hgb Conc 31.2 g/dL (32-36); Mean Corpuscular Volume 85.7 fL (80-100); Mean Platelet Volume 10.8 fL (7.4-10.4); Monocytes # (auto) 0.51 K/uL (0.11-0.59); Monocytes % (auto) 5.6 %; Neutrophils # (auto) 8.19 K/uL (1.4-6.5); Neutrophils % (auto) 89.5 %; Platelet Count 107 K/uL (130-400); RDW Coefficient of Variation 18.1 % (11.5-14.5); RDW Standard Deviation 56.7 fL (36.4-46.3); White Blood Count 9.15 K/uL (4.8-10.8)
[2021-02-06] MEDS: LEVOTHYROXINE SODIUM 112 MCG TABLET PO SCH (05:36)
[2021-02-06 05:48] LABS: INR 1.4 (0.9-1.1); Prothrombin Time 14.2 Seconds (9.0-12.0)
[2021-02-06 05:49] LABS: Albumin Level 2.9 gm/dl (3.4-5.0); BUN Creatinine Ratio 41.2 (10-20); Calcium 8.1 mg/dl (8.5-10.1); Creatinine Clr Calc Pharmacy 58.3 ml/min; Est GFR (African American) 68.2 ml/min; Est GFR (Non-African American) 58.9 ml/min; Magnesium 2.7 mg/dl (1.8-2.4); Potassium 3.6 mmol/L (3.5-5.1)
[2021-02-06 05:52] LABS: Albumin Globulin Ratio 0.9 (0.9-2); Bilirubin,Total 1.9 mg/dl (0.2-1); Globulin 3.3 gm/dl (2.5-4.0); Total Protein 6.2 gm/dl (6.4-8.2)
[2021-02-06] MEDS: PIPERACILLIN/TAZOBACTAM 3.375 GM in DEXTROSE 5% 100 ML IV SCH ×3 (06:12→23:59)
[2021-02-06] MEDS: POTASSIUM CHLORIDE / WTR 10 MEQ/100 ML PLCT IV SCH ×3 (06:45→08:56)
[2021-02-06 08:01] LABS: Partial Thromboplastin Ratio 1.5; Partial Thromboplastin Time 38.9 Seconds (21.0-31.0)
--- NOTE | 2021-02-06 08:03 | Critical Care Progress Note ---
Date of Service February 06, 2021 Assessment & Plan (1) Admitted to intensive care unit: Impression: 70-year-old male with acute hypoxic respiratory failure requiring endotracheal intubation. Patient has a known history of severe ischemic cardiomyopathy with an ejection fraction of less than 15% as well as severe MR and severe . Patient with NSTEMI and BNP of greater than 35,000. Elevated lactate greater than 7. VENTURA. Tachycardia/atrial fibrillation with EF approximately 15%. 24-hour events: Extubated yesterday. Transitioned to BiPAP due to increasing oxygen requirement and high flow facemask. Received albumin overnight due to transient low blood pressure. Dobutamine weaned off. Recommendations: Neuro- weak and deconditioned. PT and OT evaluations ordered. Try to mobilze as tolerated. CARDIAC/VASCULAR - NSTEMI: Appreciate cardiology consultation. The patient is in A. fib with a rapid ventricular response. Unfortunately his severe valvular heart disease including MR and complicate the issue. He is not a surgical candidate for intervention currently. Off dobutamine, continue digoxin. Lactic acidosis has cleared. Suspect his elevated troponin is related to supply demand mismatch. Not a candidate for amio given LFTs and chronic a fib. Anticoagulation with heparin gtt. diuresis as tolerated RESPIRATORY -hypoxemic and hypercarbic respiratory failure. The patient has a longstanding history of tobacco abuse and continued to smoke at the rate of 1 pack/day up until his admission. He has known severe obstructive lung disease. Continue HHFOT alternating with PAP as needed. No evidence of reaccumulation of pleural effusion - had been controlled in outpatient setting with diuretics. May restart depending on HD stability. Pt reaffirms DNI status. GI/NUTRITION -patient has a history of cirrhosis likely multifactorial due to combinations of congestive hepatopathy superimposed on prior history of alcohol. No significant ascites identified on CT scan. Surgery was consulted for potential acalculous cholecystitis however the patient is not a surgical candidate given his comorbidities. GGT normal, so hold on HIDA. Normal portal venous flow without evidence of thrombosis. I suspect his liver function abnormalities are secondary to congestive hepatopathy - now returning to normal. They will continue to be trended at this point time. Avoid any additional hepatotoxins. Bedside swallow by nursing today for meds. If fails will need ST evaluation. RENAL/LYTES -acute on chronic kidney disease. Serum creatinine stable. Mild hypernatremia, will change IVF to allow for some free water. Appreciate nephrology consultation. Replacing electrolytes. Trying to maintain patient on the dry side. - keep rose given debility and need for I/O tracking ENDO -continue glycemic control per protocol. Continue home Synthroid. HEME - anemia, no signs of bleeding. The patient is on lifelong anticoagulation for PEs. He is been followed by the [facility] hematology clinic. Given his liver function abnormalities, will hold Xarelto. He is not a great candidate for Lovenox and reports an allergy. Will continue heparin. No indication for transfusion. ID -S marcescens in sputum - day #4 Zosyn - will complete 7-10 days based on clinical response. WBC better and fever curve better. Patient's overall prognosis is significantly guarded due to his underlying comorbidities. I had discussed previously with the patient in the outpatient setting advanced directives and at that time he agreed to DNR/DNI. He confirms this status. Discussed that we will try and continue to get him back to his previous state of health which was not great. Unclear if this is an achievable goal. I advised the patient that if the current interventions are not consistent with his wishes, we could reevaluate and discontinue at any time. We did broach the topic of sending him home with hospice. He is taking it under consideration but is not yet ready to make a decision. Palliative care is engaged and will continue to revisit these issues based on the patient's clinical response. 45 min coordinating care. Discussed with bedside nurses as well as with patient at bedside LINES/IV ACCESS - PIVs x2 Rose DVT PROPHYLAXIS - Heparin Gtt SCDs (2) Congestive heart failure: (3) Respiratory failure: (4) Acute kidney injury: (5) Atrial fibrillation with rapid ventricular response: (6) Pleural effusion: Admission and Anticipated Discharge Date Admission Date: February 03, 2021 Subjective Patient seen and examined. He was placed on BiPAP yesterday and is currently on a oxy mask. He does not report any pain but does report that his breathing is somewhat difficult. He is not really coughing and feels very weak and deconditioned. Not much of an appetite. Physical Exam Constitutional: + thin and + malnourished Neck: trachea midline, no thyromegaly Respiratory: normal respiratory effort Auscultation: no crackles and no wheezes Cardiovascular: Rate/Rhythm: + tachycardic and + irregularly irregular Heart Sounds: normal S1, normal S2 and + murmur Extremities: no edema Gastrointestinal (Abdomen): normal bowel sounds, soft, nontender, no hepatosplenomegaly Musculoskeletal: Extremities: extremities normal to inspection Skin: thin skin, multiple ecchymoses. Lymphatic: no cervical lymphadenopathy Results & Data Results & Data ([facility]) Vital Signs (Past 12 Hours) Vital Signs Temp Pulse Resp BP Pulse Ox 02/06/21 06:00 36.7 C 116 H 23 95 02/06/21 05:01 36.7 C 105 H 23 103/86 94 02/06/21 05:00 36.8 C 106 H 24 87 L 02/06/21 04:01 36.7 C 111 H 22 109/72 99 02/06/21 04:00 36.7 C 120 H 24 100 02/06/21 03:01 36.7 C 112 H 22 94/62 L 85 L 02/06/21 03:00 36.7 C 117 H 22 98 02/06/21 02:00 36.7 C 114 H 22 97 02/06/21 01:02 36.6 C 110 H 22 85 L 02/06/21 01:01 36.6 C 109 H 23 100/66 88 L 02/06/21 01:00 36.6 C 114 H 23 84 L 02/06/21 00:02 36.5 C 109 H 22 97 02/06/21 00:01 36.5 C 110 H 23 148/64 H 95 02/06/21 00:00 36.5 C 105 H 19 94 02/05/21 23:59 111 H 02/05/21 23:10 114 H 24 94 02/05/21 23:00 36.4 C L 105 H 21 101/59 L 96 02/05/21 22:24 36.3 C L 108 H 21 94/64 L 92 02/05/21 22:02 36.2 C L 112 H 23 75/57 L 98 02/05/21 22:00 36.2 C L 114 H 23 99 02/05/21 21:01 36.1 C L 109 H 21 75/54 L 98 02/05/21 21:00 36.1 C L 113 H 21 99 02/05/21 20:04 108 H 22 100 02/05/21 20:00 36.0 C L 108 H 20 100 Critical Care Results & Data Vital Signs (Past 12 Hours) Vital Signs Temp Pulse Resp BP Pulse Ox 02/06/21 06:00 36.7 C 116 H 23 95 02/06/21 05:01 36.7 C 105 H 23 103/86 94 02/06/21 05:00 36.8 C 106 H 24 87 L 02/06/21 04:01 36.7 C 111 H 22 109/72 99 02/06/21 04:00 36.7 C 120 H 24 100 02/06/21 03:01 36.7 C 112 H 22 94/62 L 85 L 02/06/21 03:00 36.7 C 117 H 22 98 02/06/21 02:00 36.7 C 114 H 22 97 02/06/21 01:02 36.6 C 110 H 22 85 L 02/06/21 01:01 36.6 C 109 H 23 100/66 88 L 02/06/21 01:00 36.6 C 114 H 23 84 L 02/06/21 00:02 36.5 C 109 H 22 97 02/06/21 00:01 36.5 C 110 H 23 148/64 H 95 02/06/21 00:00 36.5 C 105 H 19 94 02/05/21 23:59 111 H 02/05/21 23:10 114 H 24 94 02/05/21 23:00 36.4 C L 105 H 21 101/59 L 96 02/05/21 22:24 36.3 C L 108 H 21 94/64 L 92 02/05/21 22:02 36.2 C L 112 H 23 75/57 L 98 02/05/21 22:00 36.2 C L 114 H 23 99 02/05/21 21:01 36.1 C L 109 H 21 75/54 L 98 02/05/21 21:00 36.1 C L 113 H 21 99 02/05/21 20:04 108 H 22 100 02/05/21 20:00 36.0 C L 108 H 20 100 Lab & Micro Results (Past 24 Hours) RBC 3.70 M/uL (4.7-6.1) L 02/06/21 WBC 9.15 K/uL (4.8-10.8) 02/06/21 Hgb 9.9 g/dL (14.0-18.0) L 02/06/21 Hct 31.7 % (42-52) L 02/06/21 MCV 85.7 fL (80-100) 02/06/21 MCH 26.8 pg (25-34) 02/06/21 MCHC 31.2 g/dL (32-36) L 02/06/21 RDW Standard Deviation 56.7 fL (36.4-46.3) H 02/06/21 RDW Coefficient of Variation 18.1 % (11.5-14.5) H 02/06/21 Plt Count 107 K/uL (130-400) L 02/06/21 MPV 10.8 fL (7.4-10.4) H 02/06/21 Neutrophils (%) (Auto) 89.5 % 02/06/21 Lymphocytes (%) (Auto) 4.8 % 02/06/21 Monocytes # (Auto) 0.51 K/uL (0.11-0.59) 02/06/21 Eosinophils # (Auto) 0.00 K/uL (0-0.5) 02/06/21 Immature Granulocyte % (Auto) 0.1 % 02/06/21 Neutrophils # (Auto) 8.19 K/uL (1.4-6.5) H 02/06/21 Lymphocytes # (Auto) 0.44 K/uL (1.2-3.4) L 02/06/21 Monocytes # (Auto) 0.51 K/uL (0.11-0.59) 02/06/21 Eosinophils # (Auto) 0.00 K/uL (0-0.5) 02/06/21 Basophils # (Auto) 0.00 K/uL (0-0.2) 02/06/21 Immature Granulocyte # (Auto) 0.01 K/uL (0.00-0.02) 02/06/21 Na 146 mmol/L (136-145) H 02/06/21 K 3.6 mmol/L (3.5-5.1) 02/06/21 Cl 109 mmol/L (98-107) H 02/06/21 CO2 32 mmol/L (21-32) 02/06/21 Anion Gap 5.0 (3-11) 02/06/21 BUN 50 mg/dl (7-18) H 02/06/21 Creatinine 1.22 mg/dl (0.6-1.4) 02/06/21 Estimated GFR ( Amer) 68.2 ml/min 02/06/21 Estimated GFR (Non-Af Amer) 58.9 ml/min 02/06/21 BUN/Creatinine Ratio 41.2 (10-20) H 02/06/21 Glu 115 mg/dl (70-99) H 02/06/21 Ca 8.1 mg/dl (8.5-10.1) L 02/06/21 Total Bilirubin 1.9 mg/dl (0.2-1) H 02/06/21 AST 328 U/L (15-37) H 02/06/21 ALT 734 U/L (12-78) H 02/06/21 Alkaline Phosphatase 60 U/L (45-117) 02/06/21 TP 6.2 gm/dl (6.4-8.2) L 02/06/21 Albumin 2.9 gm/dl (3.4-5.0) L 02/06/21 Globulin 3.3 gm/dl (2.5-4.0) 02/06/21 Albumin/Globulin Ratio 0.9 (0.9-2) 02/06/21 Mg 2.7 mg/dl (1.8-2.4) H 02/06/21 05:07 02/06/21 Calcium Level 8.1 mg/dl (8.5-10.1) L 02/06/21 05:07 02/06/21 Prothromb Time International Ratio 1.4 (0.9-1.1) H 02/06/21 05:07 02/06/21 Microbiology 02/04/21 09:50 Gram Stain - Final Sputum,Vent Suction Sputum Culture - Preliminary Serratia marcescens 02/03/21 16:31 Aerobic Blood Culture - Preliminary Blood No growth in Aerobic bottle after 48 hours. Anaerobic Blood Culture - Preliminary No growth in Anaerobic bottle after 48 hours. 02/03/21 16:21 Aerobic Blood Culture - Preliminary Blood No growth in Aerobic bottle after 48 hours. Anaerobic Blood Culture - Preliminary No growth in Anaerobic bottle after 48 hours. 02/04/21 Unknown Gram Stain - Final Pleural Fluid Aerobic and Anaerobic Culture - Preliminary No growth to date. Diagnostic Findings (Past 24 Hours) Chest X-Ray 02/05/21 07:00 XR chest 1V portable CLINICAL HISTORY: Respiratory failure. COMPARISON STUDY: Chest CT February 03, 2021. Chest radiograph February 04, 2021. FINDINGS: Tip of the endotracheal tube is 3.1 cm above the yuridia. Tip of nasogastric tube is within the gastric fundus. A left subclavian biventricular pacer/AICD is in place. Postoperative findings within the right hemithorax are noted. Right lung volume loss is unchanged. Right lower lung opacity is noted. Cardiomegaly is unchanged. There is a small right pleural effusion. There is no pneumothorax. There is pulmonary vascular congestion. Left apical opacity is better depicted on prior chest CT. IMPRESSION: 1. Satisfactory positioning of lines and tubes. 2. No change in appearance of the chest. Small right pleural effusion with right basilar opacity. 3. Pulmonary vascular congestion. ACT 112: Negative or not required by law. Electronically signed by: Vinay Marie M.D. 02/05/2021 10:13 AM I & O Totals 24 Hours 02/05/21 02/06/21 02/07/21 06:59 06:59 06:59 Intake Total 2059.191 / 2059.191 1596.064 / 1596.064 Output Total 2250 / 2250 1755 / 1755 Balance -190.809 / -190.809 -158.936 / -158.936 Cumulative 02/03/21 15:52 thru 02/06/21 05:54 Intake Total 5332.745 Output Total 4586 Balance 746.745 RT Ventilator Mngmt (Last Documented) Ventilator Ordered Settings Ventilator Support Mode CPAP 02/05/21 12:00 Respiratory Rate 23 02/06/21 06:00 Ventilator Tidal Volume 400 02/05/21 08:00 Setting Minute Ventilation 8 02/05/21 10:58 Ventilator Positive Pressure 8 02/05/21 12:00 Support Setting Positive End Expiratory 5 02/05/21 12:00 Pressure Fraction of Inspired Oxygen 30 02/06/21 04:00 Machine Comment increased to 40% to increase Sp02 02/04/21 16:31 to 90%. Ventilator - PT Measurements Respiratory Rate 23 Exhaled Tidal Volume 396 Minute Ventilation 8 Peak Inspiratory Airway 20 Pressure Mean Airway Pressure 8 Plateau Pressure 15 Respiratory Cycle Inspiratory: 1:2.3 Expiratory Ratio Inspiratory Phase Time 0.9 End-Tidal CO2 26 Static Lung Compliance 39.60 Dynamic Lung Compliance 26.40 Normal Static Lung Compliance 47.00 Patient Measurements Comment extubated to 4 lpm NC Coding Level of Care Code 64536 Subseq Hosp Care Lvl 3 Diagnoses Admitted to intensive care unit Z78.9 Congestive heart failure I50.9 Heart failure chronicity: acute Heart failure type: unspecified Respiratory failure J96.01; J96.02 Chronicity: acute Respiratory failure complication: hypoxia and hypercapnia Acute kidney injury N17.9 Atrial fibrillation with rapid ventricular response I48.91 Pleural effusion J90 (1) Congestive heart failure Heart failure chronicity: acute Heart failure type: unspecified Qualified Code(s): I50.9 - Heart failure, unspecified (2) Respiratory failure Chronicity: acute Respiratory failure complication: hypoxia and hypercapnia Qualified Code(s): J96.01 - Acute respiratory failure with hypoxia; J96.02 - Acute respiratory failure with hypercapnia
[2021-02-06] MEDS: ASPIRIN 81 MG CHEW NG SCH (08:24)
[2021-02-06] MEDS: carvediloL 3.125 MG TAB PO SCH ×2 (08:24→23:14)
[2021-02-06] MEDS: FAMOTIDINE 20 MG in SYRINGE 3 ML IV SCH (08:25)
[2021-02-06] MEDS: FUROSEMIDE 20 MG in SYRINGE 0 ML IV SCH ×2 (08:25→17:09)
--- NOTE | 2021-02-06 08:38 | XRay Report ---
XR chest 1V portable HISTORY: 70 years-old Male resp failure acute respiratory failure COMPARISON: Chest radiograph 02/05/2021 TECHNIQUE: Portable AP view of the chest FINDINGS: Interval extubation with removal of the enteric tube. Left subclavian pacer/AICD. Cardiomegaly. Pulmo nary vascular congestion. Postoperative changes of the right hemithorax with right lung volume loss r edemonstrated. Unchanged small right pleural effusion with right lung base opacity. The left lung is clear. No pneumothorax, large pleural effusion or overt pulmonary edema. Bones appear grossly intact. IMPRESSION: 1. Interval extubation with removal of the enteric tube. 2. Small right pleural effusion with unchanged right lung base opacity. 3. Chronic postoperative changes of the right hemithorax. ACT 112: Negative or not required by law. The above report was generated using voice recognition software. It may contain grammatical, syntax o r spelling errors. Electronically signed by: Fam Partida M.D. 02/06/2021 8:36 AM
[2021-02-06] MEDS: POTASSIUM CHLORIDE 40 MEQ in D5W AND 1/2NSS 1,000 ML/1,000 ML BAG IV SCH (10:01)
--- NOTE | 2021-02-06 12:15 | Cardiology Progress Note ---
Date of Service February 06, 2021 Assessment & Plan (1) Respiratory failure: (2) Atrial fibrillation with rapid ventricular response: (3) Nonischemic cardiomyopathy: (4) Severe aortic stenosis: Patient with findings of severe left ventricular systolic dysfunction, echocardiogram this admission with EF less than 15%. He is off of inotropic support and extubated. Continue low-dose carvedilol and digoxin. Agree with unfractionated heparin bridge. Agree with cautious diuretic therapy, Lasix 20 mg IV 2 times per day. Agree with antibiotics for presumed pneumonia. As well summarized in the critical care progress note today, prognosis is poor. Admission and Anticipated Discharge Date Admission Date: February 03, 2021 Subjective Patient seen in cardiology follow-up. He was extubated yesterday afternoon. At the time my assessment, he was on high flow oxygen, with dyspnea. Ongoing hypoxia noted with pulse oximetry as low as the high 70s to low 80s. Pulse oximetry improved when he is on BiPAP. Telemetry reveals ongoing atrial fibrillation with ventricular pacing for the most part at about 100 bpm. Review of Systems Review of Systems: Comprehensive review of systems unobtainable due to the patient's acute illness. Physical Exam Physical Exam: Temp Pulse Resp BP Pulse Ox 36.8 C 89 23 98/70 L 99 02/06/21 11:00 02/06/21 11:00 02/06/21 11:00 02/06/21 11:00 02/06/21 11:00 Constitutional: Frail, chronically ill in appearance Respiratory: Auscultation: no crackles, no rales and no wheezes Mildly reduced breath sounds the bases Cardiovascular: Rate/Rhythm: + tachycardic Heart Sounds: + murmur (1/6 systolic murmur) Extremities: no edema Chest (Breasts): Additional Comments: Left infraclavicular device pocket clean dry and intact, no erythema. Gastrointestinal (Abdomen): normal bowel sounds, soft, nontender, no hepatosplenomegaly Neurologic: Moves all 4 extremities. Results & Data ([facility]) Vital Signs (Past 12 Hours) Vital Signs Temp Pulse Resp BP Pulse Ox 02/06/21 11:00 36.8 C 89 23 98/70 L 99 02/06/21 10:00 36.9 C 102 H 21 101/75 95 02/06/21 09:01 36.9 C 102 H 24 106/63 98 02/06/21 08:00 36.8 C 107 H 24 107/73 100 02/06/21 07:01 36.8 C 101 H 20 104/82 81 L 02/06/21 06:38 36.7 C 107 H 22 93/69 L 92 02/06/21 06:00 36.7 C 116 H 23 95 02/06/21 05:01 36.7 C 105 H 23 103/86 94 02/06/21 05:00 36.8 C 106 H 24 87 L 02/06/21 04:01 36.7 C 111 H 22 109/72 99 02/06/21 04:00 36.7 C 120 H 24 100 02/06/21 03:01 36.7 C 112 H 22 94/62 L 85 L 02/06/21 03:00 36.7 C 117 H 22 98 02/06/21 02:00 36.7 C 114 H 22 97 02/06/21 01:02 36.6 C 110 H 22 85 L 02/06/21 01:01 36.6 C 109 H 23 100/66 88 L 02/06/21 01:00 36.6 C 114 H 23 84 L Diagnostic Findings Chest x-ray, per radiology report, small right pleural effusion. Chronic postoperative changes of the right hemithorax Digoxin level 0.8 (1) Respiratory failure Chronicity: acute Respiratory failure complication: hypoxia and hypercapnia Qualified Code(s): J96.01 - Acute respiratory failure with hypoxia; J96.02 - Acute respiratory failure with hypercapnia
[2021-02-06 14:46] LABS: Partial Thromboplastin Time 53.9 Seconds (21.0-31.0)
[2021-02-06] MEDS: DIGOXIN 0.125 MG TAB PO SCH (15:19)
--- NOTE | 2021-02-06 15:26 | Hospitalist Progress Note ---
Date of Service February 06, 2021 Assessment & Plan (1) Respiratory failure: Acute hypoxic, hypercarbic respiratory failure Multifactorial Right pleural effusion S/P Thoracentesis History of severe COPD, H/O right-sided pulmonary resection CHF contributing as well -CT Chest: Emphysema with postoperative change and volume loss from right-sided pulmonary resection. There is a small to moderate right pleural effusion with dense consolidation at the right lung base. Consolidative change is new from 12/07/2020. Correlate clinically for evidence of pneumonia/aspiration pneumonitis. Endotracheal and enteric tubes are in place. Trace left pleural effusion. There is increasing paramediastinal fibrosis in the left upper lobe. This may be treatment related and clinical correlation will be required. A 3 cm masslike opacity at the left apex and a groundglass nodule in the lingula have not significantly changed from 12/07/2020. Cardiomegaly and AICD. There is trace upper abdominal ascites. Mildly enlarged mediastinal lymph nodes are nonspecific. Aneurysmal dilatation of the ascending thoracic aorta is unchanged. -CVOID Screen:Negative -Extubated on 02/05/21 -Appreciate critical care input -Pleural fluid growing daily Cutibacterium species -Code Status changed to DNI/DNR -Palliative care following Overall prognosis remains poor Plan to continue respiratory support with high flow oxygen alternating with BiPAP Acute on chronic systolic heart failure -ECHO: Severe global hypokinesis of the left ventricle, septal motion is consistent with conduction abnormality. EF less than 15%. Left atrium is moderately dilated. Severe aortic stenosis. Moderate to severe mitral regurgitation. Moderate aortic root dilatation. Poor prognosis Weaned off of dobutamine ggt Continue digoxin Appreciate cardiology input Monitor volume status, I/Os, daily weight Continue IV Lasix Palliative care following Myocardial infarction type 2 In the setting of demand ischemia Echo as above Chronic elevated troponin Acute kidney injury Baseline creatinine 0.9 Avoid nephrotoxic agents as able Appreciate neurology input Monitor renal function Creatinine 1.84>1.6>1.22 A. fib RVR Continue digoxin, carvedilol Was on Xarelto for anticoagulation Cardiology on board on IV heparin Hypernatremia Continue gentle IV fluids as per critical care Monitor sodium levels Hyperkalemia Likely secondary to VENTURA Monitor potassium levels Resolved Possible Sepsis Possible Pneumonia-POA Blood culture: no growth Sputum: Serratia Pleural fluid culture:Cutibacterium Species Continue Zosyn Needs to complete 7 to 10-day course of antibiotics Transaminitis Likely due to hepatic congestion Monitor LFTs Hypothyroidism Continue levothyroxine DVT Px: IV Heparin Code Status DNI/DNR Poor prognosis Admission and Anticipated Discharge Date Admission Date: February 03, 2021 Subjective Patient is seen and examined at bedside Extubated yesterday Remains in A. fib RVR on monitor Poor appetite today States having dyspnea associated with cough Denies any pain Prognosis remains poor Poor historian Review of Systems Review of Systems: All systems reviewed & are unremarkable except as noted in HPI & below Physical Exam Physical Exam: Physical Exam: Vitals signs as noted above General Appearance: Thin, ill-appearing, No distress Head: normocephalic, Atraumatic Eyes: normal inspection Neck: supple, Trachea midline Respiratory/Chest: Decreased breath sounds, CTA, +Pacer Cardiovascular: Irregularly irregular, tachycardic , + murmur Abdomen/GI:Soft, Non tender, Bowel sounds present Extremities/Musculoskeletal:normal inspection, no edema Neurologic/Psych: Alert awake oriented, grossly no focal deficits Skin: normal color, warm Results & Data Results & Data ([facility]) Vital Signs (Past 12 Hours) Vital Signs Temp Pulse Resp BP Pulse Ox 02/06/21 15:19 103 H 02/06/21 15:00 36.9 C 108 H 25 H 100/72 99 02/06/21 14:00 36.8 C 93 H 22 99/75 L 100 02/06/21 13:00 36.7 C 102 H 24 107/77 97 02/06/21 12:00 36.7 C 103 H 24 98/76 L 96 02/06/21 11:00 36.8 C 89 23 98/70 L 99 02/06/21 10:00 36.9 C 102 H 21 101/75 95 02/06/21 09:01 36.9 C 102 H 24 106/63 98 02/06/21 08:00 36.8 C 107 H 24 107/73 100 02/06/21 07:01 36.8 C 101 H 20 104/82 81 L 02/06/21 06:38 36.7 C 107 H 22 93/69 L 92 02/06/21 06:00 36.7 C 116 H 23 95 02/06/21 05:01 36.7 C 105 H 23 103/86 94 02/06/21 05:00 36.8 C 106 H 24 87 L 02/06/21 04:01 36.7 C 111 H 22 109/72 99 02/06/21 04:00 36.7 C 120 H 24 100 Laboratory Results Short CBC 02/06/21 Range/Units 05:07 WBC 9.15 (4.8-10.8) K/uL Hgb 9.9 L (14.0-18.0) g/dL Hct 31.7 L (42-52) % Plt Count 107 L (130-400) K/uL BMP 02/06/21 05:07 Sodium 146 H Potassium 3.6 Chloride 109 H Carbon Dioxide 32 BUN 50 H Creatinine 1.22 D Glucose 115 H Calcium 8.1 L Liver Function 02/06/21 Range/Units 05:07 Total Bilirubin 1.9 H (0.2-1) mg/dl AST 328 H (15-37) U/L ALT 734 H (12-78) U/L Alkaline Phosphatase 60 (45-117) U/L Albumin 2.9 L (3.4-5.0) gm/dl (1) Respiratory failure Chronicity: acute Respiratory failure complication: hypoxia and hypercapnia Qualified Code(s): J96.01 - Acute respiratory failure with hypoxia; J96.02 - Ac [place] respiratory failure with hypercapnia
[2021-02-07] MEDS: HEPARIN SODIUM/DEXTROSE 25,000 UNITS/500 ML BAG IV SCH ×3 (00:58→19:25)
[2021-02-07] MEDS ORDERED: FUROSEMIDE 20 MG in SYRINGE 0 ML IV ONE (02:50)
[2021-02-07 05:06] LABS: Hematocrit (blood only) 34.1 % (42-52); Hemoglobin 10.5 g/dL (14.0-18.0); Mean Corpuscular Hemoglobin 26.6 pg (25-34); Mean Corpuscular Hgb Conc 30.8 g/dL (32-36); Mean Corpuscular Volume 86.5 fL (80-100); Mean Platelet Volume 10.9 fL (7.4-10.4); Platelet Count 117 K/uL (130-400); RDW Standard Deviation 56.3 fL (36.4-46.3); Red Blood Count 3.94 M/uL (4.7-6.1); White Blood Count 8.64 K/uL (4.8-10.8)
[2021-02-07 05:27] LABS: INR 1.3 (0.9-1.1); Partial Thromboplastin Ratio 2.3; Prothrombin Time 12.7 Seconds (9.0-12.0)
[2021-02-07 05:31] LABS: Albumin Level 2.9 gm/dl (3.4-5.0); BUN Creatinine Ratio 33.1 (10-20); Calcium 8.3 mg/dl (8.5-10.1); Creatinine Clr Calc Pharmacy 65.8 ml/min; Est GFR (African American) 79.1 ml/min; Est GFR (Non-African American) 68.2 ml/min; Magnesium 2.1 mg/dl (1.8-2.4); Potassium 4.1 mmol/L (3.5-5.1)
[2021-02-07 05:38] LABS: Albumin Globulin Ratio 0.8 (0.9-2); Bilirubin,Total 1.9 mg/dl (0.2-1); Globulin 3.7 gm/dl (2.5-4.0); Phosphorus 2.8 mg/dl (2.5-4.9); Total Protein 6.6 gm/dl (6.4-8.2)
[2021-02-07 05:45] LABS: Partial Thromboplastin Time 60.4 Seconds (21.0-31.0)
[2021-02-07] MEDS: LEVOTHYROXINE SODIUM 112 MCG TABLET PO SCH (06:42)
[2021-02-07] MEDS: PIPERACILLIN/TAZOBACTAM 3.375 GM in DEXTROSE 5% 100 ML IV SCH ×3 (07:14→19:25)
[2021-02-07] MEDS: POTASSIUM CHLORIDE 40 MEQ in D5W AND 1/2NSS 1,000 ML/1,000 ML BAG IV SCH (07:14)
--- NOTE | 2021-02-07 09:19 | Critical Care Progress Note ---
Date of Service February 07, 2021 Assessment & Plan (1) Admitted to intensive care unit: Impression: 70-year-old male with acute hypoxic respiratory failure requiring endotracheal intubation. Patient has a known history of severe ischemic cardiomyopathy with an ejection fraction of less than 15% as well as severe MR and severe . Patient with NSTEMI and BNP of greater than 35,000. Elevated lactate greater than 7. VENTURA. Tachycardia/atrial fibrillation with EF approximately 15%. He was extubated 02/05 24-hour events: Remains significantly weak and deconditioned. He is intermittently been on and off BiPAP. He received an additional dose of Lasix last evening. Recommendations: Neuro- weak and deconditioned. PT and OT evaluations ordered. Try to mobilze as tolerated. CARDIAC/VASCULAR - NSTEMI: Appreciate cardiology consultation. The patient is in A. fib with a rapid ventricular response. Unfortunately his severe valvular heart disease including MR and complicate the issue. He is not a surgical candidate for intervention currently. Off dobutamine, continue digoxin. Lactic acidosis has cleared. Suspect his elevated troponin is related to supply demand mismatch. Not a candidate for amio given LFTs and chronic a fib. Anticoagulation with heparin gtt. diuresis as tolerated RESPIRATORY -hypoxemic and hypercarbic respiratory failure. The patient has a longstanding history of tobacco abuse and continued to smoke at the rate of 1 pack/day up until his admission. He has known severe obstructive lung disease. Continue HHFOT alternating with PAP as needed. No evidence of reaccumulation of pleural effusion - had been controlled in outpatient setting with diuretics. Restart Lasix. Pt reaffirms DNI status. Can continue to use noninvasive positive pressure ventilation as needed GI/NUTRITION -patient has a history of cirrhosis likely multifactorial due to combinations of congestive hepatopathy superimposed on prior history of alcohol. No significant ascites identified on CT scan. Surgery was consulted for potential acalculous cholecystitis however the patient is not a surgical candidate given his comorbidities. GGT normal, so hold on HIDA. Normal portal venous flow without evidence of thrombosis. I suspect his liver function abnormalities are secondary to congestive hepatopathy - now returning to normal. They will continue to be trended at this point time. Avoid any additional hepatotoxins. Bedside swallow by nursing today for meds. If fails will need ST evaluation. RENAL/LYTES -acute on chronic kidney disease. Serum creatinine stable. Mild hypernatremia improved today with IV free water. Appreciate nephrology consultation. Replacing electrolytes. Trying to maintain patient on the dry side. Restart Lasix and Aldactone - keep rose given debility and need for I/O tracking ENDO -continue glycemic control per protocol. Continue home Synthroid. HEME - anemia, no signs of bleeding. The patient is on lifelong anticoagulation for PEs. He is been followed by the [facility] hematology clinic. Given his liver function abnormalities, will hold Xarelto. He is not a great candidate for Lovenox and reports an allergy. Will continue heparin. No indication for transfusion. ID -S marcescens in sputum - day #5 Zosyn - will complete 7-10 days based on clinical response. WBC better and fever curve better. Patient's overall prognosis is significantly guarded due to his underlying comorbidities. I had discussed previously with the patient in the outpatient setting advanced directives and at that time he agreed to DNR/DNI. He confirms this status. I am unsure if the patient can actually recover from his current illness. I will broach the subject of hospice with his this morning as I do not think his mental status allows for complex discussions at this time. Discussed that we will try and continue to get him back to his previous state of health which was not great. Unclear if this is an achievable goal. I advised the patient that if the current interventions are not consistent with his wishes, we could reevaluate and discontinue at any time. We did broach the topic of sending him home with hospice. He is taking it under consideration but is not yet ready to make a decision. Palliative care is engaged and will continue to revisit these issues based on the patient's clinical response. Should the patient worsen clinically, would favor transition to full comfort measures. We will try and discuss with family today. He does not really have much in the way of a critical care issue at this point in time we certainly could consider transferring him to the floor. Will discuss with the hospitalist. 40 min coordinating care including end-of-life care. Discussed with bedside nurses as well as with patient at bedside LINES/IV ACCESS - PIVs x2 Rose DVT PROPHYLAXIS - Heparin Gtt SCDs (2) Congestive heart failure: (3) Respiratory failure: (4) Acute kidney injury: (5) Atrial fibrillation with rapid ventricular response: (6) Pleural effusion: Admission and Anticipated Discharge Date Admission Date: February 03, 2021 Subjective Patient appears encephalopathic this morning. He wakes to verbal stimulation but is not really interactive. Review of Systems Review of Systems: Unobtainable due to reduced consciousness Physical Exam Constitutional: + ill appearing, + thin, + mechanically ventilated and + malnourished Neck: trachea midline, no thyromegaly Respiratory: normal respiratory effort Auscultation: no crackles and no wheezes Cardiovascular: Rate/Rhythm: + tachycardic and + irregularly irregular Heart Sounds: normal S1, normal S2 and + murmur Extremities: no edema Gastrointestinal (Abdomen): normal bowel sounds, soft, nontender, no hepatosplenomegaly Musculoskeletal: Extremities: extremities normal to inspection Skin: no rashes, warm and dry Lymphatic: no cervical lymphadenopathy Results & Data Results & Data ([facility]) Vital Signs (Past 12 Hours) Vital Signs Temp Pulse Resp BP Pulse Ox 02/07/21 08:00 37.5 C 112 H 28 H 137/95 100 02/07/21 07:01 37.6 C H 108 H 28 H 120/87 100 02/07/21 06:01 37.4 C 123 H 27 H 105/85 100 02/07/21 05:40 124 H 27 H 97 02/07/21 05:00 37.2 C 123 H 24 99/72 L 99 02/07/21 04:00 37.2 C 97 H 24 101/62 100 02/07/21 03:01 37.2 C 112 H 27 H 112/76 100 02/07/21 02:00 37.3 C 99 H 25 H 110/76 98 02/07/21 01:01 37.3 C 106 H 28 H 111/67 100 02/07/21 00:00 37.3 C 93 H 25 H 104/71 96 02/06/21 23:00 37.3 C 90 26 H 100/72 97 02/06/21 22:29 110 H 25 H 99 02/06/21 22:00 37.4 C 108 H 26 H 109/80 100 Critical Care Results & Data Vital Signs (Past 12 Hours) Vital Signs Temp Pulse Resp BP Pulse Ox 02/07/21 08:00 37.5 C 112 H 28 H 137/95 100 02/07/21 07:01 37.6 C H 108 H 28 H 120/87 100 02/07/21 06:01 37.4 C 123 H 27 H 105/85 100 02/07/21 05:40 124 H 27 H 97 02/07/21 05:00 37.2 C 123 H 24 99/72 L 99 02/07/21 04:00 37.2 C 97 H 24 101/62 100 02/07/21 03:01 37.2 C 112 H 27 H 112/76 100 02/07/21 02:00 37.3 C 99 H 25 H 110/76 98 02/07/21 01:01 37.3 C 106 H 28 H 111/67 100 02/07/21 00:00 37.3 C 93 H 25 H 104/71 96 02/06/21 23:00 37.3 C 90 26 H 100/72 97 02/06/21 22:29 110 H 25 H 99 02/06/21 22:00 37.4 C 108 H 26 H 109/80 100 Lab & Micro Results (Past 24 Hours) RBC 3.94 M/uL (4.7-6.1) L 02/07/21 WBC 8.64 K/uL (4.8-10.8) 02/07/21 Hgb 10.5 g/dL (14.0-18.0) L 02/07/21 Hct 34.1 % (42-52) L 02/07/21 MCV 86.5 fL (80-100) 02/07/21 MCH 26.6 pg (25-34) 02/07/21 MCHC 30.8 g/dL (32-36) L 02/07/21 RDW Standard Deviation 56.3 fL (36.4-46.3) H 02/07/21 RDW Coefficient of Variation 18.0 % (11.5-14.5) H 02/07/21 Plt Count 117 K/uL (130-400) L 02/07/21 MPV 10.9 fL (7.4-10.4) H 02/07/21 Na 144 mmol/L (136-145) 02/07/21 K 4.1 mmol/L (3.5-5.1) 02/07/21 Cl 104 mmol/L (98-107) 02/07/21 CO2 38 mmol/L (21-32) H 02/07/21 Anion Gap 2.0 (3-11) L 02/07/21 BUN 36 mg/dl (7-18) H 02/07/21 Creatinine 1.08 mg/dl (0.6-1.4) 02/07/21 Estimated GFR ( Amer) 79.1 ml/min 02/07/21 Estimated GFR (Non-Af Amer) 68.2 ml/min 02/07/21 BUN/Creatinine Ratio 33.1 (10-20) H 02/07/21 Glu 122 mg/dl (70-99) H 02/07/21 Ca 8.3 mg/dl (8.5-10.1) L 02/07/21 Phosphorus Level 2.8 mg/dl (2.5-4.9) 02/07/21 Total Bilirubin 1.9 mg/dl (0.2-1) H 02/07/21 AST 244 U/L (15-37) H 02/07/21 ALT 642 U/L (12-78) H 02/07/21 Alkaline Phosphatase 71 U/L (45-117) 02/07/21 TP 6.6 gm/dl (6.4-8.2) 02/07/21 Albumin 2.9 gm/dl (3.4-5.0) L 02/07/21 Globulin 3.7 gm/dl (2.5-4.0) 02/07/21 Albumin/Globulin Ratio 0.8 (0.9-2) L 02/07/21 Mg 2.1 mg/dl (1.8-2.4) 02/07/21 04:54 02/07/21 Calcium Level 8.3 mg/dl (8.5-10.1) L 02/07/21 04:54 02/07/21 Prothromb Time International Ratio 1.3 (0.9-1.1) H 02/07/21 04:54 02/07/21 Microbiology 02/04/21 09:50 Gram Stain - Final Sputum,Vent Suction Sputum Culture - Final Serratia marcescens I & O Totals 24 Hours 02/06/21 02/07/21 02/08/21 06:59 06:59 06:59 Intake Total 1596.064 / 8457.207 7542.00 / 2165.00 169.2 / 169.2 Output Total 1755 / 1755 3800 / 3800 150 / 150 Balance -158.936 / -158.936 -1635.00 / -1635.00 19.2 / 19.2 Cumulative 02/03/21 15:52 thru 02/07/21 07:47 Intake Total 7666.945 Output Total 8536 Balance -869.055 RT Ventilator Mngmt (Last Documented) Ventilator Ordered Settings Ventilator Support Mode CPAP 02/05/21 12:00 Respiratory Rate 28 02/07/21 08:00 Ventilator Tidal Volume 400 02/05/21 08:00 Setting Minute Ventilation 8 02/05/21 10:58 Ventilator Positive Pressure 8 02/05/21 12:00 Support Setting Positive End Expiratory 5 02/05/21 12:00 Pressure Fraction of Inspired Oxygen 30 02/07/21 05:40 Machine Comment increased to 40% to increase Sp02 02/04/21 16:31 to 90%. Ventilator - PT Measurements Respiratory Rate 28 Exhaled Tidal Volume 396 Minute Ventilation 8 Peak Inspiratory Airway 20 Pressure Mean Airway Pressure 8 Plateau Pressure 15 Respiratory Cycle Inspiratory: 1:2.3 Expiratory Ratio Inspiratory Phase Time 0.9 End-Tidal CO2 26 Static Lung Compliance 39.60 Dynamic Lung Compliance 26.40 Normal Static Lung Compliance 47.00 Patient Measurements Comment extubated to 4 lpm NC Coding Level of Care Code Critical Care 1st 30-74 mins Diagnoses Admitted to intensive care unit Z78.9 Congestive heart failure I50.9 Heart failure chronicity: acute Heart failure type: unspecified Respiratory failure J96.01; J96.02 Chronicity: acute Respiratory failure complication: hypoxia and hypercapnia Acute kidney injury N17.9 Atrial fibrillation with rapid ventricular response I48.91 Pleural effusion J90 Time Spent (min) 40 (1) Congestive heart failure Heart failure chronicity: acute Heart failure type: unspecified Qualified Code(s): I50.9 - Heart failure, unspecified (2) Respiratory failure Chronicity: acute Respiratory failure complication: hypoxia and hypercapnia Qualified Code(s): J96.01 - Acute respiratory failure with hypoxia; J96.02 - Acute respiratory failure with hypercapnia
[2021-02-07] MEDS: carvediloL 3.125 MG TAB PO SCH ×2 (09:23→19:25)
[2021-02-07] MEDS: FUROSEMIDE 20 MG in SYRINGE 0 ML IV SCH ×2 (09:23→17:55)
[2021-02-07] MEDS: ASPIRIN 81 MG CHEW NG SCH (09:23)
[2021-02-07] MEDS: FAMOTIDINE 20 MG in SYRINGE 3 ML IV SCH (09:23)
--- NOTE | 2021-02-07 09:23 | XRay Report ---
XR chest 1V portable HISTORY: resp failure COMPARISON: Chest 02/06/2021. FINDINGS: No pneumothorax. There are postoperative changes again noted within the right hemithorax. T here are linear scarlike density within the left lung apex. No change in the patchy right basilar den sity. The heart remains enlarged. There is a left-sided pacemaker/defibrillator. Small right pleural effusion persists. IMPRESSION: No change in the small right pleural effusion and patchy right basilar density. ACT 112: Negative or not required by law. Electronically signed by: Enrrique Capps M.D. 02/07/2021 9:22 AM
--- NOTE | 2021-02-07 12:15 | Hospitalist Progress Note ---
Date of Service February 07, 2021 Assessment & Plan (1) Respiratory failure: Acute hypoxic, hypercarbic respiratory failure Multifactorial Right pleural effusion S/P Thoracentesis History of severe COPD, H/O right-sided pulmonary resection CHF contributing as well -CT Chest: Emphysema with postoperative change and volume loss from right-sided pulmonary resection. There is a small to moderate right pleural effusion with dense consolidation at the right lung base. Consolidative change is new from 12/07/2020. Correlate clinically for evidence of pneumonia/aspiration pneumonitis. Endotracheal and enteric tubes are in place. Trace left pleural effusion. There is increasing paramediastinal fibrosis in the left upper lobe. This may be treatment related and clinical correlation will be required. A 3 cm masslike opacity at the left apex and a groundglass nodule in the lingula have not significantly changed from 12/07/2020. Cardiomegaly and AICD. There is trace upper abdominal ascites. Mildly enlarged mediastinal lymph nodes are nonspecific. Aneurysmal dilatation of the ascending thoracic aorta is unchanged. -CVOID Screen:Negative -Extubated on 02/05/21 -Appreciate critical care input -Pleural fluid growing daily Cutibacterium species -Code Status changed to DNI/DNR -Palliative care following Overall prognosis remains poor Continue BiPAP Family updated on poor prognosis Acute on chronic systolic heart failure Severe aortic stenosis -ECHO: Severe global hypokinesis of the left ventricle, septal motion is consistent with conduction abnormality. EF less than 15%. Left atrium is moderately dilated. Severe aortic stenosis. Moderate to severe mitral regurgitation. Moderate aortic root dilatation. Poor prognosis Weaned off of dobutamine ggt Continue digoxin Appreciate cardiology input Monitor volume status, I/Os, daily weight Continue IV Lasix Palliative care following Not a candidate for surgery Cardiology following Myocardial infarction type 2 In the setting of demand ischemia Echo as above Chronic elevated troponin Acute kidney injury Baseline creatinine 0.9 Avoid nephrotoxic agents as able Appreciate neurology input Monitor renal function Creatinine 1.84>1.6>1.22>1.08 A. fib RVR Continue digoxin, carvedilol Was on Xarelto for anticoagulation Cardiology on board on IV heparin Hypernatremia Continue gentle IV fluids as per critical care Monitor sodium levels Sodium levels improved Hyperkalemia Likely secondary to VENTURA Monitor potassium levels Resolved Possible Sepsis Possible Pneumonia-POA Blood culture: no growth Sputum: Serratia Pleural fluid culture:Cutibacterium Species Continue Zosyn Needs to complete 7 to 10-day course of antibiotics Transaminitis Likely due to hepatic congestion Monitor LFTs Hypothyroidism Continue levothyroxine DVT Px: IV Heparin Code Status DNI/DNR Poor prognosis Admission and Anticipated Discharge Date Admission Date: February 03, 2021 Subjective Patient is seen and examined at bedside Clinically deteriorated Patient unable to provide much history Mild respiratory distress on exam Updated patient's over the phone A. fib RVR on monitor Very poor Prognosis on BiPAP currently Review of Systems Review of Systems: Other Physical Exam Physical Exam: Physical Exam: Vitals signs as noted above General Appearance: Thin, ill-appearing, No distress Head: normocephalic, Atraumatic Eyes: normal inspection Neck: supple, Trachea midline Respiratory/Chest: Decreased breath sounds, CTA, +Pacer Cardiovascular: Irregularly irregular, tachycardic , + murmur Abdomen/GI:Soft, Non tender, Bowel sounds present Extremities/Musculoskeletal:normal inspection, no edema Neurologic/Psych: Alert awake, grossly no focal deficits Skin: normal color, warm Results & Data Results & Data ([facility]) Vital Signs (Past 12 Hours) Vital Signs Temp Pulse Resp BP Pulse Ox 02/07/21 11:14 109 H 26 H 95 02/07/21 10:00 37.3 C 96 H 29 H 113/78 93 02/07/21 09:00 37.4 C 91 H 29 H 114/73 100 02/07/21 08:00 37.5 C 112 H 28 H 137/95 100 02/07/21 07:01 37.6 C H 108 H 28 H 120/87 100 02/07/21 06:01 37.4 C 123 H 27 H 105/85 100 02/07/21 05:40 124 H 27 H 97 02/07/21 05:00 37.2 C 123 H 24 99/72 L 99 02/07/21 04:00 37.2 C 97 H 24 101/62 100 02/07/21 03:01 37.2 C 112 H 27 H 112/76 100 02/07/21 02:00 37.3 C 99 H 25 H 110/76 98 02/07/21 01:01 37.3 C 106 H 28 H 111/67 100 Laboratory Results Short CBC 02/07/21 Range/Units 04:54 WBC 8.64 (4.8-10.8) K/uL Hgb 10.5 L (14.0-18.0) g/dL Hct 34.1 L (42-52) % Plt Count 117 L (130-400) K/uL BMP 02/07/21 04:54 Sodium 144 Potassium 4.1 Chloride 104 Carbon Dioxide 38 H BUN 36 H Creatinine 1.08 Glucose 122 H Calcium 8.3 L Liver Function 02/07/21 Range/Units 04:54 Total Bilirubin 1.9 H (0.2-1) mg/dl AST 244 H (15-37) U/L ALT 642 H (12-78) U/L Alkaline Phosphatase 71 (45-117) U/L Albumin 2.9 L (3.4-5.0) gm/dl (1) Respiratory failure Chronicity: acute Respiratory failure complication: hypoxia and hypercapnia Qualified Code(s): J96.01 - Acute respiratory failure with hypoxia; J96.02 - Acute respiratory failure with hypercapnia
--- NOTE | 2021-02-07 12:16 | Cardiology Progress Note ---
Date of Service February 07, 2021 Assessment & Plan (1) Respiratory failure: (2) Nonischemic cardiomyopathy: (3) Severe aortic stenosis: Continue BiPap support, UF heparin (AF) , furosemide 20 mg IV BID. Statin / Zetia on hold given elevated LFTS. Not a candidate for intervention of . Would not survive procedure in his current state. Prognosis poor. Admission and Anticipated Discharge Date Admission Date: February 03, 2021 Subjective Patient seen in cardiology follow up. Telemetry reveals AF, ventricular pacing at 101 bpm. Pt on Bipap FI02 35%. Pulse ox 95%. Non conversant. Squeezes my hand on command. Review of Systems Review of Systems: Unobtainable due to reduced consciousness Physical Exam Physical Exam: Temp Pulse Resp BP Pulse Ox 37.3 C 109 H 26 H 113/78 95 02/07/21 10:00 02/07/21 11:14 02/07/21 11:14 02/07/21 10:00 02/07/21 11:14 Constitutional: ill in appearance Respiratory: Auscultation: + diminished lung sounds (decreased BS at the bases ) Cardiovascular: Rate/Rhythm: regular rhythm Heart Sounds: + murmur (1/6 SM) Extremities: no edema Gastrointestinal (Abdomen): normal bowel sounds, soft, nontender, no hepatosplenomegaly Neurologic: minimally responsive, follows commands Results & Data ([facility]) Vital Signs (Past 12 Hours) Vital Signs Temp Pulse Resp BP Pulse Ox 02/07/21 11:14 109 H 26 H 95 02/07/21 10:00 37.3 C 96 H 29 H 113/78 93 02/07/21 09:00 37.4 C 91 H 29 H 114/73 100 02/07/21 08:00 37.5 C 112 H 28 H 137/95 100 02/07/21 07:01 37.6 C H 108 H 28 H 120/87 100 02/07/21 06:01 37.4 C 123 H 27 H 105/85 100 02/07/21 05:40 124 H 27 H 97 02/07/21 05:00 37.2 C 123 H 24 99/72 L 99 02/07/21 04:00 37.2 C 97 H 24 101/62 100 02/07/21 03:01 37.2 C 112 H 27 H 112/76 100 02/07/21 02:00 37.3 C 99 H 25 H 110/76 98 02/07/21 01:01 37.3 C 106 H 28 H 111/67 100 (1) Respiratory failure Chronicity: acute Respiratory failure complication: hypoxia and hypercapnia Qualified Code(s): J96.01 - Acute respiratory failure with hypoxia; J96.02 - Acute respiratory failure with hypercapnia
[2021-02-07] MEDS: DIGOXIN 0.125 MG TAB PO SCH (15:41)
[2021-02-07 18:17] VITALS: BP 132/80; TEMP 99.5; O2SAT 99
[2021-02-07] MEDS ORDERED: ONDANSETRON INJ 2 MG/ML 2 ML VIAL IV PRN (18:24)
[2021-02-07] MEDS ORDERED: LORazepam 0.5 MG/1 ML VIAL IV PRN (18:24)
[2021-02-07] MEDS ORDERED: GLYCOPYRROLATE 0.2 MG/ML VIAL IV PRN (18:24)
[2021-02-07] MEDS ORDERED: MoRPHine SULFATE 5 MG/0.25 ML UDP PO PRN (18:24)
[2021-02-07] MEDS ORDERED: ONDANSETRON 4 MG OD TAB SL PRN (18:24)
[2021-02-07] MEDS ORDERED: ATROPINE SULFATE 1% OP SOLN 5 ML BTL SL PRN (18:24)
[2021-02-07] MEDS ORDERED: MoRPHine SULFATE 2 MG/ML CARP IV PRN (18:24)
[2021-02-07] MEDS ORDERED: LORazepam 0.5 MG TAB PO PRN (18:24)
--- NOTE | 2021-02-07 18:37 | Communication Note ---
Date of Service: February 07, 2021 I discussed with SangDREEK for .Terence Domínguez regarding patient's condition and very poor prognosis. is currently unable to make any medical de cision for himself. preferred the patient to be transitioned to comfort measures only. She understands and agrees with current management. " is aware of his condition and is surprised to make through all these years and [place]."
--- NOTE | 2021-02-08 02:23 | Death Pronouncement Note ---
Date of Service February 08, 2021 Pronouncement Note Admission Date Admission Date: February 03, 2021 Date and Time of Date of : 02/08/21 Time of : 02:15 Contributing Factors (1) Respiratory failure: Summary Additional details: Discharge summary to be accomplished by Dr. Fried. Additional Data Confirmation of : no pulse, no respirations, no heart sounds and pupils fixed and dilated Family: at bedside Attending/PCP notified?: No Attending physician: Brian Fried MD
[2021-02-08 02:42] VITALS: PULSE 136
--- NOTE | 2021-02-08 07:46 | Discharge Summary ---
Date of Service February 08, 2021 Admission HPI Per Admitting Provider From ER Dr. Bueno entered the room as patient was being intubated. per Dr [id number]-old male who presented to the emergency department for an evaluation of shortness of breath. The patient has a history of pulmonary edema and CHF with a very low ejection fraction (10%) and aortic stenosis. The patient does have a defibrillator pacer. He does have a history of atrial fibrillation as well. He told his significant other he was having difficulty breathing this morning. He started having worsening and worsening symptoms through the day. She called 911 when the patient started having very severe symptoms. The patient did not have a fever. He has had no cough. He has had lower extremity swelling which is not new for him. He was starting to change his Lasix and take extra doses because of worsening pulmonary edema. He denies having any nausea or vomiting. The patient was found to be obtunded by the prehospital personnel and was placed on CPAP prior to arrival. Oxygen saturation was noted to be in the 70s and 80s prior to arrival by the prehospital personnel. The patient also takes oral anticoagulation. It is unclear if the patient has been compliant with these medications. He has a history of lung cancer as well. Admission Exam Per Admitting Provider Physical Exam Physical Exam: ROS-Offers no history Physical Exam Gen-Vented, NAD, Afebrile Head-NCAT, EOMI, PERRLA, Anicteric Sclera Neck-Supple, No JVD, No Thyromegaly, No Masses, No LAD, No Bruits Lungs-Clear to Auscultation Bilaterally, No Rales, No Rhonchi, No Wheezing, No Crepitus Chest-No S4, +S1, +S2, No S3, No Murmurs, No Rubs, No Gallops, No Ectopy Abdomen-Soft, Bowel Sounds Present, Non Tender, Non Distended, No Hepatomegaly, No Splenomegaly, No Palpable Masses, No Rebound, No Rigidity, No Guarding Musculoskeletal-Full Range of Motion Bilaterally, No CVAT Extremities-No Cyanosis, No Clubbing, No Edema Nuero-Cranial Nerves II-XII grossly intact, Motor WNL, DTRs WNL, Strength WNL, Non Focal Psych-Normal Mood prior to intubation Principal Diagnosis Acute hypoxic, hypercarbic respiratory failure Acute on chronic systolic heart failure Advanced COPD Acute Kidney Injury Atrial fibrillation with rapid ventricular response Severe aortic stenosis Right pleural effusion S/P Thoracentesis Possible Pneumonia Transaminitis Discharge Data Allergies Allergy/AdvReac Type Severity Reaction Status Date / Time enoxaparin [From Lovenox] Allergy Intermediate itchy Verified 02/03/21 16:40 adhesive tape Allergy Mild redness Verified 02/03/21 16:40 metoprolol Allergy Mild itchy Verified 02/03/21 16:40 naproxen Allergy Unknown ITCHY Verified 02/03/21 16:40 Consultations 02/03/21 19:41 ED Decision to Admit Stat 02/03/21 19:48 Consult Emt Intermediate Routine 02/03/21 20:14 Consult Cardiology Routine 02/03/21 20:15 Consult Nephrology Routine 02/04/21 05:47 Consult General Surgery Routine 02/04/21 09:40 Consult Palliative Care Routine Procedures Performed CT Chest: Emphysema with postoperative change and volume loss from right-sided pulmonary resection. There is a small to moderate right pleural effusion with dense consolidation at the right lung base. Consolidative change is new from 12/07/2020. Correlate clinically for evidence of pneumonia/aspiration pneumonitis. Endotracheal and enteric tubes are in place. Trace left pleural effusion. There is increasing paramediastinal fibrosis in the left upper lobe. This may be treatment related and clinical correlation will be required. A 3 cm masslike opacity at the left apex and a groundglass nodule in the lingula have not significantly changed from 12/07/2020. Cardiomegaly and AICD. There is trace upper abdominal ascites. Mildly enlarged mediastinal lymph nodes are nonspecific. Aneurysmal dilatation of the ascending thoracic aorta is unchanged. ECHO: Severe global hypokinesis of the left ventricle, septal motion is consistent with conduction abnormality. EF less than 15%. Left atrium is moderately dilated. Severe aortic stenosis. Moderate to severe mitral regurgitation. Moderate aortic root dilatation. Ordered Studies 02/03/21 21:58 US duplex portal hepatic veins Urgent US gallbladder Urgent 02/03/21 22:38 CT abd pelvis wo con Urgent CT chest diagnostic wo con Urgent Hospital Course (1) Respiratory failure: Acute hypoxic, hypercarbic respiratory failure Multifactorial Right pleural effusion S/P Thoracentesis History of severe COPD, H/O right-sided pulmonary resection CHF contributing as well -CT Chest: Emphysema with postoperative change and volume loss from right-sided pulmonary resection. There is a small to moderate right pleural effusion with dense consolidation at the right lung base. Consolidative change is new from 12/07/2020. Correlate clinically for evidence of pneumonia/aspiration pneumonitis. Endotracheal and enteric tubes are in place. Trace left pleural effusion. There is increasing paramediastinal fibrosis in the left upper lobe. This may be treatment related and clinical correlation will be required. A 3 cm masslike opacity at the left apex and a groundglass nodule in the lingula have not significantly changed from 12/07/2020. Cardiomegaly and AICD. There is trace upper abdominal ascites. Mildly enlarged mediastinal lymph nodes are nonspecific. Aneurysmal dilatation of the ascending thoracic aorta is unchanged. -CVOID Screen:Negative -Extubated on 02/05/21 -Appreciate critical care input -Pleural fluid growing daily Cutibacterium species -Code Status changed to DNI/DNR -Palliative care following Overall prognosis remains poor Continue BiPAP Family updated on poor prognosis Acute on chronic systolic heart failure Severe aortic stenosis -ECHO: Severe global hypokinesis of the left ventricle, septal motion is consistent with conduction abnormality. EF less than 15%. Left atrium is moderately dilated. Severe aortic stenosis. Moderate to severe mitral regurgitation. Moderate aortic root dilatation. Poor prognosis Weaned off of dobutamine ggt Continue digoxin Appreciate cardiology input Monitor volume status, I/Os, daily weight Continue IV Lasix Palliative care following Not a candidate for surgery Cardiology following Myocardial infarction type 2 In the setting of demand ischemia Echo as above Chronic elevated troponin Acute kidney injury Baseline creatinine 0.9 Avoid nephrotoxic agents as able Appreciate neurology input Monitor renal function Creatinine 1.84>1.6>1.22>1.08 A. fib RVR Continue digoxin, carvedilol Was on Xarelto for anticoagulation Cardiology on board on IV heparin Hypernatremia Continue gentle IV fluids as per critical care Monitor sodium levels Sodium levels improved Hyperkalemia Likely secondary to VENTURA Monitor potassium levels Resolved Possible Sepsis Possible Pneumonia-POA Blood culture: no growth Sputum: Serratia Pleural fluid culture:Cutibacterium Species Continue Zosyn Needs to complete 7 to 10-day course of antibiotics Transaminitis Likely due to hepatic congestion Monitor LFTs Hypothyroidism Continue levothyroxine DVT Px: IV Heparin Code Status DNI/DNR Poor prognosis I discussed with DEREK Walker for Mr.Terence Sang regarding patient's condition and very poor prognosis. is currently unable to make any medical decision for himself. preferred the patient to be transitioned to comfort measures only. She understands and agrees with current management. " is aware of his condition and is surprised to make through all these years and [place]." Patient is transitioned to comfort measures as per family's request. He on Date of : 02/08/21 at Time of : 02:15 as per documentation. Total Time Total Time Spent Total Time Spent (In Minutes): 25 minutes Total Time Includes: Examination of the Patient, Discharge Planning, Medication Reconciliation, Communication With Other Providers and Other Discharge Plan Discharge Items Patient Disposition: Discharge Diagnosis: Acute hypoxic, hypercarbic respiratory failure Acute on chronic systolic heart failure Advanced COPD Acute Kidney Injury Atrial fibrillation with rapid ventricular response Severe aortic stenosis Right pleural effusion S/P Thoracentesis Possible Pneumonia Transaminitis Addtl Attending Provider Instructions: overnight
== END 2021-02-08 02:44 | disposition expired | DRG 871 ==
LOC: ED 16:08 → 1E 18:45 → SUATTDRO 18:45 → 1E 19:33 → 3W 02-07 18:27